=== PATIENT | female | born 1955 | race Caucasian/White ===

== ENCOUNTER 2020-03-26 11:48 | Emergency (ER) | payer MEDICARE ==
[~2020-03-26] VITALS: Ht 167.6 cm; Wt 63.5 kg
--- OUTSIDE RECORDS SUMMARY | ~2020-03-26 | XMS | Encounter Summary ---
Demographics + + + | Address | [address] | | | [place] [address] | + + + | Home Phone | | + + + | Preferred Language | Unknown | + + + | Marital Status | | + + + | Hindu Affiliation | 1041 | + + + | Race | or | + + + | Ethnic Group | Not or | + + + Author + + + | Author | [facility] | | | and [place] | + + + | Organization | [facility] | | | and [place] | + + + | Address | Unknown | + + + | Phone | Unavailable | + + + Support + + + + + | Name | Relationship | Address | Phone | + + + + + | Terrance Flores | ECON | [address] | | | | | [place] [address] | | + + + + + Care Team Providers + +------+ + | Care Storm Chaser Name | Role | Phone | + +------+ + | Paco Agarwal PA-C | PCP | | + +------+ + Encounter Details +--------+ + + + + | Date | Type | Department | Care Team | Description | +--------+ + + + + | 04/19/ | Abstract | [facility] | [address] | | | 2012 | | [facility] [address] | MD Rohan [address] | | | | | [place], | [address] [place] | | | | | [place] [address] | [place] [address] | | | | | [phone] | [phone] | | | | | | | | +--------+ + + + + Social History + + + +--------+ + | Tobacco Use | Types | Packs/Day | Years | Date | | | | | Used | | + + + +--------+ + | Former Smoker | Cigarettes | 0.5 | 40 | Quit: 09/22/2011 | + + + +--------+ + + +---+---+---+ | Smokeless Tobacco: | | | | | Never Used | | | | + +---+---+---+ + + +---------+ + | Alcohol Use | Drinks/Week | oz/Week | Comments | + + +---------+ + | No | | | quit 1989 | + + +---------+ + + + + | Sex Assigned at | Date Recorded | | | | + + + | Not on file | | + + + documented as of this encounter Plan of Treatment Not on filedocumented as of this encounter Procedures + +--------+ + + + | Procedure Name | Priori | Date/Time | Associated Diagnosis | Comments | | | ty | | | | + +--------+ + + + | CBC W/AUTO | Routin | 04/18/2013 | | Results for this | | DIFFERENTIAL | e | 3:14 PM | | procedure are in the | | | | PDT | | results section. | + +--------+ + + + | CMPI | Routin | 04/18/2013 | | Results for this | | | e | 3:12 PM | | procedure are in the | | | | PDT | | results section. | + +--------+ + + + | EXTERNAL LAB: CBC | Routin | 04/18/2013 | | Results for this | | | e | | | procedure are in the | | | | | | results section. | + +--------+ + + + | EXTERNAL LAB: AST | Routin | 04/18/2013 | | Results for this | | | e | | | procedure are in the | | | | | | results section. | + +--------+ + + + | EXTERNAL LAB: ALT | Routin | 04/18/2013 | | Results for this | | | e | | | procedure are in the | | | | | | results section. | + +--------+ + + + | EXTERNAL LAB: | Routin | 04/18/2013 | | Results for this | | TRIGLYCERIDES | e | | | procedure are in the | | | | | | results section. | + +--------+ + + + | EXTERNAL LAB: | Routin | 04/18/2013 | | Results for this | | CHOLESTEROL, HDL | e | | | procedure are in the | | | | | | results section. | + +--------+ + + + | EXTERNAL LAB: | Routin | 04/18/2013 | | Results for this | | CHOLESTEROL, TOTAL | e | | | procedure are in the | | | | | | results section. | + +--------+ + + + | EXTERNAL LAB: | Routin | 04/18/2013 | | Results for this | | CHOLESTEROL, LDL | e | | | procedure are in the | | | | | | results section. | + +--------+ + + + | EXTERNAL LAB: EGFR | Routin | 04/18/2013 | | Results for this | | | e | | | procedure are in the | | | | | | results section. | + +--------+ + + + | EXTERNAL LAB: | Routin | 04/18/2013 | | Results for this | | CREATININE | e | | | procedure are in the | | | | | | results section. | + +--------+ + + + | EXTERNAL LAB: | Routin | 04/18/2013 | | Results for this | | HEMOGLOBIN A1C | e | | | procedure are in the | | | | | | results section. | + +--------+ + + + documented in this encounter Results CBC w/ Auto Differential (04/18/2013 3:14 PM PDT) + +-------+ + + + | Component | Value | Ref Range | Performed | Pathologist | | | | | At | Signature | + +-------+ + + + | RBC | 4.74 | 10*6/uL | | | + +-------+ + + + | MCV | 89.0 | 80.0 - 98.0 fL | | | + +-------+ + + + | MCH | 29.8 | 26.0 - 33.0 pg | | | + +-------+ + + + | MCHC | 33.3 | 30.0 - 36.0 % | | | + +-------+ + + + | % Segmented | 45.0 | 40.0 - 80.0 % | | | | | | | | | | Neutrophils | | | | | + +-------+ + + + | % | 42.0 | 15.0 - 45.0 % | | | | Lymphocytes | | | | | + +-------+ + + + | % Monocytes | 8.0 | 0.0 - 12.0 % | | | + +-------+ + + + | % | 4.0 | 0.0 - 7.0 % | | | | Eosinophils | | | | | + +-------+ + + + | % Basophils | 1.0 | 1.0 % | | | + +-------+ + + + + + | Specimen | + + | Blood specimen | | (specimen) | + + CMP/ISTAT (04/18/2013 3:12 PM PDT) + +-------+ + + + | Component | Value | Ref Range | Performed | Pathologist | | | | | At | Signature | + +-------+ + + + | Na | 144 | mmol/L | | | + +-------+ + + + | K | 4.6 | mmol/L | | | + +-------+ + + + | Chloride | 106 | | | | + +-------+ + + + | CO2 | 26 | mmol/L | | | + +-------+ + + + | Anion Gap | 17 | mmol/L | | | + +-------+ + + + | Glucose | 113 | mg/dL | | | + +-------+ + + + | BUN | 24 | mg/dL | | | + +-------+ + + + | Bun/Creatin | 30.0 | | | | | ine | | | | | + +-------+ + + + | Alkaline | 94 | 35 - 115 U/L | | | | Phosphatase | | | | | + +-------+ + + + | Bilirubin | 0.6 | 0.1 - 1.5 mg/dL | | | | Total | | | | | + +-------+ + + + | Total | 7.2 | 6.1 - 8.4 g/dL | | | | Protein | | | | | + +-------+ + + + | Albumin | 4.1 | 3.5 - 5.0 g/dL | | | + +-------+ + + + | Calcium | 9.4 | mg/dL | | | + +-------+ + + + | VLDL | 23 | | | | | Cholesterol | | | | | | Mike | | | | | + +-------+ + + + + + | Specimen | + + | Blood specimen | | (specimen) | + + External Lab: CBC (04/18/2013) + +-------+ + + + | Component | Value | Ref Range | Performed | Pathologist | | | | | At | Signature | + +-------+ + + + | WBC, | 6.6 | 4.5 - 11 | | | | External | | | | | + +-------+ + + + | HGB, | 14.1 | 12.3 - 15.3 | | | | External | | | | | + +-------+ + + + | HCT, | 42 | 42 - 54 | | | | External | | | | | + +-------+ + + + | PLT, | 199 | 140 - 450 | | | | External | | | | | + +-------+ + + + + + | Resulting Agency Comment | + + | [facility] | + + External Lab: STEPHANIE (04/18/2013) + +-------+ + + + | Component | Value | Ref Range | Performed | Pathologist | | | | | At | Signature | + +-------+ + + + | AST, | 23 | 14 - 36 | | | | External | | | | | + +-------+ + + + + + | Specimen | + + | Blood specimen | | (specimen) | + + + + | Resulting Agency Comment | + + | [facility] | + + External Lab: ALT (04/18/2013) + +-------+ + + + | Component | Value | Ref Range | Performed | Pathologist | | | | | At | Signature | + +-------+ + + + | ALT, | 19 | 9 - 52 | | | | External | | | | | + +-------+ + + + + + | Specimen | + + | Blood specimen | | (specimen) | + + + + | Resulting Agency Comment | + + | [facility] | + + External Lab: Triglycerides (04/18/2013) + +-------+ + + + | Component | Value | Ref Range | Performed | Pathologist | | | | | At | Signature | + +-------+ + + + | Triglycerid | 117 | 0 - 150 | | | | es, | | | | | | External | | | | | + +-------+ + + + + + | Specimen | + + | Blood specimen | | (specimen) | + + + + | Resulting Agency Comment | + + | [facility] | + + External Lab: Cholesterol, HDL (04/18/2013) + +-------+ + + + | Component | Value | Ref Range | Performed | Pathologist | | | | | At | Signature | + +-------+ + + + | HDL | 41 | 40 - 60 | | | | Cholesterol | | | | | | , External | | | | | + +-------+ + + + + + | Specimen | + + | Blood specimen | | (specimen) | + + + + | Resulting Agency Comment | + + | [facility] | + + External Lab: Cholesterol, Total (04/18/2013) + +-------+ + + + | Component | Value | Ref Range | Performed | Pathologist | | | | | At | Signature | + +-------+ + + + | Cholesterol | 106 | 0 - 200 | | | | , Total, | | | | | | External | | | | | + +-------+ + + + + + | Specimen | + + | Blood specimen | | (specimen) | + + + + | Resulting Agency Comment | + + | [facility] | + + External Lab: Cholesterol, LDL (04/18/2013) + +-------+ + + + | Component | Value | Ref Range | Performed | Pathologist | | | | | At | Signature | + +-------+ + + + | LDL | 41 | | | | | Cholesterol | | | | | | , Direct, | | | | | | External | | | | | + +-------+ + + + + + | Specimen | + + | Blood specimen | | (specimen) | + + + + | Resulting Agency Comment | + + | [facility] | + + External Lab: eGFR (04/18/2013) + +-------+ + + + | Component | Value | Ref Range | Performed | Pathologist | | | | | At | Signature | + +-------+ + + + | eGFR, | 78 | 60 - 99,999 | | | | External | | | | | + +-------+ + + + | eGFR, | | | | | | | | | | | | Trinidadian, | | | | | | External | | | | | + +-------+ + + + + + | Specimen | + + | Blood specimen | | (specimen) | + + + + | Resulting Agency Comment | + + | [facility] | + + External Lab: Creatinine (04/18/2013) + +-------+ + + + | Component | Value | Ref Range | Performed | Pathologist | | | | | At | Signature | + +-------+ + + + | Creatinine, | 0.8 | 0.7 - 1.2 | | | | External | | | | | + +-------+ + + + + + | Specimen | + + | Blood specimen | | (specimen) | + + + + | Resulting Agency Comment | + + | [facility] | + + External Lab: Hemoglobin A1c (04/18/2013) + +-------+ + + + | Component | Value | Ref Range | Performed | Pathologist | | | | | At | Signature | + +-------+ + + + | Hemoglobin | 5.8 | 3 - 6 | | | | A1c, | | | | | | external | | | | | + +-------+ + + + + + | Specimen | + + | Blood specimen | | (specimen) | + + + + | Resulting Agency Comment | + + | [facility] | + + documented in this encounter Visit Diagnoses Not on filedocumented in this encounter"
--- OUTSIDE RECORDS SUMMARY | ~2020-03-26 | XMS | Encounter Summary ---
Demographics + + + | Address | [address] | | | [place] [address] | + + + | Home Phone | | + + + | Preferred Language | Unknown | + + + | Marital Status | | + + + | Caodaism Affiliation | 1041 | + + + | Race | or | + + + | Ethnic Group | Not or | + + + Author + + + | Author | [facility] | | | and [place] | + + + | Organization | [facility] | | | and [...] | | | | | [place] [address] | | + + + + + Care Team Providers + +------+ + | Care Culinary Internship Name | Role | Phone | + +------+ + | No, Unknownpcp | PCP | | + +------+ + Encounter Details +--------+ + + + + | Date | Type | Department | Care Team | Description | +--------+ + + + + | 05/31/ | Hospital [facility] | [place], | | | 2011 | Encounter | [facility] | MD [address] | | | | | [address]TRA [address] | [address] [place] | | | | | [place] | [address] | | | | | [address] | | | | | | [phone] | | | +--------+ + + + [...] + + documented as of this encounter Medications at Time of Discharge + + + +---------+ + + | Medication | Sig | Dispensed | Refills | Start | End Date | | | | | | Date | | + + + +---------+ + + | ALPRAZolam (XANAX) | Take 0.5 mg by mouth | | 0 | 04/03/20 | | | 0.5 mg tablet | nightly. | | | 12 | | + + + +---------+ + + | lisinopril | Take 20 mg by mouth | | 0 | 04/03/20 | | | (PRINIVIL, ZESTRIL) | 2 times daily. | | | 12 | | | 20 mg tablet | | | | | | + + + +---------+ + + | ALPRAZolam (XANAX) | Take 0.5 mg by mouth | | 0 | 04/03/20 | | | 0.5 mg tablet | nightly as needed. | | | 12 | 2 | + + + +---------+ + + | carvedilol (COREG) | Take 3.125 mg by | | 0 | | | | 3.125 mg tablet | mouth 2 times daily | | | | 3 | | | (with breakfast & | | | | | | | dinner). | | | | | + + + +---------+ + + | doxepin (SINEQUAN) | Take 150 mg by mouth | | 0 | 04/03/20 | | | 150 MG capsule | nightly. | | | 12 | 3 | + + + +---------+ + + | famotidine | Take 20 mg by mouth | | 0 | 04/09/20 | | | (PEPCID) 20 mg | as needed. NO LONGER | | | 12 | 5 | | tablet | TAKING. REMOVED PER | | | | | | | VERBAL ORDER OF | | | | | | | ALEJO. | | | | | + + + +---------+ + + | furosemide (LASIX) | Take 20 mg by mouth | | 0 | 04/05/20 | | | 20 mg tablet | Daily. | | | 12 | 3 | + + + +---------+ + + | metoprolol | take 1/2 tablet by | | 0 | 04/05/20 | | | tartrate (LOPRESSOR) | mouth twice daily | | | 12 | 2 | | 25 mg tablet | | | | | | + + + +---------+ + + | naproxen sodium | One - two tablets by | | 0 | 04/03/20 | | | (ALEVE) 220 MG | mouth daily as | | | 12 | 2 | | tablet | needed | | | | | + + + +---------+ + + | pravastatin | Take 1 tablet by | 30 | 11 | 05/08/20 | | | (PRAVACHOL) 10 mg | mouth Daily. | tablet | | 12 | 2 | | tablet | | | | | | + + + +---------+ + + documented as of this encounter Procedure Notes Gilbert Dinh MD - 05/28/2013 5:45 PM PSTHeart Rate 80 P-R Interval 148 QRSD Interval 106 QT Interval 388 QTC Interval 448 P Fitzhugh 87 QRS Fitzhugh 98 T Wave Fitzhugh -82 EKG Severity - ABNORMAL ECG - SINUS RHYTHM LEFT ATRIAL ABNORMALITY PROBABLE RVH W/ SECONDARY REPOL ABNORMALITY <Signature Filed in OV> 05/31/12 [id number] Gilbert Dinh MD RUSLAN FLORES ADM:05/31/12 [id number] REG CLI ELECTROCARDIOGRAM REPORT [id number] [facility] Gilbert Dinh MD E-Sign: [facility] THIS REPORT IS CONFIDENTIAL AND NOT TO BE RELEASED WITHOUT PROPER AUTHORIZATION.Electronica lly signed by Gilbert Dinh MD at 05/28/2013 5:38 PM PSTdocumented in this encounter Plan of Treatment Not on filedocumented as of this encounter Procedures + +--------+ + + + | Procedure Name | Priori | Date/Time | Associated Diagnosis | Comments | | | ty | | | | + +--------+ + + + | XR CHEST 2 VIEWS | | 05/31/2012 | | Results for this | | | | 3:26 PM | | procedure are in the | | | | PST | | results section. | + +--------+ + + + | ABO RH, CONFIRM | Routin | 05/31/2012 | | Results for this | | | e | 2:50 PM | | procedure are in the | | | | PST | | results section. | + +--------+ + + + | CULTURE IF | Routin | 05/31/2012 | | Results for this | | INDICATED,UA | e | 2:45 PM | | procedure are in the | | | | PST | | results section. | + +--------+ + + + | URINALYSIS WITH | Routin | 05/31/2012 | | Results for this | | MICROSCOPIC | e | 2:45 PM | | procedure are in the | | | | PST | | results section. | + +--------+ + + + | PTT | Routin | 05/31/2012 | | Results for this | | | e | 2:45 PM | | procedure are in the | | | | PST | | results section. | + +--------+ + + + | PROTIME INR | Routin | 05/31/2012 | | Results for this | | | e | 2:45 PM | | procedure are in the | | | | PST | | results section. | + +--------+ + + + | PLATELET FUNCTION | Routin | 05/31/2012 | | Results for this | | ASSAY | e | 2:45 PM | | procedure are in the | | | | PST | | results section. | + +--------+ + + + | CBC NO DIFFERENTIAL | Routin | 05/31/2012 | | Results for this | | | e | 2:45 PM | | procedure are in the | | | | PST | | results section. | + +--------+ + + + | TYPE AND SCREEN | Routin | 05/31/2012 | | Results for this | | | e | 2:45 PM | | procedure are in the | | | | PST | | results section. | + +--------+ + + + | HEMOGLOBIN A1C | Routin | 05/31/2012 | | Results for this | | | e | 2:45 PM | | procedure are in the | | | | PST | | results section. | + +--------+ + + + | HEPATIC FUNCTION | Routin | 05/31/2012 | | Results for this | | PANEL | e | 2:45 PM | | procedure are in the | | | | PST | | results section. | + +--------+ + + + | BASIC METABOLIC | Routin | 05/31/2012 | | Results for this | | PANEL | e | 2:45 PM | | procedure are in the | | | | PST | | results section. | + +--------+ + + + documented in this encounter Results XR Chest 2 VW (05/31/2012 3:26 PM PST) + + | Specimen | + + | | + + + + + | Narrative | Performed At | + + + | Exam Performed Location: [facility] | MISCELANIOUS | | TWO VIEWS CLINICAL INFORMATION: Pre operative chest xray for open | LAB | | heart surgery on June 01, 2012 at [facility]. | | | COMPARISON: None. FINDINGS: Cardiomegaly and borderline | | | pulmonary venous hypertension. No interstitial edema. Small right | | | pleural effusion. Scant right basilar atelectasis, doubt | | | infiltrate. Left lung clear. Hilar and mediastinal silhouettes | | | unremarkable. No significant bony abnormality. IMPRESSION: | | | 1. Cardiomegaly without CHF or volume overload. 2. Small right | | | pleural effusion and right basilar atelectasis, doubt infiltrate. | | | Consider follow-up. S: SQ ([id number]) Signed by: AVILA BARRIENTOS, | | | MD | | + + + + + | Procedure Note | + + | Bayron, Rad Conversion - 05/16/2013 3:53 AM PDT Exam Performed Location: [facility] | | at [facility] TWO VIEWSCLINICAL INFORMATION:Pre operative chest xray for open | | heart surgery on June 01t [facility] | | [place].COMPARISON:None.FINDINGS:Cardiomegaly and borderline pulmonary venous | | hypertension. Nointerstitial edema. Small right pleural effusion. Scant rightbasilar | | atelectasis, doubt infiltrate. Left lung clear. Hilar andmediastinal silhouettes | | unremarkable. No significant bonyabnormality.IMPRESSION:1. Cardiomegaly without CHF or | | volume overload.2. Small right pleural effusion and right basilar atelectasis,doubt | | infiltrate. Consider follow-up.S: SQ ([id number]) Signed by: AVILA BARRIENTOS MD | |None. | | | |FINDINGS: | |Cardiomegaly and borderline pulmonary venous hypertension. No | |interstitial edema. Small right pleural effusion. Scant right | |basilar atelectasis, doubt infiltrate. Left lung clear. Hilar and | |mediastinal silhouettes unremarkable. No significant bony | |abnormality. | | | |IMPRESSION: | | | |1. Cardiomegaly without CHF or volume overload. | |2. Small right pleural effusion and right basilar atelectasis, | |doubt infiltrate. Consider follow-up. | | | | | |S: SQ ([id number]) Signed by: AVILA BARRIENTOS MD | + + + +---------+ + + | Performing | Address | City/State/Zipcode | Phone Number | | Organization | | | | + +---------+ + + | [facility] | | | [phone] | + +---------+ + + | MISC[facility] LAB | | | [phone] | + +---------+ + + ABO Rh, Confirm (05/31/2012 2:50 PM PST) + +-------+ + + + | Component | Value | Ref Range | Performed | Pathologist | | | | | At | Signature | + +-------+ + + + | ABO Rh | Done | | [facility] | [facility] | | | | | | MEDICAL | | | | | | CENTER | | | | | | LABORATORY | | + +-------+ + + + + + | Specimen | + + | | + + + + + + + | Performing | Address | City/State/Zipcode | Phone Number | | Organization | | | | + + + + + | [facility] | [address] | [place] [address] | | | [facility] | | | | | LABORATORY | | | | + + + + + | [facility] | | | | | [facility] | | | | | LABORATORY | | | | + + + + + Urinalysis With Microscopic (05/31/2012 2:45 PM PST) + + + + + + | Component | Value | Ref Range | Performed | Pathologist | | | | | At | Signature | + + + + + + | Color, | Yellow | | [facility] | | | Urine | | | [facility] | | | | | | HEART | | | | | | MEDICAL | | | | | | CENTER | | | | | | LABORATORY | | + + + + + + | Clarity, | Clear | | [facility] | | | Urine | | | [facility] | | | | | | HEART | | | | | | MEDICAL | | | | | | CENTER | | | | | | LABORATORY | | + + + + + + | Glucose, | Negative | Negative mg/dL | [facility] | | | Urine | | | [facility] | | | | | | HEART | | | | | | MEDICAL | | | | | | CENTER | | | | | | LABORATORY | | + + + + + + | Bilirubin, | Negative | Negative | [facility] | | | Urine | | | [facility]CR[facility] | | | | | | HEART | | | | | | MEDICAL | | | | | | CENTER | | | | | | LABORATORY | | + + + + + + | Ketones, | Negative | Negative mg/dL | [facility] | | | Urine | | | [facility] | | | | | | HEART | | | | | | MEDICAL | | | | | | CENTER | | | | | | LABORATORY | | + + + + + + | Specific | 1.010 | 1.001 - 1.030 | [facility] | | | [place] | | | [facility] | | | | | | HEART | | | | | | MEDICAL | | | | | | CENTER | | | | | | LABORATORY | | + + + + + + | pH, Urine | 5.5 | 5.0 - 7.5 | [facility] | | | | | | [facility] | | | | | | HEART | | | | | | MEDICAL | | | | | | CENTER | | | | | | LABORATORY | | + + + + + + | Protein, | Negative | Negative mg/dL | [facility] | | | Urine | | | [facility] | | | | | | HEART | | | | | | MEDICAL | | | | | | CENTER | | | | | | LABORATORY | | + + + + + + | Urobilinoge | <2.0 | <2.0 mg/dL | [facility] | | | n, Urine | | | [facility] | | | | | | HEART | | | | | | MEDICAL | | | | | | CENTER | | | | | | LABORATORY | | + + + + + + | Nitrite, | Negative | Negative | [facility] | | | Urine | | | [facility]CR[facility] | | | | | | HEART | | | | | | MEDICAL | | | | | | CENTER | | | | | | LABORATORY | | + + + + + + | Blood, | Negative | Negative | [facility] | | | Urine | | | [facility]CR[facility] | | | | | | HEART | | | | | | MEDICAL | | | | | | CENTER | | | | | | LABORATORY | | + + + + + + | Leukocyte | Trace (A) | Negative | [facility] | | | Esterase, | | | [facility] | | | Urine | | | HEART | | | | | | MEDICAL | | | | | | CENTER | | | | | | LABORATORY | | + + + + + + | White Blood | 6 (H) | <6 /hpf | [facility] | | | Cells, | | | [facility]CR[facility] | | | Urine | | | HEART | | | | | | MEDICAL | | | | | | CENTER | | | | | | LABORATORY | | + + + + + + | Red Blood | <1 | <6 /hpf | [facility] | | | Cells, | | | [facility] | | | Urine | | | HEART | | | | | | MEDICAL | | | | | | CENTER | | | | | | LABORATORY | | + + + + + + | Bacteria, | None seen | None seen /hpf | [facility] | | | Urine | | | [facility] | | | | | | HEART | | | | | | MEDICAL | | | | | | CENTER | | | | | | LABORATORY | | + + + + + + | Squamous | Not clinically | /lpf | [facility] | | | Epithelial | significant.Comment: | | [facility] | | | Cells, | Healthy individuals show | | HEART | | | Urine | up to FEW squamous | | MEDICAL | | | | epithelial cells in the | | CENTER | | | | urine, depending on | | LABORATORY | | | | collection method. | | | | + + + + + + | Mucus, | Present (A) | None seen /lpf | [facility] | | | Urine | | | [facility]CR[facility] | | | | | | HEART | | | | | | MEDICAL | | | | | | CENTER | | | | | | LABORATORY | | + + + + + + | Hyaline | Few (A) | None seen /lpf | [facility] | | | Casts, | | | [facility]CR[facility] | | | Urine | | | HEART | | | | | | MEDICAL | | | | | | CENTER | | | | | | LABORATORY | | + + + + + + + + | Specimen | + + | | + + + + + + + | Performing | Address | City/State/Zipcode | Phone Number | | Organization | | | | + + + + + | [facility] | [address] [place] | [place] [address] | | | [facility] | | | | | LABORATORY | | | | + + + + + | [facility] | | | | | [facility] | | | | | LABORATORY | | | | + + + + + Cul Pedro CURIEL (05/31/2012 2:45 PM PST) + + + + + + | Component | Value | Ref Range | Performed | Pathologist | | | | | At | Signature | + + + + + + | Culture | Culture Set Up (A) | Culture not | [facility] | | | Indicated | | indicated | [facility] | | | | | | HEART | | | | | | MEDICAL | | | | | | CENTER | | | | | | LABORATORY | | + + + + + + + + | Specimen | + + | | + + + + + + + | Performing | Address | City/State/Zipcode | Phone Number | | Organization | | | | + + + + + | [facility] | [address] | [place] [address] | | | [facility] | | | | | LABORATORY | | | | + + + + + | [facility] | | | | | [facility] | | | | | LABORATORY | | | | + + + + + Type and Screen (05/31/2012 2:45 PM PST) + +-------+ + + + | Component | Value | Ref Range | Performed | Pathologist | | | | | At | Signature | + +-------+ + + + | EXTRA BLOOD | Done | | [facility] | | | BANK TUBE | | | [facility] | | | | | | HEART | | | | | | MEDICAL | | | | | | CENTER | | | | | | LABORATORY | | + +-------+ + + + + + | Specimen | + + | | + + + + + + + | Performing | Address | City/State/Zipcode | Phone Number | | Organization | | | | + + + + + | [facility] | [address] | [place] [address] | | | [facility] | | | | | LABORATORY | | | | + + + + + | [facility] | | | | | [facility] | | | | | LABORATORY | | | | + + + + + PTT (05/31/2012 2:45 PM PST) + + + + + + | Component | Value | Ref Range | Performed | Pathologist | | | | | At | Signature | + + + + + + | aPTT, | 35Comment: Deep venous | 26 - 36 sec | [facility] | | | Patient | thrombosis or pulmonary | | [facility] | | | | embolism therapeutic | | HEART | | | | heparin levels of 0.3 to | | MEDICAL | | | | 0.7 Units/mL anti | | CENTER | | | | FactorXa levels usually | | LABORATORY | | | | correspond to an aPTT of | | | | | | 60 to 85 seconds. | | | | | | Acute cardiac syndrome | | | | | | therapeutic range based | | | | | | on heparin levels of | | | | | | 0.2 to 0.5 usually | | | | | | correspond to an aPTT of | | | | | | 55 to 75 seconds. | | | | + + + + + + | aPTT, Pop | 31 | sec | [facility] | | | Mean | | | [facility] | | | | | | HEART | | | | | | MEDICAL | | | | | | CENTER | | | | | | LABORATORY | | + + + + + + + + | Specimen | + + | | + + + + + + + | Performing | Address | City/State/Zipcode | Phone Number | | Organization | | | | + + + + + | [facility] | [address] | [place] [address] | | | [facility] | | | | | LABORATORY | | | | + + + + + | [facility] | | | | | [facility] | | | | | LABORATORY | | | | + + + + + Protime INR (05/31/2012 2:45 PM PST) + + + + + + | Component | Value | Ref Range | Performed | Pathologist | | | | | At | Signature | + + + + + + | Prothrombin | 16.1 (H) | 10.9 - 14.8 sec | [facility] | | | Time | | | [facility] | | | | | | HEART | | | | | | MEDICAL | | | | | | CENTER | | | | | | LABORATORY | | + + + + + + | INR | 1.3 (H)Comment: Usual | 0.9 - 1.2 | [facility] | | | | oral anticoagulant | | [facility] | | | | range: 2.0 to 3.0 | | HEART | | | | High level oral | | MEDICAL | | | | anticoagulant range: 2.5 | | CENTER | | | | to 3.5 | | LABORATORY | | + + + + + + + + | Specimen | + + | | + + + + + + + | Performing | Address | City/State/Zipcode | Phone Number | | Organization | | | | + + + + + | [facility] | [address] | [place] [address] | | | [facility] | | | | | LABORATORY | | | | + + + + + | [facility] | | | | | [facility] | | | | | LABORATORY | | | | + + + + + Platelet Function Assay (05/31/2012 2:45 PM PST) + + + + + + | Component | Value | Ref Range | Performed | Pathologist | | | | | At | Signature | + + + + + + | Collagen/Ep | 189 | 82 - 205 | [facility] | | | inephrine | | seconds | [facility] | | | Interp | | | HEART | | | | | | MEDICAL | | | | | | CENTER | | | | | | LABORATORY | | + + + + + + | COLLAGEN/AD | 153 (H)Comment: Closure | 58 - 122 | [facility] | | | P | times are within or | seconds | [facility] | | | INTERPRETAT | below the reference | | HEART | | | ION | ranges for collagen Epi, | | MEDICAL | | | | but prolonged for | | CENTER | | | | collagen ADP. | | LABORATORY | | + + + + + + + + | Specimen | + + | | + + + + + + + | Performing | Address | City/State/Zipcode | Phone Number | | Organization | | | | + + + + + | [facility] | [address] | [place] [address] | | | [facility] | | | | | LABORATORY | | | | + + + + + | [facility] | | | | | [facility] | | | | | LABORATORY | | | | + + + + + Hepatic Function Panel (05/31/2012 2:45 PM PST) + +---------+ + + + | Component | Value | Ref Range | Performed | Pathologist | | | | | At | Signature | + +---------+ + + + | Total | 6.8 | 6.1 - 8.4 g/dL | [facility] | | | Protein | | | [facility] | | | | | | HEART | | | | | | MEDICAL | | | | | | CENTER | | | | | | LABORATORY | | + +---------+ + + + | Albumin | 3.8 | 3.5 - 5.0 g/dL | [facility] | | | | | | [facility] | | | | | | HEART | | | | | | MEDICAL | | | | | | CENTER | | | | | | LABORATORY | | + +---------+ + + + | Bilirubin | 1.7 (H) | 0.1 - 1.5 mg/dL | [facility] | | | Total | | | [facility] | | | | | | HEART | | | | | | MEDICAL | | | | | | CENTER | | | | | | LABORATORY | | + +---------+ + + + | Bilirubin | 0.6 (H) | 0.0 - 0.4 mg/dL | [facility] | | | Direct | | | [facility] | | | | | | HEART | | | | | | MEDICAL | | | | | | CENTER | | | | | | LABORATORY | | + +---------+ + + + | Alkaline | 72 | 35 - 115 U/L | [facility] | | | Phosphatase | | | [facility] | | | | | | HEART | | | | | | MEDICAL | | | | | | CENTER | | | | | | LABORATORY | | + +---------+ + + + | AST | 21 | 10 - 45 U/L | [facility] | | | | | | [facility] | | | | | | HEART | | | | | | MEDICAL | | | | | | CENTER | | | | | | LABORATORY | | + +---------+ + + + | ALT | 12 | 10 - 65 U/L | [facility] | | | | | | [facility] | | | | | | HEART | | | | | | MEDICAL | | | | | | CENTER | | | | | | LABORATORY | | + +---------+ + + + + + | Specimen | + + | | + + + + + + + | Performing | Address | City/State/Zipcode | Phone Number | | Organization | | | | + + + + + | [facility] | [address] | [place] [address] | | | [facility] | | | | | LABORATORY | | | | + + + + + | [facility] | | | | | [facility] | | | | | LABORATORY | | | | + + + + + Hemoglobin A1C (05/31/2012 2:45 PM PST) + + + + + + | Component | Value | Ref Range | Performed | Pathologist | | | | | At | Signature | + + + + + + | Hemoglobin | 5.7 (H)Comment: A1c | 4.0 - 5.6 % | [facility] | | | A1c | values of 5.7-6.4% | | [facility] | | | | indicate an increased | | HEART | | | | risk for diabetes | | MEDICAL | | | | mellitus. A1c values | | CENTER | | | | of greater than or equal | | LABORATORY | | | | to 6.5% are diagnostic | | | | | | of diabetes mellitus.The | | | | | | ADA recommends A1c | | | | | | values of less than 7% | | | | | | as the goal for diabetic | | | | | | therapy.The boronate | | | | | | affinity Hb A1c testing | | | | | | method is certified | | | | | | traceable to the | | | | | | Diabetes Control and | | | | | | Complications Trial | | | | | | (DCCT) reference method, | | | | | | and provides accurate | | | | | | analytical results in | | | | | | the presence of nearly | | | | | | all hemoglobin variants. | | | | | | Hb F higher than 15% | | | | | | of total Hb may yield | | | | | | falsely low | | | | | | results.Conditions that | | | | | | shorten red cell | | | | | | survival, such as the | | | | | | presence of unstable | | | | | | hemoglobins (e.g. Hb SS, | | | | | | Hb CC, and Hb SC), or | | | | | | other causes of | | | | | | hemolytic anemia may | | | | | | yield falsely low | | | | | | results. Patients that | | | | | | are post-splenectomy or | | | | | | that have conditions | | | | | | such as polycythemia or | | | | | | iron deficiency anemia | | | | | | may yield falsely high | | | | | | results.NOTE NEW | | | | | | REFERENCE RANGE | | | | + + + + + + | Estimated | 117Comment: The ADA | <154 mg/dL | [facility] | | | Average | recommends an Estimated | | [facility] | | | Glucose | Average Glucose (eAG) | | HEART | | | | result of LT 154 mg/dL | | MEDICAL | | | | to be the goal of | | CENTER | | | | diabetic therapy. | | LABORATORY | | | | Estimated Average | | | | | | Glucose is calculated | | | | | | from the Hgb A1c by use | | | | | | of the ADA recommended | | | | | | formula. | | | | + + + + + + + + | Specimen | + + | | + + + + + + + | Performing | Address | City/State/Zipcode | Phone Number | | Organization | | | | + + + + + | [facility] | [address] | [place] [address] | | | [facility] | | | | | LABORATORY | | | | + + + + + | [facility] | | | | | [facility] | | | | | LABORATORY | | | | + + + + + Basic Metabolic Panel (05/31/2012 2:45 PM PST) + + + + + + | Component | Value | Ref Range | Performed | Pathologist | | | | | At | Signature | + + + + + + | Na | 142 | 135 - 145 | [facility] | | | | | mmol/L | [facility] | | | | | | HEART | | | | | | MEDICAL | | | | | | CENTER | | | | | | LABORATORY | | + + + + + + | K | 3.6 | 3.5 - 5.0 | [facility] | | | | | mmol/L | [facility] | | | | | | HEART | | | | | | MEDICAL | | | | | | CENTER | | | | | | LABORATORY | | + + + + + + | Cl | 106 | 99 - 109 mmol/L | [facility] | | | | | | [facility] | | | | | | HEART | | | | | | MEDICAL | | | | | | CENTER | | | | | | LABORATORY | | + + + + + + | CO2 | 31 | 21 - 28 mmol/L | [facility] | | | | | | [facility] | | | | | | HEART | | | | | | MEDICAL | | | | | | CENTER | | | | | | LABORATORY | | + + + + + + | Glucose | 84Comment: Dominican | 65 - 99 mg/dL | [facility] | | | | Diabetes Association | | [facility] | | | | diagnostic categories | | HEART | | | | for non adults: | | MEDICAL | | | | Impaired fasting | | CENTER | | | | glucose 100 to 125 | | LABORATORY | | | | mg/dL. A fasting | | | | | | glucose result of 126 | | | | | | mg/dL or greater | | | | | | indicates diabetes if | | | | | | the abnormality is | | | | | | confirmed on a | | | | | | subsequent day. A | | | | | | random glucose result of | | | | | | greater than 200 mg/dL | | | | | | indicates diabetes if | | | | | | the abnormality is | | | | | | confirmed on a | | | | | | subsequent day. | | | | + + + + + + | BUN | 21 | 8 - 25 mg/dL | [facility] | | | | | | [facility] | | | | | | [facility] | | | | | | MEDICAL | | | | | | CENTER | | | | | | LABORATORY | | + + + + + + | Creatinine | 0.88Comment: IDMS | 0.50 - 1.00 | [facility] | | | | traceable creatinine | mg/dL | [facility] | | | | | | [facility] | | | | | | MEDICAL | | | | | | CENTER | | | | | | LABORATORY | | + + + + + + | Calcium | 9.1 | 8.5 - 10.2 | [facility] | | | | | mg/dL | [facility] | | | | | | [facility] | | | | | | MEDICAL | | | | | | CENTER | | | | | | LABORATORY | | + + + + + + | Anion Gap | 5 | 5 - 16 mmol/L | [facility] | | | | | | [facility] | | | | | | [facility] | | | | | | MEDICAL | | | | | | CENTER | | | | | | LABORATORY | | + + + + + + | Estimated | >60Comment: GFR <60: | >60 | [facility] | | | GFR | Chronic kidney disease, | ml/min/1.73m2 | [facility] | | | | if found over a 3 month | | HEART | | | | period.GFR <15: Kidney | | MEDICAL | | | | failure.For | | CENTER | | | | Americans, multiply the | | LABORATORY | | | | calculated GFR by 1.210 | | | | + + + + + + + + | Specimen | + + | | + + + + + + + | Performing | Address | City/State/Zipcode | Phone Number | | Organization | | | | + + + + + | [facility] | [address] | [place] [address] | | | [facility] | | | | | LABORATORY | | | | + + + + + | [facility] | | | | | [facility] | | | | | LABORATORY | | | | + + + + + CBC no Differential (05/31/2012 2:45 PM PST) + + + + + + | Component | Value | Ref Range | Performed | Pathologist | | | | | At | Signature | + + + + + + | White Blood | 6.5 | 3.8 - 11.0 K/uL | [facility] | | | Cells | | | [facility] | | | | | | [facility] | | | | | | [facility] | | | | | | [facility]ENTER | | | | | | LABORATORY | | + + + + + + | Red Blood | 5.60 (H) | 3.70 - 5.10 | [facility] | | | Cells | | M/uL | [facility] | | | | | | [facility] | | | | | | MED[facility] | | | | | | CENTER | | | | | | LABORATORY | | + + + + + + | Hemoglobin | 14.1 | 11.3 - 15.5 | [facility] | | | | | g/dL | [facility] | | | | | | [facility] | | | | | | [facility] | | | | | | CENTER | | | | | | LABORATORY | | + + + + + + | Hematocrit | 44.5 | 34.0 - 46.0 % | [facility] | | | | | | [facility] | | | | | [facility] | | | | | | [facility] | | | | | | CENTER | | | | | | LABORATORY | | + + + + + + | MCV | 79.6 (L) | 80.0 - 100.0 fL | [facility] | | | | | | [facility] | | | | | [facility] | | | | | | [facility] | | | | | | CENTER | | | | | | LABORATORY | | + + + + + + | MCH | 25.2 (L) | 27.0 - 34.0 pg | [facility] | | | | | | [facility] | | | | | [facility] | | | | | | [facility] | | | | | | CENTER | | | | | | LABORATORY | | + + + + + + | MCHC | 31.7 (L) | 32.0 - 35.5 | [facility] | | | | | g/dL | [facility] | | | | | | [facility] | | | | | | [facility] | | | | | | CENTER | | | | | | LABORATORY | | + + + + + + | RDW-CV | 24.9 (H) | 11.0 - 15.5 % | [facility] | | | | | | [facility] | | | | | [facility] | | | | | | [facility] | | | | | | CENTER | | | | | | LABORATORY | | + + + + + + | Platelet | 128 (L) | 150 - 400 K/uL | [facility] | | | Count | | | [facility] | | | | | | [facility] | | | | | | MEDICAL | | | | | | CENTER | | | | | | LABORATORY | | + + + + + + + + | Specimen | + + | | + + + + + + + | Performing | Address | City/State/Zipcode | Phone Number | | Organization | | | | + + + + + | [facility] | [address] | [place] [address] | | | [facility] | | | | | LABORATORY | | | | + + + + + | [facility] | | | | | [facility] | | | | | LABORATORY | | | | + + + + + documented in this encounter Visit Diagnoses Not on filedocumented in this encounter"
--- OUTSIDE RECORDS SUMMARY | ~2020-03-26 | XMS | Encounter Summary ---
Demographics + + + | Address | [address] | | | [place] [address] | + + + | Home Phone | | + + + | Preferred Language | Unknown | + + + | Marital Status | | + + + | Buddhism Affiliation | 1041 | + + + | Race | or | + + + | Ethnic Group | Not or | + + + Author + + + | Author | [facility] | | | and [place] | + + + | Organization | [facility] | | | and [...] | | | | | [place] [address] | | + + + + + Care Team Providers + +------+ + | Care Greens Laborer Name | Role | Phone | + +------+ + | No, Unknownpcp | PCP | | + +------+ + Encounter Details +--------+ + + + + | Date | Type | Department | Care Team | Description | +--------+ + + + + | 05/09/ | Orders Only | [facility] [place] | Sahara Malcolm, | | | 2011 | | CARDIOLOGY [address] | RN | | | | | [place], | | | | | | [place] [address] | | | | | | [phone] | | | +--------+ + + + [...] Not on filedocumented as of this encounter Visit Diagnoses Not on filedocumented in this encounter"
--- OUTSIDE RECORDS SUMMARY | ~2020-03-26 | XMS | Encounter Summary ---
Demographics + + + | Address | [address] | | | [place] [address] | + + + | Home Phone | | + + + | Preferred Language | Unknown | + + + | Marital Status | | + + + | Gnosticism Affiliation | 1041 | + + + | Race | or | + + + | Ethnic Group | Not or | + + + Author + + + | Author | [facility] | | | and [place] | + + + | Organization | [facility] | | | [...] | | | | | [place] [address] | | + + + + + Care Team Providers + +------+ + | Care Forest Management Teacher Name | Role | Phone | + +------+ + | Paco Agarwal PA-C | PCP | | + +------+ + Reason for Referral Diagnostic/Screening (Routine) +--------+--------+ + + + + | Status | Reason | Specialty | Diagnoses / | Referred By | Referred To | | | | | Procedures | Contact | Contact | +--------+--------+ + + + + | Closed | | Radiology | Diagnoses | Max[place], | [facility] | | | | | Status post | Lane | [address] | | | | | mitral | MD Rohan | [place], | | | | | valve repair | [address] | [place] | | | | | Coronary | St [place] | [address] | | | | | artery | [place], [place] | Phone: | | | | | disease | [address] | [phone] | | | | | involving | Phone: | Fax: | | | | | [place] | [phone] | [phone] | | | | | coronary | Fax: | | | | | | artery | [phone] | | | | | | without | | | | | | | angina | | | | | | | pectoris | | | | | | | Procedures | | | | | | | ECHO | | | | | | | Complete [place] | | | | | | | ECHO HEART | | | | | | | XTHORACIC,CO | | | | | | | MPLETE W | | | | | | | DOPPLER [place] | | | | | | | ECHO HEART | | | | | | | XTHORACIC,CO | | | | | | | MPLETE, W/O | | | | | | | DOPPLER | | | +--------+--------+ + + + + Reason for Visit + + + | Reason | Comments | + + + | Coronary Artery | One year follow up | | Disease | | + + + | Hypertension | | + + + Encounter Details +--------+---------+ + + + | Date | Type | Department | Care Team | Description | +--------+---------+ + + + | 01/27/ | Office | [facility] | Lane Moyer | Coronary artery | | 2015 | Visit | CARDIOLOGY [address] | MD Rohan [address] | disease involving | | | | [address] [place], | [address] [place] | [place] coronary | | | | [place] [address] | [place] [address] | artery without | | | | [phone] | [phone] | angina pectoris | | | | | | (Primary Dx); | | | | | | Shortness of breath; | | | | | | Status post mitral | | | | | | valve repair; | | | | | | Tobacco use disorder | +--------+---------+ + + + Social History + + + +--------+------+ | Tobacco Use | Types | Packs/Day | Years | Date | | | | | Used | | + + + +--------+------+ | Current Every Day | Cigarettes | 0.5 | 42 | | | Smoker | | | | | + + + +--------+------+ + +---+---+---+ | Smokeless Tobacco: | | [...] + + documented as of this encounter Last Filed Vital Signs + + + + + | Vital Sign | Reading | Time Taken | Comments | + + + + + | Blood Pressure | 144/82 | 01/27/2015 1:25 PM | [place] | | | | PDT | | + + + + + | Pulse | 78 | 01/27/2015 1:25 PM | regular | | | | PDT | | + + + + + | Temperature | - | - | | + + + + + | Respiratory Rate | 14 | 01/27/2015 1:25 PM | | | | | PDT | | + + + + + | Oxygen Saturation | - | - | | + + + + + | Inhaled Oxygen | - | - | | | Concentration | | | | + + + + + | Weight | 62.6 kg (138 lb) | 01/27/2015 1:25 PM | | | | | PDT | | + + + + + | Height | 170.2 cm (5' 7") | 01/27/2015 1:25 PM | | | | | PDT | | + + + + + | Body Mass Index | 21.61 | 01/27/2015 1:25 PM | | | | | PDT | | + + + + + documented in this encounter Progress Notes Lane Moyer MD - 01/27/2015 1:27 PM PDTFormatting of this note might be differe nt from the original. Subjective: Patient ID: Ivanna Flores is a 59 y.o. female. Hypertension Associated symptoms include shortness of breath. Patient is a 59-year-old female with history of severe mitral regurgitation and underlying CAD, followed by CABG X4 with ALMENDAREZ to diagonal, SVG sequentially to OM1 and OM 2, and SVG to PDA, as well as mitral valve posterior leaflet reconstruction and ring repair, with endosco pic vein harvest, here for followup visit. Unfortunately the patient continues to smoke, still at one pack per day or more, primarily due to persistent anxiety. She describes ongoing psychosocial stressors including recent im prisonment of her son. She has had good healing of her sternotomy wound and has had no cons titutional symptoms. She feels that her exertional capacity is improved. Preoperatively, left heart catheterization and coronary angiography had revealed underlying multivessel CAD and confirmed severe MR. She had had dyspnea on exertion and lower extremit y edema preoperatively both of which have completely resolved. In fact she states that she h as lost approximately 20 pounds since the surgery. She has had good healing of her sternotom y wound has had no constitutional symptoms. She denies any bowel problems or changes in her bowel habits, and indeed she has been experiencing increased appetite. Past Medical History Diagnosis Date Hypertension 04/03/2012 MITRAL REGURGITATION, SEVERE 04/03/2012 TRICUSPID REGURGITATION, MILD 04/03/2012 DYSPNEA 04/03/2012 Renal failure, acute (HCC) 04/03/2012 Anxiety 04/03/2012 Depression 04/03/2012 Depression 04/03/2012 Panic attack 04/03/2012 Tobacco abuse 04/03/2012 Murmur 04/03/2012 Arthritis, rheumatoid (HCC) 04/03/2012 Reactive airway disease 04/03/2012 DIABETES MELLITUS, BORDERLINE 04/03/2012 Hx of cervical cancer 08/2013 Patient Active Problem List Diagnosis Date Noted POA Murmur 04/03/2012 Unknown Priority: High Atrial flutter 12/26/2013 Unknown CAD (coronary artery disease) 05/07/2012 Unknown DYSPNEA 04/03/2012 Unknown HYPERTENSION 04/03/2012 Unknown RENAL FAILURE, ACUTE 04/03/2012 Unknown ANXIETY 04/03/2012 Unknown DEPRESSION 04/03/2012 Unknown PANIC ATTACK 04/03/2012 Unknown TOBACCO ABUSE 04/03/2012 Unknown ARTHRITIS, RHEUMATOID 04/03/2012 Unknown REACTIVE AIRWAY DISEASE 04/03/2012 Unknown DIABETES MELLITUS, BORDERLINE 04/03/2012 Unknown MITRAL REGURGITATION, SEVERE 04/03/2012 Unknown TRICUSPID REGURGITATION, MILD 04/03/2012 Unknown Past Surgical History Procedure Laterality Date Tonsillectomy Tubal ligation Cholecystectomy 2011 Cervix biopsy 09/06 Cervix removal 09/06 Patient has had a normal pap since Family History Problem Relation Age of Onset Cervical cancer Maternal Grandmother 46 Stroke Mother 63 History Social History Marital Status: Spouse Name: Terrance Number of Children: 3 Years of Education: N/A 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 amLODIPine (NORVASC) 5 mg tablet Take 2.5 mg by mouth 2 times daily. aspirin 81 MG tablet Take 81 mg by mouth Daily. doxepin (SINEQUAN) 50 mg capsule Take 50 mg by mouth 3 times daily. furosemide (LASIX) 20 mg tablet Take 1 tablet by mouth Daily. 30 tablet 6 lisinopril (PRINIVIL, ZESTRIL) 20 mg tablet Take 20 mg by mouth 2 times daily. potassium chloride SA (K-DUR,KLOR-CON) 10 MEQ tablet Take 10 mEq by mouth Daily. SENNOSIDES-DOCUSATE SODIUM PO Take 100 mg by mouth Daily. simvastatin (ZOCOR) 20 mg tablet Take 1 tablet by mouth nightly. 30 tablet 6 No current facility-administered medications on file prior to visit. Allergies Allergen Reactions Iodinated Diagnostic Agents Convulsions Iodine Rash Penicillins Hives Review of Systems Respiratory: Positive for shortness of breath. Cardiovascular: Positive for leg swelling. All other systems reviewed and are negative. BP 144/82 mmHg | Pulse 78 | Resp 14 | Ht 1.702 m (5' 7") | Wt 62.596 kg (138 lb) | BMI 21.6 1 kg/m2 Objective: Physical Exam Constitutional: She is oriented to person, place, and time. She appears well-developed and well-nourished. HENT: Head: Normocephalic and atraumatic. Eyes: Pupils are equal, round, and reactive to light. Neck: Neck supple. No JVD present. No thyromegaly present. Cardiovascular: Normal rate, regular rhythm, S1 normal, S2 normal, intact distal pulses and normal pulses. PMI is not displaced. Exam reveals no S3, no S4 and no friction rub. Murmur heard. Systolic murmur is present with a grade of 4/6 Holosystolic murmur is present. 1-2+ bilateral lower extremity edema noted. Pulmonary/Chest: Effort normal and breath sounds normal. No accessory muscle usage. No resp iratory distress. She exhibits no tenderness. Abdominal: Soft. Normal appearance and bowel sounds are normal. She exhibits no distension and no abdominal bruit. There is no hepatosplenomegaly. There is no tenderness. Musculoskeletal: Normal range of motion. Lymphadenopathy: She has no cervical adenopathy. Neurological: She is alert and oriented to person, place, and time. Skin: Skin is warm and dry. No rash noted. Moderate sized ecchymotic area noted over the anterior right upper thigh without any fluctu ance or warmth. No audible bruits or abnormal pulsations. Psychiatric: She has a normal mood and affect. Her behavior is normal. Vitals reviewed. The EKG today shows normal sinus rhythm, poor RWP, lateral T wave abn. I personally reviewed and interpreted the Echo images of 04/05/2012. Nl LVEF, severe MR, s mall pericardial effusion. Left heart catheterization and coronary angiography reviewed by me May 01, 2012 notable for diffusely diseased RCA with left to right collateral flow, and flow limiting lesions in first diagonal, and proximal LCx. LVEF 55-60% with basal inferior akinesis and 3+ MR. Echocardiogram performed in [facility] notable for moderate septal hypert rophy, inferior thinning and akinesis, LVEF 55-60%, moderate LAE,, trace to mild MR. Echocardiogram December 2013 interpreted and reviewed by me shows normal LV size and systolic f unction with asymmetric septal hypertrophy, LV EF 56%, mild MR, borderline MS, no other sign ificant valvular disease. Echocardiogram January 2015 interpreted and reviewed by me LVEF 59%, asymmetric septal hypertr ophy, mitral valve status post repair with borderline to mild stenosis and borderline to mil d insufficiency, normal pulmonary pressures. Assessment: #1 - mitral regurgitation - Patient's has no evidence of significant residual regurgitation on exam or echo, and clinically feels significantly improved with resolution of exertional dyspnea and generalized edema. She will benefit from annual echocardiograms. We will also r echeck BNP prior to next follow-up visit in the year. #2 - CAD - patient is status post complete surgical revascularization, and his having good healing postoperatively. She is on a thorough medical regimen. The focus remained on continu ed medical therapy and risk factor reduction. She would benefit from recheck of her fasting lipid profile with her PCP. #3 - Tobacco cessation. This was discussed at length (> 5 minutes) with the patient - she are both smoking - he a few cigarettes daily, and she states that she continues to s moke a pack a day due to ongoing symptoms of anxiety. She will likely need adjunctive pharma cotherapy closer to the time of her quitting. I have urged her to set a date and begin a tap er regimen. #4 - Hypertension - patient's blood pressures have been running mildly high - we will incre ase her carvedilol to 6.25 mg twice a day. Plan: #1 - increased carvedilol. Otherwise continue current medical regimen. #2 - echocardiogram and check BNP in one year. #3 - tobacco cessation once again reinforced. #4 - follow up visit in 6-12 months documented in t his encounter Plan of Treatment + +------+--------+ + + | Name | Type | Priori | Associated Diagnoses | Order Schedule | | | | ty | | | + +------+--------+ + + | ECG 12 lead | ECG | Routin | Coronary Artery | Ordered: 01/27/2015 | | | | e | Disease Involving | | | | | | [place]ski Coronary | | | | | | Artery Without | | | | | | Angina Pectoris | | + +------+--------+ + + documented as of this encounter Results B Type Natriuretic Peptide (12/28/2015 9:17 AM PDT) + +-------+ + + + | Component | Value | Ref Range | Performed | Pathologist | | | | | At | Signature | + +-------+ + + + | BNP | 70 | <100 pg/mL | [facility] | | | | | | [facility] | | | | | | MEDICAL | | | | | | CENTER - | | | | | | LABORATORY | | + +-------+ + + + + + | Specimen | + + | Blood | + + + + + + + | Performing | Address | City/State/Zipcode | Phone Number | | Organization | | | | + + + + + | [facility] | [address] | [place] | [phone] | | [facility] | | [address] | | | - LABORATORY | | | | + + + + + ECHO Complete (12/28/2015 8:52 AM PDT) + + | Specimen | + + | | + + + + + | Narrative | Performed At | + + + | [facility] ECHOCARDIOGRAM REPORT | [place] | | STUDY DATE: 12/28/2015 PATIENT NAME: Ivanna Flores [employer] [facility] [employer] [facility] | | : 1955 PCP: Paco Agarwal PA-C [facility] | | [place] CLINICAL HISTORY/DIAGNOSIS: Mitral valve repair. | - IMAGING | | A transthoracic echocardiogram with M-mode, pulsed-wave and | | | color Doppler was performed with standard views obtained. The | | | technical quality of this examination is adequate. The heart | | | rhythm during the echo is not clearly seen. The M-mode, | | | two-dimensional, color flow and spectral Doppler data were reviewed | | | and support the following interpretation: Interpretation: Left | | | Atrium: Mild to moderately enlarged. Left ventricle: The left | | | ventricle is of normal end-diastolic and end-systolic dimensions | | | with asymmetric septal hypertrophy and normal regional wall motion. | | | Overall systolic function is preserved. The estimated ejection | | | fraction is 64%. Grade 1 left ventricular diastolic dysfunction. | | | Aortic root: Aortic root is normal. Right Atrium: Mild to moderately | | | enlarged. Right ventricle: Right ventricular size is normal with | | | normal wall thickness and normal right ventricular systolic | | | function. Pericardium: No effusion Pulmonary artery: Grossly normal | | | Aortic valve: Aortic valve is trileaflet and opens normally. | | | Mitral valve: There is echodense with reduced posterior leaflet | | | mobility, overall consistent with status post ring repair. There | | | is trace insufficiency noted without significant stenosis. Pulmonic | | | valve: Grossly normal Tricuspid valve: Tricuspid valve is normal. | | | Vena cava: The inferior vena cava is normal. There is greater | | | than 50% inspiratory collapse of the IVC. IMPRESSIONS: 1. | | | Normal LV size and systolic function with LVEF 64%. 2. Mitral | | | status post ring repair without significant stenosis or | | | insufficiency. 3. Biatrial enlargement. 4. Compared to patient's | | | prior study, no significant changes are noted. | | | Measurements: Height: 5'5" Weight: 140 Aortic root: 30 | | | mm Aortic cusp sep: 20 mm LA: 40 mm IVS-diastole: 18 | | | mm IVS-systole: 20 mm LVPW diastole: 6 mm LVPW systole: | | | 7 mm LVIDD: 54 mm LVIDS: 42 mm Fractional shortenin.5 | | | % PFV aortic valve: m/s MPG mitral valve: 2.7 mmHg PFV TR | | | jet: m/s RA/RV PPG: mmHg LA volume: 54 mL LA | | | index: 32 mL/m2 Mitral Inflow DT: 313 ms IVRT: 124 ms | | | Valsalva: reversal PWDTI S wave: 6 cm/s PWDTI e' wave: 5 | | | cm/s PWDTI a' wave: 5 cm/s E/A Ratio: 1.0 E/e' Ratio: | | | 26.6 Signed by: Belem Moyer MD PhD FACC | | | 12/28/2015 8:48 Director Of Field Sales: Moo [place], RDCS, RDMS, RVT | | + + + + + + + + | Performing | Address | City/State/Zipcode | Phone Number | | Organization | | | | + + + + + | [facility] | [address] | [place] | [phone] | | [facility] | | [address] | | | - IMAGING | | | | + + + + + documented in this encounter Visit Diagnoses + + | Diagnosis | + + | Coronary artery disease involving chenega coronary artery without angina pectoris - | | Primary | + + | Shortness of breath | + + | Status post mitral valve repair Other postprocedural status | + + | Tobacco use disorder | + + documented in this encounter
--- OUTSIDE RECORDS SUMMARY | ~2020-03-26 | XMS | Encounter Summary ---
Demographics + + + | Address | [address] | | | [place] [address] | + + + | Home Phone | | + + + | Preferred Language | Unknown | + + + | Marital Status | | + + + | Roman Catholic Affiliation | 1041 | + + + | Race | or | + + + | Ethnic Group | Not or | + + + Author + + + | Author | [facility] | | | and [place] | + + + | Organization | [facility] | | [...] | | | | | [place] [address] | | + + + + + Care Team Providers + +------+ + | Care Remote Sensing Specialist Name | Role | Phone | + +------+ + | Preston Garcia | PCP | | + +------+ + Encounter Details +--------+ + + + + | Date | Type | Department | Care Team | Description | +--------+ + + + + | 01/05/ | Abstract | [facility] | [place], | | | 2015 | | [facility] | Technologist | | | | | [address] | | | | | | [place] | | | | | | [address] | | | | | | [phone] | | | +--------+ + + + [...] | + +--------+ + + + | LVEF VALUE | Routin | 12/28/2015 | | Results for this | | | e | | | procedure are in the | | | | | | results section. | + +--------+ + + + documented in this encounter Results LVEF VALUE (12/28/2015) + +-------+ + + + | Component | Value | Ref Range | Performed | Pathologist | | | | | At | Signature | + +-------+ + + + | LVEF-TTE | 64 | | | | | TRANSTHORAC | | | | | | IC ECHO | | | | | + +-------+ + + + documented in this encounter Visit Diagnoses Not on filedocumented in this encounter"
--- OUTSIDE RECORDS SUMMARY | ~2020-03-26 | XMS | Encounter Summary ---
Demographics + + + | Address | [address] | | | [place] [address] | + + + | Home Phone | | + + + | Preferred Language | Unknown | + + + | Marital Status | | + + + | Cheondoism Affiliation | 1041 | + + + | Race | or | + + + | Ethnic Group | Not or | + + + Author + + + | Author | [facility] | | | and [place] | + + + | Organization | [facility] | | | and [...] | | | | | [place] [address] | | + + + + + Care Team Providers + +------+ + | Care Plastics Production Machine Operator Name | Role | Phone | + +------+ + | Ligia Patton PA-C | PCP | | + +------+ + Encounter Details +--------+ + + + + | Date | Type | Department | Care Team | Description | +--------+ + + + + | 09/21/ | Orders Only | [facility] [place] | [address] Moyer | MITRAL | | 2018 | | CARDIOLOGY [address] | MD Rohan [address] | REGURGITATION, | | | | [address] [place], | [address] [place] | SEVERE (Primary Dx) | | | | [place] [address] | [place] [address] | | | | | [phone] | [phone] | | | | | | | [...] filedocumented as of this encounter Visit Diagnoses + + | Diagnosis | + + | MITRAL REGURGITATION, SEVERE - Primary Mitral valve insufficiency and aortic valve | | insufficiency | + + documented in this encounter"
--- OUTSIDE RECORDS SUMMARY | ~2020-03-26 | XMS | Encounter Summary ---
Demographics + + + | Address | [address] | | | [place] [address] | + + + | Home Phone | | + + + | Preferred Language | Unknown | + + + | Marital Status | | + + + | Gnosticism Affiliation | 1041 | + + + | Race | or | + + + | Ethnic Group | Not or | + + + Author + + + | Author | [facility] | | | and [place] | + + + | Organization | [facility] | | | and [...] | | | | | [place] [address] | | + + + + + Care Team Providers + +------+ + | Care Shell Machine Operator Name | Role | Phone | + +------+ + | No, Unknownpcp | PCP | | + +------+ + Encounter Details +--------+ + + + + | Date | Type | Department | Care Team | Description | +--------+ + + + + | 05/07/ | Abstract | [facility] [place] | Lane Moyer | CAD (coronary artery | | 2011 | | CARDIOLOGY [address] | MD Rohan [address] | disease) | | | | [place], | [address] [place] | | | | | [place] [address] | [place] [address] | | | | | [phone] | [phone] | | | | | | | [...] + | Diagnosis | + + | CAD (coronary artery disease) Coronary atherosclerosis of unspecified type of vessel, | | emmonak or graft | + + documented in this encounter"
--- OUTSIDE RECORDS SUMMARY | ~2020-03-26 | XMS | Encounter Summary ---
Demographics + + + | Address | [address] | | | [place] [address] | + + + | Home Phone | | + + + | Preferred Language | Unknown | + + + | Marital Status | | + + + | Hinduism Affiliation | 1041 | + + + | Race | or | + + + | Ethnic Group | Not or | + + + Author + + + | Author | [facility] | | | and [place] | + + + | Organization | [facility] | | | [...] | | | | | [place] [address] | | + + + + + Care Team Providers + +------+ + | Care Flux Plant Operator Name | Role | Phone | + +------+ + | Paco Agarwal PA-C | PCP | | + +------+ + Encounter Details +--------+ + + + + | Date | Type | Department | Care Team | Description | +--------+ + + + + | 07/05/ | Abstract | [facility] | [address] | | | 2012 | | [address] [address] | MD Rohan [address] | | | | | [place], | [address] [place] | | | | | [place] [address] | [place] [address] | | | | | [phone] | [phone] | | | | | | | [...] | + +--------+ + + + | T4, FREE | Routin | 07/05/2013 | | Results for this | | | e | 3:59 PM | | procedure are in the | | | | PST | | results section. | + +--------+ + + + | CBC NO DIFFERENTIAL | Routin | 07/04/2013 | | Results for this | | | e | 2:15 PM | | procedure are in the | | | | PST | | results section. | + +--------+ + + + | EXTERNAL LAB: CBC | Routin | 06/28/2013 | | Results for this | | | e | 12:59 PM | | procedure are in the | | | | PST | | results section. | + +--------+ + + + | EXTERNAL LAB: AST | Routin | 06/28/2013 | | Results for this | | | e | 12:59 PM | | procedure are in the | | | | PST | | results section. | + +--------+ + + + | EXTERNAL LAB: ALT | Routin | 06/28/2013 | | Results for this | | | e | 12:59 PM | | procedure are in the | | | | PST | | results section. | + +--------+ + + + | EXTERNAL LAB: | Routin | 06/28/2013 | | Results for this | | CHOLESTEROL, NON HDL | e | 12:59 PM | | procedure are in the | | LP | | PST | | results section. | + +--------+ + + + | EXTERNAL LAB: | Routin | 06/28/2013 | | Results for this | | TRIGLYCERIDES | e | 12:59 PM | | procedure are in the | | | | PST | | results section. | + +--------+ + + + | EXTERNAL LAB: | Routin | 06/28/2013 | | Results for this | | CHOLESTEROL, HDL | e | 12:59 PM | | procedure are in the | | | | PST | | results section. | + +--------+ + + + | EXTERNAL LAB: | Routin | 06/28/2013 | | Results for this | | CHOLESTEROL, TOTAL | e | 12:59 PM | | procedure are in the | | | | PST | | results section. | + +--------+ + + + | EXTERNAL LAB: | Routin | 06/28/2013 | | Results for this | | CHOLESTEROL, LDL | e | 12:59 PM | | procedure are in the | | DIRECT | | PST | | results section. | + +--------+ + + + | EXTERNAL LAB: EGFR | Routin | 06/28/2013 | | Results for this | | | e | 12:59 PM | | procedure are in the | | | | PST | | results section. | + +--------+ + + + | EXTERNAL LAB: | Routin | 06/28/2013 | | Results for this | | CREATININE | e | 12:59 PM | | procedure are in the | | | | PST | | results section. | + +--------+ + + + | EXTERNAL LAB: | Routin | 06/28/2013 | | Results for this | | HEMOGLOBIN A1C | e | 12:59 PM | | procedure are in the | | | | PST | | results section. | + +--------+ + + + | COMPREHENSIVE | Routin | 06/28/2013 | | Results for this | | METABOLIC PANEL | e | 9:22 AM | | procedure are in the | | | | PST | | results section. | + +--------+ + + + documented in this encounter Results T4, Free (07/05/2013 3:59 PM PST) + + + + + + | Component | Value | Ref Range | Performed | Pathologist | | | | | At | Signature | + + + + + + | Free T4 | Comment: This lab | ng/dL | [facility] | | | | ordered in error | | [facility] | | | | | | [facility] | | | | | | [facility] - | | | | | | LABORATORY | | + + + + + + + + | Specimen | + + | Blood specimen | | (specimen) | + + + + + + + | Performing | Address | City/State/Zipcode | Phone Number | | Organization | | | | + + + + + | [facility] | [address] | [place] | | | [facility] | | [id number] | | | - LABORATORY | | | | + + + + + CBC no Differential (07/04/2013 2:15 PM PST) + +-------+ + + + | Component | Value | Ref Range | Performed | Pathologist | | | | | At | Signature | + +-------+ + + + | RBC | 4.83 | 10*6/uL | [facility] | | | | | | [facility] | | | | | | [facility] | | | | | | [facility] - | | | | | | LABORATORY | | + +-------+ + + + | MCV | 88.2 | fL | [facility] | | | | | [facility] | | | | | | [facility] | | | | | | [facility] - | | | | | | LABORATORY | | + +-------+ + + + | MCH | 29.6 | pg | [facility] | | | | | | [facility] | | | | | | [facility] | | | | | | CENTER - | | | | | | LABORATORY | | + +-------+ + + + | MCHC | 33.6 | % | [facility] | | | | | [facility] | | | | | | [facility] | | | | | | C[facility] - | | | | | | LABORATORY | | + +-------+ + + + | RDW-CV | 13.1 | % | [facility] | | | | | [facility] | | | | | | [facility] | | | | | | CENTER - | | | | | | LABORATORY | | + +-------+ + + + + + | Specimen | + + | Blood specimen | | (specimen) | + + + + + + + | Performing | Address | City/State/Zipcode | Phone Number | | Organization | | | | + + + + + | [facility] | [address] | [place] | | | [facility] | | [id number], [facility] | | | - LABORATORY | | | | + + + + + External Lab: CBC (06/28/2013 12:59 PM PST) + +-------+ + + + | Component | Value | Ref Range | Performed | Pathologist | | | | | At | Signature | + +-------+ + + + | WBC, | 7.1 | 4 - 11 | EXTERNAL | | | External | | | LAB | | + +-------+ + + + | HGB, | 14.3 | 12 - 16 | EXTERNAL | | | External | | | LAB | | + +-------+ + + + | HCT, | 42.6 | 35.45 | EXTERNAL | | | External | | | LAB | | + +-------+ + + + | PLT, | 197 | 140 - 440 | EXTERNAL | | | External | | | LAB | | + +-------+ + + + + + | Resulting Agency Comment | + + | [facility] | + + + +---------+ + + | Performing | Address | City/State/Zipcode | Phone Number | | Organization | | | | + +---------+ + + | EXTERNAL LAB | | | | + +---------+ + + External Lab: AST (06/28/2013 12:59 PM PST) + +-------+ + + + | Component | Value | Ref Range | Performed | Pathologist | | | | | At | Signature | + +-------+ + + + | AST, | 14 | 0 - 40 | EXTERNAL | | | External | | | LAB | | + +-------+ + + + + + | Specimen | + + | Blood specimen | | (specimen) | + + + + | Resulting Agency Comment | + + | [facility] | + + + +---------+ + + | Performing | Address | City/State/Zipcode | Phone Number | | Organization | | | | + +---------+ + + | EXTERNAL LAB | | | | + +---------+ + + External Lab: ALT (06/28/2013 12:59 PM PST) + +-------+ + + + | Component | Value | Ref Range | Performed | Pathologist | | | | | At | Signature | + +-------+ + + + | ALT, | 12 | 0 - 46 | EXTERNAL | | | External | | | LAB | | + +-------+ + + + + + | Specimen | + + | Blood specimen | | (specimen) | + + + + | Resulting Agency Comment | + + | [facility] | + + + +---------+ + + | Performing | Address | City/State/Zipcode | Phone Number | | Organization | | | | + +---------+ + + | EXTERNAL LAB | | | | + +---------+ + + External Lab: Cholesterol, Non HDL LP (06/28/2013 12:59 PM PST) + +-------+ + + + | Component | Value | Ref Range | Performed | Pathologist | | | | | At | Signature | + +-------+ + + + | Cholesterol | 60 | 130 | EXTERNAL | | | , Total, | | | LAB | | | Non HDL-C | | | | | | (LDL+VLDL), | | | | | | External | | | | | + +-------+ + + + + + | Specimen | + + | Blood specimen | | (specimen) | + + + + | Resulting Agency Comment | + + | [facility] | + + + +---------+ + + | Performing | Address | City/State/Zipcode | Phone Number | | Organization | | | | + +---------+ + + | EXTERNAL LAB | | | | + +---------+ + + External Lab: Triglycerides (06/28/2013 12:59 PM PST) + +-------+ + + + | Component | Value | Ref Range | Performed | Pathologist | | | | | At | Signature | + +-------+ + + + | Triglycerid | 85 | 30 - 150 | EXTERNAL | | | es, | | | LAB | | | External | | | | | + +-------+ + + + + + | Specimen | + + | Blood specimen | | (specimen) | + + + + | Resulting Agency Comment | + + | [facility] | + + + +---------+ + + | Performing | Address | City/State/Zipcode | Phone Number | | Organization | | | | + +---------+ + + | EXTERNAL LAB | | | | + +---------+ + + External Lab: Cholesterol, HDL (06/28/2013 12:59 PM PST) + + + + + + | Component | Value | Ref Range | Performed | Pathologist | | | | | At | Signature | + + + + + + | HDL | 36.6 (A) | 40 | EXTERNAL | | | Cholesterol | | | LAB | | | , External | | | | | + + + + + + + + | Specimen | + + | Blood specimen | | (specimen) | + + + + | Resulting Agency Comment | + + | [facility] | + + + +---------+ + + | Performing | Address | City/State/Zipcode | Phone Number | | Organization | | | | + +---------+ + + | EXTERNAL LAB | | | | + +---------+ + + External Lab: Cholesterol, Total (06/28/2013 12:59 PM PST) + +-------+ + + + | Component | Value | Ref Range | Performed | Pathologist | | | | | At | Signature | + +-------+ + + + | Cholesterol | 96 | 200 | EXTERNAL | | | , Total, | | | LAB | | | External | | | | | + +-------+ + + + + + | Specimen | + + | Blood specimen | | (specimen) | + + + + | Resulting Agency Comment | + + | [facility] | + + + +---------+ + + | Performing | Address | City/State/Zipcode | Phone Number | | Organization | | | | + +---------+ + + | EXTERNAL LAB | | | | + +---------+ + + External Lab: Cholesterol, LDL Direct (06/28/2013 12:59 PM PST) + +-------+ + + + | Component | Value | Ref Range | Performed | Pathologist | | | | | At | Signature | + +-------+ + + + | LDL | 43 | 100 | EXTERNAL | | | Cholesterol | | | LAB | | | , Direct, | | | | | | External | | | | | + +-------+ + + + + + | Specimen | + + | Blood specimen | | (specimen) | + + + + | Resulting Agency Comment | + + | [facility] | + + + +---------+ + + | Performing | Address | City/State/Zipcode | Phone Number | | Organization | | | | + +---------+ + + | EXTERNAL LAB | | | | + +---------+ + + External Lab: eGFR (06/28/2013 12:59 PM PST) + +-------+ + + + | Component | Value | Ref Range | Performed | Pathologist | | | | | At | Signature | + +-------+ + + + | eGFR, | >60 | 60 - 99,999 | EXTERNAL | | | External | | | LAB | | + +-------+ + + + | eGFR, | | | EXTERNAL | | | | | | LAB | | | [place], | | | | | | External | | | | | + +-------+ + + + + + | Specimen | + + | Blood specimen | | (specimen) | + + + + | Resulting Agency Comment | + + | [facility] | + + + +---------+ + + | Performing | Address | City/State/Zipcode | Phone Number | | Organization | | | | + +---------+ + + | EXTERNAL LAB | | | | + +---------+ + + External Lab: Creatinine (06/28/2013 12:59 PM PST) + +-------+ + + + | Component | Value | Ref Range | Performed | Pathologist | | | | | At | Signature | + +-------+ + + + | Creatinine, | 0.85 | 0.5 - 1.5 | EXTERNAL | | | External | | | LAB | | + +-------+ + + + + + | Specimen | + + | Blood specimen | | (specimen) | + + + + | Resulting Agency Comment | + + | [facility] | + + + +---------+ + + | Performing | Address | City/State/Zipcode | Phone Number | | Organization | | | | + +---------+ + + | EXTERNAL LAB | | | | + +---------+ + + External Lab: Hemoglobin A1c (06/28/2013 12:59 PM PST) + +-------+ + + + | Component | Value | Ref Range | Performed | Pathologist | | | | | At | Signature | + +-------+ + + + | Hemoglobin | 6.0 | 5.7 - 6.4 | EXTERNAL | | | A1c, | | | LAB | | | external | | | | | + +-------+ + + + + + | Specimen | + + | Blood specimen | | (specimen) | + + + + | Resulting Agency Comment | + + | [facility] | + + + +---------+ + + | Performing | Address | City/State/Zipcode | Phone Number | | Organization | | | | + +---------+ + + | EXTERNAL LAB | | | | + +---------+ + + Comprehensive Metabolic Panel (06/28/2013 9:22 AM PST) + +---------+ + + + | Component | Value | Ref Range | Performed | Pathologist | | | | | At | Signature | + +---------+ + + + | Na | 141 | mmol/L | [facility] | | | | | | [facility] | | | | | | [facility] | | | | | | C[facility] - | | | | | | LABORATORY | | + +---------+ + + + | K | 5.2 (A) | 3.6 - 5.1 | [facility] | | | | | mmol/L | [facility] | | | | | | [facility] | | | | | | CENTER - | | | | | | LABORATORY | | + +---------+ + + + | Glucose | 111 (A) | 70 - 100 mg/dL | [facility] | | | | | | [facility] | | | | | | [facility] | | | | | | CENTER - | | | | | | LABORATORY | | + +---------+ + + + | BUN | 23 | mg/dL | [facility] | | | | | | [facility] | | | | | | [facility]ICAL | | | | | | CENTER - | | | | | | LABORATORY | | + +---------+ + + + | Albumin | 4.3 | 3.5 - 5.0 g/dL | [facility] | | | | | [facility] | | | | | | [facility] | | | | | | [facility] - | | | | | | LABORATORY | | + +---------+ + + + + + | Specimen | + + | Blood specimen | | (specimen) | + + + + + + + | Performing | Address | City/State/Zipcode | Phone Number | | Organization | | | | + + + + + | [facility] | [address] | [place] | | | [facility] | | [id number] | | | - LABORATORY | | | | + + + + + documented in this encounter Visit Diagnoses Not on filedocumented in this encounter"
--- OUTSIDE RECORDS SUMMARY | ~2020-03-26 | XMS | Encounter Summary ---
Demographics + + + | Address | [address] | | | [place] [address] | + + + | Home Phone | | + + + | Preferred Language | Unknown | + + + | Marital Status | | + + + | Church Affiliation | 1041 | + + + | Race | or | + + + | Ethnic Group | Not or | + + + Author + + + | Author | [facility] | | | and [place] | + + + | Organization | [facility] | | | and [place] | + + + | Address | Unknown | + + + | Phone | Unavailable | + + + Support + + + + + | Name | Relationship | Address | Phone | + + + + + | Terrance Flores | ECON | [address] | | | | | [place] [address] | | + + + + + Care Team Providers + +------+ + | Care Pumpman Name | Role | Phone | + [...] [facility] | | | | | Mitral | Lane | [address] | | | | | valve | MD Rohna | [place], | | | | | insufficienc | [address] | [place] | | | | | y and aortic | St [place] | [address] | | | | | valve | [place], [place] | Phone: | | | | | insufficienc | [address] | [phone] | | | | | y Mild | Phone: | Fax: | | | | | tricuspid | [phone] | [phone] | | | | | regurgitatio | Fax: | | | | | | n Murmur | [phone] | | | | | | Procedures | | | | | | | ECHO | | | | | | | Complete [place] | | | | | | | ECHO HEART | | | | | | | XTHORACIC,CO | | | | | | | MPLETE W | | | | | | | DOPPLER [place] | | | | | | | ECHO HEART | | | | | | | XTHORACIC,CO | | | | | | | MPLETE, W/O | | | | | | | DOPPLER | | | +--------+--------+ + + + + Reason for Visit + +--------+ + | Reason | Onset | Comments | | | Date | | + +--------+ + | Appointment | 10/17/ | | | | 2018 | | + +--------+ + Encounter Details +--------+ + + + + | Date | Type | Department | Care Team | Description | +--------+ + + + + | 10/17/ | Telephone | [facility] | [address] | Appointment | | 2018 | | [facility] [address] | MD Rohan [address] | | | | | [address] [place], | [address] [place] | | | | | [place] [address] | [place] [address] | | | | | [phone] | [phone] | | | | | | | [...] + + documented as of this encounter Miscellaneous Notes Telephone Encounter - Doreen Perez - 10/18/2018 2:26 PM PDTPatient has been scheduled.Vickie ctronically signed by Doreen Perez at 10/18/2018 2:27 PM PDTTelephone Encounter - Erika Butt RN - 10/17/2018 3:57 PM PDTOrders placed. elephone Encounter - Doreen Perez - 10/17/2018 3:44 PM PDTPatient needs to come in for a yearly follow up with Dr Dhillon with an echo prior. Can you please enter another echo order, the one in the system will [facility]. Thank you d ocumented in this encounter Plan of Treatment Not on filedocumented as of this encounter Results ECHO Complete (02/25/2019 11:31 AM PDT) + +--------+ + + + | Component | Value | Ref Range | Performed | Pathologist | | | | | At | Signature | + +--------+ + + + | Patient | 141 | | [facility] | | | Weight | | | | | | (lbs) | | | | | + +--------+ + + + | Patient | 5'5" | | [facility] | | | Height | | | | | + +--------+ + + + | LVIDd | 4.65 | cm | [facility] | | + +--------+ + + + | FS | 18 | % | [facility] | | + +--------+ + + + | LA volume | 73.2 | mL | [facility] | | + +--------+ + + + | Ascending | 2.75 | cm | [facility] | | | aorta | | | | | + +--------+ + + + | Aortic arch | 2.58 | cm | [facility] | | + +--------+ + + + | AV mean | 3.17 | mmHg | [facility] | | | gradient | | | | | + +--------+ + + + | MV mean | 3.53 | mmHg | [facility] | | | gradient | | | | | + +--------+ + + + | MV Area by | 2.19 | cm2 | [facility] | | | P 1/2 | | | | | | method | | | | | + +--------+ + + + | IVRT | 141.87 | msec | [facility] | | + +--------+ + + + | LVOT peak | 83.59 | cm/s | [facility] | | | gerson | | | | | + +--------+ + + + | LVOT peak | 19.09 | cm | [facility] | | | VTI | | | | | + +--------+ + + + | AV peak gerson | 119.3 | cm/s | [facility] | | + +--------+ + + + | AV VTI | 27.55 | cm | [facility] | | + +--------+ + + + | AV peak | 5.69 | mmHg | [facility] | | | gradient | | | | | + +--------+ + + + | MV peak | 9.04 | mmHg | [facility] | | | gradient | | | | | + +--------+ + + + | MV Pressure | 100.43 | msec | [facility] | | | 1/2 time | | | | | + +--------+ + + + | LA Volume | 43 | mL/m2 | [facility] | | | Index | | | | | + +--------+ + + + | AV LVOT | 2.79 | mmHg | [facility] | | | Peak | | | | | | Gradient | | | | | + +--------+ + + + | AV LVOT | 1.35 | mmHg | [facility] | | | Mean | | | | | | Gradient | | | | | + +--------+ + + + | LV | 7.14 | cm | [facility] | | | Diastolic | | | | | | Length 4C | | | | | + +--------+ + + + | LV | 56 | % | [facility] | | | Moody's | | | | | | Biplane EF | | | | | + +--------+ + + + | LV ED | 73.2 | ml | [facility] | | | Volume | | | | | | (Moody's) | | | | | + +--------+ + + + | LV ED | 43 | ml/m2 | [facility] | | | Volume | | | | | | Index | | | | | + +--------+ + + + | LV ES | 35.63 | ml | [facility] | | | Volume | | | | | + +--------+ + + + | LVOT Mean | 53.04 | cm/s | [facility] | | | Velocity | | | | | + +--------+ + + + | MV E' | 3 | cm/s | [facility] | | | Septal | | | | | | Velocity | | | | | + +--------+ + + + | MV | 340.65 | cm/s2 | [facility] | | | Deceleratio | | | | | | n [place] | | | | | + +--------+ + + + | MV | 346.3 | msec | [facility] | | | Deceleratio | | | | | | n Time | | | | | + +--------+ + + + | MV E/A | 0.83 | | [facility] | | | Ratio | | | | | + +--------+ + + + | MV Mean | 86.54 | cm/s | [facility] | | | Velocity | | | | | + +--------+ + + + | MV Peak | 141.95 | cm/s | [facility] | | | A-Wave | | | | | + +--------+ + + + | MV Peak | 117.97 | cm/s | [facility] | | | E-Wave | | | | | + +--------+ + + + | AV Mean | 85.62 | cm/s | [facility] | | | Velocity | | | | | + +--------+ + + + | LA/Aorta | 1.53 | | [facility] | | | Ratio | | | | | + +--------+ + + + | LA Area | 20.02 | cm2 | [facility] | | + +--------+ + + + | MV E/E | 39.32 | | [facility] | | | SEPTAL | | | | | + +--------+ + + + | LA Major | 0.2755 | cm | [facility] | | + +--------+ + + + | LV ES | 21 | ml/m2 | [facility] | | | Volume | | | | | | Index | | | | | + +--------+ + + + | Aortic Root | 3.16 | cm | [facility] | | | Diameter | | | | | + +--------+ + + + | IVS | 1.62 | cm | [facility] | | | Diastolic | | | | | | Thickness | | | | | | MM | | | | | + +--------+ + + + | LVPW | 0.86 | cm | [facility] | | | Diastolic | | | | | | Thickness | | | | | | MM | | | | | + +--------+ + + + | IVS | 1.88 | cm | [facility] | | | Systolic | | | | | | Thickness | | | | | | MM | | | | | + +--------+ + + + | LV Systolic | 3.79 | cm | [facility] | | | Diameter | | | | | | MM | | | | | + +--------+ + + + | LVPW | 1.04 | cm | [facility] | | | Systolic | | | | | | Thickness | | | | | | MM | | | | | + +--------+ + + + | AV Cusp | 2.21 | cm | [facility] | | | Seperation | | | | | | MM | | | | | + +--------+ + + + | LA Systolic | 4.85 | cm | [facility] | | | Diameter | | | | | | MM | | | | | + +--------+ + + + | TAPSE | 1.3 | cm | [facility] | | + +--------+ + + + | LVEF-TTE | 56 | | [facility] | | | TRANSTHORAC | | | | | | IC ECHO | | | | | + +--------+ + + + + + | Specimen | + + | | + + + + --+ | Narrative | Performed At | + + --+ | Transthoracic | [facility] | | Echocardiography Report (TTE) Demographics Patient Name VARUN | | | IVANNA Room Number CARLITO Patient | | | Number [id number] Date of Study 02/25/2019 | | | Visit Number [id number] | | | Referring Physician ROHAN DHLILON MD Number Date of | | | 1955 [employer] Battery As[employer]er MARIS COX | | | Age 63 year(s) Interpreting | | | ROHAN DHILLON MD | | | Recreational Aide Gender Female Nurse | | | Stress | | | Jailer Procedure Type of Study TTE procedure: ECHO Complete. | | | Procedure dateDate: 02/25/2019Start: 10:50 AM Technical Quality: | | | Adequate visualizationStudy Location: Echo Lab Patient Status: | | | RoutineHeight: 65 inchesWeight: 141 poundsBSA: 1.71 m^2BMI: 23.46 | | | kg/m^2Rhythm: Normal Sinus RhythmHR: 62 bpm ConclusionsSummaryLeft | | | ventricle is normal in size and function. There is mild concentric | | | LVH.Ejection fraction is estimated at 55-60%.There is grade 1 LV | | | diastolic dysfunction.Mitral valve demonstrates annular prominence | | | consistent with ring repair.There is mild insufficiency without | | | significant stenosis.Left atrium is mildly enlarged.No significant | | | changes compared with patient's prior study of 2017. | | | Signature | | | | | | PM | | | -------- FindingsMitral ValveMitral valve demonstrates annular | | | prominence consistent with ring repair.There is mild insufficiency | | | without significant stenosis.Aortic ValveAortic valve is trileaflet | | | with good systolic excursion.Tricuspid ValveStructurally normal | | | tricuspid valve with trace insufficiency.Pulmonic ValveStructurally | | | normal pulmonic valve with mild regurgitation.Left AtriumLeft atrium | | | is mildly enlarged.Left VentricleLeft ventricle is normal in size and | | | function. There is mild concentric LVH.Ejection fraction is estimated | | | at 55-60%.There is grade 1 LV diastolic dysfunction.Right AtriumNormal | | | right atrial size.Right VentricleNormal right ventricular size.Right | | | ventricle global systolic function is normal.TAPSE = 1.3 | | | cm.Pericardial EffusionNo evidence of any pericardial effusion.Pleural | | | EffusionNo evident pleural effusion identified.MiscellaneousAortic | | | root dimension within normal limits.The IVC appears normal size.IVC | | | respiratory change in dimension > 50%. Valves Mitral Valve Peak | | | E-Wave: 117.97 cm/s Peak A-Wave: 141.95 cm/s Tissue Doppler Septal | | | e' Velocity: 3.00 cm/s Septal E/e' Ratio: Aortic Valve Peak | | | Velocity: 119.3 cm/s Mean Gradient: 3.17 mmHg Peak | | | Gradient: 5.69 mmHg LVOT Peak Velocity: 83.59 cm/s Structures Left | | | Atrium LA A/P Dimension: 4.85 cm LA Area: | | | 20.02 cm^2 LA/Aorta:1.53 LA | | | Volume: 73.2 ml LA Vol/BSA Index: 43 mL/m^2 LA Major:0.2755 Left | | | Ventricle Diastolic Dimension: 4.65 cm Systolic | | | Dimension: 3.79 cm Septum Diastolic: 1.62 cm PW Diastolic: 0.86 cm EF | | | Ryhazcird38% EF Calculated: 56% Right Ventrical TAPSE: 1.3 cm | | | Miscellaneous Aorta Aortic Root: 3.16 cm Ascending Aorta: 2.75 cm | | | | | | | | |Findings | | |Mitral Valve | | |Mitral valve demonstrates annular prominence consistent with ring repair. | | |There is mild insufficiency without significant stenosis. | | |Aortic Valve | | |Aortic valve is trileaflet with good systolic excursion. | | |Tricuspid Valve | | |Structurally normal tricuspid valve with trace insufficiency. | | |Pulmonic Valve | | |Structurally normal pulmonic valve with mild regurgitation. | | |Left Atrium | | |Left atrium is mildly enlarged. | | |Left Ventricle | | |Left ventricle is normal in size and function. There is mild concentric LVH. | | |Ejection fraction is estimated at 55-60%. | | |There is grade 1 LV diastolic dysfunction. | | |Right Atrium | | |Normal right atrial size. | | |Right Ventricle | | |Normal right ventricular size. | | |Right ventricle global systolic function is normal. | | |TAPSE = 1.3 cm. | | |Pericardial Effusion | | |No evidence of any pericardial effusion. | | |Pleural Effusion | | |No evident pleural effusion identified. | | |Miscellaneous | | |Aortic root dimension within normal limits. | | |The IVC appears normal size. | | |IVC respiratory change in dimension > 50%. | | | | | |Valves | | | | | | Mitral Valve | | | | | | Peak E-Wave: 117.97 cm/s | | | Peak A-Wave: 141.95 cm/s | | | | | | Tissue Doppler | | | | | | Septal e' Velocity: 3.00 cm/s | | | Septal E/e' Ratio: | | | | | | Aortic Valve | | | | | | Peak Velocity: 119.3 cm/s Mean Gradient: 3.17 mmHg | | | Peak Gradient: 5.69 mmHg | | | | | | LVOT | | | | | | Peak Velocity: 83.59 cm/s | | | | | |Structures | | | | | | Left Atrium | | | | | | LA A/P Dimension: 4.85 cm LA Area: 20.02 cm^2 | | | LA/Aorta:1.53 LA Volume: 73.2 ml | | | LA Vol/BSA Index: 43 mL/m^2 | | | LA Major:0.2755 | | | | | | Left Ventricle | | | | | | Diastolic Dimension: 4.65 cm Systolic Dimension: 3.79 cm | | | Septum Diastolic: 1.62 cm | | | PW Diastolic: 0.86 cm | | | EF Lolvzbxnk52% | | | EF Calculated: 56% | | | | | | Right Ventrical | | | | | | TAPSE: 1.3 cm | | | | | | Miscellaneous | | | | | | Aorta | | | | | | Aortic Root: 3.16 cm | | | Ascending Aorta: 2.75 cm | | | | | + + --+ + + | Procedure Note | + + | Bayron, Rad Results In - 02/26/2019 12:49 PM PDT Transthoracic Echocardiography Report | | (TTE) Demographics Patient Name VARUN GILBERT Room Number CARLITO | | Patient Number [id number] Date of Study 02/25/2019 Visit Number | | [id number] Referring Physician ROHAN DHILLON MD | | Number Date of 1955 Pl[employer] Battery As[employer]er MARIS COX Age | | 63 year(s) Interpreting ROHAN DHILLON MD | | Recreational Aide Gender Female Nurse | | Stress TechnicianProcedureType of Study TTE procedure: ECHO | | Complete.Procedure dateDate: 02/25/2019Start: 10:50 AMTechnical Quality: Adequate | | visualizationStudy Location: Echo LabPatient Status: RoutineHeight: 65 inchesWeight: 141 | | poundsBSA: 1.71 m^2BMI: 23.46 kg/m^2Rhythm: Normal Sinus RhythmHR: 62 | | bpmConclusionsSummaryLeft ventricle is normal in size and function. There is mild | | concentric LVH.Ejection fraction is estimated at 55-60%.There is grade 1 LV diastolic | | dysfunction.Mitral valve demonstrates annular prominence consistent with ring | | repair.There is mild insufficiency without significant stenosis.Left atrium is mildly | | enlarged.No significant changes compared with patient's prior study of | | 2017.Signature | | -- | | 12:49 | | PM FindingsMi | | tral ValveMitral valve demonstrates annular prominence consistent with ring repair.There | | is mild insufficiency without significant stenosis.Aortic ValveAortic valve is | | trileaflet with good systolic excursion.Tricuspid ValveStructurally normal tricuspid | | valve with trace insufficiency.Pulmonic ValveStructurally normal pulmonic valve with | | mild regurgitation.Left AtriumLeft atrium is mildly enlarged.Left VentricleLeft | | ventricle is normal in size and function. There is mild concentric LVH.Ejection fraction | | is estimated at 55-60%.There is grade 1 LV diastolic dysfunction.Right AtriumNormal | | right atrial size.Right VentricleNormal right ventricular size.Right ventricle global | | systolic function is normal.TAPSE = 1.3 cm.Pericardial EffusionNo evidence of any | | pericardial effusion.Pleural EffusionNo evident pleural effusion | | identified.MiscellaneousAortic root dimension within normal limits.The IVC appears | | normal size.IVC respiratory change in dimension > 50%.Valves Mitral Valve Peak E-Wave: | | 117.97 cm/s Peak A-Wave: 141.95 cm/s Tissue Doppler Septal e' Velocity: 3.00 cm/s Septal | | E/e' Ratio: Aortic Valve Peak Velocity: 119.3 cm/s Mean Gradient: 3.17 mmHg | | Peak Gradient: 5.69 mmHg LVOT Peak Velocity: 83.59 cm/sStructures Left Atrium LA A/P | | Dimension: 4.85 cm LA Area: 20.02 cm^2 LA/Aorta:1.53 | | LA Volume: 73.2 ml LA Vol/BSA Index: 43 mL/m^2 LA Major:0.2755 Left Ventricle | | Diastolic Dimension: 4.65 cm Systolic Dimension: 3.79 cm Septum Diastolic: 1.62 | | cm PW Diastolic: 0.86 cm EF Zlytlszif40% EF Calculated: 56% Right Ventrical TAPSE: 1.3 | | cm Miscellaneous Aorta Aortic Root: 3.16 cm Ascending Aorta: 2.75 cm | |Left ventricle is normal in size and function. There is mild concentric LVH. | |Ejection fraction is estimated at 55-60%. | |There is grade 1 LV diastolic dysfunction. | |Mitral valve demonstrates annular prominence consistent with ring repair. | |There is mild insufficiency without significant stenosis. | |Left atrium is mildly enlarged. | |No significant changes compared with patient's prior study of 2018. | | | |Signature | | | | Electronically signed by ROHAN DHILLON MD(Interpreting physician) on | | 02/26/2019 12:49 PM | | | | | |Findings | |Mitral Valve | |Mitral valve demonstrates annular prominence consistent with ring repair. | |There is mild insufficiency without significant stenosis. | |Aortic Valve | |Aortic valve is trileaflet with good systolic excursion. | |Tricuspid Valve | |Structurally normal tricuspid valve with trace insufficiency. | |Pulmonic Valve | |Structurally normal pulmonic valve with mild regurgitation. | |Left Atrium | |Left atrium is mildly enlarged. | |Left Ventricle | |Left ventricle is normal in size and function. There is mild concentric LVH. | |Ejection fraction is estimated at 55-60%. | |There is grade 1 LV diastolic dysfunction. | |Right Atrium | |Normal right atrial size. | |Right Ventricle | |Normal right ventricular size. | |Right ventricle global systolic function is normal. | |TAPSE = 1.3 cm. | |Pericardial Effusion | |No evidence of any pericardial effusion. | |Pleural Effusion | |No evident pleural effusion identified. | |Miscellaneous | |Aortic root dimension within normal limits. | |The IVC appears normal size. | |IVC respiratory change in dimension > 50%. | | | |Valves | | | | Mitral Valve | | | | Peak E-Wave: 117.97 cm/s | | Peak A-Wave: 141.95 cm/s | | | | Tissue Doppler | | | | Septal e' Velocity: 3.00 cm/s | | Septal E/e' Ratio: | | | | Aortic Valve | | | | Peak Velocity: 119.3 cm/s Mean Gradient: 3.17 mmHg | | Peak Gradient: 5.69 mmHg | | | | LVOT | | | | Peak Velocity: 83.59 cm/s | | | |Structures | | | | Left Atrium | | | | LA A/P Dimension: 4.85 cm LA Area: 20.02 cm^2 | | LA/Aorta:1.53 LA Volume: 73.2 ml | | LA Vol/BSA Index: 43 mL/m^2 | | LA Major:0.2755 | | | | Left Ventricle | | | | Diastolic Dimension: 4.65 cm Systolic Dimension: 3.79 cm | | Septum Diastolic: 1.62 cm | | PW Diastolic: 0.86 cm | | EF Ymwjmxims40% | | EF Calculated: 56% | | | | Right Ventrical | | | | TAPSE: 1.3 cm | | | | Miscellaneous | | | | Aorta | | | | Aortic Root: 3.16 cm | | Ascending Aorta: 2.75 cm | + + + +---------+ + + | Performing | Address | City/State/Zipcode | Phone Number | | Organization | | | | + +---------+ + + | [facility] | | | | + +---------+ + + documented in this encounter Visit Diagnoses + + | Diagnosis | + + | MITRAL REGURGITATION, SEVERE - Primary Mitral valve insufficiency and aortic valve | | insufficiency | + + | TRICUSPID REGURGITATION, MILD Diseases of tricuspid valve | + + | Murmur Undiagnosed cardiac murmurs | + + documented in this encounter
--- OUTSIDE RECORDS SUMMARY | ~2020-03-26 | XMS | Encounter Summary ---
Demographics + + + | Address | [address] | | | [place] [address] | + + + | Home Phone | | + + + | Preferred Language | Unknown | + + + | Marital Status | | + + + | Synagogue Affiliation | 1041 | + + + | Race | or | + + + | Ethnic Group | Not or | + + + Author + + + | Author | [facility] | | | and [place] | + + + | Organization | [facility] | | | [...] | | | | | [place] [address] | | + + + + + Care Team Providers + +------+ + | Care Zig Zag Stitcher Name | Role | Phone | + [...] Status post | Lane | [address] | | | | | mitral | MD Rohan | [place], | | | | | valve repair | [address] | [place] | | | | | Coronary | St [place] | [address] | | | | | artery | [place], [place] | Phone: | | | | | disease | [address] | [phone] | | | | | involving | Phone: | Fax: | | | | | [place] | [phone] | [phone] | | | | | coronary | Fax: | | | | | | artery | [phone] | | | | | | without | | | | | | | angina | | | | | | | pectoris | | | | | | | Procedures | | | | | | | ECHO | | | | | | | Complete [place] | | | | | | | ECHO HEART | | | | | | | XTHORACIC,CO | | | | | | | MPLETE W | | | | | | | DOPPLER MT | | | | | | | ECHO HEART | | | | | | | XTHORACIC,CO | | | | | | | MPLETE, W/O | | | | | | | DOPPLER | | | +--------+--------+ + + + + Reason for Visit Auth/Cert +--------+--------+ + + + + | Status | Reason | Specialty | Diagnoses / | Referred By | Referred To | | | | | Procedures | Contact | Contact | +--------+--------+ + + + + | | | | | | | +--------+--------+ + + + + Encounter Details +--------+ + + + + | Date | Type | Department | Care Team | Description | +--------+ + + + + | 12/27/ | [facility] | [facility] | Lane [address] | Status post mitral | | 2015 | Encounter | [facility] ECHO [address] | MD Rohan [address] | valve repair; | | | | [address] [place] | [address] [place] | Coronary artery | | | | [place] [address] | [place] [address] | disease involving | | | | [phone] | [phone] | [place] coronary | | | | | | artery without | | | | | [place], | angina pectoris | | | | | Technologist | | +--------+ + + + + [...] + + + +---------+ + + | amLODIPine | Take 2.5 mg by mouth | | 0 | | | | (NORVASC) 5 mg | 2 times daily. | | | | | | tablet | | | | | | + + + +---------+ + + | aspirin 81 MG | Take 81 mg by mouth | | 0 | | | | tablet | Daily. | | | | | + + + +---------+ + + | carvedilol (COREG) | Take 3.125 mg by | | 0 | | | | 3.125 mg tablet | mouth 2 times daily | | | | | | | (with breakfast & | | | | | | | dinner). | | | | | + + + +---------+ + + | docusate sodium | Take 100 mg by mouth | | 0 | | | | (COLACE) 100 mg | Daily. | | | | | | capsule | | | | | | + + + +---------+ + + | doxepin (SINEQUAN) | Take 150 mg by mouth | | 0 | | | | 50 mg capsule | nightly. | | | | | + + + +---------+ + + | furosemide (LASIX) | Take 1 tablet by | 30 | 6 | 08/27/19 | | | 20 mg tablet | mouth Daily. | tablet | | 13 | | + + + +---------+ + + | lisinopril | Take 20 mg by mouth | | 0 | 04/03/20 | | | (PRINIVIL, ZESTRIL) | 2 times daily. | | | 12 | | | 20 mg tablet | | | | | | + + + +---------+ + + | potassium chloride | Take 10 mEq by mouth | | 0 | | | | SA POLINA FIELD) | Daily. | | | | | | 10 MEQ tablet | | | | | | + + + +---------+ + + | simvastatin | Take 1 tablet by | 30 | 6 | 08/27/19 | | | (ZOCOR) 20 mg tablet | mouth nightly. | tablet | | 13 | | + + + +---------+ + + | Cholecalciferol | Take 2,000 Units by | | 0 | | | | (VITAMIN D-3) 2000 | mouth Daily. | | | | 8 | | units CAPS | | | | | | + + + +---------+ + + documented as of this encounter Plan of Treatment Not on filedocumented as of this encounter Procedures + +--------+ + + + | Procedure Name | Priori | Date/Time | Associated Diagnosis | Comments | | | ty | | | | + +--------+ + + + | ECHO COMPLETE | Routin | 12/28/2015 | Status post mitral | Results for this | | | e | 8:52 AM | valve repair | procedure are in the | | | | PDT | Coronary artery | results section. | | | | | disease involving | | | | | | [place] coronary | | | | | | artery without | | | | | | angina pectoris | | + +--------+ + + + documented in this encounter Results ECHO Complete (12/28/2015 8:52 AM PDT) + + | Specimen | + + | | + + + + + | Narrative | Performed At | + + + | [facility] ECHOCARD[facility]GRAM REPORT | [place] | | STUDY DATE: 12/28/2015 PATIENT NAME: Ivanna Flores [facility] | | : 1955 PCP: Paco Agarwal PA-C [facility] | | [employer] [facility] CLINICAL HISTORY/DIAGNOSIS: Mitral valve repair. | - [...] PhD FACC | | | 12/28/2015 8:48 Vat Operator: Moo [place], RDCS, RDMS, RVT | | + + + + + + + + | Performing | Address | City/State/Zipcode | Phone Number | | Organization | | | | + + + + + | [facility] [facility] | [address] | [place] | [phone] | | [facility] | | [address] | | | - IMAGING | | | | + + + + + documented in this encounter Visit Diagnoses + + | Diagnosis | + + | Status post mitral valve repair Other postprocedural status | + + | Coronary artery disease involving [place] coronary artery without angina pectoris | + + documented in this encounter
--- OUTSIDE RECORDS SUMMARY | ~2020-03-26 | XMS | Encounter Summary ---
Demographics + + + | Address | [address] | | | [place] [address] | + + + | Home Phone | | + + + | Preferred Language | Unknown | + + + | Marital Status | | + + + | Pentecostalism Affiliation | 1041 | + + + | Race | or | + + + | Ethnic Group | Not or | + + + Author + + + | Author | [facility] | | | and [place] | + + + | Organization | [facility] | | [...] | | | | | [place] [address] | | + + + + + Care Team Providers + +------+ + | Care Fusion Juncture Grinder Name | Role | Phone | + [...] | Mitral | Lane | [address] | | | | | valve | MD Rohan | [place], | | | | | insufficienc | [address] | [place] | | | | | y and aortic | [place] | [address] | | | | | valve | [place], [place] | Phone: | | | | | insufficienc | [address] | [phone] | | | | | y Other | Phone: | Fax: | | | | | postprocedur | [phone] | [phone] | | | | | al | Fax: | | | | | | status(V45.8 | [phone] | | | | | | 9) | | | | | | | Procedures | | | | | | | ECHO | | | | | | | Complete ID | | | | | | | ECHO HEART | | | | | | | XTHORACIC,CO | | | | | | | MPLETE W | | | | | | | DOPPLER ID | | | | | | | ECHO HEART | | | | | | | XTHORACIC,CO | | | | | | | MPLETE, W/O | | | | | | | DOPPLER | | | +--------+--------+ + + + + Reason for Visit Diagnostic/Screening (Routine) +--------+--------+ + + + + | Status | Reason | Specialty | Diagnoses / | Referred By | Referred To | | | | | Procedures | Contact | Contact | +--------+--------+ + + + + | Closed | | Radiology | Diagnoses | Maxood, | [facility] | | | | | Mitral | Lane | [address] | | | | | valve | MD Rohan | [place], | | | | | insufficienc | [address] | [place] | | | | | y and aortic | [place] | [address] | | | | | valve | [place], [place] | Phone: | | | | | insufficienc | [address] | [phone] | | | | | y Other | Phone: | Fax: | | | | | postprocedur | [phone] | [phone] | | | | | al | Fax: | | | | | | status(V45.8 | [phone] | | | | | | 9) | | | | | | | Procedures | | | | | | | ECHO | | | | | | | Complete ID | | | | | | | ECHO HEART | | | | | | | XTHORACIC,CO | | | | | | | MPLETE W | | | | | | | DOPPLER ID | | | | | | | [...] | +--------+ + + + + | 01/27/ | Hospital | [facility] | Lane Moyer | Status post mitral | | 2014 | Encounter | [facility] ECHO [address] | MD Rohan [address] | valve repair | | | | [address] [place] | [address] [place] | | | | | [place] [address] | [place] [address] | | | | | [phone] | [phone] | | | | | | | | | | | | Moo Oneill, | | | | | | Technologist | [...] | 0 | | | | SA (POLINA PANDA) | Daily. 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 | | | | 6 | | SODIUM PO | | | | | | + [...] + | ECHO COMPLETE | Routin | 01/27/2015 | Status post mitral | Results for this | | | e | 11:31 AM | valve repair | procedure are in the | | | | PDT | | results section. | + +--------+ + + + | LVEF VALUE | Routin | 01/27/2015 | | Results for this | | | e | | | procedure are in the | | | | | | results section. | + +--------+ + + + documented in this encounter Results ECHO Complete (01/27/2015 11:31 AM PDT) + + | Specimen | + + | | + + + + + | Narrative | Performed At | + + + | [facility] ECHOCARDIOGRAM REPORT | [place] | | STUDY DATE: 01/27/2015 PATIENT NAME: Ivanna Flores [facility] | | : 1955 PCP: Paco Agarwal PA-C | [facility] | | CLINICAL HISTORY/DIAGNOSIS: S/p MVR A transthoracic | - IMAGING | | echocardiogram with M-mode, pulsed-wave and color Doppler was | | | performed with standard views obtained. The technical quality of | | | this examination is adequate. The heart rhythm during the echo is | | | atrial fibrillation. The M-mode, two-dimensional, color flow and | | | spectral Doppler data were reviewed and support the following | | | interpretation: Interpretation: Left Atrium: severely enlarged. | | | Left ventricle: Normal size with asymmetric septal hypertrophy, normal | | | regional wall motion and preserved systolic function overall. The | | | estimated ejection fraction is 59%. Aortic root: Aortic root is | | | normal. Right Atrium: Severely enlarged. Right ventricle: Right | | | ventricular size is normal with normal wall thickness and normal | | | right ventricular systolic function. Pericardium: Pericardium is | | | normal. Pulmonary artery: Pulmonary artery is normal. Aortic | | | valve: mildly sclerotic without significant stenosis or | | | insufficiency. Mitral valve: Thickened with annular prominence and | | | reduced mobility of the posterior leaflet, consistent with status | | | post ring repair. There is borderline to mild functional stenosis | | | and borderline to mild regurgitation. Pulmonic valve: Pulmonic | | | valve is normal. Tricuspid valve: Normal with trace insufficiency and | | | peak velocity consistent with normal RVSP. Vena cava: The | | | inferior vena cava is normal. There is greater than 50% | | | inspiratory collapse of the IVC. IMPRESSIONS: 1. 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 2. Biatrial | | | enlargement. 3. 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 4. Normal pulmonary pressures. | | | 5. Baseline atrial fibrillation with controlled ventricular rate. | | | 6. No significant changes compared to patient's prior study of 2 | | | years ago. Measurements: Height: 5'7'' Weight: 137lbs | | | Aortic root: 26 mm Aortic cusp sep: 24 mm LA: 40 mm | | | IVS-diastole: 17 mm IVS-systole: 18 mm LVPW diastole: 8 mm | | | LVPW systole: 12 mm LV diameter-diastole: 47 mm LV | | | diameter-systole: 36 mm Fractional shortenin % PFV aortic | | | valve: m/s MPG mitral valve: mmHg PFV TR jet: 1.83 m/s | | | RA/RV PP mmHg LA volume: 47 mL LA index: 58 mL/m2 Mitral | | | Inflow DT: ms IVRT: ms Valsalva: PWDTI S wave: cm/s | | | PWDTI E wave: cm/s PWDTI A wave: cm/s E/A Ratio: E/E | | | Ratio: Signed by: Belem Moyer MD PhD FACC | | | 01/27/2015 11:31 Vp Construction: Tona Jacobsen RDCS, | | | [place], [place] | | + + + + + + + + | Performing | Address | City/State/Zipcode | Phone Number | | Organization | | | | + + + + + | [facility] | [address] | [place], [place] | [phone] | | [facility] | | [address] | | | - IMAGING | | | | + + + + + LVEF VALUE (01/27/2015) + +-------+ + + + | Component | Value | Ref Range | Performed | Pathologist | | | | | At | Signature | + +-------+ + + + | LVEF-TTE | 59 | | | | | TRANSTHORAC | | | | | | IC ECHO | | | | | + +-------+ + + + documented in this encounter Visit Diagnoses + + | Diagnosis | + + | Status post mitral valve repair Other postprocedural status | + + documented in this encounter"
--- OUTSIDE RECORDS SUMMARY | ~2020-03-26 | XMS | Encounter Summary ---
Demographics + + + | Address | [address] | | | [place] [address] | + + + | Home Phone | | + + + | Preferred Language | Unknown | + + + | Marital Status | | + + + | Hindu Affiliation | 1041 | + + + | Race | or | + + + | Ethnic Group | Not or | + + + Author + + + | Author | [facility] | | | and [place] | + + + | Organization | [facility] | | | [...] | | | | | [place] [address] | | + + + + + Care Team Providers + +------+ + | Care Archaeologist Name | Role | Phone | + [...] | Mitral | Lane | [address] | | | | | valve | MD Rohan | [place], | | | | | insufficienc | [address] | [place] | | | | | y and aortic | [place] | [address] | | | | | valve | [place] | Phone: | | | | | insufficienc | [address] | [phone] | | | | | y Mild | Phone: | Fax: | | | | | tricuspid | [phone] | [phone] | | | | | regurgitatio | Fax: | | | | | | n Murmur | [phone] | | | | | | Procedures | | | | | | | ECHO | | | | | | | Complete SD | | | | | | | ECHO HEART | | | | | | | XTHORACIC,CO | | | | | | | MPLETE W | | | | | | | DOPPLER SD | | | | | | | [...] | Mitral | Lane | [address] | | | | | valve | MD Rohan | [place], | | | | | insufficienc | [address] | [place] | | | | | y and aortic | [place] | [address] | | | | | valve | [place] | Phone: | | | | | insufficienc | [address] | [phone] | | | | | y Mild | Phone: | Fax: | | | | | tricuspid | [phone] | [phone] | | | | | regurgitatio | Fax: | | | | | | n Murmur | [phone] | | | | | | Procedures | | | | | | | ECHO | | | | | | | Complete SD | | | | | | | ECHO HEART | | | | | | | XTHORACIC,CO | | | | | | | MPLETE W | | | | | | | DOPPLER SD | | | | | | | [...] | +--------+ + + + + | 02/25/ | Hospital | [facility] | [address] | MITRAL | | 2019 | Encounter | MED CTR ECHO [address] | MD Rohan [address] | REGURGITATION, | | | | [address] [place] | [address] [place] | SEVERE; TRICUSPID | | | | [place] [address] | [place] [address] | REGURGITATION, MILD; | | | | [phone] | [phone] | Murmur; Mitral | | | | | | valve insufficiency | | | | | | and aortic valve | | | | | | insufficiency; Mild | | | | | | tricuspid | | | | | | regurgitation | +--------+ + + + + Social [...] | 0 | | | | SA (K-DUR,THOMASOR-CON) | Daily. | | | | | [...] + | ECHO COMPLETE | Routin | 02/25/2019 | Mitral valve | Results for this | | | e | 11:31 AM | insufficiency and | procedure are in the | | | | PDT | aortic valve | results section. | | | | | insufficiency Mild | | | | | | tricuspid | | | | | | regurgitation | | | | | | Murmur | | + +--------+ + + + documented in this encounter Results ECHO Complete (02/25/2019 11:31 [...] | | | | | | n [place] | | | | | + +--------+ [...] Number CARLITO Patient | | | Number [id number] Date of Study 02/25/2019 | | | Visit Number [id number] | | | Referring Physician ROHAN DHILLON MD Number Date of | | | 1955 Patient Resource Coordinator MARIS COX | | | Age 63 year(s) Interpreting | | | ROHAN DHILLON MD | | | Senior C Web Developer Gender Female Nurse | | | Stress | | | Form Maker Plaster Procedure Type of Study TTE procedure: ECHO [...] Diastolic: 0.86 cm EF | | | Zumszkhif69% EF Calculated: 56% Right Ventrical TAPSE: 1.3 [...] Diastolic: 0.86 cm | | | EF Ycdzzuobb11% | | | EF Calculated: 56% | [...] Report | | (TTE) Demographics [facility] Room Number CARLITO | | Patient Number [id number] Date of Study 02/25/2019 Visit Number | | [id number] Referring Physician ROHAN DHILLON MD | | Number Date of 1955 Patient Resource Coordinator MARIS COX Age | | 63 year(s) Interpreting ROHAN DHILLON MD | | Senior C Web Developer Gender Female Nurse | | Stress TechnicianProcedureType [...] with patient's prior study of | | 2018.Signature | | -- | | 12:49 | [...] | cm PW Diastolic: 0.86 cm EF Oxkgjuefd38% EF Calculated: 56% Right Ventrical TAPSE: 1.3 [...] prior study of 2017. | | | |Signature | | | [...] PW Diastolic: 0.86 cm | | EF Vasbimkzx69% | | EF Calculated: 56% | | [...] | + + | MITRAL REGURGITATION, SEVERE Mitral valve insufficiency and aortic valve | | insufficiency | + + | TRICUSPID REGURGITATION, MILD Diseases of tricuspid valve | + + | Murmur Undiagnosed cardiac murmurs | + + documented in this encounter
--- OUTSIDE RECORDS SUMMARY | ~2020-03-26 | XMS | Encounter Summary ---
Demographics + + + | Address | [address] | | | [place] [address] | + + + | Home Phone | | + + + | Preferred Language | Unknown | + + + | Marital Status | | + + + | Shinto Affiliation | 1041 | + + + | Race | or | + + + | Ethnic Group | Not or | + + + Author + + + | Author | [facility] | | | and [place] | + + + | Organization | [facility] | | | and [place] | + + + | Address | Unknown | + + + | Phone | Unavailable | + + + Support + + + + + | Name | Relationship | Address | Phone | + + + + + | Terrance Flores | ECON | [address] | | | | | [place] [address] | | + + + + + Care Team Providers + +------+ + | Care Account Executive Healthcare Name | Role | Phone | + +------+ + | No, Unknownpcp | PCP | | + +------+ + Reason for Visit + +--------+ + | Reason | Onset | Comments | | | Date | | + +--------+ + | Medication Refill | 05/08/ | | | | 2011 | | + +--------+ + Encounter Details +--------+--------+ + + + | Date | Type | Department | Care Team | Description | +--------+--------+ + + + | 05/08/ | Refill | [facility] | [address] | Medication Refill | | 2011 | | [facility] [address] | MD Rohan [address] | | | | | [place], | [address] [place] | | | | | [place] [address] | [facility] [address] | | | | | [phone] | [phone] | | | | | | | | +--------+--------+ + + + Social History + + [...]
--- OUTSIDE RECORDS SUMMARY | ~2020-03-26 | XMS | Encounter Summary ---
Demographics + + + | Address | [address] | | | [place] [address] | + + + | Home Phone | | + + + | Preferred Language | Unknown | + + + | Marital Status | | + + + | Congregational Affiliation | 1041 | + + + | Race | or | + + + | Ethnic Group | Not or | + + + Author + + + | Author | [facility] | | | and [place] | + + + | Organization | [facility] | | | and [...] | | | | | [place] [address] | | + + + + + Care Team Providers + +------+ + | Care Principal Librarian Name | Role | Phone | + +------+ + | Preston Garcia | PCP | | + +------+ + Encounter Details +--------+ + + + + | Date | Type | Department | Care Team | Description | +--------+ + + + + | 02/20/ | Abstract | [facility] [place] | [address] | | | 2018 | | [facility] [address] | MD Rohan [address] | | | | | [place], | [address] [place] | | | | | [place] [address] | [place] [address] | | | | | [phone] | [phone] | | | | | | | [...] + | EXTERNAL LAB: | Routin | 02/13/2019 | | Results for this | | GLUCOSE | e | | | procedure are in the | | | | | | results section. | + +--------+ + + + | EXTERNAL LAB: ALT | Routin | 02/13/2019 | | Results for this | | | e | | | procedure are in the | | | | | | results section. | + +--------+ + + + | EXTERNAL LAB: AST | Routin | 02/13/2019 | | Results for this | | | e | | | procedure are in the | | | | | | results section. | + +--------+ + + + | EXTERNAL LAB: | Routin | 02/13/2019 | | Results for this | | ALKALINE PHOSPHATASE | e | | | procedure are in the | | | | | | results section. | + +--------+ + + + | EXTERNAL LAB: | Routin | 02/13/2019 | | Results for this | | BILIRUBIN, TOTAL | e | | | procedure are in the | | | | | | results section. | + +--------+ + + + | EXTERNAL LAB: | Routin | 02/13/2019 | | Results for this | | ALBUMIN | e | | | procedure are in the | | | | | | results section. | + +--------+ + + + | EXTERNAL LAB: | Routin | 02/13/2019 | | Results for this | | PROTEIN, TOTAL | e | | | procedure are in the | | | | | | results section. | + +--------+ + + + | EXTERNAL LAB: | Routin | 02/13/2019 | | Results for this | | CALCIUM | e | | | procedure are in the | | | | | | results section. | + +--------+ + + + | EXTERNAL LAB: CARBON | Routin | 02/13/2019 | | Results for this | | DIOXIDE | e | | | procedure are in the | | | | | | results section. | + +--------+ + + + | EXTERNAL LAB: | Routin | 02/13/2019 | | Results for this | | CHLORIDE | e | | | procedure are in the | | | | | | results section. | + +--------+ + + + | EXTERNAL LAB: | Routin | 02/13/2019 | | Results for this | | POTASSIUM | e | | | procedure are in the | | | | | | results section. | + +--------+ + + + | EXTERNAL LAB: SODIUM | Routin | 02/13/2019 | | Results for this | | | e | | | procedure are in the | | | | | | results section. | + +--------+ + + + | EXTERNAL LAB: CBC | Routin | 02/13/2019 | | Results for this | | | e | | | procedure are in the | | | | | | results section. | + +--------+ + + + | EXTERNAL LAB: | Routin | 02/13/2019 | | Results for this | | TRIGLYCERIDES | e | | | procedure are in the | | | | | | results section. | + +--------+ + + + | EXTERNAL LAB: | Routin | 02/13/2019 | | Results for this | | CHOLESTEROL, HDL | e | | | procedure are in the | | | | | | results section. | + +--------+ + + + | EXTERNAL LAB: | Routin | 02/13/2019 | | Results for this | | CHOLESTEROL, TOTAL | e | | | procedure are in the | | | | | | results section. | + +--------+ + + + | EXTERNAL LAB: | Routin | 02/13/2019 | | Results for this | | CHOLESTEROL, LDL | e | | | procedure are in the | | DIRECT | | | | results section. | + +--------+ + + + | EXTERNAL LAB: EGFR | Routin | 02/13/2019 | | Results for this | | | e | | | procedure are in the | | | | | | results section. | + +--------+ + + + | EXTERNAL LAB: | Routin | 02/13/2019 | | Results for this | | CREATININE | e | | | procedure are in the | | | | | | results section. | + +--------+ + + + | CBC WITH | Routin | 02/13/2019 | | Results for this | | DIFFERENTIAL | e | | | procedure are in the | | | | | | results section. | + +--------+ + + + | COMPREHENSIVE | Routin | 02/13/2019 | | Results for this | | METABOLIC PANEL | e | | | procedure are in the | | | | | | results section. | + +--------+ + + + documented in this encounter Results External Lab: CBC (02/13/2019) + + + + + + | Component | Value | Ref Range | Performed | Pathologist | | | | | At | Signature | + + + + + + | WBC, | 8.54 | 4 - 11 | | | | External | | | | | + + + + + + | HGB, | 15.26 | 12 - 16 | | | | External | | | | | + + + + + + | HCT, | 45.32 (A) | 35 - 45 | | | | External | | | | | + + + + + + | PLT, | 197 | 140 - 440 | | | | External | | | | | + + + + + + | Neutrophils | 52 | 37 - 67 | | | | %, | | | | | | External | | | | | + + + + + + | Lymphocytes | 37.60 | 24 - 44 | | | | %, | | | | | | External | | | | | + + + + + + | Monocytes | 7.20 | | | | | %, External | | | | | + + + + + + | Eosinophils | 2.50 | 0 - 5 | | | | %, | | | | | | External | | | | | + + + + + + | Neutrophils | 4.44 | 1.3 - 7 | | | | , Absolute, | | | | | | External | | | | | + + + + + + | Lymphocytes | 3.21 (A) | 0.8 - 3.1 | | | | , Absolute, | | | | | | External | | | | | + + + + + + | Monocytes, | 0.61 | 0.2 - 1 | | | | Absolute, | | | | | | External | | | | | + + + + + + | Eosinophils | 0.21 | 0 - 0.8 | | | | , Absolute | | | | | + + + + + + | Basophils, | 0.06 | 0 - 0.6 | | | | Absolute | | | | | + + + + + + | RBC, | 5.05 | 3.8 - 5.2 | | | | External | | | | | + + + + + + | MCV, | 90 | 81 - 99 | | | | External | | | | | + + + + + + | RDW, | 13.19 | 10.5 - 16 | | | | External | | | | | + + + + + + External Lab: Glucose (02/13/2019) + +---------+ + + + | Component | Value | Ref Range | Performed | Pathologist | | | | | At | Signature | + +---------+ + + + | Glucose, | 113 (A) | 65 - 99 | | | | External | | | | | + +---------+ + + + External Lab: ALT (02/13/2019) + +-------+ + + + | Component | Value | Ref Range | Performed | Pathologist | | | | | At | Signature | + +-------+ + + + | ALT, | 19 | 0 - 41 | | | | External | | | | | + +-------+ + + + External Lab: AST (02/13/2019) + +-------+ + + + | Component | Value | Ref Range | Performed | Pathologist | | | | | At | Signature | + +-------+ + + + | AST, | 16.0 | 0 - 40 | | | | External | | | | | + +-------+ + + + External Lab: Alkaline Phosphatase (02/13/2019) + +-------+ + + + | Component | Value | Ref Range | Performed | Pathologist | | | | | At | Signature | + +-------+ + + + | ALP, | 75 | 40 - 129 | | | | External | | | | | + +-------+ + + + External Lab: Bilirubin, Total (02/13/2019) + +-------+ + + + | Component | Value | Ref Range | Performed | Pathologist | | | | | At | Signature | + +-------+ + + + | Bilirubin, | 0.5 | 0.1 - 1.5 | | | | Total, | | | | | | External | | | | | + +-------+ + + + External Lab: Albumin (02/13/2019) + +-------+ + + + | Component | Value | Ref Range | Performed | Pathologist | | | | | At | Signature | + +-------+ + + + | Albumin, | 4.4 | 3.5 - 5.2 | | | | External | | | | | + +-------+ + + + External Lab: Protein, Total (02/13/2019) + +-------+ + + + | Component | Value | Ref Range | Performed | Pathologist | | | | | At | Signature | + +-------+ + + + | Protein, | 7.5 | 6.2 - 8.2 | | | | Total, | | | | | | External | | | | | + +-------+ + + + External Lab: Calcium (02/13/2019) + +-------+ + + + | Component | Value | Ref Range | Performed | Pathologist | | | | | At | Signature | + +-------+ + + + | Calcium, | 9.3 | 8.5 - 10.2 | | | | External | | | | | + +-------+ + + + External Lab: Carbon Dioxide (02/13/2019) + +--------+ + + + | Component | Value | Ref Range | Performed | Pathologist | | | | | At | Signature | + +--------+ + + + | Carbon | 31 (A) | 22 - 29 | | | | Dioxide, | | | | | | External | | | | | + +--------+ + + + External Lab: Chloride (02/13/2019) + +---------+ + + + | Component | Value | Ref Range | Performed | Pathologist | | | | | At | Signature | + +---------+ + + + | Chloride, | 108 (A) | 97 - 107 | | | | External | | | | | + +---------+ + + + External Lab: Potassium (02/13/2019) + +-------+ + + + | Component | Value | Ref Range | Performed | Pathologist | | | | | At | Signature | + +-------+ + + + | Potassium, | 4.3 | | | | | External | | | | | + +-------+ + + + External Lab: Sodium (02/13/2019) + +-------+ + + + | Component | Value | Ref Range | Performed | Pathologist | | | | | At | Signature | + +-------+ + + + | Sodium, | 145 | | | | | External | | | | | + +-------+ + + + External Lab: Triglycerides (02/13/2019) + +-------+ + + + | Component | Value | Ref Range | Performed | Pathologist | | | | | At | Signature | + +-------+ + + + | Triglycerid | 142 | | | | | es, | | | | | | External | | | | | + +-------+ + + + + + | Specimen | + + | Blood | + + External Lab: Cholesterol, HDL (02/13/2019) + +-------+ + + + | Component | Value | Ref Range | Performed | Pathologist | | | | | At | Signature | + +-------+ + + + | HDL | 41 | mg/dl | | | | Cholesterol | | | | | | , External | | | | | + +-------+ + + + + + | Specimen | + + | Blood | + + External Lab: Cholesterol, Total (02/13/2019) + +-------+ + + + | Component | Value | Ref Range | Performed | Pathologist | | | | | At | Signature | + +-------+ + + + | Cholesterol | 129 | mg/dl | | | | , Total, | | | | | | External | | | | | + +-------+ + + + + + | Specimen | + + | Blood | + + External Lab: Cholesterol, LDL Direct (02/13/2019) + +-------+ + + + | Component | Value | Ref Range | Performed | Pathologist | | | | | At | Signature | + +-------+ + + + | LDL | 60.1 | | | | | Cholesterol | | | | | | , Direct, | | | | | | External | | | | | + +-------+ + + + + + | Specimen | + + | Blood | + + External Lab: eGFR (02/13/2019) + +-------+ + + + | Component | Value | Ref Range | Performed | Pathologist | | | | | At | Signature | + +-------+ + + + | eGFR, | 19.5 | | | | | External | | | | | + +-------+ + + + + + | Specimen | + + | Blood | + + External Lab: Creatinine (02/13/2019) + +-------+ + + + | Component | Value | Ref Range | Performed | Pathologist | | | | | At | Signature | + +-------+ + + + | Creatinine, | 0.90 | | | | | External | | | | | + +-------+ + + + + + | Specimen | + + | Blood | + + Comprehensive Metabolic Panel (02/13/2019) + +-------+ + + + | Component | Value | Ref Range | Performed | Pathologist | | | | | At | Signature | + +-------+ + + + | Anion Gap | 10 | mmol/L | | | + +-------+ + + + | Bun/Creatin | 19.5 | | | | | ine | | | | | + +-------+ + + + + + | Specimen | + + | Blood | + + CBC with Differential (02/13/2019) + +-------+ + + + | Component | Value | Ref Range | Performed | Pathologist | | | | | At | Signature | + +-------+ + + + | MCH | 30.2 | 26.0 - 33.0 pg | | | + +-------+ + + + | MCHC | 33.7 | 30.0 - 36.0 | | | | | | g/dL | | | + +-------+ + + + | % Basophils | 0.7 | 1.0 % | | | + +-------+ + + + + + | Specimen | + + | Blood | + + documented in this encounter Visit Diagnoses Not on filedocumented in this encounter"
--- OUTSIDE RECORDS SUMMARY | ~2020-03-26 | XMS | Encounter Summary ---
Demographics + + + | Address | [address] | | | [place] [address] | + + + | Home Phone | | + + + | Preferred Language | Unknown | + + + | Marital Status | | + + + | Scientology Affiliation | 1041 | + + + | Race | or | + + + | Ethnic Group | Not or | + + + Author + + + | Author | [facility] | | | and [place] | + + + | Organization | [facility] | | | and [place] | + + + | Address | Unknown | + + + | Phone | Unavailable | + + + Support + + + + + | Name | Relationship | Address | Phone | + + + + + | Terrance Flores | ECON | [address] | | | | | [place] [address] | | + + + + + Care Team Providers + +------+ + | Care Hosiery Operator Name | Role | Phone | + +------+ + | No, Unknownpcp | PCP | | + +------+ + Reason for Visit + + + | Reason | Comments | + + + | Coronary Artery | Two month follow up, CABG 06/01/12 | | Disease | | + + + Encounter Details +--------+---------+ + + + | Date | Type | Department | Care Team | Description | +--------+---------+ + + + | 06/28/ | Office | [facility] | Lane Moyer | Mitral valve | | 2011 | Visit | CARDIOLOGY [address] | MD Rohan [address] | replaced (Primary | | | | [place], | [address] [place] | Dx); Coronary | | | | [place] [address] | [place] [address] | atherosclerosis due | | | | [phone] | [phone] | to lipid rich plaque | | | | | | | +--------+---------+ + + + Social History [...] + + + | Blood Pressure | 110/70 | 06/28/2012 12:44 PM | | | | | PST | | + + + + + | Pulse | 84 | 06/28/2012 12:44 PM | regular | | | | PST | | + + + + + | Temperature | - | - | | + + + + + | Respiratory Rate | 14 | 06/28/2012 12:44 PM | | | | | PST | | + + + + + | Oxygen Saturation | - | - | | + + + + + | Inhaled Oxygen | - | - | | | Concentration | | | | + + + + + | Weight | 47.6 kg (105 lb) | 06/28/2012 12:44 PM | | | | | PST | | + + + + + | Height | - | - | | + + + + + | Body Mass Index | 16.45 | 05/07/2012 3:24 PM | | | | | PDT | | + + + + + documented in this encounter Patient Instructions Patient Instructions Sahara Malcolm RN - 06/28/2012 1:28 PM PST1. Echo soon, patient to check schedule at home and call to arrange 2. Follow up in [address] MoyerElectronically signed by Sahara Malcolm RN at 12/2011 1:29 PM PST documented in this encounter Progress Notes Lane Moyer MD - 06/28/2012 1:38 PM PSTFormatting of this note might be differe nt from the original. Subjective: Patient ID: Ivanna Flores is a 57 y.o. female. HPI Patient is a 57-year-old female with recent invasive workup for severe mitral regurgitation and underlying CAD, followed by CABG X4 with ALMENDAREZ to diagonal, SVG sequentially to OM1 and OM 2, and SVG to PDA, as well as mitral valve posterior leaflet reconstruction and reamed re pair, with endoscopic vein harvest, here for followup visit here for routine followup visit. Recent left heart catheterization and coronary angiography had revealed underlying multives desmond CAD and confirmed severe MR. She had had dyspnea on exertion and lower extremity edema p reoperatively both of which have completely resolved. In fact she states that she has lost a pproximately 20 pounds since the surgery. She has had good healing of her sternotomy wound h as had no constitutional symptoms. She denies any bowel problems or changes in her bowel hab its, and indeed she has been experiencing increased appetite. Past Medical History Diagnosis Date Hypertension 04/03/2012 MITRAL REGURGITATION, SEVERE 04/03/2012 TRICUSPID REGURGITATION, MILD 04/03/2012 DYSPNEA 04/03/2012 Renal failure, acute 04/03/2012 Anxiety 04/03/2012 Depression 04/03/2012 Depression 04/03/2012 Panic attack 04/03/2012 Tobacco abuse 04/03/2012 Murmur 04/03/2012 Arthritis, rheumatoid 04/03/2012 Reactive airway disease 04/03/2012 DIABETES MELLITUS, BORDERLINE 04/03/2012 Patient Active Problem List Diagnoses Date Noted POA CAD (coronary artery disease) 05/07/2012 DYSPNEA 04/03/2012 HYPERTENSION 04/03/2012 RENAL FAILURE, ACUTE 04/03/2012 ANXIETY 04/03/2012 DEPRESSION 04/03/2012 PANIC ATTACK 04/03/2012 TOBACCO ABUSE 04/03/2012 MURMUR 04/03/2012 ARTHRITIS, RHEUMATOID 04/03/2012 REACTIVE AIRWAY DISEASE 04/03/2012 DIABETES MELLITUS, BORDERLINE 04/03/2012 MITRAL REGURGITATION, SEVERE 04/03/2012 TRICUSPID REGURGITATION, MILD 04/03/2012 Past Surgical History Procedure Date Tonsillectomy Tubal ligation Cholecystectomy 2011 No family history on file. 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 carvedilol (COREG) 3.125 mg tablet Take 3.125 mg by mouth 2 times daily (with breakfast & dinner). furosemide (LASIX) 20 mg tablet Take 20 mg by mouth Daily. doxepin (SINEQUAN) 150 MG capsule Take 150 mg by mouth nightly. lisinopril (PRINIVIL, ZESTRIL) 20 mg tablet Take 20 mg by mouth 2 times daily. Allergies Allergen Reactions Iodine Penicillins Review of Systems Respiratory: Positive for shortness of breath. Cardiovascular: Positive for leg swelling. All other systems reviewed and are negative. BP 110/70 | Pulse 84 | Resp 14 | Wt 47.628 kg (105 lb) Objective: Physical Exam Vitals reviewed. Constitutional: She is oriented to person, place, [...] the anterior right upper thigh without any f luctuance or warmth. No audible bruits or abnormal pulsations. Psychiatric: She has a normal mood and affect. Her behavior is normal. The EKG done on 04/05/2012 shows normal sinus rhythm, poor RWP, lateral [...] with basal inferior akinesis and 3+ MR. Assessment: #1 - mitral regurgitation - Patient's has no evidence of residual regurgitation on exam, an d clinically feels significantly improved with resolution of exertional dyspnea and generali zed edema. Will obtain a baseline transthoracic echocardiogram with annual studies neftali bundy #2 - CAD - patient is status post complete surgical revascularization, and his having good healing postoperatively. She is on a thorough medical regimen. The focus remained on continu ed medical therapy and risk factor reduction. #3 - Tobacco cessation. This was discussed at length with the patient and her . They are both smoking a few cigarettes daily, and she states that she continu es to do so due to ongoing symptoms of anxiety. They both hope to quit as of the new year. Plan: #1 - continue current medical regimen. #2 - echocardiogram prior to next visit. #4 - tobacco cessation once again reinforced. #5 - follow up visit in 3-4 months. documented in t his encounter Plan of Treatment + + +--------+ + + | Name | Type | Priori | Associated Diagnoses | Order Schedule | | | | ty | | | + + +--------+ + + | ECHO Complete | Echocardiog | Routin | Mitral valve | Expected: | | | lorelei | e | replaced | 06/28/2012, Expires: | | | | | | 06/28/2013 | + + +--------+ + + documented as of this encounter Visit Diagnoses + + | Diagnosis | + + | Mitral valve replaced - Primary Heart valve replaced by other means | + + | Coronary atherosclerosis due to lipid rich plaque | + + documented in this encounter"
--- OUTSIDE RECORDS SUMMARY | ~2020-03-26 | XMS | Encounter Summary ---
Demographics + + + | Address | [address] | | | [place] [address] | + + + | Home Phone | | + + + | Preferred Language | Unknown | + + + | Marital Status | | + + + | [employer] Affiliation | 1041 | + + + [...] | | | | | [place] [address] | | + + + + + Care Team Providers + +------+ + | Care Body Fitter Name | Role | Phone | + [...] | Radiology | Diagnoses | [place], | [facility] | | | | | Mitral | Lane | Imaging [address] | | | | | regurgitatio | MD Rohan | [address] | | | | | n | [address] | [address] [place] | | | | | Procedures | St [place] | [place] | | | | | ECHO | [place] | [address] | | | | | Complete | [id number] | Phone: | | | | | | Phone: | [phone] | | | | | | [phone] | Fax: | | | | | | Fax: | [phone] | | | | | | [phone] | | +--------+--------+ + + + + Encounter Details +--------+ + + + + | Date | Type | Department | Care Team | Description | +--------+ + + + + | 09/10/ | Orders Only | [facility] [place] | Lane Moyer | Mitral regurgitation | | 2012 | | CARDIOLOGY [address] | MD Rohan [address] | (Primary Dx) | | | | [place], | [address] [place] | | | | | [place] [address] | [place] [address] | | | | | [phone] | [phone] | | | | | | | [...] as of this encounter Results ECHO Complete (02/12/2013 4:25 PM PDT) + + | Specimen | + + | | + + + + + | Narrative | Performed At | + + + | [facility] | [facility] | | Department [address] [facility] [place] | [facility] | | [ rep [address]] [ rep [facility] | | st zip] Signed | - IMAGING | | | | | Patient Name: IVANNA FLORES Physician: | | | SYED.[birth year] : 1955 Age: 57 Sex: F Unit #: [id number] | | | Exam Date: 02/12/13 Location: [facility] | | | Report #: [id number] Page: | | | %(RAD)RES..mtdd.print.filter("pg") of %(RAD) | | | RES..mtdd.print.filter("tpg") | | | | | | Accession Number: [id number] | | | E C H O C A R D I O G R A P H Y R E P O R T | | | HEIGHT: 67" WEIGHT: 128# | | | SYSTEMS INTEGRATOR: JUANPABLO REFERRING DR: COMFORT BURDICK DR: | | | COMFORT DIAGNOSIS: MR, MV REPAIR 06-01-12 AND CABG X 4 | | | | | | M E A S U R E M E N T S | | | Aortic Root: 32 mm LV | | | Diameter-diastole: 50 mm Aortic Cusp Sep: 21 mm | | | LV Diameter--systole: 40 mm LA: | | | 43 mm Fractional Shortenin % | | | IVS--diastole: 14 mm PFV Aortic Valve: | | | IVS--systole: 17 mm MPG Mitral | | | Valve: 3.5 mmHg LVPW--diastole: 7 mm | | | PFV TR Jet: m/s LVPW--systole: | | | 8 mm RA/RV PPG: mmHg | | | | | | | | | ECHOCARDIOGRAM, 02/12/2013 REFERRING: Belem HAGEN | | | MD COMFORT CLINICAL HISTORY: MITRAL REGURGITATION, STATUS | | | POST MV REPAIR. TECHNICAL: The quality of the study is good. | | | This is a complete transthoracic echocardiogram including 2-D, | | | m-mode, Doppler and color-flow Doppler analysis. | | | HEMODYNAMICS: The patient is in underlying atrial fibrillation | | | throughout the procedure with a ventricular rate in the 70's. | | | RESULTS CHAMBERS: The left ventricle is of normal | | | end-diastolic and end-systolic dimensions with asymmetric septal | | | hypertrophy and otherwise normal regional wall motion with an LVEF | | | calculated at 56%. Bilateral atria are severely enlarged. Right | | | ventricle is of normal size and systolic function with normal wall | | | thickness. VALVES: The aortic valve is a sclerotic | | | trileaflet valve with adequate opening. There is no significant | | | stenosis with trace insufficiency noted. Mitral valve is thickened | | | with annular prominence and reduced mobility of the posterior | | | leaflet, consistent with patient's status post repair. There is mild | | | regurgitation seen. There is a mean pressure gradient of 3.5 mmHg | | | across the valve. Tricuspid valve is normal without any | | | insufficiency. Pulmonic valve is normal. MISCELLANEOUS: | | | Pericardium is normal without any pericardial effusion noted. Aortic | | | root measures 32 mm. IVC is normal. IMPRESSION: 1. | | | ASYMMETRIC SEPTAL HYPERTROPHY AND LVEF OF 56%. 2. BIATRIAL | | | ENLARGEMENT. 3. MITRAL VALVE, STATUS POST REPAIR WITH MILD | | | REGURGITATION AND BORDERLINE FUNCTIONAL STENOSIS. 4. AORTIC | | | VALVULAR SCLEROSIS AND TRACE INSUFFICIENCY. 5. COMPARED WITH | | | PATIENT'S PREOPERATIVE STUDY OF 2011, MITRAL VALVE IS NOW | | | STATUS POST REPAIR WITH SUBSTANTIAL REDUCTION IN REGURGITATION. NO | | | TRICUSPID INSUFFICIENCY IS NOTED ON THIS STUDY COMPARED WITH | | | PATIENT'S PRIOR STUDY. PERICARDIAL EFFUSION APPEARS TO HAVE RESOLVED. | | | Dictated Date/Time: 02/12/2013 16:25 Transcribed | | | Date/Time: 02/12/2013 17:50 Rehabilitation Program Coordinator: | | | <<Signature on File>> | | | S | | | Rohan Moyer MD02/13/13 [id number] <Electronically signed by S S. | | | Comfort SANCHEZ> S Rohan Moyer MD 02/12/13 1625 | | | Rehabilitation Program Coordinator: Deyanira Iopccstwbrffh96/23/13 [address] | | | Rohan Moyer MD | | + + + + + + + + | Performing | Address | City/State/Zipcode | Phone Number | | Organization | | | | + + + + + | [facility] | [address] | [place] | [phone] | | [facility] | | [address] | | | - IMAGING | | | | + + + + + documented in this encounter Visit Diagnoses + + | Diagnosis | + + | Mitral regurgitation - Primary Mitral valve disorders | + + documented in this encounter
--- OUTSIDE RECORDS SUMMARY | ~2020-03-26 | XMS | Encounter Summary ---
Demographics + + + | Address | [address] | | | [place] [address] | + + + | Home Phone | | + + + | Preferred Language | Unknown | + + + | Marital Status | | + + + | Jain Affiliation | 1041 | + + + | Race | or | + + + | Ethnic Group | Not or | + + + Author + + + | Author | [facility] | | | and [place] | + + + | Organization | [facility] | | | [...] | | | | | [place] [address] | | + + + + + Care Team Providers + +------+ + | Care Rubber Heel And Sole Press Tender Name | Role | Phone | + +------+ + | Paco Agarwal PA-C | PCP | | + +------+ + Encounter Details +--------+ + + + + | Date | Type | Department | Care Team | Description | +--------+ + + + + | 04/18/ | Abstract | [facility] | [address] Moyer | | | 2012 | | [facility] [address] | MD Rohan [address] | | | | | [place], | [address] [place] | | | | | [place] [address] | [place] [address] | | | | | [phone] | | | | | | | [...] | + +--------+ + + + | CREATININE, URINE | Routin | 04/18/2013 | | Results for this | | | e | 8:35 AM | | procedure are in the | | | | PDT | | results section. | + +--------+ + + + | EXTERNAL LAB: | Routin | 04/18/2013 | | Results for this | | MICROALBUMIN, URINE | e | | | procedure are in the | | | | | | results section. | + +--------+ + + + documented in this encounter Results Creatinine, Urine (04/18/2013 8:35 AM PDT) + +-------+ + + + | Component | Value | Ref Range | Performed | Pathologist | | | | | At | Signature | + +-------+ + + + | Creatinine, | 41 | mg/dL | | | | Urine | | | | | + +-------+ + + + + + | Specimen | + + | Urine specimen | | (specimen) | + + External Lab: Microalbumin, Urine (04/18/2013) + +-------+ + + + | Component | Value | Ref Range | Performed | Pathologist | | | | | At | Signature | + +-------+ + + + | Microalbumi | <0.5 | 0 - 2 | | | | n, Urine, | | | | | | External | | | | | + +-------+ + + + + + | Specimen | + + | Blood specimen | | (specimen) | + + + + | Resulting Agency Comment | + + | [facility] | + + documented in this encounter Visit Diagnoses Not on filedocumented in this encounter"
--- OUTSIDE RECORDS SUMMARY | ~2020-03-26 | XMS | Encounter Summary ---
Demographics + + + | Address | [address] | | | [place] [address] | + + + | Home Phone | | + + + | Preferred Language | Unknown | + + + | Marital Status | | + + + | Christian Affiliation | 1041 | + + + | Race | or | + + + | Ethnic Group | Not or | + + + Author + + + | Author | [facility] | | | and [place] | + + + | Organization | [facility] | | | [...] | | | | | [place] [address] | | + + + + + Care Team Providers + +------+ + | Care Paper Carrier Name | Role | Phone | + +------+ + | Preston Garcia | PCP | | + +------+ + Reason for Visit + + + | Reason | Comments | + + + | Annual Visit | | + + + | Coronary Artery | | | Disease | | + + + | Hypertension | | + + + Encounter Details +--------+---------+ + + + | Date | Type | Department | Care Team | Description | +--------+---------+ + + + | 02/25/ | Office | [facility] | [address] Dhillon | Coronary artery | | 2019 | Visit | CARDIOLOGY [address] | MD Rohan [address] | disease, angina | | | | [address], | [address] [place] | presence | | | | [place] [address] | [place] [address] | unspecified, | | | | [phone] | [phone] | unspecified vessel | | | | | | or lesion type, | | | | | | unspecified whether | | | | | | [place] or | | | | | | transplanted heart | | | | | | (Primary Dx); MITRAL | | | | | | REGURGITATION, | | | | | | SEVERE; | | | | | | Hypertension, | | | | | | unspecified type; | | | | | | Tobacco [...] + + + | Blood Pressure | 130/70 | 02/25/2019 1:46 PM | | | | | PDT | | + + + + + | Pulse | 80 | 02/25/2019 1:46 PM | | | | | PDT | | + + + + + | Temperature | - | - | | + + + + + | Respiratory Rate | 16 | 02/25/2019 1:46 PM | | | | | PDT | | + + + + + | Oxygen Saturation | - | - | | + + + + + | Inhaled Oxygen | - | - | | | Concentration | | | | + + + + + | Weight | 64.8 kg (142 lb 13.7 | 02/25/2019 1:46 PM | | | | oz) | PDT | | + + + + + | Height | 167.6 cm (5' 6") | 02/25/2019 1:46 PM | | | | | PDT | | + + + + + | Body Mass Index | 23.06 | 02/25/2019 1:46 PM | | | | | PDT | | + + + + + documented in this encounter Progress Notes Lane Dhillon MD - 02/25/2019 2:00 PM PDTFormatting of this note might be differe nt from the original. Subjective: CARDIOLOGY OFFICE VISIT Patient ID: Ivanna Flores is a 63 y.o. female. HPI Patient is a 63-year-old female with history of severe mitral regurgitation and underlying CAD, followed by CABG X4 with ALMENDAREZ to diagonal, SVG sequentially to OM1 and OM 2, and SVG to PDA, as well as mitral valve posterior leaflet reconstruction and ring repair, with endosco pic vein harvest in 2011, here for followup visit. She has been experiencing ongoing psycho social stressors at home related to severe illness of her younger sister, who is also a smok er. She herself denies any chest pain or shortness of breath. Unfortunately the patient continues to smoke, still at one pack per day or more, primarily due to persistent anxiety. Her also smokes. Pertinent historical clinical information: Preoperatively, left heart catheterization and coronary angiography had revealed underlying multivessel CAD and confirmed severe MR. She had had dyspnea on exertion and lower extremit y edema preoperatively both of which have completely resolved. MEDICAL, SURGICAL AND PERSONAL HISTORY Past Medical History: Diagnosis Date Anxiety 04/03/2012 Arthritis, rheumatoid (HCC) 04/03/2012 Depression 04/03/2012 Depression 04/03/2012 DIABETES MELLITUS, BORDERLINE 04/03/2012 DYSPNEA 04/03/2012 Hx of cervical cancer 08/2013 Hypertension 04/03/2012 MITRAL REGURGITATION, SEVERE 04/03/2012 Murmur 04/03/2012 Panic attack 04/03/2012 Reactive airway disease 04/03/2012 Renal failure, acute (HCC) 04/03/2012 Tobacco abuse 04/03/2012 TRICUSPID REGURGITATION, MILD 04/03/2012 Past Surgical History: Procedure Laterality Date CERVIX BIOPSY 09/06 CERVIX REMOVAL 09/06 Patient has had a normal pap since CHOLECYSTECTOMY 2012 TONSILLECTOMY TUBAL LIGATION Family History Problem Relation Age of Onset Stroke Mother 63 Cervical cancer Maternal Grandmother 46 Diabetes Sister Heart failure Sister Breast cancer Sister Social History Socioeconomic History Marital status: Spouse name: Terrance Number of children: 3 Years of education: Not on file Highest education level: Not on file Occupational History Occupation: [employer] Employer: [employer] 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 amLODIPine (NORVASC) 5 mg tablet Take 2.5 mg by mouth 2 times daily. aspirin 81 MG tablet Take 81 mg by mouth Daily. carvedilol (COREG) 3.125 mg tablet Take 3.125 mg by mouth 2 times daily (with breakfast & dinner). docusate sodium (COLACE) 100 mg capsule Take 100 mg by mouth Daily. doxepin (SINEQUAN) 50 mg capsule Take 150 mg by mouth nightly. furosemide (LASIX) 20 mg tablet Take 1 tablet by mouth Daily. 30 tablet 6 lisinopril (PRINIVIL, ZESTRIL) 20 mg tablet Take 20 mg by mouth 2 times daily. potassium chloride SA (K-DUR,KLOR-CON) 10 MEQ tablet Take 10 mEq by mouth Daily. simvastatin (ZOCOR) 20 mg tablet Take 1 tablet by mouth nightly. 30 tablet 6 No current facility-administered medications on file prior to visit. Allergies Allergen Reactions Iodinated Diagnostic Agents Convulsions Amoxicillin Hives Rash and itching all over body Iodine Rash Penicillins Hives Review of Systems I have reviewed the Review of Systems form dated today and scanned into the media tab. Objective: Physical Exam Constitutional: She is oriented to person, place, and time. She appears well-developed and well-nourished. HENT: Head: Normocephalic and atraumatic. Eyes: Pupils are equal, round, and reactive to light. Neck: Neck supple. No JVD present. No thyromegaly present. Cardiovascular: Normal rate, regular rhythm, S1 normal, S2 normal, normal heart sounds, int act distal pulses and normal pulses. PMI is not displaced. Exam reveals no S3, no S4 and no friction rub. No murmur heard. Pulses: Carotid pulses are 2+ on the right side, and 2+ on the left side. Radial pulses are 2+ on the right side, and 2+ on the left side. Pulmonary/Chest: Effort normal and breath sounds normal. No accessory muscle usage. No resp iratory distress. She has no wheezes. Well-healed sternotomy scar noted. Abdominal: Soft. Normal appearance and bowel sounds are normal. She exhibits no distension and no abdominal bruit. There is no hepatosplenomegaly. There is no tenderness. Musculoskeletal: Normal range of motion. Neurological: She is alert and oriented to person, place, and time. Skin: Skin is warm and dry. No rash noted. Psychiatric: She has a normal mood and affect. Her behavior is normal. Vitals reviewed. BP 130/70 | Pulse 80 | Resp 16 | Ht 1.676 m (5' 6") | Wt 64.8 kg (142 lb 13.7 oz) | BM I 23.06 kg/m LAB RESULTS: LIPID Lab Results Component Value Date LDLEX 43 06/28/2013 HDLEX 41 02/13/2019 TRIGEX 142 02/13/2019 CHOLEX 129 02/13/2019 CHEMISTRY Lab Results Component Value Date GLU 96 07/29/2013 NA 139 07/29/2013 K 4.4 07/29/2013 CL 106 04/18/2013 CO2 26 04/18/2013 CALCIUM 9.4 04/18/2013 ALKPHOS 94 04/18/2013 AST 21 05/31/2012 ALT 12 05/31/2012 BILITOT 0.6 04/18/2013 CREA 0.50 06/04/2012 BUN 25 (A) 07/10/2013 EGFR >60 06/04/2012 EGFREX 19.5 02/13/2019 CREEX 0.90 02/13/2019 HEMATOLOGY Lab Results Component Value Date WBC 8.0 06/05/2012 HGB 11.4 06/05/2012 HCT 36.7 06/05/2012 PLT 111 (L) 06/05/2012 HGBEX 15.26 02/13/2019 ECG shows normal sinus rhythm, heart rate 83, possible inferior AL. Unchanged from prior t racing. I personally reviewed and interpreted the Echo images of 04/05/2012. Nl LVEF, severe MR, s mall pericardial effusion. Left heart catheterization and coronary angiography reviewed by me May 01, 2012 notable for diffusely diseased RCA with left to right collateral flow, and flow limiting lesions in first diagonal, and proximal LCx. LVEF 55-60% with basal inferior akinesis and 3+ MR. Echocardiogram performed in [facility] notable for moderate septal hypert rophy, [...] to mil d insufficiency, normal pulmonary pressures. Echocardiogram December 2015 interpreted and reviewed by me with the patient today notable for LVEF 64%, mitral valve status post repair without significant stenosis and with trace insuff iciency. Echocardiogram August 2017 interpreted and reviewed by me notable for normal LV size and systolic function, LVEF 59%, normally functioning mitral valve replacement with mild MR. Echocardiogram February 2019 results interpreted and reviewed by me with the patient today no table for normal LV size and systolic function, LVEF 55-60%, grade 1 LV diastolic dysfunctio n. mild MR, mild left atrial enlargement. Assessment: #1 - Mitral regurgitation - patient demonstrates evidence of normally functioning mitral va lve repair 2011, and she clinically feels significantly improved with resolution of exertion al dyspnea and generalized edema. She will benefit from annual echocardiograms. Her BNP is within normal limits. #2 - CAD - patient is status post complete surgical revascularization, with CABG 4 in 2. She is on a thorough medical regimen. The focus remained on continued medical therapy an d risk factor reduction. She would benefit from recheck of her fasting lipid profile matthew naik with her PCP. #3 - Tobacco cessation. This was once again discussed at length (> 5 minutes) with the carlos quinones - she and her are both smoking - he a few cigarettes daily, and she states that she continues to smoke a pack a day due to ongoing symptoms of anxiety, even though she rec ently experienced a severe bout of respiratory illness, and her sister who herself has been suffering greatly from this.. She will likely need adjunctive pharmacotherapy closer to the time of her quitting. I have urged her to set a date and begin a taper regimen. #4 - Hypertension - this demonstrates adequate control. Plan: #1 - continue current medical regimen. #2 - echocardiogram in one year. #3 - tobacco cessation once again reinforced. #4 - follow up visit in 6-12 months documented in t his encounter Plan of Treatment Not on filedocumented as of this encounter Procedures + +--------+ + + + | Procedure Name | Priori | Date/Time | Associated Diagnosis | Comments | | | ty | | | | + +--------+ + + + | ECG 12 LEAD | Routin | 02/25/2019 | Coronary artery | Results for this | | | e | 1:51 PM | disease, angina | procedure are in the | | | | PDT | presence | results section. | | | | | unspecified, | | | | | | unspecified vessel | | | | | | or lesion type, | | | | | | unspecified whether | | | | | | [place] or | | | | | | transplanted heart | | | | | | MITRAL | | | | | | REGURGITATION, | | | | | | SEVERE | | | | | | Hypertension, | | | | | | unspecified type | | + +--------+ + + + documented in this encounter Results ECG 12 lead (02/25/2019 1:51 PM PDT) + + + + + + | Component | Value | Ref Range | Performed | Pathologist | | | | | At | Signature | + + + + + + | VENTRICULAR | 83 | BPM | [facility] | | | RATE EKG | | | | | + + + + + + | ATRIAL RATE | 83 | BPM | [facility] | | + + + + + + | P-R | 188 | ms | [facility] | | | INTERVAL | | | | | + + + + + + | QRS | 96 | ms | [facility] | | | DURATION | | | | | + + + + + + | Q-T | 386 | ms | [facility] | | | INTERVAL | | | | | + + + + + + | Q-T | 453 | ms | [facility] | | | INTERVAL | | | | | | (CORRECTED) | | | | | + + + + + + | P WAVE AXIS | 67 | degrees | [facility] | | + + + + + + | QRS AXIS | -18 | degrees | [facility] | | + + + + + + | T AXIS | 93 | degrees | [facility] | | + + + + + + | INTERPRETAT | Normal sinus | | [facility] | | | ION TEXT | rhythmPossible Left | | | | | | atrial | | | | | | enlargementInferior-post | | | | | | erior infarct (cited on | | | | | | or before | | | | | | 28-DEC-2015)Abnormal | | | | | | ECGWhen compared with | | | | | | ECG of 25-FEB-2019 | | | | | | 13:51, (Unconfirmed)QT | | | | | | has shortenedConfirmed | | | | | | by ROHAN DHILLON MD | | | | | | ([id number]) on 02/26/2019 | | | | | | 7:41:41 PM | | | | + + + + + + + + | Specimen | + + | | + + + + + | Narrative | Performed At | + + + | | | + + + + +---------+ + + | Performing | Address | City/State/Zipcode | Phone Number | | Organization | | | | + +---------+ + + | [facility] | | | | + +---------+ + + documented in this encounter Visit Diagnoses + + | Diagnosis | + + | Coronary artery disease, angina presence unspecified, unspecified vessel or lesion | | type, unspecified whether [place] or transplanted heart - Primary | + + | MITRAL REGURGITATION, SEVERE Mitral valve insufficiency and aortic valve | | insufficiency | + + | Hypertension, unspecified type | + + | Tobacco use disorder | + + documented in this encounter
--- OUTSIDE RECORDS SUMMARY | ~2020-03-26 | XMS | Encounter Summary ---
Demographics + + + | Address | [address] | | | [place] [address] | + + + | Home Phone | | + + + | Preferred Language | Unknown | + + + | Marital Status | | + + + | Yarsani Affiliation | 1041 | + + + | Race | or | + + + | Ethnic Group | Not or | + + + Author + + + | Author | [facility] | | | and [place] | + + + | Organization | [facility] | | | [...] | | | | | [place] [address] | | + + + + + Care Team Providers + +------+ + | Care Manager Pmo Name | Role | Phone | + +------+ + | Paco Agarwal PA-C | PCP | | + +------+ + Reason for Visit +--------+--------+ + | Reason | Onset | Comments | | | Date | | +--------+--------+ + | Other | 02/10/ | very dizzy, wonders if medication change could have | | | 2014 | caused this | +--------+--------+ + Encounter Details +--------+ + + + + | Date | Type | Department | Care Team | Description | +--------+ + + + + | 02/10/ | Telephone | [facility] [place] | [address] | Other (very dizzy, | | 2014 | | CARDIOLOGY [address] | MD Rohan [address] | wonders if | | | | [address], | [address] [place] | medication change | | | | [place] [address] | [place] [address] | could have caused | | | | [phone] | [phone] | this) | | | | | | | [...] this encounter Miscellaneous Notes Telephone Encounter - Sahara Malcolm RN - 02/10/2015 [facility] very [facility]. [facility] and they advised her to take a xanax just incase it was a panic attack. She states that this has not helped so she jay d us. While on the phone with me she states that she just fell to the floor, she denies any injury but opted to stay on the floor. She was asked to check her blood pressure while on the phone. She states that she previously had a bladder infection and took 3 days of antibi otics. She also states that her blood sugar was out of range today too. Her vitals are: 14 4/80, 81 and 135/77, p79. She is advised to either call 911 or have someone take her to eit her Urgent Care or ER to be checked out because she is not able to stay standing up, she is assured that most likely it is not the carvedilol, but it could be something to do with her blood sugars or her recent bladder infection. ...........................................Masha Malcolm RN on 02/10/15 at 11:51 documented in this encounter Plan of Treatment Not on filedocumented as of this encounter Visit Diagnoses Not on filedocumented in this encounter"
--- OUTSIDE RECORDS SUMMARY | ~2020-03-26 | XMS | Encounter Summary ---
Demographics + + + | Address | [address] | | | [place] [address] | + + + | Home Phone | | + + + | Preferred Language | Unknown | + + + | Marital Status | | + + + | Voodoo Affiliation | 1041 | + + + | Race | or | + + + | Ethnic Group | Not or | + + + Author + + + | Author | [facility] | | | and [place] | + + + | Organization | [facility] | | | [...] | | | | | [place] [address] | | + + + + + Care Team Providers + +------+ + | Care Aquatic Facility Manager Name | Role | Phone | + [...] | Mitral | Lane | [address] | | | | | valve | MD Rohan | [place], | | | | | insufficienc | [address] | [place] | | | | | y and aortic | St [place] | [address] | | | | | valve | [place], [place] | Phone: | | | | | insufficienc | [address] | [phone] | | | | | y S/P MVR | Phone: | Fax: | | | | | (mitral | [phone] | [phone] | | | | | valve | Fax: | | | | | | repair) | [phone] | | | | | | Procedures | | | | | | | ECHO | | | | | | | Complete NC | | | | | | | ECHO HEART | | | | | | | XTHORACIC,CO | | | | | | | MPLETE W | | | | | | | DOPPLER NC | | | | | | | [...] | Mitral | Lane | [address] | | | | | valve | MD Rohan | [place], | | | | | insufficienc | [address] | [place] | | | | | y and aortic | [place] | [address] | | | | | valve | [place], [place] | Phone: | | | | | insufficienc | [address] | [phone] | | | | | y S/P MVR | Phone: | Fax: | | | | | (mitral | [phone] | [phone] | | | | | valve | Fax: | | | | | | repair) | [phone] | | | | | | Procedures | | | | | | | ECHO | | | | | | | Complete NC | | | | | | | ECHO HEART | | | | | | | XTHORACIC,CO | | | | | | | MPLETE W | | | | | | | DOPPLER NC | | | | | | | [...] | +--------+ + + + + | 09/19/ | [facility] | [facility] | [address] | MITRAL | | 2018 | Encounter | MED CTR ECHO [address] | MD Rohan [address] | REGURGITATION, | | | | [address] [place] | [address] [place] | SEVERE; S/P MVR | | | | [place] [address] | [place] [address] | (mitral valve | | | | [phone] | [phone] | repair) | | | | | | | | | | | Kar White, | | | | | | Technologist [...] | 0 | | | | SA (K-DENISE ZAZUETA-CON) | Daily. | | | | | [...] + | ECHO COMPLETE | Routin | 09/19/2017 | MITRAL | Results for this | | | e | 11:47 AM | REGURGITATION, | procedure are in the | | | | PST | SEVERE S/P MVR | results section. | | | | | (mitral valve | | | | | | repair) | | + +--------+ + + + documented in this encounter Results ECHO Complete (09/19/2017 11:47 AM PST) + +-------+ + + + | Component | Value | Ref Range | Performed | Pathologist | | | | | At | Signature | + +-------+ + + + | LVEF-TTE | 59 | | [facility] | | | TRANSTHORAC | | | | | | IC ECHO | | | | | + +-------+ + + + + + | Specimen | + + | | + + + +------- --------+ | Narrative | Perfor med At | + +------- --------+ | Transthoracic | [facility] | | Echocardiography Report (TTE) Demographics Patient Name VARUN | | | IVANNA Room Number CARLITO Patient | | | [id number] Date of Study 09/19/2017 Number | | | Visit Number [id number] | | | Referring Physician ALEJO HAGEN Number Date of | | | 1955 Rn Med Surg NATALIA MACIEL, | | | | | | [facility] Age 62 year(s) Interpreting | | | ROHAN DHILLON MD | | | Bilingual Teacher Assistant Gender Female | | | Nurse Stress | | | Metal 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 | | | Procedure dateDate: 09/19/2017Start: 11:03 AM Technical Quality: | | | Adequate visualizationStudy Location: Echo LabIndications: Mitral | | | Insufficiency 424.0/I34.0 and aortic Jlzfumrbpljrh683.1/I35.1.Patient | | | Status: RoutineHeight: 65 inchesWeight: 138 poundsBSA: 1.69 m^2BMI: | | | 22.96 kg/m^2Rhythm: Atrial fibrillationHR: 66 bpm | | | ConclusionsSummaryLeft ventricle is normal in size and function. | | | Ejection fraction isestimated at 59%.Mitral valve demonstrates annular | | | prominence consistent with ring repair.There is mild insufficiency | | | without significant stenosis.Left atrium is mildly enlarged.No | | | significant changes compared with patient's prior echocardiogram. | | | Signature | | | | | | PM | | | -------- FindingsMitral ValveMitral valve demonstrates annular | | | prominence consistent with ring repair.There is mild insufficiency | | | without significant stenosis.Aortic ValveAortic valve is trileaflet | | | with good systolic excursion.Tricuspid ValveStructurally normal | | | tricuspid valve with mild regurgitation.Pulmonic ValveStructurally | | | normal pulmonic valve with mild regurgitation.Left AtriumLeft atrium | | | is mildly enlarged.Left VentricleLeft ventricle is normal in size and | | | function. Ejection fraction isestimated at 59%.Right AtriumNormal | | | right atrial size.Right VentricleNormal right ventricular size.Right | | | ventricle global systolic function is normal.TAPSE = 1.3 | | | cm.Pericardial EffusionNo evidence of any pericardial effusion.Pleural | | | EffusionNo evident pleural effusion identified.MiscellaneousAortic | | | root dimension within normal limits.The IVC appears normal size.IVC | | | respiratory change in dimension > 50%. Structures Left Atrium LA A/P | | | Dimension: 3.7 cm EF | | | Vjohptknc15% Left Ventricle Diastolic Dimension: 4.5 cm Septum | | | Diastolic: 2.2 cm PW Diastolic: 1 cm | | |estimated at 59%. | | |Mitral valve demonstrates annular prominence consistent with ring repair. | | |There is mild insufficiency without significant stenosis. | | |Left atrium is mildly enlarged. | | |No significant changes compared with patient's prior echocardiogram. | | | | | |Signature | | | | | | Electronically signed by ROHAN DHILLON MD(Interpreting physician) on | | | 09/19/2017 05:07 PM | | | | | | | | |Findings | | |Mitral Valve | | |Mitral valve demonstrates annular prominence consistent with ring repair. | | |There is mild insufficiency without significant stenosis. | | |Aortic Valve | | |Aortic valve is trileaflet with good systolic excursion. | | |Tricuspid Valve | | |Structurally normal tricuspid valve with mild regurgitation. | | |Pulmonic Valve | | |Structurally normal pulmonic valve with mild regurgitation. | | |Left Atrium | | |Left atrium is mildly enlarged. | | |Left Ventricle | | |Left ventricle is normal in size and function. Ejection fraction is | | |estimated at 59%. | | |Right Atrium | | |Normal [...] > 50%. | | | | | |Structures | | | | | | Left Atrium | | | | | | LA A/P Dimension: 3.7 cm EF Vacvbnhil39% | | | | | | Left Ventricle | | | | | | Diastolic Dimension: 4.5 cm | | | Septum Diastolic: 2.2 cm | | | PW Diastolic: 1 cm | | | | | + +------- --------+ + + | Procedure Note | + + | Bayron, Rad Results In - 09/19/2017 5:[address] [facility] Transthoracic Echocardiography Report | | (TTE) Demographics Patient Name VARUN GILBERT Room Number CARLITO | | Patient [id number] Date of Study 09/19/2017 Number Visit Number | | [id number] Referring Physician ALEJO HAGEN | | Number Date of 1955 Rn Med Surg NATALIA MACIEL, | | [facility] Age 62 year(s) | | Interpreting ROHAN DHILLON MD Bilingual Teacher Assistant | | Gender Female Nurse Stress | | TechnicianProcedureType of Study TTE procedure: ECHO Complete.Procedure dateDate: | | 09/19/2017Start: 11:03 AMTechnical Quality: Adequate visualizationStudy Location: Echo | | LabIndications: Mitral Insufficiency 424.0/I34.0 and aortic | | Hlyxypltsblwz681.1/I35.1.Patient Status: RoutineHeight: 65 inchesWeight: 138 poundsBSA: | | 1.69 m^2BMI: 22.96 kg/m^2Rhythm: Atrial fibrillationHR: 66 bpmConclusionsSummaryLeft | | ventricle is normal in size and function. Ejection fraction isestimated at 59%.Mitral | | valve demonstrates annular prominence consistent with ring repair.There is mild | | insufficiency without significant stenosis.Left atrium is mildly enlarged.No significant | | changes compared with patient's prior | | echocardiogram.Signature | | Electronically signed by ROHAN DHILLON MD(Interpreting physician) on | | 09/19/2017 05:07 | | PM FindingsMi | | tral ValveMitral valve demonstrates annular prominence consistent with ring repair.There | | is mild insufficiency without significant stenosis.Aortic ValveAortic valve is | | trileaflet with good systolic excursion.Tricuspid ValveStructurally normal tricuspid | | valve with mild regurgitation.Pulmonic ValveStructurally normal pulmonic valve with mild | | regurgitation.Left AtriumLeft atrium is mildly enlarged.Left VentricleLeft ventricle is | | normal in size and function. Ejection fraction isestimated at 59%.Right AtriumNormal | | right atrial size.Right VentricleNormal right ventricular size.Right ventricle global | | systolic function is normal.TAPSE = 1.3 cm.Pericardial EffusionNo evidence of any | | pericardial effusion.Pleural EffusionNo evident pleural effusion | | identified.MiscellaneousAortic root dimension within normal limits.The IVC appears | | normal size.IVC respiratory change in dimension > 50%.Structures Left Atrium LA A/P | | Dimension: 3.7 cm EF Cbjokiixs51% Left Ventricle Diastolic | | Dimension: 4.5 cm Septum Diastolic: 2.2 cm PW Diastolic: 1 cm | |Technical Quality: Adequate visualizationStudy Location: Echo Lab | |Indications: Mitral Insufficiency 424.0/I34.0 and aortic Insufficiency | |424.1/I35.1. | |Patient Status: Routine | |Height: 65 inchesWeight: 138 poundsBSA: 1.69 m^2BMI: 22.96 kg/m^2 | |Rhythm: Atrial fibrillationHR: 66 bpm | | | |Conclusions | |Summary | |Left ventricle is normal in size and function. Ejection fraction is | |estimated at 59%. | |Mitral valve demonstrates annular prominence consistent with ring repair. | |There is mild insufficiency without significant stenosis. | |Left atrium is mildly enlarged. | |No significant changes compared with patient's prior echocardiogram. | | | |Signature | | | | Electronically signed by ROHAN DHILLON MD(Interpreting physician) on | | 09/19/2017 05:07 PM | | | | | |Findings | |Mitral Valve | |Mitral valve demonstrates annular prominence consistent with ring repair. | |There is mild insufficiency without significant stenosis. | |Aortic Valve | |Aortic valve is trileaflet with good systolic excursion. | |Tricuspid Valve | |Structurally normal tricuspid valve with mild regurgitation. | |Pulmonic Valve | |Structurally normal pulmonic valve with mild regurgitation. | |Left Atrium | |Left atrium is mildly enlarged. | |Left Ventricle | |Left ventricle is normal in size and function. Ejection fraction is | |estimated at 59%. | |Right Atrium | |Normal right atrial [...] in dimension > 50%. | | | |Structures | | | | Left Atrium | | | | LA A/P Dimension: 3.7 cm EF Kkcmngmtw84% | | | | Left Ventricle | | | | Diastolic Dimension: 4.5 cm | | Septum Diastolic: 2.2 cm | | PW Diastolic: 1 cm | + + + +---------+ + [...] | | insufficiency | + + | S/P MVR (mitral valve repair) Other postprocedural status | + + documented in this encounter"
--- OUTSIDE RECORDS SUMMARY | ~2020-03-26 | XMS | Clinical Summary ---
Demographics + + + | Address | [address] | | | [place] [address] | + + + | Home Phone | | + + + | Preferred Language | Unknown | + + + | Marital Status | | + + + | Jehovah'S Witness Affiliation | 1041 | + + + | Race | or | + + + | Ethnic Group | Not or | + + + Author + + + | Author | [facility] | | | and [place] | + + + | Organization | [facility] | | [...] | | | | | [place] [address] | | + + + + + Care Team Providers + +------+ + | Care Warp Tier Name | Role | Phone | + +------+ + | Preston Garcia | PCP | | + +------+ + Allergies + + + + + + | Active Allergy | Reactions | Severity | Noted | Comments | | | | | Date | | + + + + + + | Amoxicillin | Hives | | 09/19/19 | Rash and itching | | | | | 18 | all over body | + + + + + + | Iodinated Diagnostic | | High | | Convulsions | | Agents | | | | | + + + + + + | Iodine | Rash | Low | 04/03/20 | | | | | | 12 | | + + + + + + | Penicillins | Hives | Low | 04/03/20 | | | | | | 12 | | + + + + + + Medications + + + +---------+------+------+-------+ | Medication | Sig | Dispensed | Refills | Star | End | Statu | | | | | | t | Date | s | | | | | | Date | | | + + + +---------+------+------+-------+ | lisinopril | Take 20 mg by mouth | | 0 | 09/1 | | Activ | | (PRINIVIL, ZESTRIL) | 2 times daily. | | | 1/20 | | e | | 20 mg tablet | | | | 12 | | | + + + +---------+------+------+-------+ | ALPRAZolam (XANAX) | Take 0.5 mg by mouth | | 0 | 09/1 | | Activ | | 0.5 mg tablet | nightly. | | | 1/20 | | e | | | | | | 12 | | | + + + +---------+------+------+-------+ | furosemide (LASIX) | Take 1 tablet by | 30 | 6 | 02/0 | | Activ | | 20 mg tablet | mouth Daily. | tablet | | 4/20 | | e | | | | | | 13 | | | + + + +---------+------+------+-------+ | simvastatin | Take 1 tablet by | 30 | 6 | 02/0 | | Activ | | (ZOCOR) 20 mg tablet | mouth nightly. | tablet | | 4/20 | | e | | | | | | 13 | | | + + + +---------+------+------+-------+ | doxepin (SINEQUAN) | Take 150 mg by mouth | | 0 | | | Activ | | 50 mg capsule | nightly. | | | | | e | + + + +---------+------+------+-------+ | potassium chloride | Take 10 mEq by mouth | | 0 | | | Activ | | SA (K-POLINA ZAZUETA) | Daily. | | | | | e | | 10 MEQ tablet | | | | | | | + + + +---------+------+------+-------+ | amLODIPine | Take 2.5 mg by mouth | | 0 | | | Activ | | (NORVASC) 5 mg | 2 times daily. | | | | | e | | tablet | | | | | | | + + + +---------+------+------+-------+ | aspirin 81 MG | Take 81 mg by mouth | | 0 | | | Activ | | tablet | Daily. | | | | | e | + + + +---------+------+------+-------+ | carvedilol (COREG) | Take 3.125 mg by | | 0 | | | Activ | | 3.125 mg tablet | mouth 2 times daily | | | | | e | | | (with breakfast & | | | | | | | | dinner). | | | | | | + + + +---------+------+------+-------+ | docusate sodium | Take 100 mg by mouth | | 0 | | | Activ | | (COLACE) 100 mg | Daily. | | | | | e | | capsule | | | | | | | + + + +---------+------+------+-------+ Active Problems + + + | Problem | Noted Date | + + + | Atrial flutter | 12/26/2013 | + + + | CAD (coronary artery disease) | 05/07/2012 | + + + + + | Overview: Cardiac Cath 05/01/12, LVEF 55-60% | + + + + + | DYSPNEA | 04/03/2012 | + + + | HYPERTENSION | 04/03/2012 | + + + | RENAL FAILURE, ACUTE | 04/03/2012 | + + + | ANXIETY | 04/03/2012 | + + + | DEPRESSION | 04/03/2012 | + + + | PANIC ATTACK | 04/03/2012 | + + + | TOBACCO ABUSE | 04/03/2012 | + + + | Murmur | 04/03/2012 | + + + + + | Overview: Echo 07/23/12, LVEF 55-60% | + + + + + | ARTHRITIS, RHEUMATOID | 04/03/2012 | + + + | REACTIVE AIRWAY DISEASE | 04/03/2012 | + + + | DIABETES MELLITUS, BORDERLINE | 04/03/2012 | + + + | MITRAL REGURGITATION, SEVERE | 04/03/2012 | + + + | TRICUSPID REGURGITATION, MILD | 04/03/2012 | + + + Immunizations + + + + | Name | Administration Dates | Next Due | + + + + | TDAP, (ADOL/ADULT) | 03/06/2012 | | + + + + Family History + + +------+ + | Medical History | Relation | Name | Comments | + + +------+ + | Cervical cancer | Maternal | | | | | Grandmoth | | | | | er | | | + + +------+ + | Stroke | Mother | | | + + +------+ + | Breast cancer | Sister | | | + + +------+ + | Diabetes | Sister | | | + + +------+ + | Heart failure | Sister | | | + + +------+ + + +------+ + + | Relation | Name | Status | Comments | + +------+ + + | Father | | | | | | | (Age | | | | | 83) | | + +------+ + + | Maternal Grandmother | | | | + +------+ + + | Mother | | | | | | | (Age | | | | | 63) | | + +------+ + + | Sister | | | | + +------+ + + Social History + + + [...] on file | | + + + Last Filed Vital Signs + + + [...] | | + + + + + Plan of Treatment + + + + + | Health Maintenance | Due Date | Last | Comments | | | | Done | | + + + + + | Hepatitis C | | | | | Screening | 3 | | | + + + + + | Medication | | | | | Management | 3 | | | + + + + + | Colorectal Cancer | | | | | Screening | 3 | | | | (Colonoscopy) | | | | + + + + + | Vaccine: Zoster (1 | | | | | of 2) | 3 | | | + + + + + | Breast Cancer | | | | | Screening | 8 | | | + + + + + | Hemoglobin A1c | | 06/28/20 | | | Screening | 4 | 13, | | | | | 04/18/20 | | | | | 13, | | | | | 05/31/20 | | | | | 12 | | + + + + + | Adult Annual | | | | | Wellness Visit | 5 | | | + + + + + | Statin Therapy | | | | | (optimal intensity) | 5 | | | + + + + + | Vaccine: | | | | | Pneumococcal 65+ (1 | 8 | | | | of 1 - PPSV23) | | | | + + + + + | Med Mgmt: Cr | | 02/14/20 | | | | 0 | 19, | | | | | 02/14/20 | | | | | 19, | | | | | 07/29/19 | | | | | 14, | | | | | Addition | | | | | al | | | | | history | | | | | exists | | + + + + + | Med Mgmt: K | | 02/14/20 | | | | 0 | 19, | | | | | 02/14/20 | | | | | 19, | | | | | 07/29/19 | | | | | 14, | | | | | Addition | | | | | al | | | | | history | | | | | exists | | + + + + + | Med Mgmt: Na | | 02/14/20 | | | | 0 | 19, | | | | | 02/14/20 | | | | | 19, | | | | | 07/29/19 | | | | | 14, | | | | | Addition | | | | | al | | | | | history | | | | | exists | | + + + + + | Vaccine: Influenza | | | | | (#1) | 0 | | | + + + + + | Vaccine: | | 03/06/20 | | | Dtap/Tdap/Td (2 - | 2 | 12 | | | Td) | | | | + + + + + Results Not on filefrom Last 3 Months Insurance + +--------+ +--------+ +---------+--------+ | Payer | Benefi | Subscriber | Effect | Phone | Address | Type | | | t Plan | ID | [place] | | | | | | / | | Dates | | | | | | Group | | | | | | + +--------+ +--------+ +---------+--------+ | MEDICARE | MEDICA | [id number] | | [phone] | | Medica | | | RE | | 018-Pr | 5 | | re | | | PART A | | esent | | | | | | AND B | | | | | | + +--------+ +--------+ +---------+--------+ + +--------+ +--------+ + + | Guarantor Name | Accoun | Relation to | Date | Phone | Billing Address | | | t Type | Patient | of | | | | | | | | | | + +--------+ +--------+ + + | Ivanna Flores | Person | Self | [birth year] | [address] | | [place] | al/Fam | | 1955 | [phone] | [place] [address] | | | michelle | | | 1 (Home) | | + +--------+ +--------+ + + | Ivanna Flores | Person | Self | [birth year] | | [address] | | [place] | al/Fam | | 1955 | [phone] | [place] [address] | | | michelle | | | 1 (Home) | | + +--------+ +--------+ + + Advance Directives + + + + + | Type | Date Recorded | 

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
--- OUTSIDE RECORDS SUMMARY | ~2020-03-26 | XMS | Encounter Summary ---
Demographics + + + | Address | [address] | | | [place] [address] | + + + | Home Phone | | + + + | Preferred Language | Unknown | + + + | Marital Status | | + + + | Spiritism Affiliation | 1041 | + + + [...] | | | | | [place] [address] | | + + + + + Care Team Providers + +------+ + | Care Tax Clerk Name | Role | Phone | + +------+ + | Paco Agarwal PA-C | PCP | | + +------+ + Encounter Details +--------+ + + + + | Date | Type | Department | Care Team | Description | +--------+ + + + + | 07/16/ | Abstract | [facility] | [address] | | | 2012 | | [address] | MD Rohan [address] | | | | | [place], | [address] [place] | | | | | [place] [address] | [place] [address] | | | | | [phone] | [phone] | | | | | | | [...] | EXTERNAL LAB: AST | Routin | 07/10/2013 | | Results for this | | | e | 9:15 AM | | procedure are in the | | | | PST | | results section. | + +--------+ + + + | EXTERNAL LAB: ALT | Routin | 07/10/2013 | | Results for this | | | e | 9:15 AM | | procedure are in the | | | | PST | | results section. | + +--------+ + + + | EXTERNAL LAB: | Routin | 07/10/2013 | | Results for this | | CREATININE | e | 9:15 AM | | procedure are in the | | | | PST | | results section. | + +--------+ + + + | COMPREHENSIVE | Routin | 07/10/2013 | | Results for this | | METABOLIC PANEL | e | 9:15 AM | | procedure are in the | | | | PST | | results section. | + +--------+ + + + documented in this encounter Results Comprehensive Metabolic Panel (07/10/2013 9:15 AM PST) + +---------+ + + + | Component | Value | Ref Range | Performed | Pathologist | | | | | At | Signature | + +---------+ + + + | Na | 141 | mmol/L | [facility] | [facility] | | | | | | [facility] - | | | | | | LABORATORY | | + +---------+ + + + | K | 4.8 (A) | 3.4 - 4.5 | [facility] | | | | | mmol/L | [facility] | | | | | | [facility] | | | | | | [facility] - | | | | | | LABORATORY | | + +---------+ + + + | Glucose | 116 (A) | 70 - 100 mg/dL | [facility] | | | [facility] | | | | | | [facility] | | | | | | [facility] - | | | | | | LABORATORY | | + +---------+ + + + | BUN | 25 (A) | 6 - 20 mg/dL | [facility] | | | [facility] | | | | | | [facility] | | | | | | [facility] - | | | | | | LABORATORY | | + +---------+ + + + | Albumin | 4.0 | 4.0 - 5.0 g/dL | [facility] | | | | | | [facility] | | | | | | [...] | + + + + + | [facility] | [address] | [place], [place] | | | [facility] | | [address] | | | - LABORATORY | | | | + + + + + External Lab: STEPHANIE (07/10/2013 9:15 AM PST) + +-------+ + + + | Component | Value | Ref Range | Performed | Pathologist | | | | | At | Signature | + +-------+ + + + | AST, | 14 | 0 - 32 | EXTERNAL | | | External | | | LAB | | + +-------+ + + + + + | Specimen | + + | Blood specimen | | (specimen) | + + + + | Resulting Agency Comment | + + | [facility] | + + + +---------+ + + | Performing | Address | City/State/Zipcode | Phone Number | | Organization | | | | + +---------+ + + | EXTERNAL LAB | | | | + +---------+ + + External Lab: ALT (07/10/2013 9:15 AM PST) + +-------+ + + + | Component | Value | Ref Range | Performed | Pathologist | | | | | At | Signature | + +-------+ + + + | ALT, | 12 | 0 - 33 | EXTERNAL | | | External | | | LAB | | + +-------+ + + + + + | Specimen | + + | Blood specimen | | (specimen) | + + + + | Resulting Agency Comment | + + | [facility] | + + + +---------+ + + | Performing | Address | City/State/Zipcode | Phone Number | | Organization | | | | + +---------+ + + | EXTERNAL LAB | | | | + +---------+ + + External Lab: Creatinine (07/10/2013 9:15 AM PST) + +-------+ + + + | Component | Value | Ref Range | Performed | Pathologist | | | | | At | Signature | + +-------+ + + + | Creatinine, | 0.8 | | EXTERNAL | | | External | | | LAB | | + +-------+ + + + + + | Specimen | + + | Blood specimen | | (specimen) | + + + + | Resulting Agency Comment | + + | [facility] | + + + +---------+ + + | Performing | Address | City/State/Zipcode | Phone Number | | Organization | | | | + +---------+ + + | EXTERNAL LAB | | | | + +---------+ + + documented in this encounter Visit Diagnoses Not on filedocumented in this encounter"
--- OUTSIDE RECORDS SUMMARY | ~2020-03-26 | XMS | Encounter Summary ---
Demographics + + + | Address | [address] | | | [place] [address] | + + + | Home Phone | | + + + | Preferred Language | Unknown | + + + | Marital Status | | + + + | Mosque Affiliation | 1041 | + + + [...] | | | | | [place] [address] | | + + + + + Care Team Providers + +------+ + | Care Pharmacy Salesperson Name | Role | Phone | + +------+ + | Paco Agarwal PA-C | PCP | | + +------+ + Reason for Visit + +--------+ + | Reason | Onset | Comments | | | Date | | + +--------+ + | Appointment | 10/28/ | | | | 2014 | | + +--------+ + Encounter Details +--------+ + + + + | Date | Type | Department | Care Team | Description | +--------+ + + + + | 10/28/ | Telephone | [facility] | [address] | Appointment | | 2014 | | [facility] [address] | MD Rohan [address] | | | | | [place], | [address] [place] | | | | | [place] [address] | [place] [address] | | | | | [phone] | [phone] | | | | | | | [...] this encounter Miscellaneous Notes Telephone Encounter - Gricelda Pavon - 10/28/2014 3:57 PM PDTCalled and left VM message for patient to call back to be scheduled for a 1-year follow-up appointment with Dr. Moyer and an echo. Patient was last seen on 12-26-13.Electronically signed by Gricelda Pavon at 3:58 PM PDTdocumented in this encounter Plan of Treatment Not on filedocumented as of this encounter Visit Diagnoses Not on filedocumented in this encounter"
--- OUTSIDE RECORDS SUMMARY | ~2020-03-26 | XMS | Encounter Summary ---
Demographics + + + | Address | [address] | | | [place] [address] | + + + | Home Phone | | + + + | Preferred Language | Unknown | + + + | Marital Status | | + + + | Jain Affiliation | 1041 | + + + | Race | or | + + + | Ethnic Group | Not or | + + + Author + + + | Author | [facility] | | | and [place] | + + + | Organization | [facility] | | | [...] | | | | | [place] [address] | | + + + + + Care Team Providers + +------+ + | Care Market Research Coordinator Name | Role | Phone | + +------+ + | Paco Agarwal PA-C | PCP | | + +------+ + Encounter Details +--------+ + + + + | Date | Type | Department | Care Team | Description | +--------+ + + + + | 09/12/ | Hospital | [facility] | Conversion | Pain | | 2014 | Encounter | CONVERSION [address] | Transaction, | | | | | [address] | Provider Unknown | | | | | [facility] [place] | [phone] | | | | | [address] | | | | | | [phone] | | | +--------+ + + + [...] 3.125 mg by | | 0 | 02/13/20 | | | 6.25 mg tablet | mouth 2 times daily | | | 13 | 5 | | | (with breakfast & | | | | | | | dinner). | | | | | + + + +---------+ + + | carvedilol (COREG) | Take 1 tablet by | 60 | 6 | 02/13/20 | | | 6.25 mg tablet | mouth 2 times daily | tablet | | 13 | 4 | | | (with breakfast & | [...] +--------+ + + + | XR CHEST 1 VIEW | Routin | 11/26/2011 | | Results for this | | | e | 5:11 AM | | procedure are in the | | | | PDT | | results section. | + +--------+ + + + documented in this encounter Results XR Chest 1 Vw (11/26/2011 5:11 AM PDT) + + | Specimen | + + | | + + + + + | Narrative | Performed At | + + + | This is a non-reportable procedure without a radiologist report and | | | is used for image storage only | | + + + + + | Procedure Note | + + | Saul Verma Ben - 03/08/2019 10:14 AM PDT This is a non-reportable procedure | | without a radiologist report and isused for image storage only | + + documented in this encounter Visit Diagnoses + + | Diagnosis | + + | Pain Generalized pain | + + documented in this encounter"
--- OUTSIDE RECORDS SUMMARY | ~2020-03-26 | XMS | Encounter Summary ---
Demographics + + + | Address | [address] | | | [place] [address] | + + + | Home Phone | | + + + | Preferred Language | Unknown | + + + | Marital Status | | + + + | Anabaptism Affiliation | 1041 | + + + | Race | or | + + + | Ethnic Group | Not or | + + + Author + + + | Author | [facility] | | | and [place] | + + + | Organization | [facility] | | | [...] | | | | | [place] [address] | | + + + + + Care Team Providers + +------+ + | Care Institutional Research Coordinator Name | Role | Phone [...] | Mitral | Lane | [address] | | | | | valve | MD Rohan | [place], | | | | | insufficienc | [address] | [place] | | | | | y and aortic | St [place] | [address] | | | | | valve | [place] | Phone: | | | | | insufficienc | [address] | [phone] | | | | | y S/P MVR | Phone: | Fax: | | | | | (mitral | [phone] | [phone] | | | | | valve | Fax: | | | | | | repair) | [phone] | | | | | | Procedures | | | | | | | ECHO | | | | | | | Complete CT | | | | | | | ECHO HEART | | | | | | | XTHORACIC,CO | | | | | | | MPLETE W | | | | | | | DOPPLER CT | | | | | | | [...] | +--------+ + + + + | 10/19/ | Orders Only | [facility] | [address] | MITRAL | | 2017 | | CARDIOLOGY [address] | MD Rohan [address] | [place]GITATION, | | | | [address] [place], | [address] [place] | [place] (Primary Dx); | | | | [place] [address] | [place] [address] | S/P MVR (mitral | | | | [phone] | [phone] | valve repair) | | | | | | [...] as of this encounter Results ECHO Complete (09/19/2017 11:47 [...] Room Number CARLITO Patient | | | [id number] Date of Study 09/19/2017 Number | | | Visit Number [id number] | | | Referring Physician ALEJO HAGEN Number Date of | | | 1955 [employer] NATALIA MACIEL, | | | | | | [facility] Age 62 year(s) Interpreting | | | ROHAN DHILLON MD | | | Equity Structurer Gender Female | | | Nurse Stress | | | Optometry Doctor Procedure Type of Study TTE procedure: ECHO Complete. | | | Procedure dateDate: 09/19/2017Start: 11:03 AM Technical Quality: | | | Adequate visualizationStudy Location: Echo LabIndications: Mitral | | | Insufficiency 424.0/I34.0 and aortic Bqbcnsnteusee306.1/I35.1.Patient | | | Status: RoutineHeight: 65 inchesWeight: [...] Dimension: 3.7 cm EF | | | Zxpbfrgvd54% Left Ventricle Diastolic Dimension: 4.5 cm Septum [...] | LA A/P Dimension: 3.7 cm EF Efevnjzlh82% | | | | | | Left Ventricle | | | | | | Diastolic Dimension: 4.5 cm | | | Septum Diastolic: 2.2 cm | | | PW Diastolic: 1 cm | | | | | + +------- --------+ + + | Procedure Note | + + | Bayron, Rad Results In - 09/19/2017 5:07 PM [facility] Transthoracic Echocardiography Report | | (TTE) Demographics Patient Name VARUN GILBERT Room Number CARLITO | | Patient [id number] Date of Study 09/19/2017 Number Visit Number | | [id number] Referring Physician ALEJO HAGEN | | Number Date of 1955 [employer] NATALIA MACIEL, | | [facility] Age 62 year(s) | | Interpreting ROHAN DHILLON MD Equity Structurer | | Gender Female Nurse Stress | | TechnicianProcedureType of Study TTE procedure: ECHO Complete.Procedure dateDate: | | 09/19/2017Start: 11:03 AMTechnical Quality: Adequate visualizationStudy Location: Echo | | LabIndications: Mitral Insufficiency 424.0/I34.0 and aortic | | Bsraixmemicld924.1/I35.1.Patient Status: RoutineHeight: 65 inchesWeight: 138 poundsBSA: | [...] A/P | | Dimension: 3.7 cm EF Zuufabumk52% Left Ventricle Diastolic | | Dimension: 4.5 [...] | LA A/P Dimension: 3.7 cm EF Iryurqihv84% | | | | Left Ventricle | [...]
--- OUTSIDE RECORDS SUMMARY | ~2020-03-26 | XMS | Encounter Summary ---
Demographics + + + | Address | [address] | | | [place] [address] | + + + | Home Phone | | + + + | Preferred Language | Unknown | + + + | Marital Status | | + + + | Islam Affiliation | 1041 | + + + [...] | | | | | [place] [address] | | + + + + + Care Team Providers + +------+ + | Care Interventional Nurse Name | Role | Phone | + +------+ + | Paco Agarawl PA-C | PCP | | + +------+ + Encounter Details +--------+ + + + + | Date | Type | Department | Care Team | Description | +--------+ + + + + | 08/26/ | Abstract | [facility] [place] | [address] | | | 2013 | | [address] [address] | MD Rohan [address] | | | | | [place], | [address] [place] | | | | | [place] [address] | [place] [address] | | | | | [phone] | [phone] | | | | | | | [...] | EXTERNAL LAB: CBC | Routin | 07/29/2013 | | Results for this | | | e | 4:08 PM | | procedure are in the | | | | PST | | results section. | + +--------+ + + + | EXTERNAL LAB: AST | Routin | 07/29/2013 | | Results for this | | | e | 4:08 PM | | procedure are in the | | | | PST | | results section. | + +--------+ + + + | EXTERNAL LAB: ALT | Routin | 07/29/2013 | | Results for this | | | e | 4:08 PM | | procedure are in the | | | | PST | | results section. | + +--------+ + + + | EXTERNAL LAB: | Routin | 07/29/2013 | | Results for this | | CREATININE | e | 4:08 PM | | procedure are in the | | | | PST | | results section. | + +--------+ + + + | COMPREHENSIVE | Routin | 07/29/2013 | | Results for this | | METABOLIC PANEL | e | | | procedure are in the | | | | | | results section. | + +--------+ + + + | EXTERNAL LAB: | Routin | 06/28/2013 | | Results for this | | CHOLESTEROL, LDL | e | 9:22 AM | | procedure are in the | | | | PST | | results section. | + +--------+ + + + documented in this encounter Results External Lab: CBC (07/29/2013 4:08 PM PST) + +-------+ + + + | Component | Value | Ref Range | Performed | Pathologist | | | | | At | Signature | + +-------+ + + + | WBC, | 9.0 | 4.5 - 11 | EXTERNAL | | | External | | | LAB | | + +-------+ + + + | HGB, | 14.1 | 12 - 16 | EXTERNAL | | | External | | | LAB | | + +-------+ + + + | HCT, | 43.1 | 35 - 45 | EXTERNAL | | | External | | | LAB | | + +-------+ + + + | PLT, | 192 | 140 - 440 | EXTERNAL | | | External | | | LAB | | + +-------+ + + + + + | Resulting Agency Comment | + + | [facility] | + + + +---------+ + + | Performing | Address | City/State/Zipcode | Phone Number | | Organization | | | | + +---------+ + + | EXTERNAL LAB | | | | + +---------+ + + External Lab: AST (07/29/2013 4:08 PM PST) + +-------+ + + + [...] Agency Comment | + + | [facility] | + + + +---------+ + + | Performing | Address | City/State/Zipcode | Phone Number | | Organization | | | | + +---------+ + + | EXTERNAL LAB | | | | + +---------+ + + External Lab: ALT (07/29/2013 4:08 PM PST) + +-------+ + + + [...] Agency Comment | + + | [facility] | + + + +---------+ + + | Performing | Address | City/State/Zipcode | Phone Number | | Organization | | | | + +---------+ + + | EXTERNAL LAB | | | | + +---------+ + + External Lab: Creatinine (07/29/2013 4:08 PM PST) + +-------+ + + + | Component | Value | Ref Range | Performed | Pathologist | | | | | At | Signature | + +-------+ + + + | Creatinine, | 0.82 | 0.5 - 1.5 | EXTERNAL | | | External | | | LAB | | + +-------+ + + + + + | Specimen | + + | Blood specimen | | (specimen) | + + + + | Resulting Agency Comment | + + | [facility] | + + + +---------+ + + | Performing | Address | City/State/Zipcode | Phone Number | | Organization | | | | + +---------+ + + | EXTERNAL LAB | | | | + +---------+ + + Comprehensive Metabolic Panel (07/29/2013) + +-------+ + + + | Component | Value | Ref Range | Performed | Pathologist | | | | | At | Signature | + +-------+ + + + | Na | 139 | mmol/L | [facility] | | | | [facility] | | | | | [facility] | | | | | [facility] - | | | | | | LABORATORY | | + +-------+ + + + | K | 4.4 | mmol/L | [facility] | | | | | | [facility] | | | | | | [facility] - | | | | | | LABORATORY | | + +-------+ + + + | Glucose | 96 | mg/dL | [facility] | | | | | | [facility] [address] | [place] | | | [facility] | | [address], [facility] | | | - LABORATORY | | | | + + + + + External Lab: Cholesterol, LDL (06/28/2013 9:22 AM PST) + +-------+ + + + [...] Agency Comment | + + | [facility] | + + + +---------+ + + | Performing | Address | City/State/Zipcode | Phone Number | | Organization | | | | + +---------+ + + | EXTERNAL LAB | | | | + +---------+ + + documented in this encounter Visit Diagnoses Not on filedocumented in this encounter"
--- OUTSIDE RECORDS SUMMARY | ~2020-03-26 | XMS | Encounter Summary ---
Demographics + + + | Address | [address] | | | [place] [address] | + + + | Home Phone [...] + + | Author | [facility] | | | and [place] | + + + | Organization | [facility] | | | and [...] | | | | | [place] [address] | | + + + + + Care Team Providers + +------+ + | Care Student Success Counselor Name | Role | Phone | + +------+ + | Paco Agarwal PA-C | PCP | | + +------+ + Reason for Visit + + + | Reason | Comments | + + + | Heart Murmur | One month folow up, Echo 07/23/12 | + + + Encounter Details +--------+---------+ + + + | Date | Type | Department | Care Team | Description | +--------+---------+ + + + | 08/09/ | Office | [facility] | [address] Moyer | Tobacco use disorder | | 2012 | Visit | CARDIOLOGY [address] | MD Rohan [address] | (Primary Dx); | | | | [address] [place], | [address] [place] | Coronary | | | | [place] [address] | [place] [address] | atherosclerosis due | | | | [phone] | [phone] | to lipid rich | | | | | | plaque; MR (mitral | | | | | | regurgitation) | +--------+---------+ + + + Social History [...] + + + | Blood Pressure | 142/70 | 08/09/2012 2:18 PM | | | | | PST | | + + + + + | Pulse | 84 | 08/09/2012 2:18 PM | regular | | | | PST | | + + + + + | Temperature | - | - | | + + + + + | Respiratory Rate | 14 | 08/09/2012 2:18 PM | | | | | PST | | + + + + + | Oxygen Saturation | - | - | | + + + + + | Inhaled Oxygen | - | - | | | Concentration | | | | + + + + + | Weight | 51.3 kg (113 lb) | 08/09/2012 2:18 PM | | | | | PST | | + + + + + | Height | - | - | | + + + + + | Body Mass Index | 17.7 | 05/07/2012 3:24 PM | | | | | PDT | | + + + + + documented in this encounter Progress Notes Lane Moyer MD - 08/09/2012 4:01 PM PSTFormatting of this note might be [...] mitral valve posterior leaflet reconstruction and ring repa ir, with endoscopic vein harvest, here for followup visit here for routine followup visit. Unfortunately the patient continues to smoke, but states that she continues to taper off an d hopes to quit in the near future. She complains of recent onset of hair loss in addition t o periodic both the swallowing solid food, intermittently resulting in transient tracheal as piration. She states that she has not discussed these issues with her primary providers. Gadiel edwards she has had good healing of her sternotomy wound and has had no constitutional sympto ms. She feels that her exertional capacity is improved. Recent left heart catheterization and coronary angiography [...] Active Problem List Diagnoses Date Noted POA Murmur 04/03/2012 Priority: High CAD (coronary artery disease) 05/07/2012 DYSPNEA 04/03/2012 HYPERTENSION 04/03/2012 RENAL FAILURE, ACUTE 04/03/2012 ANXIETY 04/03/2012 DEPRESSION 04/03/2012 PANIC ATTACK 04/03/2012 TOBACCO ABUSE 04/03/2012 ARTHRITIS, RHEUMATOID 04/03/2012 REACTIVE AIRWAY DISEASE 04/03/2012 DIABETES MELLITUS, BORDERLINE 04/03/2012 MITRAL REGURGITATION, SEVERE 04/03/2012 TRICUSPID REGURGITATION, MILD 04/03/2012 Past Surgical History Procedure Date Tonsillectomy Tubal ligation Cholecystectomy 2011 No family history on file. 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 30 tablet 6 furosemide (LASIX) 20 mg tablet Take 1 tablet by mouth Daily. 30 tablet 6 amLODIPine (NORVASC) 2.5 mg tablet Take 1 tablet by mouth 2 times daily. 60 tablet 6 ALPRAZolam (XANAX) 0.5 mg tablet Take 0.5 mg by mouth nightly as needed. One-half table t at night and PRN daytime use HYDROcodone-acetaminophen (NORCO) 7.5-325 mg per tablet Take 1 tablet by mouth every 6 hours as needed. potassium chloride (KLOR-CON M20) 20 mEq tablet Take 20 mEq by mouth Daily. SENNOSIDES-DOCUSATE SODIUM PO Take by mouth Daily. famotidine (PEPCID) 20 mg tablet Take 20 mg by mouth as needed. carvedilol (COREG) 3.125 mg tablet Take 3.125 mg by mouth 2 times daily (with breakfast & dinner). doxepin (SINEQUAN) 150 MG capsule Take 150 mg by mouth nightly. lisinopril (PRINIVIL, ZESTRIL) 20 mg tablet Take 20 mg by mouth 2 times daily. Allergies Allergen Reactions Iodine Penicillins Review of Systems Respiratory: Positive for shortness of breath. Cardiovascular: Positive for leg swelling. All other systems reviewed and are negative. BP 142/70 | Pulse 84 | Resp 14 | Wt 51.256 kg (113 lb) Objective: Physical Exam Vitals reviewed. Constitutional: [...] akinesis and 3+ MR. Echocardiogram performed in [facility] notable for moderate septal hypert rophy, inferior thinning and akinesis, LVEF 55-60%, moderate LAE,, trace to mild MR. Assessment: #1 - mitral regurgitation - Patient's has no evidence of residual regurgitation on exam or echo, and clinically feels significantly improved with resolution of exertional dyspnea and generalized edema. #2 - CAD - patient is status [...] so due to ongoing symptoms of anxiety. Plan: #1 - continue current medical regimen. #2 - echocardiogram prior to next visit. #3 - tobacco cessation once again reinforced. #4 - follow up visit in 6 months. #5-patient urged to discuss recent complaints of hair loss and difficulty swallowing with [facility] primary providers. documented in t his encounter Plan of Treatment Not on filedocumented as of this encounter Visit Diagnoses + + | Diagnosis | + + | Tobacco use disorder - Primary | + + | Coronary atherosclerosis due to lipid rich plaque | + + | MR (mitral regurgitation) Mitral valve disorders | + + documented in this encounter"
--- OUTSIDE RECORDS SUMMARY | ~2020-03-26 | XMS | Encounter Summary ---
Demographics + + + | Address | [address] | | | [place] [address] | + + + | Home Phone | | + + + | Preferred Language | Unknown | + + + | Marital Status | | + + + | Christianity Affiliation | [id number] | + + + [...] | | | | | [place] [address] | | + + + + + Care Team Providers + +------+ + | Care Firefighting Equipment Specialist Name | Role | Phone | + +------+ + | Paco Agarwal PA-C | PCP | | + +------+ + Reason for Visit +--------+--------+ + | Reason | Onset | Comments | | | Date | | +--------+--------+ + | Other | 07/04/ | Patient possibly has cervical cancer. | | | 2012 | | +--------+--------+ + Encounter Details +--------+ + + + + | Date | Type | Department | Care Team | Description | +--------+ + + + + | 07/04/ | Telephone | [facility] | [address] Moyer | Other (Patient | | 2012 | | CARDIOLOGY [address] | MD [address] | possibly has | | | | [place], | [address] [place] | cervical cancer.) | | | | [place] [address] | [place] [address] | | | | | [phone] | [phone] | | | | | | | [...] Telephone Encounter - Sahara Malcolm RN - 07/04/2013 11:25 AM Amyndkamla called to report that she is having testing done but it looks like she does have cervical cancer. She will finish up her tests and see Dr Saima Ramirez OPTICAL SYSTEM[employer] ENGINEER in [place]. She also states that she was taken off the potassium due to some of her labs, she will have lab work forwarded to us in the future. ...........................................Sahara Malcolm RN on 07/04/2013 at 11:27 documented in this encounter Plan of Treatment Not on filedocumented as of this encounter Visit Diagnoses Not on filedocumented in this encounter"
--- OUTSIDE RECORDS SUMMARY | ~2020-03-26 | XMS | Encounter Summary ---
Demographics + + + | Address | [address] | | | [place] [address] | + + + | Home Phone | | + + + | Preferred Language | Unknown | + + + | Marital Status | | + + + | Anglican Affiliation | 1041 | + + + | Race | or | + + + | Ethnic Group | Not or | + + + Author + + + | Author | [facility] | | | and [place] | + + + | Organization | [facility] [...] | | | | | [place] [address] | | + + + + + Care Team Providers + +------+ + | Care Lure Maker Name | Role | Phone | + +------+ + | No, Unknownpcp | PCP | | + +------+ + Reason for Visit + + + | Reason | Comments | + + + | Coronary Artery | [facility] month follow up, [facility] 05[facility]12 | | Disease | | + + + Encounter Details +--------+---------+ + + + | Date | Type | Department | Care Team | Description | +--------+---------+ + + + | 05/07/ | Office | [facility] | [address] Moyer | MR (mitral | | 2011 | Visit | CARDIOLOGY [address] | MD [address] | regurgitation); | | | | [place], | [address] [place] | Shortness of breath; | | | | [place] [address] | [place] [address] | Leg edema; CAD | | | | [phone] | [phone] | (coronary artery | | | | | | disease) | +--------+---------+ + + + Social History [...] + + + | Blood Pressure | 132/100 | 05/07/2012 3:24 PM | | | | | PDT | | + + + + + | Pulse | 90 | 05/07/2012 3:24 PM | regular | | | | PDT | | + + + + + | Temperature | - | - | | + + + + + | Respiratory Rate | 12 | 05/07/2012 3:24 PM | | | | | PDT | | + + + + + | Oxygen Saturation | - | - | | + + + + + | Inhaled Oxygen | - | - | | | Concentration | | | | + + + + + | Weight | 54.9 kg (121 lb) | 05/07/2012 3:24 PM | | | | | PDT | | + + + + + | Height | 170.2 cm (5' 7") | 05/07/2012 3:24 PM | | | | | PDT | | + + + + + | Body Mass Index | 18.95 | 05/07/2012 3:24 PM | | | | | PDT | | + + + + + documented in this encounter Progress Notes Lane Moyer MD - 05/08/2012 5:35 PM PDTFormatting of this note might be differe nt from the original. Subjective: Patient ID: Ivanna Flores is a 57 y.o. female. HPI Patient is a 57-year-old female with recent invasive workup for severe mitral regurgitation and underlying CAD here for routine followup visit. Recent left heart catheterization and c oronary angiography revealed underlying multivessel CAD and confirmed severe MR. She continu es to have dyspnea on exertion and lower extremity edema. She denies any forest chest pain pe r se, and has been compliant with her medications. She had recently presented to her local hospital in [place] in November 2011 with shortness of breath and was transferred to [facility] shortly thereafter with continuing troponin values. The patient underwent further workup including transthoracic echocardiography which revealed severe mitral regurgitation. Nevertheless, the patient's presentation was attributed to COPD exacerbation. Discussion was held regarding stress perfusion study that was never carried out. The patient was discharged and now presents with worsening shortness of breath and lower extremity edema as well as abdominal fullness especially severe for the past 2 to 3 weeks. Of note, the patient had an episode of syncope earlier this year which was attributed to a vasovagal episode and likely this was associated with therapy with doxepin. At that time she had also been on diuretic therapy which was discontinued (Lasix). More recently, the patient underwent laparoscopic cholecystectomy and subsequent to that surgery the patient experienced worsening shortness of breath. She denies any acute illness subsequent to surgery including no fevers or chills. She has had depressed appetite since then and has experienced significant amount of weight loss but otherwise had good healing of her abdominal wounds. She believes that her gallbladder was described as having been very thickened and possibly necrotic/infected but denies having had problems with systemic bacteremia or sepsis or any prolonged antibiotic therapy. She has had no recent dental work. 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 ALPRAZolam (XANAX) 0.5 mg tablet Take 0.5 mg by mouth nightly as needed. doxepin (SINEQUAN) 150 MG capsule Take 150 mg by mouth nightly. lisinopril (PRINIVIL, ZESTRIL) 20 mg tablet Take 20 mg by mouth 2 times daily. naproxen sodium (ALEVE) 220 MG tablet One - two tablets by mouth daily as needed carvedilol (COREG) 3.125 mg tablet Take 3.125 mg by mouth 2 times daily (with breakfast & dinner). metoprolol tartrate (LOPRESSOR) 25 mg tablet take 1/2 tablet by mouth twice daily Allergies Allergen Reactions Iodine Penicillins Review of Systems Respiratory: Positive for shortness of breath. Cardiovascular: Positive for leg swelling. All other systems reviewed and are negative. BP 132/100 | Pulse 90 | Resp 12 | Ht 1.702 m (5' 7") | Wt 54.885 kg (121 lb) | BMI 18.95 kg /m2 Objective: Physical Exam Vitals reviewed. Constitutional: She [...] MR. Assessment: #1 - mitral regurgitation - patient has evidence of severe MR by both transthoracic echocar diography as well as left ventriculography. Especially in light of her symptoms as well as u nderlying multivessel CAD, she will be referred for surgical evaluation and likely valve rep air versus replacement. For now will continue her current medical regimen. #2 - CAD - patient has evidence of multivessel CAD, though no significant flow-limiting les ions were noted in the LAD. Whether her RCA can be revascularized surgically will likely be determined Intra-Op. We will add aspirin therapy to her medications and she will need indefi nite therapy with beta blockers and statins. #3 - Tobacco cessation. This was discussed at length with the patient and her . e also smokes about 1 pack per day and also has his own history of coronary artery disease. Tobacco cessation is imperative prior to referral for open heart surgery. The patient understands the importance of this and will begin a taper regimen and hopefully by definitive quit dates. In the near future she may need adjunctive anxiolytic therapy and/or nicotine replacement. Plan: #1 - additional therapy with aspirin. #2 - continue current medications otherwise. #3 - referral for surgical mitral valve repair versus replacement. #4 - tobacco cessation once again reinforced. #5 - follow visit in one to 2 months. documented in t his encounter Plan of Treatment Not on filedocumented as of this encounter Visit Diagnoses + + | Diagnosis | + + | MR (mitral regurgitation) Mitral valve disorders | + + | Shortness of breath | + + | Leg edema Edema | + + | CAD (coronary artery disease) Coronary atherosclerosis of unspecified type of vessel, | | [place] or graft | + + documented in this encounter
--- OUTSIDE RECORDS SUMMARY | ~2020-03-26 | XMS | Encounter Summary ---
Demographics + + + | Address | [address] | | | [place] [address] | + + + | Home Phone | | + + + | Preferred Language | Unknown | + + + | Marital Status | | + + + | Rastafarian Affiliation | 1041 | + + + | Race | or | + + + | Ethnic Group | Not or | + + + Author + + + | Author | [facility] | | | and [place] | + + + | Organization | [facility] | | | [...] | | | | | [place] [address] | | + + + + + Care Team Providers + +------+ + | Care User Interface Developer Name | Role | Phone | + +------+ + | Ligia Patton PA-C | PCP | | + +------+ + Reason for Visit + + + | Reason | Comments | + + + | Follow-up | | + + + Encounter Details +--------+---------+ + + + | Date | Type | Department | Care Team | Description | +--------+---------+ + + + | 09/19/ | Office | [facility] | Lane Moyer | Murmur (Primary Dx); | | 2017 | Visit | CARDIOLOGY [address] | MD Rohan [address] | Hypertension, | | | | [address], | [address] [place] | unspecified type; | | | | [place] [address] | [place] [address] | MITRAL | | | | [phone] | [phone] | REGURGITATION, | | | | | | SEVERE; TRICUSPID | | | | | | REGURGITATION, MILD; | | | | | | Coronary artery | | | | | | disease, angina | | | | | | presence | | | | | | unspecified, | | | | | | unspecified vessel | | | | | | or lesion type, | | | | | | unspecified whether | | | | | | wiyot or | | | | | | transplanted heart; | | | | | | Atrial flutter, | | | | | | unspecified type | | | | | | ([facility]); DYSPNEA; | | | | | | Tobacco [...] + + + | Blood Pressure | 122/66 | 09/19/2017 2:05 PM | | | | | PST | | + + + + + | Pulse | 78 | 09/19/2017 2:05 PM | | | | | PST | | + + + + + | Temperature | - | - | | + + + + + | Respiratory Rate | 16 | 09/19/2017 2:05 PM | | | | | PST | | + + + + + | Oxygen Saturation | - | - | | + + + + + | Inhaled Oxygen | - | - | | | Concentration | | | | + + + + + | Weight | 64 kg (141 lb 1.5 | 09/19/2017 2:05 PM | | | | oz) | PST | | + + + + + | Height | 166.4 cm (5' 5.5") | 09/19/2017 2:05 PM | | | | | PST | | + + + + + | Body Mass Index | 23.12 | 09/19/2017 2:05 PM | | | | | PST | | + + + + + documented in this encounter Progress Notes Lane Moyer MD - 09/19/2017 2:30 PM PSTFormatting of this note might be differe nt from the original. Subjective: CARDIOLOGY OFFICE VISIT Patient ID: Ivanna Flores is a 62 y.o. female. HPI Patient is a 62-year-old female with history of severe mitral regurgitation and underlying CAD, followed by CABG X4 with ALMENDAREZ to diagonal, SVG sequentially to OM1 and OM 2, and SVG to PDA, as well as mitral valve posterior leaflet reconstruction and ring repair, with endosco pic vein harvest in 2011, here for followup visit. She has been experiencing ongoing psycho social stressors at home related to her grandson. She denies any chest pain or shortness of breath. Unfortunately the patient continues to smoke, still at one pack per day or more, primarily due to persistent anxiety. 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 Murmur heard. Decrescendo systolic murmur is present with a grade of 1/6 Pulses: Carotid pulses are 2+ on the right side, and 2+ on the left side. Radial pulses are 2+ on the right side, and 2+ on the left side. Pulmonary/Chest: Effort normal and breath sounds normal. No accessory muscle usage. No resp iratory distress. She exhibits no tenderness. Well-healed sternotomy scar noted. Abdominal: Soft. Normal [...] Her behavior is normal. Vitals reviewed. BP 122/66 | Pulse 78 | Resp 16 | Ht 1.664 m (5' 5.5") | Wt 64 kg (141 lb 1.5 oz) | BMI 23.12 kg/m LAB RESULTS: LIPID Lab Results Component Value Date LDLEX 43 06/28/2013 HDLEX 36.6 (A) 06/28/2013 TRIGEX 85 06/28/2013 CHOLEX 96 06/28/2013 CHEMISTRY Lab Results Component Value Date GLU 96 07/29/2013 NA 139 07/29/2013 K 4.4 07/29/2013 CL 106 04/18/2013 CO2 26 04/18/2013 CALCIUM 9.4 04/18/2013 ALKPHOS 94 04/18/2013 AST 21 05/31/2012 ALT 12 05/31/2012 BILITOT 0.6 04/18/2013 CREA 0.50 06/04/2012 BUN 25 (A) 07/10/2013 EGFR >60 06/04/2012 EGFREX >60 06/28/2013 CREEX 0.82 07/29/2013 HEMATOLOGY Lab Results Component Value Date WBC 8.0 06/05/2012 HGB 11.4 06/05/2012 HCT 36.7 06/05/2012 PLT 111 (L) 06/05/2012 HGBEX 14.1 07/29/2013 The EKG today shows normal sinus rhythm, heart rate 79, possible inferior VT. Unchanged fr om prior tracing. I personally reviewed and interpreted the Echo images of 04/05/2012. Nl LVEF, severe MR, s mall pericardial effusion. Left heart catheterization and coronary angiography reviewed by me May 01, 2012 notable for diffusely diseased RCA with left to right collateral flow, and flow limiting lesions in first diagonal, and proximal LCx. LVEF 55-60% with basal inferior akinesis and 3+ MR. Echocardiogram performed in [facility] notable for moderate septal hypert rophy, [...] functioning mitral valve replacement with mild MR. Assessment: #1 - Mitral regurgitation - patient demonstrates evidence of normally functioning mitral va lve replacement and she clinically feels significantly improved with resolution of exertiona l dyspnea and generalized edema. She will benefit from annual echocardiograms. Her BNP is w ithin normal limits. #2 - CAD - patient is status post complete surgical revascularization, and his having good healing postoperatively. She is on a thorough medical regimen. The focus remained on continu ed medical therapy and risk factor reduction. She would benefit from recheck of her fasting lipid profile periodically with her PCP. #3 - Tobacco cessation. This was once again discussed at length (> 5 minutes) with the pat ient - she and her are both smoking - he a few cigarettes daily, and she states that she continues to smoke a pack a day due to ongoing symptoms of anxiety, even though she rec ently experienced a severe bout of respiratory illness. She will likely need adjunctive phar macotherapy closer to the time of her quitting. I have urged her to set a date and begin a t aper regimen. #4 - Hypertension - this demonstrates [...] | ECG 12 LEAD | Routin | 09/19/2017 | Murmur | Results for this | | | e | 5:15 PM | Hypertension, | procedure are in the | | | | PST | unspecified type | results section. | | | | | MITRAL | | | | | | REGURGITATION, | | | | | | SEVERE TRICUSPID | | | | | | REGURGITATION, MILD | | | | | | Coronary artery | | | | | | disease, angina | | | | | | presence | | | | | | unspecified, | | | | | | unspecified vessel | | | | | | or lesion type, | | | | | | unspecified whether | | | | | | wiyot or | | | | | | transplanted heart | | | | | | Atrial flutter, | | | | | | unspecified type | | | | | | (HCC) DYSPNEA | | | | | | Tobacco abuse | | + +--------+ + + + documented in this encounter Results ECG 12 lead (09/19/2017 5:15 PM PST) + + + + + + | Component | Value | Ref Range | Performed | Pathologist | | | | | At | Signature | + + + + + + | VENTRICULAR | 79 | BPM | [facility] | | | RATE EKG | | | | | + + + + + + | ATRIAL RATE | 79 | BPM | [facility] | | + + + + + + | P-R | 186 | ms | [facility] | | | INTERVAL | | | | | + + + + + + | QRS | 100 | ms | [facility] | | | DURATION | | | | | + + + + + + | Q-T | 384 | ms | [facility] | | | INTERVAL | | | | | + + + + + + | Q-T | 440 | ms | [facility] | | | INTERVAL | | | | | | (CORRECTED) | | | | | + + + + + + | P WAVE AXIS | 78 | degrees | [facility] | | + + + + + + | QRS AXIS | 26 | degrees | [facility] | | + + + + + + | T AXIS | 89 | degrees | [facility] | | + + + + + + | INTERPRETAT | Normal sinus | | [facility] | | | ION TEXT | rhythmPossible Left | | | | | | atrial | | | | | | enlargementInferior | | | | | | infarct (cited on or | | | | | | before | | | | | | 28-DEC-2015)Abnormal | | | | | | ECGWhen compared with | | | | | | ECG of 28-DEC-2015 | | | | | | 09:00,Nonspecific T wave | | | | | | abnormality has | | | | | | replaced inverted T | | | | | | waves in Anterior | | | | | | leadsConfirmed by ALEJO | | | | | | ROHAN SANCHEZ ([id number]) on | | | | | | 09/19/2017 5:15:11 PM | | | | + + [...] + | Diagnosis | + + | Murmur - Primary Undiagnosed cardiac murmurs | + + | Hypertension, unspecified type | + + | MITRAL REGURGITATION, SEVERE Mitral valve insufficiency and aortic valve | | insufficiency | + + | TRICUSPID REGURGITATION, MILD Diseases of tricuspid valve | + + | Coronary artery disease, angina presence unspecified, unspecified vessel or lesion | | type, unspecified whether wiyot or transplanted heart | + + | Atrial flutter, unspecified type (HCC) | + + | DYSPNEA Shortness of breath | + + | Tobacco abuse Tobacco use disorder | + + documented in this encounter
--- OUTSIDE RECORDS SUMMARY | ~2020-03-26 | XMS | Encounter Summary ---
Demographics + + + | Address | [address] | | | [place] [address] | + + + | Home Phone | | + + + | Preferred Language | Unknown | + + + | Marital Status | | + + + | Oriental Orthodox Affiliation | 1041 | + + + | Race | or | + + + | Ethnic Group | Not or | + + + Author + + + | Author | [facility] | | | and [place] | + + + | Organization | [facility] | | [...] | | | | | [place] [address] | | + + + + + Care Team Providers + +------+ + | Care Calibration Checker Name | Role | Phone | + +------+ + | Preston Garcia | PCP | | + +------+ + Encounter Details +--------+ + + + + | Date | Type | Department | Care Team | Description | +--------+ + + + + | 05/08/ | Telephone | [facility] | [place], | | | 2011 | | CARDIOLOGY [address] | [address] | | | | | [address] [place], | [address] [place], | | | | | [place] [address] | [place] [address] | | | | | [phone] | [phone] | | | | | | | [...] this encounter Miscellaneous Notes Telephone Encounter - Whitney Null - 05/08/2012 10:24 AM PDTRecords request/sent to Dr.Vi juarez/[employer] , fax # [phone]. Records sent: Office Visit 2, Cath Report 10/9/12, Echo 04/05/12, Echo Images documented in this encounter Plan of Treatment Not on filedocumented as of this encounter Visit Diagnoses Not on filedocumented in this encounter"
--- OUTSIDE RECORDS SUMMARY | ~2020-03-26 | XMS | Encounter Summary ---
Demographics + + + | Address | [address] | | | [place] [address] | + + + | Home Phone | | + + + | Preferred Language | Unknown | + + + | Marital Status | | + + + | Jewish Affiliation | 1041 | + + + | Race | or | + + + | Ethnic Group | Not or | + + + Author + + + | Author | [facility] | | | and [place] | + + + | Organization | [facility] | | [...] | | | | | [place] [address] | | + + + + + Care Team Providers + +------+ + | Care Business Development Coordinator Name | Role | Phone | + +------+ + | No, Unknownpcp | PCP | | + +------+ + Reason for Visit + +--------+ + | Reason | Onset | Comments | | | Date | | + +--------+ + | Medication Problem | 05/04/ | clarify carvedilol | | | 2011 | | + +--------+ + Encounter Details +--------+ + + + + | Date | Type | Department | Care Team | Description | +--------+ + + + + | 05/04/ | Telephone | [facility] | Sahara Malcolm, | Medication Problem | | 2011 | | CARDIOLOGY [address] | RN | (clarify carvedilol) | | | | [place], | | | | | | [place] [address] | | | | | | [phone] | | | +--------+ + + + + Social History + +-------+ +--------+------+ | Tobacco Use | Types | Packs/Day | Years | Date | | | | | Used | | + +-------+ +--------+------+ | Never Assessed | | | | | + +-------+ +--------+------+ + + + | Sex Assigned at | Date Recorded | | | | + + + | Not on file | | + + + documented as of this encounter Miscellaneous Notes Telephone Encounter - Sahara Malcolm RN - 05/04/2012 11:19 AM PDTDana called to find out if Ivanna should be on Carvedilol. She states that she had her on it previously but noted that we did not show her on it at our last visit on 04/05/12. Ivanna has recently had a hea rt cath and it does look abnormal, so it is recommended that patient continue the carvedilol at this time. Ivanna is on the schedule to discuss her test results with Dr Moyer on [place] ay 05/07/12, will leave her in that appointment so she can go over medications and details o f a referal to an interventionalist at that time. Her insurance dictates that she only go s pecific places. Daniel ented in this encounter Plan of Treatment Not on filedocumented as of this encounter Visit Diagnoses Not on filedocumented in this encounter"
--- OUTSIDE RECORDS SUMMARY | ~2020-03-26 | XMS | Encounter Summary ---
Demographics + + + | Address | [address] | | | [place] [address] | + + + | Home Phone | | + + + | Preferred Language | Unknown | + + + | Marital Status | | + + + | Pentecostal Affiliation | 1041 | + + + | Race | or | + + + | Ethnic Group | Not or | + + + Author + + + | Author | [facility] | | | and [place] | + + + | Organization | [facility] | | | [...] | | | | | [place] [address] | | + + + + + Care Team Providers + +------+ + | Care Mail Deliverer Name | Role | Phone | + +------+ + PCP | Unavailable | + +------+ + Encounter Details +--------+ + + + + | Date | Type | Department | Care Team | Description | +--------+ + + + + | 04/05/ | Hospital | [facility] | | | | 2011 | Encounter | MED CTR XRAY [address] | | | | | | [place] | | | | | | [place] [address] | | | | | | [phone] | | | +--------+ + + + [...] mEq by mouth | | 0 | 04/05/20 | | | (KLOR-CON 10) 10 | Daily. | | | 12 | 2 | | MEQ CR tablet | | | | | | + + + +---------+ + + documented as of this encounter Plan of Treatment Not on filedocumented as of this encounter Procedures + +--------+ + + + | Procedure Name | Priori | Date/Time | Associated Diagnosis | Comments | | | ty | | | | + +--------+ + + + | ECHO COMPLETE | | 04/05/2012 | | Results for this | | | | 10:34 AM | | procedure are in the | | | | PDT | | results section. | + +--------+ + + + documented in this encounter Results ECHO Complete (04/05/2012 10:34 AM PDT) + + | Specimen | + + | | + + + + + | Narrative | Performed At | + + + | [facility] | [place] | | [address] [facility] | [facility] | | E C H O C A R D | DIAG IMG | | I O G R A P H Y R E P O R T HEIGHT: 5'7" | | | WEIGHT: 136# TRADE ANALYST: [facility] REFERRING DR: | | | HÉCTOR BURDICK DR: ALEJO DIAGNOSIS: SOB, SWAN | | | ORTHOPENIA | | | | | | M E A S U R E M E N T S | | | Aortic Root: 31 mm LV Diameter-diastole: | | | 65 mm Aortic Cusp Sep: 17 mm LV | | | Diameter--systole: mm LA: 56 | | | mm Fractional Shortenin % IVS--diastole: | | | 16 mm PFV Aortic Valve: IVS--systole: | | | 20 mm MPG Mitral Valve: 3.7 mmHg | | | LVPW--diastole: 12 mm PFV TR Jet: | | | 3.78 m/s LVPW--systole: 15 mm RA/RV PPG: | | | 57.1 mmHg | | | | | | ECHOCARDIOGRAM REPORT, 04/05/2012 REFERRING PHYSICIAN: Naheed | | | LEXIS Chaves CLINICAL HISTORY: SHORTNESS OF BREATH. | | | TECHNICAL DATA: The quality of the studies are good. This is a | | | complete transthoracic echocardiogram with 2-D M-mode Doppler and | | | color flow Doppler analysis. HEMODYNAMICS: Patient is in | | | underlying sinus rhythm throughout the procedure with ventricular | | | rate in the 70s. Blood pressure is 140/96 at the time of the study. | | | FINDINGS: CHAMBERS: The left ventricle is enlarged with | | | end-diastolic dimension of 65 mm. There is mild concentrate | | | hypertrophy with additional component of asymmetric septal | | | hypertrophy as well. There is normal regional wall motion with LVEF | | | calculated at 57%. Bilateral atria are severely enlarged. Right | | | ventricle is of normal size and systolic function with normal wall | | | thickness. VALVES: Aortic valve is a normal trileaflet valve with | | | good opening. There is no stenosis or insufficiency noted. There is | | | suggestion of early aortic valve closure on M/Mode analysis. Mitral | | | valve is thickened. There is no forest prolapse noted. There is a | | | small mobile echodensity noted within the atrial surface of | | | posterior mitral valve leaflets. There is an eccentric jet of severe | | | mitral regurgitation which is posteriorly directed with evidence of | | | flow reversal in the pulmonary veins. Tricuspid valve is normal with | | | mild to moderate regurgitation with a peak velocity of 3.8 m/s | | | consistent with RV systolic pressure of 67-72 mmHg. Pulmonic valve | | | is normal. MISCELLANEOUS: Pericardium is normal. There is a small | | | to moderate amount of pericardial effusion noted which is | | | predominantly localized adjacent to the right ventricle and right | | | atrium. There is no echocardiographic evidence of hemodynamic | | | significance. There is no evidence of chamber collapse and no | | | significant respiratory variation in mitral inflow noted. IVC is | | | dilated with reduced respiratory collapse consistent with elevated | | | right atrium pressures. There is evidence of ascites present. | | | DIASTOLOGY: Mitral inflow diastolic parameters are not accurately | | | measured. IMPRESSION: 1. LEFT VENTRICULAR HYPERTROPHY WITH | | | NORMAL SYSTOLIC FUNCTION LVEF OF 57%. 2. SEVERE BI-ATRIAL | | | ENLARGEMENT. 3. MITRAL VALVULAR THICKENING AND AN ECCENTRIC | | | SEVERE REGURGITATION DETAILED ABOVE. ECHODENSITY NOTED ON THE | | | POSTERIOR MITRAL VALVE LEAFLETS MAY BE CONSISTENT WITH CHORDAL | | | REMNANT, CALCIFICATION, OR VEGETATION. CLINICAL CORRELATION IS | | | RECOMMENDED. 4. MILD TO MODERATE TRICUSPID REGURGITATION AND | | | SEVERE PULMONARY HYPERTENSION. 5. SMALL, FOCAL PERICARDIAL | | | EFFUSION WITHOUT EVIDENCE OF HEMODYNAMIC SIGNIFICANCE. Dictated | | | Date/Time: 04/05/2012 17:35 Transcribed Date/Time: 04/05/2012 | | | 18:34 Band Manager: <Electronically Signed by Ellen Madrigal | | | MD [place]> 04/06/12 1330 | | + + + + + | Procedure Note | + + | Saul Verma - 08/30/2013 6:00 PM [facility] | | Diagnostic Imaging Department | | [address] | | | | | | | | E C H O C A R D I O G R A P H Y R E P O R T | | | | | | HEIGHT: 5'7" WEIGHT: 136# TRADE ANALYST: [facility] | | REFERRING DR: HÉCTOR BURDICK DR: ALEJO | | | | DIAGNOSIS: SOB, SWAN ORTHOPENIA | | | | | | M E A S U R E M E N T S | | | | Aortic Root: 31 mm LV Diameter-diastole: 65 mm | | Aortic Cusp Sep: 17 mm LV Diameter--systole: mm | | LA: 56 mm Fractional Shortenin % | | IVS--diastole: 16 mm PFV Aortic Valve: | | IVS--systole: 20 mm MPG Mitral Valve: 3.7 mmHg | | LVPW--diastole: 12 mm PFV TR Jet: 3.78 m/s | | LVPW--systole: 15 mm RA/RV PP.1 mmHg | | | | | | | | ECHOCARDIOGRAM REPORT, 04/05/2012 | | | | REFERRING PHYSICIAN: LEXIS Zabala | | | | CLINICAL HISTORY: SHORTNESS OF BREATH. | | | | TECHNICAL DATA: The quality of the studies are good. This is a complete | | transthoracic echocardiogram with 2-D M-mode Doppler and color flow Doppler | | analysis. | | | | HEMODYNAMICS: Patient is in underlying sinus rhythm throughout the procedure | | with ventricular rate in the 70s. Blood pressure is 140/96 at the time of the | | study. | | | | FINDINGS: | | | | CHAMBERS: The left ventricle is enlarged with end-diastolic dimension of 65 mm. | | There is mild concentrate hypertrophy with additional component of asymmetric | | septal hypertrophy as well. There is normal regional wall motion with LVEF | | calculated at 57%. Bilateral atria are severely enlarged. Right ventricle is of | | normal size and systolic function with normal wall thickness. | | | | VALVES: Aortic valve is a normal trileaflet valve with good opening. There is | | no stenosis or insufficiency noted. There is suggestion of early aortic valve | | closure on M/Mode analysis. Mitral valve is thickened. There is no forest | | prolapse noted. There is a small mobile echodensity noted within the atrial | | surface of posterior mitral valve leaflets. There is an eccentric jet of severe | | mitral regurgitation which is posteriorly directed with evidence of flow | | reversal in the pulmonary veins. Tricuspid valve is normal with mild to | | moderate regurgitation with a peak velocity of 3.8 m/s consistent with RV | | systolic pressure of 67-72 mmHg. Pulmonic valve is normal. | | | | MISCELLANEOUS: Pericardium is normal. There is a small to moderate amount of | | pericardial effusion noted which is predominantly localized adjacent to the | | right ventricle and right atrium. There is no echocardiographic evidence of | | hemodynamic significance. There is no evidence of chamber collapse and no | | significant respiratory variation in mitral inflow noted. IVC is dilated with | | reduced respiratory collapse consistent with elevated right atrium pressures. | | There is evidence of ascites present. | | | | DIASTOLOGY: Mitral inflow diastolic parameters are not accurately measured. | | | | IMPRESSION: | | 1. LEFT VENTRICULAR HYPERTROPHY WITH NORMAL SYSTOLIC FUNCTION LVEF OF 57%. | | | | 2. SEVERE BI-ATRIAL ENLARGEMENT. | | | | 3. MITRAL VALVULAR THICKENING AND AN ECCENTRIC SEVERE REGURGITATION DETAILED | | ABOVE. ECHODENSITY NOTED ON THE POSTERIOR MITRAL VALVE LEAFLETS MAY BE | | CONSISTENT WITH CHORDAL REMNANT, CALCIFICATION, OR VEGETATION. CLINICAL | | CORRELATION IS RECOMMENDED. | | | | 4. MILD TO MODERATE TRICUSPID REGURGITATION AND SEVERE PULMONARY HYPERTENSION. | | | | 5. SMALL, FOCAL PERICARDIAL EFFUSION WITHOUT EVIDENCE OF HEMODYNAMIC | | SIGNIFICANCE. | | | | Dictated Date/Time: 04/05/2012 17:35 | | Transcribed Date/Time: 04/05/2012 18:34 | | Band Manager: EVAN | | <Electronically Signed by Ellen Moyer MD> 04/06/12 1330 | + + + +---------+ + + | Performing | Address | City/State/Zipcode | Phone Number | | Organization | | | | + +---------+ + + | [place] | | | | | [facility] | | | | + +---------+ + + documented in this encounter Visit Diagnoses Not on filedocumented in this encounter
--- OUTSIDE RECORDS SUMMARY | ~2020-03-26 | XMS | Encounter Summary ---
Demographics + + + | Address | [address] | | | [place] [address] | + + + | Home Phone | | + + + | Preferred Language | Unknown | + + + | Marital Status | | + + + | Restoration Affiliation | 1041 | + + + | Race | or | + + + | Ethnic Group | Not or | + + + Author + + + | Author | [facility] | | | and [place] | + + + | Organization | [facility] | | | [...] | | | | | [place] [address] | | + + + + + Care Team Providers + +------+ + | Care Financial Assistant Name | Role | Phone | + +------+ + | Paco Agarwal PA-C | PCP | | + +------+ + Reason for Visit +--------+--------+ + | Reason | Onset | Comments | | | Date | | +--------+--------+ + | Other | 03/02/ | patient needs to have teeth extracted | | | 2014 | | +--------+--------+ + Encounter Details +--------+ + + + + | Date | Type | Department | Care Team | Description | +--------+ + + + + | 03/02/ | Telephone | [facility] | [address] | Other (patient needs | | 2014 | | CARDIOLOGY [address] | MD Rohan [address] | to have teeth | | | | [place], | [address] [place] | extracted) | | | | [place] [address] | [place] [address] | | | | | [phone] | [phone] | | | | | | | [...] Telephone Encounter - Sahara Malcolm RN - 03/02/2015 3:06 PM PDTPer conversation with Deysi Uribe, patient should be ok to proceed with tooth extractions. Ivanna notified ........... ................................Sahara Malcolm RN on 03/02/15 at 15:06 elephone Encounter - Sahara Malcolm RN - 03/02/2015 9:06 AM PDTHannahndkamla called, she had a tooth ache and has been put on clindamycin. She will be scheduled soon to have all 7 teeth that are left on t he top extracted. She is wondering if there is anything she needs to do as far as her medic ations are concerned and if she will be ok to proceed. She is advised that Dr Moyer is out of the office this week, she would like to get this done this week so I will consult Dr Geoffrey miller in Dr Moyer's absence. ...........................................Sahara Malcolm RN on 03/02/15 at 9:08 documented in this encounter Plan of Treatment Not on filedocumented as of this encounter Visit Diagnoses Not on filedocumented in this encounter"
--- OUTSIDE RECORDS SUMMARY | ~2020-03-26 | XMS | Encounter Summary ---
Demographics + + + | Address | [address] | | | [place] [address] | + + + | Home Phone | | + + + | Preferred Language | Unknown | + + + | Marital Status | | + + + | Latter Day Affiliation | 1041 | + + + | Race | or | + + + | Ethnic Group | Not or | + + + Author + + + | Author | [facility] | | | and [place] | + + + | Organization | [facility] | | | [...] | | | | | [place] [address] | | + + + + + Care Team Providers + +------+ + | Care Design Maintenance Engineer Name | Role | Phone | + +------+ + | Paco Agarwal PA-C | PCP | | + +------+ + Reason for Visit +--------+--------+ + | Reason | Onset | Comments | | | Date | | +--------+--------+ + | Other | 07/20/ | Question about medications and hair loss | | | 2011 | | +--------+--------+ + Encounter Details +--------+ + + + + | Date | Type | Department | Care Team | Description | +--------+ + + + + | 07/20/ | Telephone | [facility] [place] | Sahara Malcolm, | Other (Question | | 2011 | | CARDIOLOGY [address] | RN | about medications | | | | [place], | | and hair loss) | | | | [place] [address] | | | | | | [phone] | | | +--------+ + + + [...] Telephone Encounter - Sahara Malcolm RN - 07/20/2012 3:43 PM PSTIvanna called wanting t o know if she was on any medications that might make her hair fall out. She states that she spoke with the pharmacy and they told her that her chances of it being medication was <1%. She was advised that there are several reasons for hair loss other than medications and hannah t she should follow up with her PCP for this. She was agreeable. .......................... .................Sahara Malcolm RN on 07/20/2012 at 15:45 documented in this encounter Plan of Treatment Not on filedocumented as of this encounter Visit Diagnoses Not on filedocumented in this encounter"
--- OUTSIDE RECORDS SUMMARY | ~2020-03-26 | XMS | Encounter Summary ---
Demographics + + + | Address | [address] | | | [place] [address] | + + + | Home Phone | | + + + | Preferred Language | Unknown | + + + | Marital Status | | + + + | Lutheran Affiliation | 1041 | + + + [...] | | | | | [place] [address] | | + + + + + Care Team Providers + +------+ + | Care Director Of Institutional Sales Name | Role | Phone | + +------+ + | Paco Agarwal PA-C | PCP | | + +------+ + Encounter Details +--------+ + + + + | Date | Type | Department | Care Team | Description | +--------+ + + + + | 09/05/ | Abstract | [facility] [place] | [address] Moyer | | | 2017 | | [address] [address] | MD Rohan [address] | | | | | [place], | [address] [place] | | | | | [place] [address] | [place] [address] | | | | | [phone] | [phone] | | | | | | | [...] +--------+ + + + | EXTERNAL LAB: [facility] | Routin | 09/05/2017 | | Results for this | | NATURETIC PEPTIDE | e | | | procedure are in the | | | | | | results section. | + +--------+ + + + documented in this encounter Results External Lab: [facility] Naturetic Peptide (09/05/2017) + +-------+ + + + | Component | Value | Ref Range | Performed | Pathologist | | | | | At | Signature | + +-------+ + + + | B-Type | 32 | | | | | Naturetic | | | | | | Peptide, | | | | | | External | | | | | + +-------+ + + + + + | Specimen | + + | Blood | + + documented in this encounter Visit Diagnoses Not on filedocumented in this encounter"
--- OUTSIDE RECORDS SUMMARY | ~2020-03-26 | XMS | Encounter Summary ---
Demographics + + + | Address | [address] | | | [place] [address] | + + + | Home Phone | | + + + | Preferred Language | Unknown | + + + | Marital Status | | + + + | Taoism Affiliation | 1041 | + + + | Race | or | + + + | Ethnic Group | Not or | + + + Author + + + | Author | [facility] | | | and [place] | + + + | Organization | [facility] | | | [...] | | | | | [place] [address] | | + + + + + Care Team Providers + +------+ + | Care Heat Treating Operator Name | Role | Phone | + +------+ + PCP | Unavailable | + +------+ + Encounter Details +--------+ + + + + | Date | Type | Department | Care Team | Description | +--------+ + + + + | 05/01/ | Hospital | [facility] | [address] | | | 2011 - | Encounter | MED CTR XRAY [address] | MD Rohan [address] | | | | | [place] | [address] [place] | | | 05/02/ | | [place] [address] | [place] [address] | | | 2011 | | [phone] | [phone] | | | | | | | [...] + + + +---------+ + + | diphenhydrAMINE | 50 mg by mouth night | | 0 | 04/09/20 | | | (BENADRYL ALLERGY) | before exam, repeat | | | 12 | 2 | | 25 mg tablet | 40 minutes prior to | | | | | | | exam next day. | | | | | + + [...] | | | | VERBAL ORDER OF DR | | | | | | | MAXOOD. | | | | | + + + +---------+ + + | famotidine | 20 mg by mouth night | | 0 | 04/09/20 | | | (PEPCID) 20 mg | before exam, repeat | | | 12 | 2 | | tablet | 40 minutes prior | | | | | | | to exam next day | | | | | + + [...] + + + +---------+ + + | predniSONE | 60 mg by mouth night | | 0 | 04/09/20 | | | (DELTASONE) 20 mg | before exam, repeat | | | 12 | 2 | | tablet | 40 minutes prior to | | | | | | | exam next day | | | | | + + + +---------+ + + documented as of this encounter Plan of Treatment Not on filedocumented as of this encounter Procedures + +--------+ + + + | Procedure Name | Priori | Date/Time | Associated Diagnosis | Comments | | | ty | | | | + +--------+ + + + | CV DIAGNOSTIC | Routin | 05/01/2012 | | Results for this | | CARDIAC CATH | e | 12:29 PM | | procedure are in the | | | | PDT | | results section. | + +--------+ + + + documented in this encounter Results CV Diagnostic Cardiac Cath (05/01/2012 12:29 PM PDT) + + | Specimen | + + | | + + + + + | Narrative | Performed At | + + + | [facility] | [place] | | Department [address] [place] [address] | [place] | | [ rep [address]] [ rep [facility] | | st rust] Signed | - IMAGING | | | | | Patient Name: IVANNA FLORES Physician: | | | SYED. : 1955 Age: 57 Sex: F Unit #: [id number] | | | Exam Date: 05/01/12 Location: [facility] | | | Report #: [id number] Page: | | | %(RAD)RES..mtdd.print.filter("pg") of %(RAD) | | | RES..mtdd.print.filter("tpg") | | | | | | Accession Number: [id number] | | | CARDIAC CATHETERIZATION LABORATORY REPORT, 05/01/2012 | | | REFERRAL SOURCE: [facility]. INDICATION: CHEST | | | PAIN, CORONARY ARTERY DISEASE. PROCEDURE: After | | | informed consent was obtained, the patient was sent to the Cardiac | | | Catheterization Laboratory where she was prepped and draped in the | | | usual fashion. Under sterile technique and local anesthesia, | | | percutaneous access was obtained using a 6-Eritrean sheath in the right | | | frontal artery. Left heart catheterization and left | | | ventriculography were performed on this patient. Selective coronary | | | angiography was performed in several sagittal and oblique projections | | | using a 6-Eritrean JL4 and 6-Eritrean JR4 diagnostic catheters. The | | | patient received a total of 130 mL of Isovue-370 contrast. She | | | also received a total of 1 mg of Versed and 50 mcg of Fentanyl | | | intravenously for conscious sedation. She also received | | | preprocedural oral prednisone/Benadryl for history of contrast | | | allergy. The procedure was not complicated, and at the conclusion | | | of the procedure, the catheter and sheath were removed. Arterial | | | stasis was obtained using Angio-Seal deployment through the puncture | | | site of the right femoral artery. Distal pulses were present and | | | unchanged. HEMODYNAMICS: Aortic pressure was measured | | | at 160/100 at the beginning of the procedure and decreased to 138/90 | | | following sedation. Left ventricular pressure was measured at | | | 138/8. There was no gradient on catheter pull back from the left | | | ventricle to the aorta. CORONARY ANGIOGRAPHY: LEFT | | | MAIN CORONARY ARTERY: The left main coronary artery is quite short | | | and arises in the usual fashion from the left coronary cusp | | | immediately bifurcating into the LAD and left circumflex coronary | | | arteries. No significant lesions are noted. LEFT | | | ANTERIOR DESCENDING CORONARY ARTERY: The left anterior descending | | | coronary artery is a medium- caliber vessel with some mild diffuse | | | plaquing but no significant flow-limiting lesions throughout. It | | | courses in the usual fashion anteriorly and terminates at the left | | | ventricular apex. It gives rise to 3 large diagonal branches and | | | numerous septal manager operations and procurement branches. The first, rather high diagonal | | | branch has an area of flow-limiting stenosis in its proximal portion, | | | approximately 80%, long and eccentric. Otherwise, no other | | | significant lesions are seen. LEFT CIRCUMFLEX CORONARY | | | ARTERY: The left circumflex coronary artery has a proximal ectatic | | | area followed by borderline significant stenosis involving the | | | takeoff of the first obtuse marginal branch, approximately 70-80% in | | | severity. The distal portions of the OM and the remainder of the | | | LCX are without any focal lesions. RIGHT CORONARY | | | ARTERY: The right coronary artery arises in the usual fashion | | | laterally from the right coronary cusp. It displays diffuse | | | disease throughout its course without any overt focal lesions. The | | | distal portions of the vessel appear to be subtotally occluded, and | | | there is significant zelq-od-kysqj collateral flow observed | | | supplying the posterior descending coronary artery. LEFT | | | VENTRICULOGRAM: The left ventriculogram shows normal left | | | ventricular end-diastolic and end- systolic dimensions. Overall | | | systolic function appears to be preserved with LVEF in the range of | | | 55-60% . A focal akinetic area involves the basal inferior | | | myocardium. Otherwise, there is normal regional wall motion noted. | | | There is evidence of 3+ mitral regurgitation as well. | | | IMPRESSION: 1. RIGHT DOMINANT CORONARY CIRCULATION. | | | 2. DIFFUSELY DISEASED RCA ALONG WITH FLOW-LIMITING STENOSIS OF | | | A FIRST HIGH DIAGONAL BRANCH OF THE LAD WELL BORDERLINE | | | STENOSIS OF THE PROXIMAL LCX SYSTEM. 3. PRESERVED LV | | | SYSTOLIC FUNCTION WITH LVEF IN THE RANGE OF 55-60%, BASAL INFERIOR | | | AKINESIS AND 3+ MITRAL REGURGITATION. 4. CONTINUED | | | MEDICAL THERAPY AND AGGRESSIVE RISK FACTOR REDUCTION. 5. | | | PATIENT'S CASE WILL BE DISCUSSED WITH INTERVENTIONAL CARDIOLOGY FOR | | | CONSIDERATION OF REVASCULARIZATION, IF INDICATED. | | | Dictated Date/Time: 05/01/2012 12:29 Transcribed Date/Time: | | | 05/01/2012 12:57 Museum Tour Guide: | | | <<Signature on File>> | | | S | | | Rohan Moyer MD05/03/12 1337 <Electronically signed by Ellen Patricia | | | Comfort SANCHEZ> S Rohan Moyer MD 05/01/12 1229 | | | Museum Tour Guide: [employer] Rssyhbvrvwqdh84/09/12 1257 | | | | | + + + + + + + + | Performing | Address | City/State/Zipcode | Phone Number | | Organization | | | | + + + + + | [facility] | [address] | [place] | [phone] | | [facility] | | [address] | | | - IMAGING | | | | + + + + + documented in this encounter Visit Diagnoses Not on filedocumented in this encounter
--- OUTSIDE RECORDS SUMMARY | ~2020-03-26 | XMS | Encounter Summary ---
Demographics + + + | Address | [address] | | | [place] [address] | + + + | Home Phone | | + + + | Preferred Language | Unknown | + + + | Marital Status | | + + + | Restorationism Affiliation | 1041 | + + + | Race | or | + + + | Ethnic Group | Not or | + + + Author + + + | Author | [facility] | | | and [place] | + + + | Organization | [facility] | | | and [...] | | | | | [place] [address] | | + + + + + Care Team Providers + +------+ + | Care Bottom Turning Lathe Turner Name | Role | Phone | + +------+ + | Paco Agarwal PA-C | PCP | | + +------+ + Reason for Visit + +--------+ + | Reason | Onset | Comments | | | Date | | + +--------+ + | Appointment | 10/31/ | | | | 2013 | | + +--------+ + Encounter Details +--------+ + + + + | Date | Type | Department | Care Team | Description | +--------+ + + + + | 10/31/ | Telephone | [facility] | Lane [address] | Appointment | | 2013 | | [facility] [address] | MD Roh[address] | | | | | [place], | [address] [place] | | | | | [place] [address] | [place] [address] | | | | | [phone] | | | | | | | [...] Notes Telephone Encounter - Gricelda Pavon - 10/31/2013 8:22 AM DESIREEIvanna called and left an o dyan-night voicemail message, states she is cancelling her 10-31-[address] Keyla sarmiento. She is having to leave town on a family emergency. documented in this encounter Plan of Treatment Not on filedocumented as of this encounter Visit Diagnoses Not on filedocumented in this encounter"
--- OUTSIDE RECORDS SUMMARY | ~2020-03-26 | XMS | Encounter Summary ---
Demographics + + + | Address | [address] | | | [place] [address] | + + + | Home Phone | | + + + | Preferred Language | Unknown | + + + | Marital Status | | + + + | Rastafari Affiliation | 1041 | + + + | Race | or | + + + | Ethnic Group | Not or | + + + Author + + + | Author | [facility] | | | and [place] | + + + | Organization | [facility] | | | and [...] | | | | | [place] [address] | | + + + + + Care Team Providers + +------+ + | Care Ux Architect Name | Role | Phone | + +------+ + | No, Unknownpcp | PCP | | + +------+ + Reason for Visit +--------+--------+ + | Reason | Onset | Comments | | | Date | | +--------+--------+ + | Other | 05/25/ | anxiety or heart issues. | | | 2011 | | +--------+--------+ + Encounter Details +--------+ + + + + | Date | Type | Department | Care Team | Description | +--------+ + + + + | 05/25/ | Telephone | [facility] | Sahara Malcolm, | Other (anxiety or | | 2011 | | CARDIOLOGY [address] | RN | heart issues.) | | | | [place], | | | | | | [place] [address] | | | | | | [phone] | | | +--------+ + + + [...] Telephone Encounter - Sahara Malcolm RN - 05/25/2012 2:48 PM PDTBreshawnee called to find o ut what to do, she was having what she thought was a panic attack and she took a xanax for t hat. Since the xanax has not helped she started to get scared and called in. She is advise d to go to ER for evaluation. She is agreeable to the plan. ............................... ............Sahara Malcolm RN on 05/25/2012 at 14:50 documented in this encounter Plan of Treatment Not on filedocumented as of this encounter Visit Diagnoses Not on filedocumented in this encounter"
--- OUTSIDE RECORDS SUMMARY | ~2020-03-26 | XMS | Encounter Summary ---
Demographics + + + | Address | [address] | | | [place] [address] | + + + | Home Phone | | + + + | Preferred Language | Unknown | + + + | Marital Status | | + + + | Orthodoxy Affiliation | 1041 | + + + [...] | | | | | [place] [address] | | + + + + + Care Team Providers + +------+ + | Care Station Inspector Name | Role | Phone | + +------+ + | Paco Agarwal PA-C | PCP | | + +------+ + Reason for Visit + +--------+ + | Reason | Onset | Comments | | | Date | | + +--------+ + | Alopecia | 08/03/ | Patient thinks her hair loss may be med related. | | | 2012 | | + +--------+ + Encounter Details +--------+ + + + + | Date | Type | Department | Care Team | Description | +--------+ + + + + | 08/03/ | Telephone | [facility] | [address] | Alopecia (Patient | | 2012 | | CARDIOLOGY [address] | MD Rohan [address] | thinks her hair loss | | | | [place], | [address] [place] | may be med related. | | | | [place] [address] | [place] [address] | ) | | | | [phone] | [phone] | | | | | | | [...] this encounter Miscellaneous Notes Telephone Encounter - Kathryn Daniel RN - 08/03/2012 2:05 PM PSTPatient called to zaid rt a concern over her continued hair loss she has talked to her PCP Dr. Agarwal and he advised that it was caused by lack of protein. Patient spoke with her pharmacist, pharmacist stated that it could be caused by a combinati on of her medications. Called the pharmacist at [facility] in [place], pharmacist reports that it is very rare (les s than %1) but Simvastatin and amlodipine can cause alopecia/ hair loss. Patient would like to know if there is anything she can do to slow down or reverse the hair loss, or if her medications can be changed? Patient can be reached on her home phone [phone]. .................................... .......Kathryn Daniel RN on 08/03/2012 at 14:28 documented in this encounter Plan of Treatment Not on filedocumented as of this encounter Visit Diagnoses Not on filedocumented in this encounter"
--- OUTSIDE RECORDS SUMMARY | ~2020-03-26 | XMS | Encounter Summary ---
Demographics + + + | Address | [address] | | | [place] [address] | + + + | Home Phone [...] | | | | | [place] [address] | | + + + + + Care Team Providers + +------+ + | Care Slice Plug Cutter Operator Name | Role | Phone | + +------+ + | Paco Agarwal PA-C | PCP | | + +------+ + Reason for Visit +--------+--------+ + | Reason | Onset | Comments | | | Date | | +--------+--------+ + | Other | 07/11/ | Patient wanted Dr Moyer to know about plan | | | 2012 | | +--------+--------+ + Encounter Details +--------+ + + + + | Date | Type | Department | Care Team | Description | +--------+ + + + + | 07/11/ | Telephone | [facility] [place] | [address] | Other (Patient | | 2012 | | CARDIOLOGY [address] | MD Rohan [address] | wanted Dr Moyer to | | | | [place], | [address] [place] | know about plan) | | | | [place] [address] | [place] [address] | | | | | [phone] | [phone] | | | | | | | [...] Telephone Encounter - Sahara Malcolm RN - 07/11/2013 10:25 AM [place] called to report that she got confirmation that she does have stage 3 cervical cancer. She will see Dr Ramirez tomorrow. She will make sure reports get sent to Dr Moyer. ............................... ............Sahara Malcolm RN on 07/11/2013 at 10:26 documented in this encounter Plan of Treatment Not on filedocumented as of this encounter Visit Diagnoses Not on filedocumented in this encounter"
--- OUTSIDE RECORDS SUMMARY | ~2020-03-26 | XMS | Encounter Summary ---
Demographics + + + | Address | [address] | | | [place] [address] | + + + | Home Phone | | + + + | Preferred Language | Unknown | + + + | Marital Status | | + + + | Muslim Affiliation | 1041 | + + + [...] | | | | | [place] [address] | | + + + + + Care Team Providers + +------+ + | Care Card Table Attendant Name | Role | Phone | + +------+ + | Paco Agarwal PA-C | PCP | | + +------+ + Reason for Visit +--------+--------+ + | Reason | Onset | Comments | | | Date | | +--------+--------+ + | Other | 05/05/ | Inquiry about potassium and Lasix prescriptions | | | 2014 | | +--------+--------+ + Encounter Details +--------+ + + + + | Date | Type | Department | Care Team | Description | +--------+ + + + + | 05/05/ | Telephone | [facility] | [address] | Other (Inquiry about | | 2014 | | CARDIOLOGY [address] | MD Roh[address] | potassium and Lasix | | | | [place], | [address] [place] | prescriptions) | | | | [place] [address] | [place] [address] | | | | | [phone] | [phone] | | | | | | | [...] this encounter Miscellaneous Notes Telephone Encounter - Marlene Alvarado RN - 05/06/2015 10:49 AM PDTSpoke with Ivanna. Julito fuchs stated her PCP at [facility] is going to determine if they are going to take her o ff her potassium and furosemide after her next blood test. Told Ivanna per conversation wit h Dr. Moyer that if her PCP decides to take her off potassium and/or furosemide after her b lood test, it would be ok at this time. Marlene Goyal 05/06/2015 10:51 elephone Encounter - Marlene Alvarado RN - 05/05/2015 4:09 PM PDTIvanna called and stated that she lost her insurance, so she is going back to the [facility]. In her appointment last week, t flakita Riggins wanted to take her off potassium and furosemide. She wants to clarify if she needs t o stay on these two meds per request of Dr. Moyer, and if so, how she can continue taking t hese meds even with the provider change. Marlene Goyal 05/05/2015 16:14 documented in this encounter Plan of Treatment Not on filedocumented as of this encounter Visit Diagnoses Not on filedocumented in this encounter"
--- OUTSIDE RECORDS SUMMARY | ~2020-03-26 | XMS | Encounter Summary ---
Demographics + + + | Address | [address] | | | [place] [address] | + + + | Home Phone | | + + + | Preferred Language | Unknown | + + + | Marital Status | | + + + | Confucianist Affiliation | 1041 | + + + | Race | or | + + + | Ethnic Group | Not or | + + + Author + + + | Author | [facility] | | | and [place] | + + + | Organization | [facility] | | [...] | | | | | [place] [address] | | + + + + + Care Team Providers + +------+ + | Care Inside Sales Administrator Name | Role | Phone | + +------+ + | Paco Agarwal PA-C | PCP | | + +------+ + Reason for Visit + + + | Reason | Comments | + + + | Coronary Artery | Six month follow up, Echo 02/12/13 | | Disease | | + + + Encounter Details +--------+---------+ + + + | Date | Type | Department | Care Team | Description | +--------+---------+ + + + | 02/12/ | Office | [facility] | Lane Moyer | Tobacco use disorder | | 2012 | Visit | CARDIOLOGY [address] | MD Rohan [address] | (Primary Dx); | | | | [place], | [address] [place] | Mitral | | | | [place] [address] | [place] [address] | regurgitation; | | | | [phone] | [phone] | Coronary | | | | | | atherosclerosis due | | | | | | to lipid rich plaque | +--------+---------+ + + + Social History [...] + + + | Blood Pressure | 142/90 | 02/12/2013 3:11 PM | left arm | | | | PDT | | + + + + + | Pulse | 96 | 02/12/2013 3:11 PM | regular | | | | PDT | | + + + + + | Temperature | - | - | | + + + + + | Respiratory Rate | 14 | 02/12/2013 3:11 PM | | | | | PDT | | + + + + + | Oxygen Saturation | - | - | | + + + + + | Inhaled Oxygen | - | - | | | Concentration | | | | + + + + + | Weight | 57.2 kg (126 lb) | 02/12/2013 3:11 PM | | | | | PDT | | + + + + + | Height | 170.2 cm (5' 7") | 02/12/2013 3:11 PM | | | | | PDT | | + + + + + | Body Mass Index | 19.73 | 02/12/2013 3:11 PM | | | | | PDT | | + + + + + documented in this encounter Progress Notes Lane Moyer MD - 02/12/2013 3:29 PM PDTFormatting of this note might be differe nt from the original. Subjective: Patient ID: Ivanna Flores is a 57 y.o. female. HPI Patient is a 57-year-old female with history of severe mitral regurgitation [...] more, primarily due to persistent anxiety. She has had good healing of her sternotomy wound and has had no c onstitutional symptoms. She feels that her exertional capacity [...] MELLITUS, BORDERLINE 04/03/2012 Patient Active Problem List Diagnosis Date Noted POA Murmur 04/03/2012 Unknown Priority: High CAD (coronary artery disease) 05/07/2012 Unknown DYSPNEA 04/03/2012 Unknown HYPERTENSION 04/03/2012 Unknown RENAL FAILURE, ACUTE 04/03/2012 Unknown ANXIETY 04/03/2012 Unknown DEPRESSION 04/03/2012 Unknown PANIC ATTACK 04/03/2012 Unknown TOBACCO ABUSE 04/03/2012 Unknown ARTHRITIS, RHEUMATOID 04/03/2012 Unknown REACTIVE AIRWAY DISEASE 04/03/2012 Unknown DIABETES MELLITUS, BORDERLINE 04/03/2012 Unknown MITRAL REGURGITATION, SEVERE 04/03/2012 Unknown TRICUSPID REGURGITATION, MILD 04/03/2012 Unknown Past Surgical History Procedure Date Tonsillectomy Tubal ligation Cholecystectomy 2011 No family history on file. 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 carvedilol (COREG) 3.125 mg tablet Take 3.125 mg by mouth 2 times daily (with breakfast & dinner). famotidine (PEPCID) 20 mg tablet Take 20 mg by mouth as needed. furosemide (LASIX) 20 mg tablet Take 1 tablet by mouth Daily. 30 tablet 6 lisinopril (PRINIVIL, ZESTRIL) 20 mg tablet Take 20 mg by mouth 2 times daily. SENNOSIDES-DOCUSATE SODIUM PO Take by mouth Daily. simvastatin (ZOCOR) 20 mg tablet Take 1 tablet by mouth nightly. 30 tablet 6 Allergies Allergen Reactions Iodine Penicillins Review of Systems Respiratory: Positive for shortness of breath. Cardiovascular: Positive for leg swelling. All other systems reviewed and are negative. BP 142/90 | Pulse 96 | Resp 14 | Ht 1.702 m (5' 7") | Wt 57.153 kg (126 lb) | BMI 19.73 kg/ m2 Objective: Physical Exam Vitals reviewed. Constitutional: She [...] akinesis and 3+ MR. Echocardiogram performed in [facility] notable for moderate septal hypert rophy, inferior thinning and akinesis, LVEF 55-60%, moderate LAE,, trace to mild MR. Echocardiogram today interpreted and reviewed by me shows normal LV size and systolic funct ion with asymmetric septal hypertrophy, LV EF 56%, mild MR, borderline MS, no other signific ant valvular disease. Assessment: #1 - mitral regurgitation - Patient's has no evidence of residual regurgitation on exam or echo, and clinically feels significantly improved with resolution of exertional dyspnea and generalized edema. She will benefit from annual echocardiograms. #2 - CAD - patient is status post complete surgical revascularization, and his having good healing postoperatively. She is on a thorough medical regimen. The focus remained on continu ed medical therapy and risk factor reduction. #3 - Tobacco cessation. This was discussed at length (>10 minutes) with the patient and her . They are both smoking - he a few cigarettes daily, and she states that she co ntinues to smoke a pack a day due to ongoing symptoms of anxiety. She will likely need adjun ctive pharmacotherapy closer to the time of her quitting. I have urged her to set a date and begin a taper regimen. Plan: #1 - Increase carvedilol to 6.25 b.i.d.. Otherwise, continue current medical regimen. #2 - echocardiogram in one year. #3 - tobacco cessation once again reinforced. #4 - follow up visit in 6 months. documented in t his encounter Plan of Treatment Not on filedocumented as of this encounter Visit Diagnoses + + | Diagnosis | + + | Tobacco use disorder - Primary | + + | Mitral regurgitation Mitral valve disorders | + + | Coronary atherosclerosis due to lipid rich plaque | + + documented in this encounter
--- OUTSIDE RECORDS SUMMARY | ~2020-03-26 | XMS | Encounter Summary ---
Demographics + + + | Address | [address] | | | [place] [address] | + + + | Home Phone [...] | | | | | [place] [address] | | + + + + + Care Team Providers + +------+ + | Care Petroleum Refinery Laborer Name | Role | Phone | + +------+ + | Paco Agarwal PA-C | PCP | | + +------+ + Reason for Visit + +--------+ + | Reason | Onset | Comments | | | Date | | + +--------+ + | Appointment | 08/26/ | | | | 2013 | | + +--------+ + Encounter Details +--------+ + + + + | Date | Type | Department | Care Team | Description | +--------+ + + + + | 08/26/ | Telephone | [facility] | [address] Moyer | Appointment | | 2013 | | [facility] [address] | MD Rohan [address] | | | | | [place], | [address] [place] | | | | | [place] [address] | [place] [address] | | | | | [phone] | [phone] | | | | | | | [...] Notes Telephone Encounter - Gricelda Pavon - 08/26/2013 8:16 AM [place] left a message on [employer] e answering machine, has the flu and is cancelling her 08/26/[address] Moyer. States that she will call back to reschedule.Electronically signed by Gricelda Pavon at 09/2013 8:17 AM PSTdocumented in this encounter Plan of Treatment Not on filedocumented as of this encounter Visit Diagnoses Not on filedocumented in this encounter"
--- OUTSIDE RECORDS SUMMARY | ~2020-03-26 | XMS | Encounter Summary ---
Demographics + + + | Address | [address] | | | [place] [address] | + + + | Home Phone [...] + + + | Author | [facility] | | | and [place] | + + + | Organization | [facility] | | | [...] | | | | | [place] [address] | | + + + + + Care Team Providers + +------+ + | Care Termite Control Technician Name | Role | Phone | + +------+ + PCP | Unavailable | + +------+ + Encounter Details +--------+ + + + + | Date | Type | Department | Care Team | Description | +--------+ + + + + | 04/17/ | Abstract | [facility] | DATA MIGRATION JESSICA | | | 2011 | | Conversion Location | SR | | | | | [address] | | | | | | [place], [place] | | | | | | [address] | | | | | | [phone] | | | +--------+ + + + [...] + + + | Blood Pressure | 138/88 | 04/05/2012 12:00 AM | | | | | PDT | | + + + + + | Pulse | - | - | | + + + + + | Temperature | - | - | | + + + + + | Respiratory Rate | - | - | | + + + + + | Oxygen Saturation | - | - | | + + + + + | Inhaled Oxygen | - | - | | | Concentration | | | | + + + + + | Weight | 59.4 kg (131 lb) | 04/05/2012 12:00 AM | | | | | PDT | | + + + + + | Height | 170.2 cm (5' 7") | 04/05/2012 12:00 AM | | | | | PDT | | + + + + + | Body Mass Index | 20.52 | 04/05/2012 12:00 AM | | | | | PDT | | + + + + + documented in this encounter Plan of Treatment Not on filedocumented as of this encounter Visit Diagnoses Not on filedocumented in this encounter
--- OUTSIDE RECORDS SUMMARY | ~2020-03-26 | XMS | Encounter Summary ---
Demographics + + + | Address | [address] | | | [place] [address] | + + + | Home Phone | | + + + | Preferred Language | Unknown | + + + | Marital Status | | + + + | Anglican Affiliation | 1041 | + + + | Race | or | + + + | Ethnic Group | Not or | + + + Author + + + | Author | [facility] | | | and [place] | + + + | Organization | [facility] | | [...] | | | | | [place] [address] | | + + + + + Care Team Providers + +------+ + | Care Furniture Upholsterer Name | Role | Phone | + +------+ + | Paco Agarwal PA-C | PCP | | + +------+ + Reason for Visit + +--------+ + | Reason | Onset | Comments | | | Date | | + +--------+ + | Medication Refill | 08/27/ | | | | 2012 | | + +--------+ + Encounter Details +--------+--------+ + + + | Date | Type | Department | Care Team | Description | +--------+--------+ + + + | 08/27/ | Refill | [facility] | [address] Moyer | Medication Refill | | 2012 | | [facility] [address] | MD Roh[address] | | | | | [place], | [address] [place] | | | | | [place] [address] | [place] [address] | | | | | [phone] | [phone] | | | | | | | [...]
--- OUTSIDE RECORDS SUMMARY | ~2020-03-26 | XMS | Encounter Summary ---
Demographics + + + | Address | [address] | | | [place] [address] | + + + | Home Phone | | + + + | Preferred Language | Unknown | + + + | Marital Status | | + + + | Taoist Affiliation | 1041 | + + + | Race | or | + + + | Ethnic Group | Not or | + + + Author + + + | Author | [facility] | | | and [place] | + + + | Organization | [facility] | | | [...] | | | | | [place] [address] | | + + + + + Care Team Providers + +------+ + | Care Body And Frame Technician Name | Role | Phone | + +------+ + | Preston Garcia | PCP | | + +------+ + Reason for Visit Diagnostic/Screening (Routine) +--------+--------+ [...] Status post | Lane | [address] | | | | | mitral | MD Rohan | [place], | | | | | valve repair | [address] | [place] | | | | | Coronary | St [place] | [address] | | | | | artery | [place] | Phone: | | | | | disease | [address] | [phone] | | | | | involving | Phone: | Fax: | | | | | [place] | [phone] | [phone] | | | | | coronary | Fax: | | | | | | artery | [phone] | | | | | | without | | | | | | | angina | | | | | | | pectoris | | | | | | | Procedures | | | | | | | ECHO | | | | | | | Complete SC | | | | | | | ECHO HEART | | | | | | | XTHORACIC,CO | | | | | | | MPLETE W | | | | | | | DOPPLER SC | | | | | | | [...] | +--------+ + + + + | 01/26/ | Hospital | [facility] | Lane Moyer | Canceled (OTHER) | | 2016 | Encounter | [facility] ECHO [address] | MD Rohan [address] | | | | | [place] | [address] [place] | | | | | [place] [address] | [place] [address] | | | | | [phone] | [phone] | | | | | | | [...] involving | | | | | | [place] coronary | | | | | | artery without | | | | | | angina pectoris | | + +--------+ + + + documented in this encounter Results ECHO Complete (12/28/2015 8:52 AM PDT) + + | Specimen | + + | | + + + + + | Narrative | Performed At | + + + | [facility] ECHOCARDIOGRAM REPORT | [place] | | STUDY DATE: 12/28/2015 PATIENT NAME: Ivanna Flores [facility] | | : 1955 PCP: Paco Agarwal PA-C [facility] | | [facility] CLINICAL HISTORY/DIAGNOSIS: Mitral valve repair. | - [...] PhD FACC | | | 12/28/2015 8:48 Osteopathy Doctor: Moo Oneill, RDCS, RDMS, RVT | | + + + + + + + + | Performing | Address | City/State/Zipcode | Phone Number | | Organization | | | | + + + + + | [facility] | [address] | [place] | [phone] | | [facility] | | [address] | | | - IMAGING | | | | + + + + + documented in this encounter Visit Diagnoses Not on filedocumented in this encounter
--- OUTSIDE RECORDS SUMMARY | ~2020-03-26 | XMS | Encounter Summary ---
Demographics + + + | Address | [address] | | | [place] [address] | + + + | Home Phone | | + + + | Preferred Language | Unknown | + + + | Marital Status | | + + + | Hoahaoism Affiliation | 1041 | + + + [...] | | | | | [place] [address] | | + + + + + Care Team Providers + +------+ + | Care Metal Expediter Name | Role | Phone | + +------+ + | Ligia Patton PA-C | PCP | | + +------+ + Reason for Visit +--------+--------+ + | Reason | Onset | Comments | | | Date | | +--------+--------+ + | LABS | 02/12/ | | | | 2018 | | +--------+--------+ + Encounter Details +--------+ + + + + | Date | Type | Department | Care Team | Description | +--------+ + + + + | 02/12/ | Telephone | [facility] | [address] Moyer | LABS | | 2019 | | [address] | MD Rohan [address] | | | | | [place], | [address] [place] | | | | | [place] [address] | [place] [address] | | | | | [phone] | [phone] | | | | | | | [...] this encounter Miscellaneous Notes Telephone Encounter - Radha Meehan RN - 02/12/2019 2:53 PM PDTLabs ordered. ....... ....................................Radha eMehan RN on 02/12/19 at 14:56 elephone Iva Millan, Bakery Machine Mechanic - 02/12/2019 2:31 PM PDTPatient scheduled for an appo intment on 02/25/19 and is needing a fasting Lipid panel, CBC and CMP. Please order, thank you . I will call patient with lab order information. Electronically signed by [facility] Orthodontic Technician at 02/12/2019 2:32 PM PDTdocumented in this encounter Plan of Treatment + +------+--------+ + + | Name | Type | Priori | Associated Diagnoses | Order Schedule | | | | ty | | | + +------+--------+ + + | Lipid Panel | Lab | Routin | Hypertension, | Expected: | | | | e | Unspecified Type | 02/12/2019, Expires: | | | | | MITRAL | 02/12/2020 | | | | | REGURGITATION, | | | | | | SEVERE Coronary | | | | | | artery disease, | | | | | | angina presence | | | | | | unspecified, | | | | | | unspecified vessel | | | | | | or lesion type, | | | | | | unspecified whether | | | | | | [place] or | | | | | | transplanted heart | | | | | | Atrial flutter, | | | | | | unspecified type | | | | | | (HCC) | | + +------+--------+ + + | Comprehensive | Lab | Routin | Hypertension, | Expected: | | Metabolic Panel | | e | Unspecified Type | 02/12/2019, Expires: | | | | | MITRAL | 02/12/2020 | | | | | REGURGITATION, | | | | | | SEVERE Coronary | | | | | | artery disease, | | | | | | angina presence | | | | | | unspecified, | | | | | | unspecified vessel | | | | | | or lesion type, | | | | | | unspecified whether | | | | | | [place] or | | | | | | transplanted heart | | | | | | Atrial flutter, | | | | | | unspecified type | | | | | | (HCC) | | + +------+--------+ + + | CBC with | Lab | Routin | Hypertension, | Expected: | | Differential | | e | Unspecified Type | 02/12/2019, Expires: | | | | | MITRAL | 02/12/2020 | | | | | REGURGITATION, | | | | | | SEVERE Coronary | | | | | | artery disease, | | | | | | angina presence | | | | | | unspecified, | | | | | | unspecified vessel | | | | | | or lesion type, | | | | | | unspecified whether | | | | | | [place] or | | | | | | transplanted heart | | | | | | Atrial flutter, | | | | | | unspecified type | | | | | | (HCC) | | + +------+--------+ + + documented as of this encounter Visit Diagnoses + + | Diagnosis | + + | Hypertension, unspecified type - Primary | + + | MITRAL REGURGITATION, SEVERE Mitral valve insufficiency and aortic valve | | insufficiency | + + | Coronary artery disease, angina presence unspecified, unspecified vessel or lesion | | type, unspecified whether [place] or transplanted heart | + + | Atrial flutter, unspecified type (HCC) | + + documented in this encounter"
--- OUTSIDE RECORDS SUMMARY | ~2020-03-26 | XMS | Encounter Summary ---
Demographics + + + | Address | [address] | | | [place] [address] | + + + | Home Phone | | + + + | Preferred Language | Unknown | + + + | Marital Status | | + + + | Restoration Affiliation | 1041 | + + + | Race | or | + + + | Ethnic Group | Not or | + + + Author + + + | Author | [facility] | | | and [place] | + + + | Organization | [facility] | | | [...] | | | | | [place] [address] | | + + + + + Care Team Providers + +------+ + | Care Director Of Food And Nutrition Services Name | Role | Phone | + +------+ + | Paco Agarwal PA-C | PCP | | + +------+ + Reason for Visit + + + | Reason | Comments | + + + | Follow-up | | + + + | Atrial Flutter | | + + + Encounter Details +--------+---------+ + + + | Date | Type | Department | Care Team | Description | +--------+---------+ + + + | 12/26/ | Office | [facility] | [address] Moyer | CAD (coronary artery | | 2013 | Visit | CARDIOLOGY [address] | MD Rohan [address] | disease) (Primary | | | | [place], | [address] [place] | Dx); Atrial flutter | | | | [place] [address] | [place] [address] | ([facility]); Mitral | | | | [phone] | [phone] | regurgitation; | | | | | | Tobacco [...] + + + | Blood Pressure | - | - | | + [...] + + + + | Weight | 62.2 kg (137 lb 3.2 | 12/26/2013 10:24 AM | | | | oz) | PDT | | + + + + + | Height | 170.2 cm (5' 7") | 12/26/2013 10:24 AM | | | | | PDT | | + + + + + | Body Mass Index | 21.49 | 12/26/2013 10:24 AM | | | | | PDT | | + + + + + documented in this encounter Progress Notes Lane Moyer MD - 12/26/2013 10:40 AM PDTFormatting of this note might be differe nt from the original. Subjective: Patient ID: Ivanna Flores is a 58 y.o. female. 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 famotidine (PEPCID) 20 mg tablet Take 20 mg by mouth as needed. furosemide (LASIX) 20 mg tablet Take 1 tablet by mouth Daily. 30 tablet 6 lisinopril (PRINIVIL, ZESTRIL) 20 mg tablet Take 20 mg by mouth 2 times daily. potassium chloride SA (K-DUR,KLOR-CON) 10 MEQ tablet Take 10 mEq by mouth 2 times daily . SENNOSIDES-DOCUSATE SODIUM PO Take 100 mg by mouth Daily. simvastatin (ZOCOR) 20 mg tablet Take 1 tablet by mouth nightly. 30 tablet 6 Allergies Allergen Reactions Iodinated Diagnostic Agents Convulsions Iodine Rash Penicillins Hives Review of Systems Respiratory: Positive for shortness of breath. Cardiovascular: Positive for leg swelling. All other systems reviewed and are negative. Ht 1.702 m (5' 7") | Wt 62.234 kg (137 lb 3.2 oz) | BMI 21.48 kg/m2 Objective: Physical Exam Vitals reviewed. Constitutional: She [...] affect. Her behavior is normal. The EKG today shows normal sinus rhythm, [...] akinesis and 3+ MR. Echocardiogram performed in [facility] notable for moderate septal hypert rophy, [...] begin a taper regimen. Plan: #1 - continue current medical regimen. #2 - echocardiogram in one year. #3 - tobacco cessation once again reinforced. #4 - follow up visit in 6-12 months documented in t his encounter Procedure Notes GLORIA JOHNSTON - 12/26/2013 12:00 AM PDTAssociated Order(s): ECG - EXTERNAL SCANEldai gumaro signed by Tolu Palacios at 01/01/2014 11:14 AM PDTdocumented in this encounter Plan of Treatment + +------+--------+ + + | Name | Type | Priori | Associated Diagnoses | Order Schedule | | | | ty | | | + +------+--------+ + + | ECG 12 lead | ECG | Routin | Atrial flutter | Ordered: 12/26/2013 | | | | e | (HCC) CAD (coronary | | | | | | artery disease) | | + +------+--------+ + + documented as of this encounter Procedures + +--------+ + + + | Procedure Name | Priori | Date/Time | Associated Diagnosis | Comments | | | ty | | | | + +--------+ + + + | ECG - EXTERNAL SCAN | | 12/26/2013 | | | | | | 12:00 AM | | | | | | PDT | | | + +--------+ + + + documented in this encounter Visit Diagnoses + + | Diagnosis | + + | CAD (coronary artery disease) - Primary Coronary atherosclerosis of unspecified type | | of vessel, campo or graft | + + | Atrial flutter (HCC) Atrial flutter | + + | Mitral regurgitation Mitral valve disorders | + + | Tobacco use disorder | + + documented in this encounter
--- OUTSIDE RECORDS SUMMARY | ~2020-03-26 | XMS | Encounter Summary ---
Demographics + + + | Address | [address] | | | [place] [address] | + + + | Home Phone | | + + + | Preferred Language | Unknown | + + + | Marital Status | | + + + | Hoahaoism Affiliation | 1041 | + + + | Race | or | + + + | Ethnic Group | Not or | + + + Author + + + | Author | [facility] | | | and [place] | + + + | Organization | [facility] | | | [...] | | | | | [place] [address] | | + + + + + Care Team Providers + +------+ + | Care Repairer Pump Name | Role | Phone | + +------+ + | Paco Agarwal PA-C | PCP | | + +------+ + Reason for Visit +--------+--------+ + | Reason | Onset | Comments | | | Date | | +--------+--------+ + | Other | 08/23/ | | | | 2013 | | +--------+--------+ + Encounter Details +--------+ + + + + | Date | Type | Department | Care Team | Description | +--------+ + + + + | 08/23/ | Telephone | [facility] | [address] Moyer | Other | | 2013 | | [address] | MD Rohan [address] | | | | | [place], | [address] [place] | | | | | [place] [address] | [place] [address] | | | | | [phone] | [phone] | | | | | | | [...] this encounter Miscellaneous Notes Telephone Encounter - Cathi Ponce RN - 08/23/2013 11:10 AM PSTPatient inquired whether maribel fuchs had received an EKG from her procedure at [facility] on the [address] Saima Montejo . Advised I would check with Maria E so it is available for her appointment. Maria E notified. Electronically signed by: Cathi Ponce RN 08/23/2013 11:32 documented in this enco unter Plan of Treatment Not on filedocumented as of this encounter Visit Diagnoses Not on filedocumented in this encounter"
--- OUTSIDE RECORDS SUMMARY | ~2020-03-26 | XMS | Encounter Summary ---
Demographics + + + | Address | [address] | | | [place] [address] | + + + | Home Phone [...] + | Author | [facility] | | | and [place] | + + + | Organization | [facility] | | | and [place] | + + + | Address | Unknown | + + + | Phone | Unavailable | + + + Support + + + + + | Name | Relationship | Address | Phone | + + + + + | Navi Bond | ECON | [address] | | | | | [place] [address] | | + + + + + Care Team Providers + +------+ + | Care Manufacturing Support Engineer Name | Role | Phone | + +------+ + PCP | Unavailable | + +------+ + Encounter Details +--------+ + + + + | Date | Type | Department | Care Team | Description | +--------+ + + + + | 11/26/ | Hospital | [facility] | Adeline Sauer, | Shortness of breath; | | 2012 - | Encounter | [facility] | MD [address] | Hypoxemia; Panic | | | | CARE [address]LO[phone] | [place] [address] | attack; Reactive | | 11/28/ | | [address] | [phone] | airway disease with | | 2011 | | [place], [place] | | wheezing; Tobacco | | | | [address] | | use disorder; | | | | [phone] | | Bronchitis, acute; | | | | | | ARF (acute renal | | | | | | failure) ([facility]); | | | | | | Troponin level | | | | | | elevated; Positive | | | | | | D-dimer; Elevated | | | | | | troponin; Bacterial | | | | | | pneumonia, | | | | | | unspecified; | | | | | | Constipation, | | | | | | chronic; Depression; | | | | | | Diabetes mellitus | | | | | | ([facility]); Dyspnea; | | | | | | Essential | | | | | | hypertension, benign | +--------+ + + + + Social [...] + + documented as of this encounter Discharge Summaries Darryl Syed DO - 11/29/2011 11:40 AM PDT Discharge Summaries by Darryl Syed DO at 11/29/11 1140 Author: Darryl Syed DO Service: (none) Author Type: Physician Filed: 11/29/11 1617 Date of Service: 11/29/11 1140 Status: Signed Milk Truck Driver: Darryl Syed DO (Physician) [facility] Service: Hospitalist Discharge Summary Date of Admission: 11/27/2011 Date of Discharge: 11/29/2011 Discharge Physician: Darryl Syed DO Treatment Team: Admitting Provider: Darryl Syed DO Discharge Diagnoses: Principal Problem: *Dyspnea Active Problems: Hypoxemia Bacterial pneumonia, unspecified Reactive airway disease with wheezing Tobacco use disorder Essential hypertension, benign Diabetes mellitus ARF (acute renal failure) Constipation, chronic Panic attack Depression Troponin level elevated Resolved Problems: * No resolved hospital problems. * BRIEF HISTORY OF PRESENTATION: Ivanna Bond is a 56 y.o. female who presented in [facility] with shortness of breath . She was found to have an elevated d-dimer and troponin and was transferred to [facility]. HOSPITAL COURSE: Admitted to acute care floor. Telemetry showed no significant abnormalities during her stay. She was treated for COPD exacerbation with BD's, steroid burst/taper, and abx. Her br eathing improved. V/Q scan showed low probability of PE. Full-dose lovenox bid was continued because patient had indeterminate troponins. This was discussed with both Dr Velasquez and Dr Cast. They both recommended the patient follow up as an outpatient, stress outpatient. Kaycee quinones's oxygen needs did not fully resolve; she required 1 L supplemental with activity on day of discharge. Past Medical History Diagnosis Date Hypertension Anxiety Depression Diabetes mellitus boderline Panic attack Tobacco use disorder Diabetes mellitus type II Chronic kidney disease Past Surgical History Procedure Date Tubal ligation Tonsillectomy Allergies Allergen Reactions Iodine Solution (Povidone Iodine) Hallucinations Penicillins Rash Prescriptions prior to admission Medication Sig Dispense Refill alprazolam (XANAX) 0.5 MG tablet Take 0.5 mg by mouth nightly as needed. doxepin (SINEQUAN) 150 MG capsule Take 150 mg by mouth nightly. lisinopril (PRINIVIL,ZESTRIL) 20 MG tablet Take 20 mg by mouth 2 (two) times daily. DISCONTD: lisinopril (PRINIVIL,ZESTRIL) 20 MG tablet Take 20 mg by mouth daily. DISCHARGE EXAM Vital Signs: BP 112/68 | Pulse 78 | Temp(Src) 98 F (36.7 C) (Oral) | Resp 18 | Ht 1.737 m (5' 8.4") | Wt 64 kg (141 lb 1.5 oz) | BMI 21.20 kg/m2 | SpO2 98% | ? No Patient Vitals for the past 24 hrs: BP Temp Temp src Pulse Resp SpO2 Weight 11/29/11 0715 - - - - - 97 % - 11/29/11 0700 112/68 mmHg - - 78 - 98 % - 11/29/11 0407 115/68 mmHg - - - - - - 11/29/11 0355 107/67 mmHg 98 F (36.7 C) Oral 77 18 96 % 64 kg (141 lb 1.5 oz) 11/29/11 0248 111/69 mmHg - - - - - - 11/29/11 0127 117/69 mmHg - - - - - - 11/29/11 0102 107/56 mmHg - - - - - - 11/29/11 0026 - - - - - 91 % - 11/29/11 0007 109/58 mmHg - - - - 88 % - 11/28/11 2240 108/63 mmHg - - - - - - 11/28/11 2229 120/71 mmHg 97.5 F (36.4 C) Oral 95 18 93 % - 11/28/11 2207 120/73 mmHg - - - - - - 11/28/11 2145 - - - - - 94 % - 11/28/11 2139 162/93 mmHg - - - - - - 11/28/11 2050 177/99 mmHg - - - - - - 11/28/11 1941 166/83 mmHg 98 F (36.7 C) Oral 97 20 96 % - Physical Exam Vitals reviewed. Constitutional: She is oriented to person, place, and time. She appears well-developed and well-nourished. No distress. HENT: Head: Normocephalic and atraumatic. Nose: Nose normal. Eyes: Conjunctivae are normal. No scleral icterus. Neck: Normal range of motion. Neck supple. No JVD present. Cardiovascular: Normal rate, regular rhythm, normal heart sounds and intact distal pulses. No murmur heard. Pulmonary/Chest: Effort normal and breath sounds normal. No respiratory distress. She has n o wheezes. She has no rales. She exhibits no tenderness. Abdominal: Soft. Bowel sounds are normal. She exhibits no distension. There is no tendernes s. Musculoskeletal: Normal range of motion. She exhibits no edema and no tenderness. Neurological: She is alert and oriented to person, place, and time. Skin: Skin is warm and dry. No rash noted. She is not diaphoretic. No erythema. No pallor. Psychiatric: She has a normal mood and affect. Her behavior is normal. Judgment and thought content normal. DATA CBC: Lab Results Component Value Date WBC 11.9* 11/28/2011 RBC 3.68* 11/28/2011 HGB 10.4* 11/28/2011 HCT 32.4* 11/28/2011 MCV 88.0 11/28/2011 MCH 28.2 11/28/2011 MCHC 32.1 11/28/2011 RDW 43.3 11/28/2011 PLT 176 11/28/2011 MPV 9.5 11/28/2011 DIFFTYPE AUTOMATED 11/28/2011 CMP: Lab Results Component Value Date NA 145* 11/29/2011 K 4.4 11/29/2011 CL 115* 11/29/2011 CO2 22* 11/29/2011 ANIONGAP 12 11/29/2011 GLUF 101* 11/29/2011 BUN 26* 11/29/2011 CREATININE 1.0 11/29/2011 BCR 26 11/29/2011 CA 8.2* 11/29/2011 PROT 6.3 11/28/2011 ALB 3.2* 11/28/2011 GLOB 3.1 11/28/2011 BILITOT 0.4 11/28/2011 ALP 52 11/28/2011 AST 20 11/28/2011 ALT 48 11/28/2011 EGFR >60 11/29/2011 PT/INR: No results found for this basename: PROTIME, INR PTT: No results found for this basename: APTT [APTT Last 3 Troponin: Lab Results Component Value Date TROPONINI 0.62* 11/28/2011 TROPONINI 0.67* 11/27/2011 CPK: Lab Results Component Value Date CKTOTAL 54 11/27/2011 CKMB: Lab Results Component Value Date CKMB 1.7 11/28/2011 LUNG VQ SCAN 11/27/2011 HISTORY: Shortness of breath. TECHNIQUE: Wash-in, equilibrium, and wash-out images of the chest were obtained after inha lation of 28.4 mCi of Xenon-133. Eight standard images of the chest are also obtained after injection of 6.3 mCi of technetium-99m MAA. FINDINGS: There is matched heterogeneity. No segmental or major subsegmental perfusion mism atches. Mild scattered xenon retention noted. IMPRESSION: Low probability of pulmonary embolus. Electronically signed by Wellington Jauregui MD on Nov 27 2011 11:28PM === === XR CHEST 2 VIEW FRONTAL AND LATERAL 11/29/2011 7:24 AM INDICATION: Cough, fever COMPARISON: 11/26/2011 TECHNIQUE: Two view chest, PA and lateral views FINDINGS: Mild cardiomegaly is present. There is no mediastinal widening or shift. Bilate ral small effusions are demonstrated which are a new finding. Reticular markings are demons trated throughout the lungs bilaterally which are increased in number from previous study. Some peribronchial cuffing is noted. Patchy parenchymal opacities are noted in the lower josé manuel ng bilaterally. No pneumothorax is noted. No acute rib fractures are noted. IMPRESSION: 1. Increasing reticular markings throughout the lungs with bilateral pleural effusions and mild cardiomegaly suggest pulmonary edema, slightly progressed from previous study. Patient Active Hospital Problem List: COPD exacerbation - improving Continue nebs, prednisone taper, abx as per below. Quit smoking, patient was counseled and is motivated to do so. Outpatient PFT's, this was discussed with patient. Indeterminate troponins Follow up with PCP outpatient, stress test as outpatient, patient understands Disposition: Home Condition: Stable Code Status: Full Code No discharge procedures on file. Follow up: Follow with PCP, need outpatient PFT's and stress test once COPD flare-up is resolved Current Discharge Medication List START taking these medications Details albuterol, VENT, (PROVENTIL HFA;VENTOLIN HFA) 108 (90 BASE) MCG/ACT inhaler Inhale 2 puffs into the lungs every 4 (four) hours as needed for Wheezing. Qty: 1 Inhaler, Refills: 0 azithromycin (ZITHROMAX Z-ARMANI) 250 MG tablet Take 1 tablet by mouth daily. TAKE TWO TABLETS BY MOUTH NOW then ONE TABLET DAILY DAY 2-5 Qty: 6 tablet, Refills: 0 predniSONE (DELTASONE) 10 MG tablet Take 3 pills once per day for 2 days, then take 2 pills once per day for 3 days, then take 1 pill per day for 4 days, then stop. Qty: 16 tablet, Refills: 0 CONTINUE these medications which have NOT CHANGED Details alprazolam (XANAX) 0.5 MG tablet Take 0.5 mg by mouth nightly as needed. doxepin (SINEQUAN) 150 MG capsule Take 150 mg by mouth nightly. lisinopril (PRINIVIL,ZESTRIL) 20 MG tablet Take 20 mg by mouth 2 (two) times daily. Also supplemental O2 1L with activity Discharge took 31+ minutes, to include final examination, discussion of admission, and prep aration of prescriptions, instructions for on-going care, follow-up and documentation of dis charge summary. Darryl Syed DO 11/29/2011 4:16 PM documented in this enc ounter Progress Notes Conversion Transaction, Provider Unknown - 11/29/2011 10:33 AM PDTFormatting of this note m ight be different from the original. Progress Notes by Nury Rosario CRT at 11/29/11 1033 Author: Nury Rosario CRT Service: (none) Author Type: Certified Respiratory Therapist Filed: 11/29/11 1037 Date of Service: 11/29/11 1033 Status: Signed Milk Truck Driver: Nury Rosario CRT (Certified Respiratory Therapist) [facility] Department of Respiratory Group Home Oxygen Evaluation (Evaluation is valid for 48 hours once completed) Date: 11/29/2011 RT: NURY ROSARIO Time: 10:34 AM Phone: [phone] Physician ordering evaluation: Dr. Syed Part One Part Two At rest and breathing room air is the patient s SpO2 88% or lower? With exercise and b reathing room air is the patient s SpO2 88% or lower? NO IF NO Y ES IF NO The patient does not qual [place] for home oxygen under Medicare/ Medicaid guidelines. Lowest observed SpO2: 91% Lowest observed SpO2: 88% IF YES IF YES Amount of Oxygen needed to keep SpO2 88% or higher at rest: Amount of Oxygen needed to keep SpO2 88% or higher with exercise: > SpO2: LPM: If >5LPM, SpO2 on 4LPM: SpO2: 91% LPM: 1 If >5LPM, SpO2 on 4LPM: Notes: HOME OXYGEN PROVIDER PREFERENCE PHONE FAX *NOTE* Provider must include liter flow, route of oxygen administration, frequency of use w ith duration of need in months on the prescription AND document patient s diagnosis. OXYGEN PRN IS NOT A VALID ORDER Physician Signature: Date: 11/29/2011 Time: 10:34 AM onver jose rafael Transaction, Provider Unknown - 11/29/2011 6:12 AM PDT Progress Notes by Carmela Zavala RN at 11/29/11 0612 Author: Carmela Zaavla RN Service: (none) Author Type: Registered Nurse Filed: 11/29/11616 Date of Service: 11/29/11611 Status: Signed Milk Truck Driver: Carmela Zavala RN (Registered Nurse) Pt slept sitting up in the bed leaning over the beside table with pillows because she says it helps her breathing. States no SOB or pain, just increased need to breath. SBP has remain ed above 105 which was one of the pt's main concerns last night before she took Metoprolol. The RN and the pt are wondering if a smaller dose of Metoprolol more frequently could be arr anged so the pt's blood pressure doesn't do such dramatic drops like it did last night. The pt understands why Lisinopril is not getting used. She continues to have the anxiety about meds (to the point, she reported needing to go to the [place] [facility] daily to take her pill s because she was so worried and wanted to take them in front of a medical staff). HR has re turned to NSR from the ST it was at the beginning of the shift. No other acute changes since previous assessment. Will continue to monitor. Carmela Zavala RN 6:16 AM 11/29/2011 onver jose rafael Muller, Provider Unknown - 11/28/2011 9:30 PM PDT Progress Notes by Carmela Zavala RN at 11/28/112129 Author: Carmela Zavala RN Service: (none) Author Type: Registered Nurse Filed: 11/29/11 0047 Date of Service: 11/28/112129 Status: Signed Milk Truck Driver: Carmela Zavala RN (Registered Nurse) Pt is expressing fear of because of her breathing difficulties. She got up to the use the bathroom and had some SOB on exertion. Once she sat back down and was using her oxygen, she stated that she felt anxious about her breathing difficulties. When asked about her fea r in this area, she said a close friend a year ago from COPD so the thought of h aving trouble breathing and using medications for it really scares her. A PRN breathing jakc tment was given, q30 mins BP's to monitor her pressures (which was also a source of anxiety since they were elevated) and PRN PO Xanax were given and helped ease the anxiety. When re-a ssessed, the pt states the interventions helped. Will continue to monitor and pass along to oncoming RN in the morning Carmela Zavala RN 12:47 AM 11/29/2011 Darryl Shafer DO - 11/28/2011 4:09 PM PDTFormatting of this note might be different from the jacqueline ginal. Progress Notes by Darryl Syed DO at 11/28/11 1609 Author: Darryl Syed DO Service: (none) Author Type: Physician Filed: 11/28/11 1616 Date of Service: 11/28/11 1609 Status: Signed Milk Truck Driver: Darryl Syed DO (Physician) [facility] Service: Hospitalist Progress Note Hospital Day: LOS: 1 day Post-Op Day: * No surgery found * SUBJECTIVE Patient seen/examined. Patient's breathing is improved. No CP. Coughing, no sputum. No feve rs. Scheduled Medications aspirin 325 mg Oral Daily with breakfast docusate sodium 100 mg Oral Daily doxepin 150 mg Oral Nightly enoxaparin 1 mg/kg Subcutaneous Once enoxaparin 1 mg/kg Subcutaneous Q12H insulin aspart 0-3 Units Subcutaneous Nightly insulin aspart 0-6 Units Subcutaneous TID AC lisinopril 10 mg Oral Daily metoprolol 25 mg Oral BID moxifloxacin 400 mg Intravenous Q24H omeprazole 20 mg Oral QAM AC Or pantoprazole 40 mg Intravenous QAM AC predniSONE 40 mg Oral Daily with breakfast DISCONTD: atorvastatin 20 mg Oral Nightly DISCONTD: enoxaparin 40 mg Subcutaneous Q24H DISCONTD: enoxaparin 1 mg/kg Subcutaneous Once DISCONTD: lisinopril 20 mg Oral Daily Continuous Infusions sodium chloride 75 mL/hr at 11/28/11 0915 PRN Medications acetaminophen, acetaminophen, alprazolam, levalbuterol, nitroGLYCERIN, ondansetron, ondanse jarrell, polyethylene glycol, DISCONTD: dextrose, DISCONTD: dextrose, DISCONTD: dextrose, DISCO NTD: dextrose, DISCONTD: glucagon, DISCONTD: glucose, DISCONTD: glucose, DISCONTD: insulin a spart OBJECTIVE Vital Signs: BP 137/79 | Pulse 92 | Temp(Src) 98.3 F (36.8 C) (Oral) | Resp 16 | Ht 1.737 m (5' 8.4" ) | Wt 60.5 kg (133 lb 6.1 oz) | BMI 20.04 kg/m2 | SpO2 98% | ? No Patient Vitals for the past 24 hrs: BP Temp Temp src Pulse Resp SpO2 Height Weight 11/28/11 1542 137/79 mmHg 98.3 F (36.8 C) Oral 92 16 98 % - - 11/28/11 1141 125/82 mmHg 98.2 F (36.8 C) Oral 84 16 98 % - - 11/28/11 0734 107/57 mmHg 98.1 F (36.7 C) Oral 76 16 95 % - - 11/28/11 0500 - - - - - 98 % - - 11/28/11 0418 86/52 mmHg 98 F (36.7 C) Oral 69 16 97 % - - 11/27/11 2322 98/51 mmHg 97.8 F (36.6 C) Oral 72 18 94 % - - 11/27/11 1916 135/82 mmHg 98.7 F (37.1 C) Oral 98 22 97 % 1.737 m (5' 8.4") 60.5 kg ( 133 lb 6.1 oz) 11/27/11 1818 138/76 mmHg - - 89 16 98 % - - 11/27/11 1712 147/83 mmHg - - 95 19 96 % - - 11/27/11 1617 139/74 mmHg - - 88 22 98 % - - Physical Exam Vitals reviewed. Constitutional: She is oriented to person, place, and time. She appears well-developed and well-nourished. No distress. HENT: Head: Normocephalic and atraumatic. Mouth/Throat: Oropharynx is clear and moist. Eyes: Conjunctivae are normal. No scleral icterus. Neck: Normal range of motion. Neck supple. No JVD present. Cardiovascular: Normal rate, regular rhythm, normal heart sounds and intact distal pulses. No murmur heard. Pulmonary/Chest: No respiratory distress. She has no wheezes. She has no rales. She exhibit s no tenderness. Abdominal: Soft. Bowel sounds are normal. She exhibits no distension. There is no tendernes s. Musculoskeletal: Normal range of motion. She exhibits no edema and no tenderness. Neurological: She is alert and oriented to person, place, and time. Skin: Skin is warm and dry. No rash noted. She is not diaphoretic. No erythema. No pallor. Psychiatric: She has a normal mood and affect. Her behavior is normal. Judgment and thought content normal. DATA CBC: Lab Results Component Value Date WBC 11.9* 11/28/2011 RBC 3.68* 11/28/2011 HGB 10.4* 11/28/2011 HCT 32.4* 11/28/2011 MCV 88.0 11/28/2011 MCH 28.2 11/28/2011 MCHC 32.1 11/28/2011 RDW 43.3 11/28/2011 PLT 176 11/28/2011 MPV 9.5 11/28/2011 DIFFTYPE AUTOMATED 11/28/2011 CMP: Lab Results Component Value Date NA 144* 11/28/2011 K 4.6 11/28/2011 CL 115* 11/28/2011 CO2 23 11/28/2011 ANIONGAP 12 11/28/2011 GLUF 106* 11/28/2011 BUN 25 11/28/2011 CREATININE 0.9 11/28/2011 BCR 27 11/28/2011 CA 8.6 11/28/2011 PROT 6.3 11/28/2011 ALB 3.2* 11/28/2011 GLOB 3.1 11/28/2011 BILITOT 0.4 11/28/2011 ALP 52 11/28/2011 AST 20 11/28/2011 ALT 48 11/28/2011 EGFR >60 11/28/2011 Last 3 Troponin: Lab Results Component Value Date TROPONINI 0.67* 11/27/2011 CPK: Lab Results Component Value Date CKTOTAL 54 11/27/2011 CKMB: Lab Results Component Value Date CKMB 2.3 11/27/2011 HgBA1c: No results found for this basename: HGBA1C, LABGLYC LUNG VQ SCAN 11/27/2011 HISTORY: Shortness of breath. TECHNIQUE: Wash-in, equilibrium, and wash-out images of the chest were obtained after inha lation of 28.4 mCi of Xenon-133. Eight standard images of the chest are also obtained after injection of 6.3 mCi of technetium-99m MAA. FINDINGS: There is matched heterogeneity. No segmental or major subsegmental perfusion mism atches. Mild scattered xenon retention noted. IMPRESSION: Low probability of pulmonary embolus. Electronically signed by Wellington Jauregui MD on Nov 27 2011 11:28PM PROBLEM LIST Principal Problem: *Dyspnea Active Problems: Hypoxemia Bacterial pneumonia, unspecified Reactive airway disease with wheezing Tobacco use disorder Essential hypertension, benign Diabetes mellitus ARF (acute renal failure) Constipation, chronic Panic attack Depression Troponin level elevated ASSESSMENT & PLAN Patient Active Hospital Problem List: Dyspnea (11/27/2011) Assessment: COPD exacerbation, improving Plan: Keep overnight with breathing tx's, steroids, check oxygenation in am. COPD would b e a new diagnosis so I've counseled the patient to follow up with PCP about it and get pulmo nary function testing done. Hypoxemia (11/27/2011) Assessment: COPD exacerbation Plan: as above Bacterial pneumonia, unspecified (11/27/2011) Plan: will check CXR in am and also have started Avelox PO Tobacco use disorder (11/27/2011) Assessment: discussed quitting again, patient is determined to quit Troponin level elevated (11/27/2011) Assessment: probably due to hypoxia Plan: rechecking troponin now. A POC troponin yesterday was 0.08, after a serum troponin was 0.67 . Case has been discussed with Dr Velasquez who doubts ACS but recommends stress. Cecille ent cannot really be stressed at the present time because of reactive airway disease and hyp oxia. I've discussed with patient, she should follow up with her PCP and do stress as outpat ient in 2-3 weeks. Disposition: Possible DC home tomorrow Code Status: Full Code Darryl Syed DO 11/28/2011 4:16 PM Gilbert José MD - 01/2012 7:00 AM PDT Partial Note by Gilbert Negro MD at 11/28/11 0700 Author: Gilbert Negro MD Service: Hospitalist Author Type: Physician Filed: 11/28/11701 Date of Service: 11/28/11699 Status: Signed Milk Truck Driver: Gilbert Negro MD (Physician) Patient had elevated troponin of 0.67. Patient had received a dose of lovenox, therapeutic dose. Will continue with full dose cardiac dose lovenox, and monitor cardiac enzymes. onversio n Transaction, Provider Unknown - 11/27/2011 7:15 PM PDTFormatting of this note might be di fferent from the original. Progress Notes by Tito Vigil RPH at 11/27/111914 Author: Tito Vigil RPH Service: (none) Author Type: Pharmacist Filed: 11/27/111914 Date of Service: 11/27/111914 Status: Signed Milk Truck Driver: Tito Vigil RPH (Pharmacist) Renal Dosing Monitoring: Ivanna Bond 56 y.o. female Pharmacy dosing for renal function per Dr. Sauer Medication(s): Plan per protocol: Medication / Dose: no renal dose adjustments needed at this time. Pharmacy will continue monitoring patient for appropriate dosing per renal function. 11/27/2011 7:15 PM Pharmacist: TITO VIGIL docume nted in this encounter H&P Notes Adeline Sauer MD - 11/27/2011 6:20 PM PDTFormatting of this note might be different fro m the original. H&P by Adeline Sauer MD at 11/27/111819 Author: Adeline Sauer MD Service: (none) Author Type: Physician Filed: 11/28/11 0656 Date of Service: 11/27/111819 Status: Signed Milk Truck Driver: Adeline Sauer MD (Physician) [facility] Service: Hospitalist Admission History & Physical Date of Admission: 11/27/2011 Requesting Physician: Dr. NORIEGA , Emergency Department Reason for Admission: DYSPNEA, ABNORMAL D DIMER ,R/O PE, abnormal troponin History Obtained From: patient, spouse, chart review, Quality of history: good CHIEF COMPLAINT: Chief Complaint Chief Complaint Patient presents with Shortness of Breath 16:22. Pt presents to the ED with shortness of breath that started 3 weeks ago and worsened last night. Pt went to [facility] last night and was admitted. Pt is transferred due to rising tr oponin. Onset of symptoms was abrupt, with a waxing and waning course since that time. Sever ity is described as moderate. The patient reports nothing worsens symptoms, and nothing reli eves symptoms. Pt denies nausea or chest pain. She has had a cough but it is not productive. Pt denies history of COPD, asthma, or emphysema but she does smoke. HISTORY OF PRESENT ILLNESS The patient is a 56 y.o. female with significant past medical history of [id number] of tobacco use, hypertension, on lisinopril, and borderline diabetes. The patient had presented to [facility] yesterday with progressive worsening of shortness of breath, wheezing, occasional dry cough, without fever or chills. The patient was in her usual state of health until 3 weeks prior to admission. She reported experiencing intermittent shortness of breath, which would relieve partly with Xanax, therefore she initially attributed this to anxiety. Three weeks ago, she also had fever that had resolved. She has had on and off cough for the past 3 weeks, mostly dry. 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 Yesterday, they were burning wood at the park. While she was mowing the lawn she was exposed to a lot of smoke. Subsequently, she developed acute worsening of shortness of breath around 7:30 p.m., tried Xanax without relief. She was taken to [facility]. She was hypoxemic at 85% on room air, tachycardiac at 105, hypertensive at 147/88, afebrile. She was started on BiPAP. Her troponin was 0.08. BNP was mildly elevated at 210 and white count was elevated at 12,000 with normal hemoglobin, hematocrit and platelets. Chest x-ray that was performed in the ED per report, mentioned mild opacification in the right middle and lower lobe, possibly consistent with pneumonia. EKG showed normal sinus rhythm with voltage criteria for LVH. She was admitted there with the diagnosis of possible COPD exacerbation due to mild right lower lobe pneumonia in conjunction with smoke exposure. She was started on Rocephin, Zithromax, and DuoNebs q.4h. Subsequently, she had improvement in her respiratory status. She was also noted to have acute renal failure with a creatinine of 1.09, apparently 20% jump in her creatinine compared to her previous values, therefore lisinopril was held. She was hydrated and today the lab work showed normal renal function. This morning, troponin was elevated minimally to 0.164 and D-dimer was 2700, BNP 210. Due to abnormal D-dimer and abnormal troponin, she was transferred to [facility] for further workup after discussion with Dr. Velasquez. At the time of my evaluation, the patient reported significant improvement in her shortness of breath. On 2 L, she was saturating 96%. She has mild pleuritic chest pain with coughing, 4 out of 10, and no hemoptysis, improved wheezing, occasional dry cough, no fever, no chills. Denies any left precordial chest pain, jaw pain, arm pain, intrascapular pain, or neck pain. REVIEW OF SYSTEMS Review of Systems GENERAL: No recent change in weight or appetite. No night sweats. HEENT: No headache, neck pain, neck stiffness. LUNGS: Tobacco use disorder for more than 42 years, however, denies any evaluation for COPD. has not been on bronchodilators prior to yesterday. Denies history of obstructive sleep apnea. HEART: No prior history of coronary artery disease, myocardial infarction, coronary intervention. No history of CHF, syncope, arrhythmias. No edema in the lower extremities, PND, orthopnea. ABDOMEN: Chronic constipation. Last bowel movement was 2 days ago, attributes to doxepin. Denies any abdominal distension, pain, nausea, vomiting, diarrhea, GERD, or GI hemorrhage. : No dysuria, polyuria or hematuria. 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 PSYCHIATRIC: History of panic attacks and depression, controlled on medications. Past Medical History Diagnosis Date Hypertension Anxiety Depression Diabetes mellitus boderline Panic attack Tobacco use disorder Past Surgical History Procedure Date Tubal ligation Tonsillectomy Immunizations: Influenza: rn to assess Pneumoccocal: rn to assess Allergies Allergen Reactions Iodine Solution (Povidone Iodine) Hallucinations Penicillins Rash Prior to Admission medications Medication Sig Start Date End Date Taking? Authorizing Provider alprazolam (XANAX) 0.5 MG tablet Take 0.5 mg by mouth nightly as needed. Yes Historical Provider, doxepin (SINEQUAN) 150 MG capsule Take 150 mg by mouth nightly. Yes Historical Provider , lisinopril (PRINIVIL,ZESTRIL) 20 MG tablet Take 20 mg by mouth daily. Yes Historical Pr MD son (Not in a hospital admission) Family History Problem Relation Age of Onset Stroke Mother Hypertension Father Cancer Sister breast cancer Hypertension Sister Hypertension Brother Cancer Brother colon cancer Hypertension Father History Social History Marital Status: Spouse Name: navi Number of Children: N/A Years of Education: N/A Occupational History Not on file. 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 Patient currently lives with family at home PHYSICAL EXAM Vital Signs: BP 138/76 | Pulse 89 | Temp(Src) 98.2 F (36.8 C) (Oral) | Resp 16 | Ht 1.702 m (5' 7") | Wt 62.143 kg (137 lb) | BMI 21.46 kg/m2 | SpO2 98% | ? No Physical Exam GENERAL: The patient is mildly hypertensive, blood pressure 147/83, alert and oriented x3, sitting up in bed, able to speak in complete sentences, no respiratory distress, no use of accessory muscles of respiration. HEENT: PERRLA. Extraocular muscles intact, anicteric. Moist oral mucosa. NECK: Supple, no JVD, no lymphadenopathy and no thyromegaly. LUNGS: Clear to auscultation bilaterally. No rales, no wheeze, no chest wall tenderness to palpation. HEART: Regular, S1 and S2, prominent systolic murmur present. ABDOMEN: Soft, nontender, not distended. Bowel sounds are heard normally. No hepatosplenomegaly. EXTREMITIES: No calf edema, tenderness to palpation. No ankle edema. DTRs 2+ bilaterally but normal to inspection, no point tenderness to the spine, no CVA tenderness. NEUROLOGIC: Nonfocal. BACK: Normal to inspection, no point tenderness to the spine, and no CVA tenderness. SKIN: Normal warm and dry. No central or peripheral cyanosis. DATA EKG from 16:06 NSR at 89. LAE ,no acute injury or infarction CBC: Lab Results Component Value Date WBC 11.4* 11/27/2011 RBC 4.03 11/27/2011 HGB 11.4 11/27/2011 HCT 34.7 11/27/2011 MCV 86.2 11/27/2011 MCH 28.3 11/27/2011 MCHC 32.9 11/27/2011 RDW 42.4 11/27/2011 PLT 209 11/27/2011 MPV 8.8 11/27/2011 DIFFTYPE AUTOMATED 11/27/2011 CMP: Lab Results Component Value Date NA 143 11/27/2011 K 4.6 11/27/2011 CL 111* 11/27/2011 CO2 23 11/27/2011 ANIONGAP 14 11/27/2011 GLUF 141* 11/27/2011 BUN 19 11/27/2011 CREATININE 1.0 11/27/2011 BCR 20 11/27/2011 CA 8.8 11/27/2011 PROT 7.7 11/27/2011 ALB 3.8 11/27/2011 GLOB 3.9 11/27/2011 BILITOT 0.4 11/27/2011 ALP 65 11/27/2011 AST 45 11/27/2011 ALT 65 11/27/2011 EGFR >60 11/27/2011 Troponin I: 0.08 WBC with Differentials: Lab Results Component Value Date NEUTROABS 9.7* 11/27/2011 LYMPHSABS 1.3 11/27/2011 LYMPHOPCT 11.4* 11/27/2011 MONOPCT 4.0 11/27/2011 EOSABS 0.0 11/27/2011 EOSPCT 0.0 11/27/2011 BASOSABS 0.0 11/27/2011 BASOPCT 0.1 11/27/2011 Pt's d-dimer was markedly elevated. Troponin was also elevated. Pt is allergic to Iodine. pending VQ scan ,received 1 dose of Lovenox in the ED. LABORATORY Laboratory workup at the outside hospital: White count today 11.9, yesterday 12. Hemoglobin and hematocrit 11 and 34, down from 12 and 38 yesterday. Platelet count 200, neutrophils 88%. Sodium 142, potassium 4.9, chloride 110, bicarbonate 19, anion gap 13, glucose 163, BUN 23, creatinine 0.7. This is down from 1.09. GFR is more than 60, calcium 8.7. Lipid panel: Triglycerides 65, total cholesterol 149, VLDL 30, LDL 103, HDL 33. ABGs showed pH of 7.37, pa CO2 of 37, and pO2 140 on BiPAP. O2 saturation 99% , FIO2 40% BiPAP. Troponin 0.08 and then 0.164. Hemoglobin A1c 5.6. D-dimer 2700, BNP 210. Average blood glucose 115. ELECTROCARDIOGRAM EKG at [facility] last night showed normal sinus rhythm at 98, WV interval 136. LAE ,and no acute injury or infarction PROBLEM LIST Principal Problem: *Dyspnea Active Problems: Hypoxemia Bacterial pneumonia, unspecified Reactive airway disease with wheezing Tobacco use disorder Essential hypertension, benign Diabetes mellitus ARF (acute renal failure) Constipation, chronic Panic attack Depression ASSESSMENT & PLAN 1. Eyelo-ix-hibmxgsr dyspnea with wheezing and dry cough for the past 3 weeks. Most likely, acute bronchitis / early community acquired bacterial pneumonia with reactive airway disease due to smoke exposure, possibly the patient has underlying chronic obstructive pulmonary disease, undiagnosed. Hypoxemia is improved. Will admit to inpatient. Ordered prednisone 40 mg p.o. daily and Avelox with nebulizer treatments. Discussed with the patient that post discharge she will need referral from primary care physician to see pulmonary for pulmonary function tests when her acute respiratory condition has improved. 2. Abnormal troponin with normal CPK, CK MB and no active left precordial chest pain. However, the patient has borderline diabetes and presented with worsening shortness of breath, although less likely,cant r/o anginal equivalent. Discussed with Dr. Velasquez likely troponin elevation is from underlying hypoxemia and acute lung process, less likely coronary event. Recommends stress test prior to discharge. If the stress test becomes positive, daytime hospitalist is to call the on-call television receiver analyzer. And for positive troponin, the patient is on beta-emanuel, aspirin, statin, and angiotensin-converting enzyme inhibitor. 3. Abnormal D-dimer, possibly secondary to underlying pneumonia and bronchitis. V/Q scan is pending. The patient received 1 dose of Lovenox. Suspicion for pulmonary embolus is low given she has been mobile and very active. 4. Borderline diabetes with well controlled hemoglobin A1c. Will place the patient on 1800 kilocalorie ADA diet and low dose insulin sliding scale. Hyperglycemia currently due to steroids. 5. Hypertension. Will resume lisinopril 10 mg daily as renal function has improved. Monitor renal function in the a.m. If worsening, consider holding it. Also, added metoprolol 6. Murmur and positive troponin. Ordered 2D echocardiogram for evaluation of wall motion abnormalities and left ventricular ejection Fraction and evaluation of valves. 7. Hypoxemia secondary to acute reactive airway disease and underlying bronchitis/pneumonia. The patient will need home oxygen evaluation prior to discharge. 8. Tobacco use disorder. The patient is now motivated to quit smoking. She does not want nicotine replacement therapy. 9. Chronic constipation. Placed Colace. 10. Panic attacks. Continue Xanax at home doses. 11. Depression. Continue doxepin. Discussed with the patient and her the test results from both [facility], the plan of care, and answered all their questions. Addendum: 7:57 pm Ventilation/Perfusion Scan IMPRESSION: Low probability of pulmonary embolus. Read by Wellington Jauregui MD on Nov 27 2011 7:29PM Would consider HRCT chest without contrast in am if patient is agreeable, will defer to t he AM hospitalist. Disposition: Acute care Code Status: Full Code Primary Care Physician: MIKO ANAYA NP, FOOD ANALYST ADELINE SAUER MD 11/27/2011 documented in this e ncounter ED Notes Arlet Noriega DO - 11/27/2011 4:08 PM PDTFormatting of this note might be different fro m the original. ED Provider Notes by Arlet Noriega DO at 11/27/11 0561 Author: Arlet Noriega DO Service: (none) Author Type: Physician Filed: 11/28/11 0350 Date of Service: 11/27/11 8292 Status: Signed Milk Truck Driver: Arlet Noriega DO (Physician) [facility] Department of Emergency Medicine 11/27/2011 History of Present Illness Patient Identification Ivanna Bond is a 56 y.o. female. Patient information was obtained from patient and spouse/partner. History/Exam limitations: none. Patient presented to the Emergency Department by: Ambulance Chief Complaint Chief Complaint Patient presents with Shortness of Breath 16:22. Pt presents to the ED with shortness of breath that started 3 weeks ago and worsened last night. Pt went to [facility] last night and was admitted. Pt is transferred due to rising tr oponin. Onset of symptoms was abrupt, with a waxing and waning course since that time. Sever ity is described as moderate. The patient reports nothing worsens symptoms, and nothing reli eves symptoms. Pt denies nausea or chest pain. She has had a cough but it is not productive. Pt denies history of COPD, asthma, or emphysema but she does smoke. Past Medical History Diagnosis Date Hypertension Anxiety Depression Diabetes mellitus boderline Panic attack Tobacco use disorder Diabetes mellitus type II Chronic kidney disease Past Surgical History Procedure Date Tubal ligation Tonsillectomy Prior to Admission medications Medication Sig Start Date End Date Taking? Authorizing Provider alprazolam (XANAX) 0.5 MG tablet Take 0.5 mg by mouth nightly as needed. Yes Historical Provider, doxepin (SINEQUAN) 150 MG capsule Take 150 mg by mouth nightly. Yes Historical Provider , lisinopril (PRINIVIL,ZESTRIL) 20 MG tablet Take 20 mg by mouth daily. Yes Historical Pr MD son Allergies Allergen Reactions Iodine Solution (Povidone Iodine) Hallucinations Penicillins Rash History Social History Marital Status: Spouse Name: navi Number of Children: N/A Years of Education: N/A Occupational History Not on file. 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 Family History Problem Relation Age of Onset Stroke Mother Hypertension Father Cancer Sister breast cancer Hypertension Sister Hypertension Brother Cancer Brother colon cancer Hypertension Father Review of Systems Review of Systems Constitutional: Negative for fever and chills. Respiratory: Positive for cough and shortness of breath. Cardiovascular: Negative for chest pain and palpitations. Gastrointestinal: Negative for vomiting and abdominal pain. Skin: Negative for itching and rash. Neurological: Negative for dizziness. All other systems reviewed and are negative. Physical Exam BP 141/73 | Pulse 90 | Temp(Src) 98.2 F (36.8 C) (Oral) | Resp 18 | Ht 1.702 m (5' 7") | Wt 62.143 kg (137 lb) | BMI 21.46 kg/m2 | SpO2 96% | ? No Pulse Oximetry Interpretation: Normal General: Alert, oriented x 3 Eyes: Normal inspection, pupils equal and round, non-icteric ENT: Ears normal Nose normal Pharynx normal Neck: Normal inspection Supple Full ROM Cardiovascular: Normal rate, 3/6 holosystolic murmur best heard over the sternal border Respiratory: No respiratory distress or wheezing Abdomen: Soft, non-tender, non-distended Back: Normal inspection Skin: Color normal Warm and dry Extremities: NICHOLSON Neuro: No gross motor/sensory deficit Medical Decision Making and Emergency Department Course ED Department Course 16:22. Pt presents to the ED with shortness of breath that started 3 weeks ago and worsened last night. Pt went to [facility] last night and was admitted. Pt is transferred due to rising tr oponin. Pt's vital signs are normal and stable except pt is mildly hypertensive. Troponin, E KG, CMP, and CBC have been ordered for the pt. Discussed plan of care and repeat troponins w ith pt. All questions and concerns were addressed. 16:25. Reviewed chart from [facility]. WBC of 11.9, HGB of 11.3, HCT of 34.8, platelet count of 2 00, and segs of 88.9. CMP showed sodium at 142, potassium of 4.9, chloride of 110, carbon di oxide of 19, anion gap of 13.0, glucose of 163, and BUN of 23. FOOD ANALYST of 210 and d-dimer of 2700 . Troponin yesterday at 21:19 was 0.081. Troponin today at 03:10 was 1.64 and at 09:59 was 0 .145. 16:30. Pt's troponin is 0.08. 16:32. Reviewed portable CXR images from [facility]. Borderline cardiomegaly. Mediastinum and gre at vessels normal. Increased vascular markings. No infiltrates. 16:51. Reviewed labs. WBC elevated at 11.4 and segs elevated at 84.5. Glucose of 141. 17:05. Pt's d-dimer was markedly elevated. There is no evidence for pneumonia, pleural effu jose rafael, pneumothorax, or aortic dissection. Troponin was also elevated. Pt is allergic to iodi ne and has renal insufficiency. Will order VQ scan and give dose of Lovenox. DDX still inclu lynette NSTEMI and PE. Pt did receive a dose of ASA prior to arrival. Beta blockers were not use d as the pt is tachycardic. 17:08. Will admit pt at this time and place call to hospitalist. 17:15. Discussed pt's case with Dr. Sauer, hospitalist, who will see and admit the pt. 17:20. Lovenox 60 mg ordered. Records Reviewed Nursing Notes [facility] records Laboratory Evaluation Results Procedure Component Value Ref Range Flag Date/Time Complete Metabolic Panel [[id number]] Abnormal Collection: 11/27/11 160 Order Status: Completed Resulted: 11/27/11 1644 Specimen Type: Blood Specimen Source: Line SODIUM 143 135 - 143 mmol/L POTASSIUM 4.6 3.5 - 4.9 mmol/L CHLORIDE 111 99 - 109 mmol/L H CO2 23 23 - 32 mmol/L ANION GAP AGAP 14 5 - 20 mmol/L GLUCOSE 141 65 - 99 mg/dL H BUN 19 8 - 25 mg/dL CREATININE 1.0 0.50 - 1.00 mg/dL BUN/CREAT 20 CALCIUM 8.8 8.5 - 10.2 mg/dL TOTAL PROTEIN 7.7 6.3 - 8.2 g/dL Albumin 3.8 3.6 - 5.0 g/dL GLOBULIN 3.9 1.3 - 4.9 g/dL A/G 1.0 1.0 - 2.4 TBIL 0.4 0.1 - 1.5 mg/dL ALK PHOS 65 35 - 115 U/L AST 45 10 - 45 U/L ALT 65 10 - 65 U/L EGFR >60 >60 mL/min/1.73m2 CBC w Auto Diff [[id number]] Abnormal Collection: 11/27/11 1608 Order Status: Completed Resulted: 11/27/11 162 Specimen Type: Blood Specimen Source: Line WBC 11.4 3.8 - 11.0 K/uL H RBC 4.03 3.70 - 5.10 M/uL HGB 11.4 11.3 - 15.5 g/dL HCT 34.7 34.0 - 46.0 % MCV 86.2 80.0 - 100.0 fl MCH 28.3 27.0 - 34.0 pg MCHC 32.9 32.0 - 35.5 g/dL RDW SD 42.4 37 - 53 fl PLT 209 150 - 400 K/uL MPV 8.8 fl DIFF TYPE AUTOMATED NEUTROPHILS 84.5 40 - 80 % H LYMPHOCYTES 11.4 15 - 45 % L MONOCYTES 4.0 0 - 12 % EOSINOPHILS 0.0 0 - 7 % BASOPHILS 0.1 0 - 2 % NEUTROPHILS ABS 9.7 2.0 - 7.3 K/uL H LYMPHOCYTES ABS 1.3 1.0 - 3.4 K/uL MONOCYTES ABS 0.5 0 - 0.8 K/uL EOSINOPHILS ABS 0.0 0 - 0.5 K/uL BASOPHILS ABS 0.0 0 - 0.1 K/uL POC cardiac troponin [[id number]] Collection: 11/27/11 1610 Order Status: Completed Resulted: 11/27/11 1626 POC CARDIAC TROPONIN 0.08 0.00 - 0.10 ng/mL Radiology and EKG Evaluation Imaging Results Ventilation/Perfusion Scan (Final result) Result time:11/27/112327 Final result by Rad Results In [facility] (11/27/11 ) Narrative: LUNG VQ SCAN 11/27/2011 HISTORY: Shortness of breath. TECHNIQUE: Wash-in, equilibrium, and wash-out images of the chest were obtained after inha lation of 28.4 mCi of Xenon-133. Eight standard images of the chest are also obtained after injection of 6.3 mCi of technetium-99m MAA. FINDINGS: There is matched heterogeneity. No segmental or major subsegmental perfusion mism atches. Mild scattered xenon retention noted. IMPRESSION: Low probability of pulmonary embolus. Electronically signed by Wellington Jauregui MD on Nov 27 2011 11:28PM Preliminary result by Rad Results In [facility] (11/27/11 ) Narrative: IMPRESSION: Low probability of pulmonary embolus. Read by Wellington Jauregui MD on Nov 27 2011 7:29PM EKG from 16:06 NSR at 89. Left atrial enlargement. Normal WV. QRS and axis normal. LVH. Pr olonged QT. Interpreted by Arlet Noriega DO ED Diagnoses Final diagnoses Shortness of breath Positive D-dimer Increasing troponin Bronchitis, acute Disposition: Admit Additional Documentation Procedures Attending Note: Documentation assistance provided by Sabi Oliva (Scribe). Information recorded by the scribe has been reviewed and validated by me. I ag milind with its contents. DO Arlet Crump DO 11/28/11 0350 onversion Transacti on, Provider Unknown - 11/27/2011 3:56 PM PDTFormatting of this note might be different fro m the original. ED Notes by Keenan Patterson at 11/27/11 1556 Author: Keenan Patterson Service: (none) Author Type: Registered Nurse Filed: 11/27/11 1556 Date of Service: 11/27/11 1556 Status: Signed Milk Truck Driver: Keenan Patterson Bed:12
Expected date:11/27/11
Expected time: 3:52 PM
Means of arrival:[facility]
Comments:
TxDenys, elevated troponin onver jose rafael Transaction, Provider Unknown - 11/27/2011 3:30 PM PDT ED Notes by Uzma Singh RN at 11/27/11 1530 Author: Uzma Singh RN Service: (none) Author Type: Registered Nurse Filed: 11/27/11 1537 Date of Service: 11/27/11 153 Status: Signed Milk Truck Driver: Uzma Singh RN (Registered Nurse) [facility] 66[facility], presented to ER last night with c/o sh ort of breath X 3 weeks. Sats 85% on room air. Put on bipap- 94%. Today, pt has been on n /c satting 97-98%. No shortness of breath today, pt denies pain. D-dimer in er- 2700. Tro ponin 0.081 initially. Repeat troponins=0.164, 0.145. Potassium=4.9. No CT to rule out PE due to pt allergic to contrast dye. HX: Heavy smoker, HTN, DM, COPD. Aspirin 325mg given this AM. Metoprolol 12.5mg PO X 2 doses given today. Last bp 128/70. Tele=NSR. AFEBRILE . Coming via ambulance, [id number] Uzma Singh RN 11/27/11 1537 docume nted in this encounter Plan of Treatment Not on filedocumented as of this encounter Procedures + +--------+ + + + | Procedure Name | Priori | Date/Time | Associated Diagnosis | Comments | | | ty | | | | + +--------+ + + + | XR CHEST 2 VIEWS | Routin | 11/29/2011 | | Results for this | | | e | 7:28 AM | | procedure are in the | | | | PDT | | results section. | + +--------+ + + + | ECHO COMPLETE | Routin | 11/28/2011 | | Results for this | | | e | 8:05 AM | | procedure are in the | | | | PDT | | results section. | + +--------+ + + + | STREPTOCOCCUS | Timed | 11/27/2011 | | Results for this | | PNEUMONIAE AG, URINE | | 9:28 PM | | procedure are in the | | | | PDT | | results section. | + +--------+ + + + | CULTURE, URINE | Routin | 11/27/2011 | | Results for this | | | e | 9:28 PM | | procedure are in the | | | | PDT | | results section. | + +--------+ + + + | NM LUNG PERFUSION | Routin | 11/27/2011 | | Results for this | | VENTILATION | e | 6:53 PM | | procedure are in the | | | | PDT | | results section. | + +--------+ + + + documented in this encounter Results XR Chest 2 Vws (11/29/2011 7:28 AM PDT) + + | Specimen | + + | | + + + + + | Narrative | Performed At | + + + | [facility] 1955 56 years Female XR CHEST 2 VIEW FRONTAL | | | AND LATERAL 11/29/2011 7:24 AM INDICATION: Cough, fever | | | COMPARISON: 11/26/2011 TECHNIQUE: Two view chest, PA and lateral | | | views FINDINGS: Mild cardiomegaly is present. There is no | | | mediastinal widening or shift. Bilateral small effusions are | | | demonstrated which are a new finding. Reticular markings are | | | demonstrated throughout the lungs bilaterally which are increased in | | | number from previous study. Some peribronchial cuffing is noted. | | | Patchy parenchymal opacities are noted in the lower lung | | | bilaterally. No pneumothorax is noted. No acute rib fractures are | | | noted. IMPRESSION: 1. Increasing reticular markings throughout | | | the lungs with bilateral pleural effusions and mild cardiomegaly | | | suggest pulmonary edema, slightly progressed from previous study. | | | | | + + + + + | Procedure Note | + + | [facility], Rad Conversion - 03/16/2019 3:02 AM PDT IVANNA [id number] years | | FemaleXR CHEST 2 VIEW FRONTAL AND LATERAL11/29/2011 7:24 AM INDICATION: Cough, fever | | COMPARISON: 11/26/2011 TECHNIQUE: Two view chest, PA and lateral views FINDINGS: Mild | | cardiomegaly is present. There is no mediastinal widening or shift. Bilateral small | | effusions are demonstrated which are a new finding. Reticular markings are demonstrated | | throughout the lungs bilaterally which are increased in number from previous study. | | Some peribronchial cuffing is noted. Patchy parenchymal opacities are noted in the | | lower lung bilaterally. No pneumothorax is noted. No acute rib fractures are noted. | | IMPRESSION:1. Increasing reticular markings throughout the lungs with bilateral pleural | | effusions and mild cardiomegaly suggest pulmonary edema, slightly progressed from | | previous study. | | | |FINDINGS: Mild cardiomegaly is present. There is no mediastinal widening or shift. Bilate ral small effusions are demonstrated which are a new finding. Reticular markings are demons trated throughout the lungs | |bilaterally which are increased in number | |from previous study. Some peribronchial cuffing is noted. Patchy parenchymal opacities ar e noted in the lower lung bilaterally. No pneumothorax is noted. No acute rib fractures ar e noted. | | | |IMPRESSION: | |1. Increasing reticular markings throughout the lungs with bilateral pleural effusions and mild cardiomegaly suggest pulmonary edema, slightly progressed from previous study. | | | | | + + ECHO Complete (11/28/2011 8:05 AM PDT) + + | Specimen | + + | | + + + + + | Narrative | Performed At | + + + | Patient Name: IVANNA BOND Date of : 1955 | | | Performing Physician: Jimmy Cox MD | | | | | | INDICATIONS DYSPNEA/ABNORMAL TROPONIN HYPOTENSIVE | | | CONCLUSIONS 1. Overall left ventricular systolic | | | function is low-normal with, an EF between 50 - 55 %. 2. There is | | | akinesia inthe inferior/ inferolaterla and lateral wall. 3. The right | | | ventricle is normal in size and function. 4. Severe mitral | | | regurgitation is present. 5. The right ventricular systolic pressure | | | (pulmonary artery systolic pressure), as measured by Doppler, is | | | 48.50mmHg. FINDINGS -------- ECG rhythm: Sinus rhythm. Study: A | | | 2-dimensional transthoracic echocardiogram with m-mode, spectral and | | | color flow Doppler was perfomed. Study: This was a technically | | | adequate study. Left Ventricle: Overall left ventricular systolic | | | function is low-normal with, an EF between 50 - 55 %. Left Ventricle: | | | The left ventricle cavity size is normal. Left Ventricle: There is | | | moderate concentric left ventricular hypertrophy. Left Ventricle: | | | There is akinesia in the inferior/ inferolaterla and lateral wall. | | | Right Ventricle: The right ventricle is normal in size and function. | | | Left Atrium: The left atrium is markedly dilated. Right Atrium: The | | | right atrium is normal in size. Aortic Valve: The aortic valve is | | | trileaflet, and appears anatomically normal. No aortic stenosis or | | | regurgitation. 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 Mitral Valve: Severe mitral regurgitation is | | | present. Mitral Valve: Mild mitral annular calcification present. | | | Tricuspid Valve: The tricuspid valve appears structurally normal. | | | Tricuspid Valve: Mild tricuspid regurgitation present. Tricuspid | | | Valve: The right ventricular systolic pressure (pulmonary artery | | | systolic pressure), as measured by Doppler, is 48.50mmHg. Pulmonic | | | Valve: Pulmonic valve appears structurally normal. Pulmonic Valve: | | | Trace pulmonic regurgitation. Pericardium: There is no pericardial | | | effusion. IVC/Hepatic Veins: The IVC is normal size (1.5-2.5cm) and | | | collapses <50% with sniff, consistent with central venous pressures of | | | 10-15mmHg. Thrombus: No clot visualized MEASUREMENTS | | | Ao Diam: 3.08 cm IVC: 2.44 cm LA Diam: 4.64 | | | cm LA Major: 5.06 cm EDV(Teich): 125.43 ml IVSd: 1.54 cm | | | LVIDd: 5.12 cm LVPWd: 1.22 cm LVOT Diam: 2.01 cm %FS: | | | 27.49 % EF(Teich): 53.09 % ESV(Teich): 58.83 ml IVSs: 1.92 | | | cm LVIDs: 3.71 cm LVPWs: 1.14 cm SV(Teich): 66.59 ml RA | | | Major: 4.74 cm RVIDd: 3.21 cm LVEF MOD A2C: 58.18 % SV MOD | | | A2C: 77.23 ml LVEF MOD A4C: 58.97 % SV MOD A4C: 64.64 ml | | | EF Biplane: 59.83 % LVEDV MOD BP: 125.40 ml LVESV MOD BP: | | | 50.36 ml LVEDV MOD A2C: 132.74 ml LVLd A2C: 7.82 cm LVEDV MOD | | | A4C: 109.62 ml LVLd A4C: 7.99 cm LVESV MOD A2C: 55.51 ml | | | LVLs A2C: 7.65 cm LVESV MOD A4C: 44.97 ml LVLs A4C: 6.27 cm | | | LAESV(A-L): 101.62 ml LAESV Index (A-L): 59.08 ml/m2 LAAs | | | A2C: 26.27 cm2 LAESV A-L A2C: 99.66 ml LALs A2C: 5.87 cm | | | LAAs A4C: 24.33 cm2 LAESV A-L A4C: 94.11 ml LALs A4C: 5.33 | | | cm Ao Diam: 2.97 cm AV Cusp: 1.91 cm LA Diam: 4.36 cm | | | LA/Ao: 1.46 D-E Excursion: 1.48 cm E-F Kimble: 0.06 m/s | | | EPSS: 0.58 cm IVC diameter: 2.49 cm IVC collapse: 1.66 cm | | | IVC % collapse: 30.83 % HR: 80.61 BPM AV maxP.26 mmHg | | | AV meanP.08 mmHg AV Vmax: 1.24 m/s AV Vmean: 0.81 m/s | | | AV VTI: 20.57 cm EMPERATRIZ Vmax: 2.29 cm2 EMPERATRIZ (VTI): 2.18 cm2 | | | LVCI Dopp: 2.06 l/minm2 LVCO Dopp: 3.54 l/min HR: 79.00 BPM | | | LVOT maxP.25 mmHg LVOT meanP.47 mmHg LVSI Dopp: | | | 26.09 ml/m2 LVSV Dopp: 44.87 ml LVOT Vmax: 0.90 m/s LVOT | | | Vmean: 0.55 m/s LVOT VTI: 14.10 cm MCO: 343.80 ms MR | | | maxP.28 mmHg MR meanP.19 mmHg MR Vmax: 4.56 m/s | | | MR Vmean: 3.52 m/s MR VTI: 129.17 cm MR maxP.27 mmHg | | | MR Vmax: 4.36 m/s MV A Darrell: 0.67 m/s MV DecT: 99.49 ms MV | | | E Darrell: 1.60 m/s MV E/A Ratio: 2.35 MV PHT: 57.48 ms MVA By | | | PHT: 3.82 cm2 MV A Dur: 96.11 ms MV maxP.37 mmHg MV | | | meanP.63 mmHg MV Vmax: 1.53 m/s MV Vmean: 0.68 m/s MV | | | VTI: 31.26 cm MVA (VTI): 1.43 cm2 Septal e': 0.05 m/s | | | Septal E/e': 27.66 Lateral e': 0.05 m/s Lateral E/e': 26.95 | | | P Vein A: 0.23 m/s P Vein A Dur: 77.63 ms P Vein D: 0.59 | | | m/s P Vein S/D Ratio: 0.97 P Vein S: 0.57 m/s HR: 80.74 | | | BPM PV maxP.08 mmHg PV meanP.56 mmHg PV Vmax: 0.52 | | | m/s PV Vmean: 0.35 m/s PV VTI: 10.62 cm RAP: 10 mmHg | | | RVSP: 48.50 mmHg TR maxP.50 mmHg TR Vmax: 3.08 m/s TV | | | A Darrell: 0.42 m/s TV Dec Kimble: 3.26 m/s2 TV Dec Time: | | | 173.61 ms TV E Darrell: 0.56 m/s TV E/A Ratio: 1.33 | | | Merchandising Manager: BETH Authenticated by: Jimmy Cox MD Report Date/Time: | | | 12-01-2011 18:33:02 | | + + + + + | Procedure Note | + + | Saul Verma Conversion - 03/16/2019 3:02 AM PDT Patient Name: FRANCE BONDShirin of | | : 1955 Physician: Jimmy Cox | | MD INDICATIONS D | | YSPNEA/ABNORMAL TROPONIN HYPOTENSIVE CONCLUSIONS 1. Overall left ventricular | | systolic function is low-normal with, an EF between 50 - 55 %.2. There is akinesia inthe | | inferior/ inferolaterla and lateral wall.3. The right ventricle is normal in size and | | function.4. Severe mitral regurgitation is present.5. The right ventricular systolic | | pressure (pulmonary artery systolic pressure), as measured by Doppler, is 48.50mmHg. | | FINDINGS--------ECG rhythm: Sinus rhythm.Study: A 2-dimensional transthoracic | | echocardiogram with m-mode, spectral and color flow Doppler was perfomed.Study: This was | | a technically adequate study.Left Ventricle: Overall left ventricular systolic function | | is low-normal with, an EF between 50 - 55 %.Left Ventricle: The left ventricle cavity | | size is normal.Left Ventricle: There is moderate concentric left ventricular | | hypertrophy.Left Ventricle: There is akinesia in the inferior/ inferolaterla and lateral | | wall.Right Ventricle: The right ventricle is normal in size and function.Left Atrium: | | The left atrium is markedly dilated.Right Atrium: The right atrium is normal in | | size.Aortic Valve: The aortic valve is trileaflet, and appears anatomically normal. No | | aortic stenosis or regurgitation.Mitral Valve: Mitral valve is thickened with myxomatous | | degeneration.Mitral Valve: Severe mitral regurgitation is present.Mitral Valve: Mild | | mitral annular calcification present.Tricuspid Valve: The tricuspid valve appears | | structurally normal.Tricuspid Valve: Mild tricuspid regurgitation present.Tricuspid | | Valve: The right ventricular systolic pressure (pulmonary artery systolic pressure), as | | measured by Doppler, is 48.50mmHg.Pulmonic Valve: Pulmonic valve appears structurally | | normal.Pulmonic Valve: Trace pulmonic regurgitation.Pericardium: There is no pericardial | | effusion.IVC/Hepatic Veins: The IVC is normal size (1.5-2.5cm) and collapses <50% with | | sniff, consistent with central venous pressures of 10-15mmHg.Thrombus: No clot | | visualized MEASUREMENTS Ao Diam: 3.08 cmIVC: 2.44 cmLA Diam: 4.64 cmLA | | Major: 5.06 cmEDV(Teich): 125.43 mlIVSd: 1.54 cmLVIDd: 5.12 cmLVPWd: 1.22 | | cmLVOT Diam: 2.01 cm%FS: 27.49 %EF(Teich): 53.09 %ESV(Teich): 58.83 mlIVSs: | | 1.92 cmLVIDs: 3.71 cmLVPWs: 1.14 cmSV(Teich): 66.59 mlRA Major: 4.74 cmRVIDd: | | 3.21 cmLVEF MOD A2C: 58.18 %SV MOD A2C: 77.23 mlLVEF MOD A4C: 58.97 %SV MOD A4C: | | 64.64 mlEF Biplane: 59.83 %LVEDV MOD BP: 125.40 mlLVESV MOD BP: 50.36 mlLVEDV MOD | | A2C: 132.74 mlLVLd A2C: 7.82 cmLVEDV MOD A4C: 109.62 mlLVLd A4C: 7.99 cmLVESV | | MOD A2C: 55.51 mlLVLs A2C: 7.65 cmLVESV MOD A4C: 44.97 mlLVLs A4C: 6.27 | | cmLAESV(A-L): 101.62 mlLAESV Index (A-L): 59.08 ml/m2LAAs A2C: 26.27 [id number] A-L | | A2C: 99.66 mlLALs A2C: 5.87 cmLAAs A4C: 24.33 [id number] A-L A4C: 94.11 mlLALs | | A4C: 5.33 cmAo Diam: 2.97 cmAV Cusp: 1.91 cmLA Diam: 4.36 cmLA/Ao: 1.46D-E | | Excursion: 1.48 cmE-F Kimble: 0.06 m/sEPSS: 0.58 cmIVC diameter: 2.49 cmIVC | | collapse: 1.66 cmIVC % collapse: 30.83 %HR: 80.61 BPMAV maxP.26 mmHgAV | | meanP.08 mmHgAV Vmax: 1.24 m/Umm Vmean: 0.81 m/Umm VTI: 20.57 cmAVA Vmax: | | 2.29 cm2AVA (VTI): 2.18 ba1KLZV Dopp: 2.06 l/csbd0VIEZ Dopp: 3.54 l/minHR: 79.00 | | BPMLVOT maxP.25 mmHgLVOT meanP.47 mmHgLVSI Dopp: 26.09 ml/m2LVSV Dopp: | | 44.87 mlLVOT Vmax: 0.90 m/sLVOT Vmean: 0.55 m/sLVOT VTI: 14.10 cmMCO: 343.80 | | msMR maxP.28 mmHgMR meanP.19 mmHgMR Vmax: 4.56 m/sMR Vmean: 3.52 m/sMR | | VTI: 129.17 cmMR maxP.27 mmHgMR Vmax: 4.36 m/sMV A Darrell: 0.67 m/sMV DecT: | | 99.49 msMV E Darrell: 1.60 m/sMV E/A Ratio: 2.35MV PHT: 57.48 msMVA By PHT: 3.82 | | cm2MV A Dur: 96.11 msMV maxP.37 mmHgMV meanP.63 mmHgMV Vmax: 1.53 m/sMV | | Vmean: 0.68 m/sMV VTI: 31.26 cmMVA (VTI): 1.43 wk4Auunjd e': 0.05 m/sSeptal | | E/e': 27.66Lateral e': 0.05 m/sLateral E/e': 26.95P Vein A: 0.23 m/sP Vein A | | Dur: 77.63 msP Vein D: 0.59 m/sP Vein S/D Ratio: 0.97P Vein S: 0.57 m/sHR: | | 80.74 BPMPV maxP.08 mmHgPV meanP.56 mmHgPV Vmax: 0.52 m/sPV Vmean: 0.35 | | m/sPV VTI: 10.62 cmRAP: 10 mmHgRVSP: 48.50 mmHgTR maxP.50 mmHgTR Vmax: | | 3.08 m/sTV A Darrell: 0.42 m/sTV Dec Kimble: 3.26 m/s2TV Dec Time: 173.61 msTV E Darrell: | | 0.56 m/sTV E/A Ratio: 1.33 Merchandising Manager: MICHAELuthenticated by: Jimmy NAVARROeport | | Date/Time: 12-01-2011 18:33:02 | |%FS: 27.49 % | |EF(Teich): 53.09 % | |ESV(Teich): 58.83 ml | |IVSs: 1.92 cm | |LVIDs: 3.71 cm | |LVPWs: 1.14 cm | |SV(Teich): 66.59 ml | |RA Major: 4.74 cm | |RVIDd: 3.21 cm | |LVEF MOD A2C: 58.18 % | |SV MOD A2C: 77.23 ml | |LVEF MOD A4C: 58.97 % | |SV MOD A4C: 64.64 ml | |EF Biplane: 59.83 % | |LVEDV MOD BP: 125.40 ml | |LVESV MOD BP: 50.36 ml | |LVEDV MOD A2C: 132.74 ml | |LVLd A2C: 7.82 cm | |LVEDV MOD A4C: 109.62 ml | |LVLd A4C: 7.99 cm | |LVESV MOD A2C: 55.51 ml | |LVLs A2C: 7.65 cm | |LVESV MOD A4C: 44.97 ml | |LVLs A4C: 6.27 cm | |LAESV(A-L): 101.62 ml | |LAESV Index (A-L): 59.08 ml/m2 | |LAAs A2C: 26.27 cm2 | |LAESV A-L A2C: 99.66 ml | |LALs A2C: 5.87 cm | |LAAs A4C: 24.33 cm2 | |LAESV A-L A4C: 94.11 ml | |LALs A4C: 5.33 cm | |Ao Diam: 2.97 cm | |AV Cusp: 1.91 cm | |LA Diam: 4.36 cm | |LA/Ao: 1.46 | |D-E Excursion: 1.48 cm | |E-F Kimble: 0.06 m/s | |EPSS: 0.58 cm | |IVC diameter: 2.49 cm | |IVC collapse: 1.66 cm | |IVC % collapse: 30.83 % | |HR: 80.61 BPM | |AV maxP.26 mmHg | |AV meanP.08 mmHg | |AV Vmax: 1.24 m/s | |AV Vmean: 0.81 m/s | |AV VTI: 20.57 cm | |EMPERATRIZ Vmax: 2.29 cm2 | |EMPERATRIZ (VTI): 2.18 cm2 | |LVCI Dopp: 2.06 l/minm2 | |LVCO Dopp: 3.54 l/min | |HR: 79.00 BPM | |LVOT maxP.25 mmHg | |LVOT meanP.47 mmHg | |LVSI Dopp: 26.09 ml/m2 | |LVSV Dopp: 44.87 ml | |LVOT Vmax: 0.90 m/s | |LVOT Vmean: 0.55 m/s | |LVOT VTI: 14.10 cm | |MCO: 343.80 ms | |MR maxP.28 mmHg | |MR meanP.19 mmHg | |MR Vmax: 4.56 m/s | |MR Vmean: 3.52 m/s | |MR VTI: 129.17 cm | |MR maxP.27 mmHg | |MR Vmax: 4.36 m/s | |MV A Darrell: 0.67 m/s | |MV DecT: 99.49 ms | |MV E Darrell: 1.60 m/s | |MV E/A Ratio: 2.35 | |MV PHT: 57.48 ms | |MVA By PHT: 3.82 cm2 | |MV A Dur: 96.11 ms | |MV maxP.37 mmHg | |MV meanP.63 mmHg | |MV Vmax: 1.53 m/s | |MV Vmean: 0.68 m/s | |MV VTI: 31.26 cm | |MVA (VTI): 1.43 cm2 | |Septal e': 0.05 m/s | |Septal E/e': 27.66 | |Lateral e': 0.05 m/s | |Lateral E/e': 26.95 | |P Vein A: 0.23 m/s | |P Vein A Dur: 77.63 ms | |P Vein D: 0.59 m/s | |P Vein S/D Ratio: 0.97 | |P Vein S: 0.57 m/s | |HR: 80.74 BPM | |PV maxP.08 mmHg | |PV meanP.56 mmHg | |PV Vmax: 0.52 m/s | |PV Vmean: 0.35 m/s | |PV VTI: 10.62 cm | |RAP: 10 mmHg | |RVSP: 48.50 mmHg | |TR maxP.50 mmHg | |TR Vmax: 3.08 m/s | |TV A Darrell: 0.42 m/s | |TV Dec Kimble: 3.26 m/s2 | |TV Dec Time: 173.61 ms | |TV E Darrell: 0.56 m/s | |TV E/A Ratio: 1.33 | | | |Merchandising Manager: ANAMARIAW | |Authenticated by: Jimmy Cox MD | |Report Date/Time: 12-01-2011 18:33:02 | + + Streptococcus Pneumoniae Ag, Urine (11/27/2011 9:28 PM PDT) + + | Specimen | + + | | + + + + + | Narrative | Performed At | + + + | S PNEUMONIAE AG, UR NEGATIVE A NEGATIVE | EXTERNAL LAB | | S. PNEUMONIAE URINARY ANTIGEN TEST RESULT DOES NOT EXCLUDE INFECTION | | | WITH S. PNEUMONIAE. CLINICAL CORRELATION IS RECOMMENDED. Testing | | | performed at [place] [address] | | + + + + +---------+ + + | Performing | Address | City/State/Zipcode | Phone Number | | Organization | | | | + +---------+ + + | EXTERNAL LAB | | | | + +---------+ + + Culture, Urine (11/27/2011 9:28 PM PDT) + + | Specimen | + + | | + + + + + | Narrative | Performed At | + + + | Specimen Description URINE, COLLECTION NOT | EXTERNAL LAB | | GIVEN Testing | | | performed at [facility];[address];[place] [address] CULTURE | | | NO GROWTH 2 DAYS | | | Testing performed at [facility], [address] | | | [place] [address] REPORT STATUS | | | 11/29/2011 FINAL | | + + + + +---------+ + + | Performing | Address | City/State/Zipcode | Phone Number | | Organization | | | | + +---------+ + + | EXTERNAL LAB | | | | + +---------+ + + NM Lung Perfusion Ventilation (11/27/2011 6:53 PM PDT) + + | Specimen | + + | | + + + + + | Narrative | Performed At | + + + | LUNG VQ SCAN 11/27/2011 HISTORY: Shortness of breath. | | | TECHNIQUE: Wash-in, equilibrium, and wash-out images of the chest | | | were obtained after inhalation of 28.4 mCi of Xenon-133. Eight | | | standard images of the chest are also obtained after injection of 6.3 | | | mCi of technetium-99m MAA. FINDINGS: There is matched | | | heterogeneity. No segmental or major subsegmental perfusion | | | mismatches. Mild scattered xenon retention noted. IMPRESSION: Low | | | probability of pulmonary embolus. Electronically signed by Wellington Jauregui MD on Nov 27 2011 11:28PM | | + + + + + | Procedure Note | + + | Bayron, Rad Conversion - 03/16/2019 3:02 AM PDT LUNG VQ SCAN 11/27/2011 HISTORY: | | Shortness of breath. TECHNIQUE: Wash-in, equilibrium, and wash-out images of the chest | | were obtained after inhalation of 28.4 mCi of Xenon-133. Eight standard images of the | | chest are also obtained after injection of 6.3 mCi of technetium-99m MAA. FINDINGS: | | There is matched heterogeneity. No segmental or major subsegmental perfusion mismatches. | | Mild scattered xenon retention noted. IMPRESSION: Low probability of pulmonary embolus. | | Electronically signed by Wellington Jauregui MD on Nov 27 2011 11:28PM | | | |IMPRESSION: Low probability of pulmonary embolus. | | | | Electronically signed by Wellington Jauregui MD on Nov 27 2011 11:28PM | + + documented in this encounter Visit Diagnoses + + | Diagnosis | + + | Shortness of breath | + + | Hypoxemia | + + | Panic attack Panic disorder without agoraphobia | + + | Reactive airway disease with wheezing Unspecified asthma | + + | Tobacco use disorder | + + | Bronchitis, acute Acute bronchitis | + + | ARF (acute renal failure) (HCC) Acute kidney failure, unspecified | + + | Troponin level elevated Other abnormal blood chemistry | + + | Positive D-dimer Abnormal coagulation profile | + + | Elevated troponin Other abnormal blood chemistry | + + | Bacterial pneumonia, unspecified | + + | Constipation, chronic Unspecified constipation | + + | Depression Depressive disorder, not elsewhere classified | + + | Diabetes mellitus (HCC) Type II or unspecified type diabetes mellitus without mention | | of complication, not stated as uncontrolled | + + | Dyspnea Other dyspnea and respiratory abnormality | + + | Essential hypertension, benign | + + documented in this encounter
--- OUTSIDE RECORDS SUMMARY | ~2020-03-26 | XMS | Encounter Summary ---
Demographics + + + | Address | [address] | | | [place] [address] | + + + | Home Phone | | + + + | Preferred Language | Unknown | + + + | Marital Status | | + + + | Latter-Day Affiliation | 1041 | + + + | Race | or | + + + | Ethnic Group | Not or | + + + Author + + + | Author | [facility] | | | and [place] | + + + | Organization | [facility] | | | [...] | | | | | [place] [address] | | + + + + + Care Team Providers + +------+ + | Care Stack Supervisor Name | Role | Phone | + +------+ + | Paco Agarwal PA-C | PCP | | + +------+ + Reason for Visit + +--------+ + | Reason | Onset | Comments | | | Date | | + +--------+ + | Medication Refill | 07/26/ | | | | 2012 | | + +--------+ + Encounter Details +--------+--------+ + + + | Date | Type | Department | Care Team | Description | +--------+--------+ + + + | 07/26/ | Refill | [facility] | [address] | Medication Refill | | 2012 | | CARDIOLOGY [address] | MD Rohan [address] | | | | | [place], | [address] [place] | | | | | [place] [address] | [place] [address] | | | | | [phone] | [phone] | | | | | | | [...]
--- OUTSIDE RECORDS SUMMARY | ~2020-03-26 | XMS | Encounter Summary ---
Demographics + + + | Address | [address] | | | [place] [address] | + + + | Home Phone [...] | | | | | [place] [address] | | + + + + + Care Team Providers + +------+ + | Care Endocrinology Teacher Name | Role | Phone | + +------+ + | Paco Agarwal PA-C | PCP | | + +------+ + Reason for Visit +--------+--------+ + | Reason | Onset | Comments | | | Date | | +--------+--------+ + | LABS | 09/01/ | | | | 2018 | | +--------+--------+ + Encounter Details +--------+ + + + + | Date | Type | Department | Care Team | Description | +--------+ + + + + | 09/01/ | Telephone | [facility] | [address] | LABS | | 2018 | | MAXIME [address] | MD Rohan [address] | | | | | [place], | [address] [place] | | | | | [place] [address] | [place] [address] | | | | | [phone] | [phone] | | | | | | | [...] Telephone Encounter - Sahara Malcolm RN - 09/01/2017 10:52 AM PSTOrder done ............ ...............................Sahara Malcolm RN on 09/01/17 at 10:53 elephone Encounter - Iva Vargas Lumber Stacker Operator - 09/01/2017 10:28 AM PSTPatient scheduled for an appoi ntment on 09/19/2017 and is needing a BNP. Please order, thank you. I will fax order to [facility]. . domelissa perez in this encounter Plan of Treatment + +------+--------+ + + | Name | Type | Priori | Associated Diagnoses | Order Schedule | | | | ty | | | + +------+--------+ + + | B Type Natriuretic | Lab | Routin | Dyspnea, | Expected: | | Peptide | | e | unspecified type | 09/01/2017, Expires: | | | | | Generalized edema | 09/01/2018 | + +------+--------+ + + documented as of this encounter Visit Diagnoses + + | Diagnosis | + + | Dyspnea, unspecified type - Primary | + + | Generalized edema Edema | + + documented in this encounter"
--- OUTSIDE RECORDS SUMMARY | ~2020-03-26 | XMS | Encounter Summary ---
Demographics + + + | Address | [address] | | | [place] [address] | + + + | Home Phone | | + + + | Preferred Language | Unknown | + + + | Marital Status | | + + + | Sikh Affiliation | 1041 | + + + | Race | or | + + + | Ethnic Group | Not or | + + + Author + + + | Author | [facility] | | | and [place] | + + + | Organization | [facility] | | [...] | | | | | [place] [address] | | + + + + + Care Team Providers + +------+ + | Care Weigher Bulker Name | Role | Phone | + [...] | [address] | Lane | [address] | | | | | valve | MD Rohan | [place], | | | | | insufficienc | [address] | [place] | | | | | y and aortic | [place] | [address] | | | | | valve | [place], [place] | Phone: | | | | | insufficienc | [address] | [phone] | | | | | y Other | Phone: | Fax: | | | | | postprocedur | [phone] | [phone] | | | | | al | Fax: | | | | | | status(V45.8 | [phone] | | | | | | 9) | | | | | | | Procedures | | | | | | | ECHO | | | | | | | Complete AR | | | | | | | ECHO HEART | | | | | | | XTHORACIC,CO | | | | | | | MPLETE W | | | | | | | DOPPLER AR | | | | | | | [...] | +--------+ + + + + | 11/20/ | Orders Only | [facility] | [address] | Status post mitral | | 2014 | | CARDIOLOGY [address] | MD Rohan [address] | valve repair | | | | [place], | [address] [place] | (Primary Dx) | | | | [place] [address] | [place] [address] | | | | | [phone] | [phone] | | | | | | | [...] as of this encounter Results ECHO Complete (01/27/2015 11:31 AM PDT) + + | Specimen | + + | | + + + + + | Narrative | Performed At | + + + | [facility] ECHOCARDIOGRAM REPORT | FRIENDSHIP | | STUDY DATE: 01/27/2015 PATIENT NAME: Ivanna Flores | [facility] | | : 1955 PCP: Paco Agarwal PA-C | [facility] | | CLINICAL HISTORY/DIAGNOSIS: S/p MVR A [...] PhD FACC | | | 01/27/2015 11:31 Acid Condenser: Tona Jacobsen RDCS, | | | RDMS, RT | | + + + + + + + + | Performing | Address | City/State/Zipcode | Phone Number | | Organization | | | | + + + + + | [facility] | [address] | [place] | [phone] | | [facility] | | [address] | | | - IMAGING | | | | + + + + + documented in this encounter Visit Diagnoses + + | Diagnosis | + + | Status post mitral valve repair - Primary Other postprocedural status | + + documented in this encounter"
--- OUTSIDE RECORDS SUMMARY | ~2020-03-26 | XMS | Encounter Summary ---
Demographics + + + | Address | [address] | | | [place] [address] | + + + | Home Phone | | + + + | Preferred Language | Unknown | + + + | Marital Status | | + + + | Mandaen Affiliation | 1041 | + + + | Race | or | + + + | Ethnic Group | Not or | + + + Author + + + | Author | [facility] | | | and [place] | + + + | Organization | [facility] | | [...] | | | | | [place] [address] | | + + + + + Care Team Providers + +------+ + | Care Muck Hauler Name | Role | Phone | + +------+ + | Paco Agarwal PA-C | PCP | | + +------+ + Reason for Visit + +--------+ + | Reason | Onset | Comments | | | Date | | + +--------+ + | Appointment | 12/15/ | | | | 2016 | | + +--------+ + Encounter Details +--------+ + + + + | Date | Type | Department | Care Team | Description | +--------+ + + + + | 12/15/ | Telephone | [facility] | [address] | Appointment | | 2016 | | [facility] [address] | MD Rohan [address] | | | | | [place], | [address] [place] | | | | | [place] [address] | [place] [address] | | | | | [phone] | [phone] | | | | | | | [...] this encounter Miscellaneous Notes Telephone Encounter - Rachel Cordoba - 08/03/2017 10:38 AM PSTPatient called back stating larry fuchs has [employer] insurance and would like to schedule follow up. She is scheduled to come in for the Echo on 09/19/17 @ 11 and the follow up with Dr. Dhillon on 09/19/17 @ 2:30.Electronic thay signed by Rachel Cordoba at 08/03/2017 10:41 AM PSTTelephone Encounter - Maribell Martin - 03/31/2017 2:06 PM PDTCalled patient to schedule. She stated she will be uninsured until ossibly May. Requested that she call us when she has insurance to schedule. Electronica ambary signed by Maribell Martin at 03/31/2017 2:08 PM PDTTelephone Encounter - Gricelda Pavon - 12/15/2016 3:48 PM PDTLast office visit: 12-28-2015 Provider seen: DR. DHILLON Follow up type due: 1 YR Month due: Outcome of call: SPOKE TO PT Additional testing/labs: ECHO PRIOR, CAN BE ON SAME DA Y THR Needed: NO Called and spoke to patient. Patient declines scheduling any December appointments, states hannah t currently she does not have any insurance coverage but plans on having insurance coverage in and wants to be called to schedule after 03-24-17. documented in this encounter Plan of Treatment Not on filedocumented as of this encounter Visit Diagnoses Not on filedocumented in this encounter"
--- OUTSIDE RECORDS SUMMARY | ~2020-03-26 | XMS | Encounter Summary ---
Demographics + + + | Address | [address] | | | [place] [address] | + + + | Home Phone | | + + + | Preferred Language | Unknown | + + + | Marital Status | | + + + | Restorationist Affiliation | 1041 | + + + [...] | | | | | [place] [address] | | + + + + + Care Team Providers + +------+ + | Care Criminal Lawyer Name | Role | Phone | + +------+ + | Paco Agarwal PA-C | PCP | | + +------+ + Reason for Visit +--------+--------+ + | Reason | Onset | Comments | | | Date | | +--------+--------+ + | Other | 12/27/ | Carvedilol question | | | 2013 | | +--------+--------+ + Encounter Details +--------+ + + + + | Date | Type | Department | Care Team | Description | +--------+ + + + + | 12/27/ | Telephone | [facility] | [address] | Other (Carvedilol | | 2013 | | [place] [address] | MD Rohan [address] | question) | | | | [place], | [address] [place] | | | | | [place] [address] | [place] [address] | | | | | [phone] | [phone] | | | | | | | [...] Telephone Encounter - Cathi Ponce RN - 12/30/2013 9:38 AM Ruth Og, they filled t he script off of a 02/13/13 fax, advised to please deactivate. Called patient to advise. Elec tronically signed by: Cathi Ponce RN 12/30/2013 9:38 elephone Encounter - Cathi Ponce RN - 12/27/2013 2:13 PM P DTPatient called stating Denys Og called stating they have a prescription for Her for carvedilol. She doesn't use them and wasn't informed of any change in dosage at the offi ce visit. Advised I could not find any documentation of a change and to disregard at this ti me, will speak to Sahara Malcolm and get back to her on Monday. Electronically signed by: Celio Ponce RN 12/27/2013 14:15 documented in this encounter Plan of Treatment Not on filedocumented as of this encounter Visit Diagnoses Not on filedocumented in this encounter"
--- OUTSIDE RECORDS SUMMARY | ~2020-03-26 | XMS | Encounter Summary ---
Demographics + + + | Address | [address] | | | [place] [address] | + + + | Home Phone [...] | | | | | [place] [address] | | + + + + + Care Team Providers + +------+ + | Care Director Of Home Health Services Name | Role | Phone | [...] | regurgitatio | MD Rohan | [address] | | | | | n | [address] | [address] [place] | | | | | Procedures | [address] [place] | [place] | | | | | ECHO | [place] | [address] | | | | | Complete | [id number] | Phone: | | | | | | Phone: | [phone] | | | | | | [phone] | Fax: | | | | | | Fax: | [phone] | | | | | | [phone] | | +--------+--------+ + + + + Encounter Details +--------+ + + + + | Date | Type | Department | Care Team | Description | +--------+ + + + + | 02/12/ | Hospital | [facility] | [place] | Mitral regurgitation | | 2013 | Encounter | [facility]RAY [address] | MD Rohan [address] | | | | | [address] [place] | [address] [place] | | | | | [place] [address] | [place] [address] | | | | | [phone] | [phone] | | | | | | | [...] + | ECHO COMPLETE | Routin | 02/12/2013 | Mitral | Results for this | | | e | 4:25 PM | regurgitation | procedure are in the | | | | PDT | | results section. | + +--------+ + + + documented in this encounter Results ECHO Complete (02/12/2013 4:25 PM PDT) + + | Specimen | + + | | + + + + + | Narrative | Performed At | + + + | [facility] | [facility] | | Department [address] [place] [address] | [facility] | | [ rep [address]] [ rep [facility] | | st zip] Signed | - IMAGING | | | | | Patient Name: IVANNA FLORES Physician: | | | SYED. : 1955 Age: 57 Sex: F Unit #: [id number] | | | Exam Date: 02/12/13 Location: [facility] | | | Report #: [id number] Page: | | | %(RAD)RES..mtdd.print.filter("pg") of %(RAD) | | | RES..mtdd.print.filter("tpg") | | | | | | Accession Number: [id number] | | | E C H O C A R D I O G R A P H Y R E P O R T | | | HEIGHT: 67" WEIGHT: 128# | | | LEAF SORTER: JUANPABLO REFERRING DR: ALEJO READING DR: | | | MAXOOD DIAGNOSIS: MR, MV REPAIR 06-01-12 AND CABG [...] REFERRING: Belem HAGEN | | | MD ALEJO CLINICAL HISTORY: MITRAL REGURGITATION, STATUS | | [...] Transcribed | | | Date/Time: 02/12/2013 17:50 Rocket Motor Tester: | | | <<Signature on File>> | | | S | | | Rohan Moyer MD02/13/13 1607 <Electronically signed by S S. | | | Alejo SANCHEZ> S Rohan Moyer MD 02/12/13 2365 | | | Rocket Motor Tester: Flayr Qawslllegvrfh49/23/13 [address] | | | Rohan Moyer MD | | + + + + + + + + | Performing | Address | City/State/Zipcode | Phone Number | | Organization | | | | + + + + + | [facility] | [address] | [place] | [phone] | | [facility] | | [address] | | | - IMAGING | | | | + + + + + documented in this encounter Visit Diagnoses + + | Diagnosis | + + | Mitral regurgitation Mitral valve disorders | + + documented in this encounter
--- OUTSIDE RECORDS SUMMARY | ~2020-03-26 | XMS | Encounter Summary ---
Demographics + + + | Address | [address] | | | [place] [address] | + + + | Home Phone [...] + + + + + | Terrance Bond | ECON | [address] | | | | | [place] [address] | | + + + + + Care Team Providers + +------+ + | Care Car Supervisor Name | Role | Phone | + +------+ + | No, Unknownpcp | PCP | | + +------+ + Encounter Details +--------+ + + + + | Date | Type | Department | Care Team | Description | +--------+ + + + + | 06/01/ | Hospital | [facility] | [place], | | | 2012 - | Encounter | [facility] | MD Pierre [address] [place] [address] | | | | | CARDIAC TELEMETRY | [address] [place] | | | 06/05/ | | [address] | [address] | | | 2011 | | [place], [place] | | | | | | [address] | | | | | | [phone] | | | +--------+ + + + [...] documented as of this encounter Discharge Summaries Dae Vasques PA - 05/28/2013 5:45 PM PST PATIENT NAME: IVANNA BOND Sex/Age: F / 57Y : 1955 ADMISSION DATE: 06/01/2012 DISCHARGE DATE: 06/05/2012 [id number] / [id number] ATTENDING PHYSICIAN: Pierre Cai M.D. LINE PATROLLER: Dr. Moyer(?) ADMISSION DIAGNOSES: 1. Severe mitral regurgitation. 2. Coronary artery disease. 3. History of recent [place]. 4. Congestive heart failure. 5. Pulmonary hypertension. 6. Chronic obstructive pulmonary disease. 7. Tobacco addiction. 8. Peripheral vascular disease. 9. Diabetes. 10. History of depression. 11. Hypertension. 12. History of acute renal failure. DISCHARGE DIAGNOSES: 1. Status post coronary artery bypass grafting x4. 2. Status post complex mitral valve repair. 3. Severe mitral regurgitation. 4. Coronary artery disease. 5. History of recent [place]. 6. Congestive heart failure. 7. Pulmonary hypertension. 8. Chronic obstructive pulmonary disease. 9. Tobacco addiction. 10. Peripheral vascular disease. 11. Diabetes. 12. History of depression. 13. Hypertension. 14. History of acute renal failure. PRIMARY PROCEDURES/OPERATIONS: 06/01/2012, by Dr. Pierre Cai with assistance from MAGALY GiordanoC: Triangular resection of P3 segment of posterior leaflet with reconstruction o f the medial commissure and caudal transfer. Placement of a 26 Physio ring. Coronary artery bypass graft x4 with ALMENDAREZ to the diagonal, reversed saphenous vein graft sequentially to the first and second marginal arteries. Reverse saphenous vein graft to the posterior desce nding. Endoscopic vein harvest. IVANNA BOND ADM:06/01/12 [id number] 06/05/12 DIS IN DISCHARGE SUMMARY [id number] [facility] Dae Vasques [facility] MD Dragan Burnett THIS REPORT IS CONFIDENTIAL AND NOT TO BE RELEASED WITHOUT PROPER AUTHORIZATION. [facility] INDICATIONS FOR SURGERY: The patient is a 57-year-old female referred by Dr. Rohan Moyer (?). She is a very ill lady who looks very sallow ill and cachectic. When presented to the office with Dr. Cai. She has severe mitral regurgitation, severe congestive heart fa ilure with significant orthopnea requiring up to four pillows, edema up to her ankles and bilateral pleural effusions. Chronic obstructive pulmonary disease with an FEV1 of less hannah n 40%, as well as a history of pulmonary artery hypertension. She is thus referred to Dr. Eddie castaneda for surgical evaluation to correct her mitral valve regurgitation and coronary ar sanchez disease. HOSPITAL COURSE AND SUMMARY: The patient was admitted on 06/01/2012, and taken to the oper ating room where she underwent coronary artery bypass graft x4 and complex mitral valve rep air. She had a crossclamp time of 95 minutes, total bypass time of 120 minutes. She tolera ana the procedure reasonably well without intraoperative complications. She was taken in c ritical but stable condition to the cardiac intensive care unit. There she was extubated an d woke up neurologically intact. Postprocedure intraoperative ZULEIKA showed LV function of 50% to 55% and good repair of the m itral valve. Again she was taken to the cardiac intensive care unit in critical but stable condition. There she was extubated and woke up neurologically intact. She was transferred t o the cardiac care floor on postoperative day two. There she remained for the rest of her hospitalization. Her hospital course was complicated with the usual volume overload. This w as treated with diuretics, as well as some thrombocytopenia with platelets reaching a low o f 87 before trending up to 111,000 by discharge. Note, she did have pneumothorax postoperat ively. These continued to resolve through her hospital course, not requiring any further i nterventions other than the routine chest tubes placed intraoperative after her CABG and mi tral valve. The rest of her hospital course was otherwise progressive and otherwise uncompl icated, and she was ready for discharge home on postoperative day four, 06/05/2012, in stab le medical condition in the care of her family. DISCHARGE DISPOSITION: The patient is discharged home in care of family. ACTIVITY: The patient is to increase activity gradually as tolerated. Sternal precautions reviewed and discussed. No lifting, pulling, pushing, or driving for the next 4 to 6 weeks. Social workers were notified. Arrangements for home physical therapy to be arranged. Wound care reviewed and discussed, watching for signs of infection, redness, swelling, pus, and drainage. The patient is to keep the wound clean and dry and wash with soap IVANNA BOND ADM:06/01/12 [id number] 06/05/12 DIS IN DISCHARGE SUMMARY [id number] [facility] Dae Vasques, [facility] MD Dragan Burnett THIS REPORT IS CONFIDENTIAL AND NOT TO BE RELEASED WITHOUT PROPER AUTHORIZATION. [facility] and water daily. The patient is to call if any questions or concerns, signs of infection, temperature greater than 100, sternal popping or clicking. Lifestyle modifications, tobacco cessation, low-fat/low-salt cardiac diet reviewed and discussed. The patient was discharge d home on an aspirin, beta emanuel, EMORY inhibitor and a statin. FOLLOWUP: The patient will follow up with Dr. Carlton on 07/03/2012. The patient is to follow up with Dr. Cai in one month. DISCHARGE MEDICATIONS: 1. Amlodipine 2.5 mg 1 p.o. daily. 2. Aspirin 325, 1 p.o. daily. 3. Coreg 3.125 mg b.i.d. 4. Pepcid 20 mg b.i.d. 5. Lasix 40 mg daily. 6. Potassium chloride 20 mEq 1 p.o. daily. 7. Senna one p.o. b.i.d. p.r.n. constipation, hold for loose stools. 8. Zocor 20 mg p.o. at bedtime. 9. Xanax 0.25 mg as needed. 10. Doxepin 150 mg at bedtime. 11. Lisinopril 20 mg one p.o. b.i.d. 12. Hydrocodone 7.5/325, 1 p.o. q.3 hours p.r.n. pain, #60, with no refills. RYAN Stallings MD P P RAFAEL/jesusita #[id number] cc: RYAN Stallings MD Mandya Vishwanath, MD xc: Rohan Woods/Alejo(?Stanislav Chacon, Rn Document Improvement Specialist IVANNA BOND ADM:06/01/12 [id number] 06/05/12 DIS IN DISCHARGE SUMMARY [id number] [facility] Dae Vasques [facility] MD Dragan Burnett THIS REPORT IS CONFIDENTIAL AND NOT TO BE RELEASED WITHOUT PROPER AUTHORIZATION. [facility] Electronically Signed 06/28/12 1149 Pierre Cai MD IVANNA BOND ADM:06/01/12 [id number] 06/05/12 DIS IN DISCHARGE SUMMARY [id number] [facility] Dae Vasques, [facility] MD Dragan Burnett THIS REPORT IS CONFIDENTIAL AND NOT TO BE RELEASED WITHOUT PROPER AUTHORIZATION.Electronica lly signed by MONSE Rosado at 05/28/2013 5:37 PM PSTdocumented in this enco unter Medications at Time of Discharge + + [...] + + documented as of this encounter Progress Notes Marilin Cuellar ARNP - 05/28/2013 5:44 PM PST Diabetes Progress Note Patient information/HPI: Diabetes Chief Complaint: stress hyperglycemia Consulted by: [place] Context: Initiated: 06/02/12 at 1250 for IVANNA BOND, a 57yo Female admitted on 04/04 for MVR/CABG x4. Modifying factors: postoperative stress, IV dextrose Diabetic medications: No DM Meds HbA1c 5.7% Review of Systems: Constitutional: malaise Nutritional: decreased appetite Respiratory: no symptoms reported Cardiovascular: no symptoms reported Gastrointestinal: no symptoms reported, no nausea, no vomiting Psychologic: good mood, jacqueline ented PMH/FH/Social history: Medical history: diabetes, coronary artery disease (recent [place]), COPD (mod to severe), hype rtension, vascular disease, h/o Acute renal failure, Depression, h/ o panic attacks, Rheuma toid Arthritis, Nicotine Dependence, Severe Mitral Regurgitation, Pulmonary HTN Surgical history: cholecystectomy, T&A, BTL Family/Social history: Smoking status: Current Every Day Smoker Qty: Chew? Qty: Alcohol use? N How often: Illicit drugs? 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) Living status: live with (spouse) Diabetes Service Physical Exam Physical Examination: Current VS, I&O's: Date Temp Pulse Resp B/P Pulse Ox FiO2 06/01-06/02 35.4-37.3 59-80 12-16 114-148/52-64 96-100 .40-50 Date Time Temp Pulse Resp B/P Pulse O2 O2 Flow FiO2 Ox Delivery Rate 06/02 0817 96 2 06/02 0750 2 06/02 0700 Intake Total 3325.00 Output Total 4825.00 Balance -1500.00 Today's Weight:54.20Previous Weight: 57.20 Weight change: -3.00 Height: 5ft 7.00BMI: 18.7 General appearance: thin, no apparent distress, at bedside Cardiovascular: no accu te changes Respiratory: no respiratory distress Abdominal: soft Neurologic: alert, normal mood/affect, oriented Skin: warm/dry Current labs: Insulin gtt at 0.6-0.8 units per hour Date: 06/01 Blood Glucose/Intake and insulin data: Date: 06/02 Time Blood PO/TF Pr/nu Poncho Blood Pr/TF Pr/Nu Poncho Glucose Intake units units Glucose intake units units Noct 97 gtt AM 96 gtt Noon PM HS/MN gtt 06/02 06/01 06/01 06/01 06/01 0321 6 2024 1413 1405 Chemistry Sodium (135 - 145 mmol/L) 148 H Potassium (3.5 - 5.0 mmol/L) 3.9 4.1 3.7 Chloride (99 - 109 mmol/L) 114 H Anion Gap (5 - 16 mmol/L) 3 L BUN (8 - 25 mg/dL) 16 Creatinine (0.50 - 1.00 mg/dL) 0.77 Estimated GFR (>60) >60 Glucose (65 - 99 mg/dL) 77 89 123 H Hematology WBC (3.8 - 11.0 K/uL) 11.7 H 10.8 8.0 Hgb (11.3 - 15.5 g/dL) 11.5 11.7 11.3 Hct (34.0 - 46.0 %) 36.3 36.8 35.7 Plt Count (150 - 400 K/uL) 92 L 87 L 107 L 06/01 1330 Chemistry Sodium (135 - 145 mmol/L) 147 H Potassium (3.5 - 5.0 mmol/L) 3.9 Glucose (65 - 99 mg/dL) 117 H Hematology Hgb (11.3 - 15.5 g/dL) 11.4 Reviewed by me today: diagnostics/studies, medications, labs, allergies, I&O's, nursing no shawna, H&P, vital signs Current medications reviewed? Yes Diabetes Service A/P Assessment/Plan: * DM II - diet controlled - HbA1c 5.7% likely recent sig. weight loss impacting control al so * Stress Hyperglycemia due to surgery - moderate - requiring very little re: insulin gtt * PLAN: DC Insulin gtt Aspart 1:20 gm cho Correction scale 1 ac, hs Will monitor and adjust doses as needed Counseling: Total time of approximately 25 minutes was spent with the patient and/or patient 's family , and/or on the patient's floor/unit, of which more than 50% was spent counseling and/or co ordination the patient's care as outlined above. Topics discussed by Diabetes Service: insulin dose titration, post open heart BG mgmt CC: //[email or web address]// Electronically Signed By: JORY Steel 06/02/12 1259 IVANNA BOND ADM:06/01/12 [id number] ADM IN PROGRESS NOTE [id number] P [facility] JORY Steel E-Sign: [facility] THIS REPORT IS CONFIDENTIAL AND NOT TO BE RELEASED WITHOUT PROPER AUTHORIZATION. Marilin Fleming ARNP - 1 07/28/2012 5:43 PM PST Diabetes Progress Note Patient information/HPI: Diabetes Chief Complaint: diabetes type 2 Consulted by: [place] Context: Initiated: 06/03/12 at 1302 for IVANNA BOND, a 57yo Female admitted on 04/04 for MVR/CABG x4. Modifying factors: postoperative stress, IV dextrose Diabetic medications: No DM Meds HbA1c 5.7% Review of Systems: Constitutional: malaise Nutritional: decreased appetite Respiratory: no symptoms reported Cardiovascular: no symptoms reported Gastrointestinal: no symptoms reported Diabetes Service Physical Exam Physical Examination: Current VS, I&O's: Date Temp Pulse Resp B/P Pulse Ox FiO2 06/02-06/03 97.6-98.8 68-72 15-22 122-158/54-89 93-96 Date Time Temp Pulse Resp B/P Pulse O2 O2 Flow FiO2 Ox Delivery Rate 06/03 1201 98.4 71 16 158/74 93 Nasal 2 Cannula 06/03 0800 97.6 70 21 122/80 06/03 0725 93 2 06/03 0700 Intake Total 1276.00 Output Total 840.00 Balance 436.00 Today's Weight:54.20Previous Weight: 54.20 Weight change: 0 Height: 5ft 7.00BMI: 18.7 General appearance: thin, no apparent distress, Sig. other at bedside Cardiovascular: no a ccute changes Respiratory: no acute changes, no respiratory distress Neurologic: alert, normal mood/affect, oriented Current labs: Aspart 1:20 gm cho, correction scale 1 Date: 06/02 Blood Glucose/Intake and insulin data: Date: 06/03 Time Blood PO/TF Pr/nu Poncho Blood Pr/TF Pr/Nu Poncho Glucose Intake units units Glucose intake units units Noct 131 AM 164 Noon 140 1 PM 223 2 HS/MN 149 06/038 2033 2033 Chemistry Sodium (135 - 145 mmol/L) 142 Potassium (3.5 - 5.0 mmol/L) 3.9 4.0 Chloride (99 - 109 mmol/L) 107 Anion Gap (5 - 16 mmol/L) 2 L BUN (8 - 25 mg/dL) 13 Creatinine (0.50 - 1.00 mg/dL) 0.57 Estimated GFR (>60) >60 Glucose (65 - 99 mg/dL) 131 H 149 H Reviewed by me today: talked with family member, diagnostics/studies, medications, labs, a llergies, I&O's, nursing notes, vital signs Current medications reviewed? Yes Diabetes Service A/P Assessment/Plan: * DM II - diet controlled - HbA1c 5.7% likely recent sig. weight loss impacting control al so * Stress Hyperglycemia due to surgery - decreasing * PLAN: DC Carb based Aspart Correction scale 1 ac, hs Will monitor and adjust doses as needed Counseling: Total time of approximately 25 minutes was spent with the patient and/or patient 's family , and/or on the patient's floor/unit, of which more than 50% was spent counseling and/or co ordination the patient's care as outlined above. Topics discussed by Diabetes Service: blood sugar monitoring, stress hyperglycemia CC: //[email or web address]// Electronically Signed By: JORY Steel 06/03/12 1305 IVANNA BOND ADM:06/01/12 [id number] ADM IN PROGRESS NOTE [id number] P [facility] JORY Steel E-Sign: [facility] [[email or web address]] THIS REPORT IS CONFIDENTIAL AND NOT TO BE RELEASED WITHOUT PROPER AUTHORIZATION. Aiyana Sarkar ARNP - 05/28/2013 5:42 PM [facility] Diabetes Progress Note Patient information/HPI: Diabetes Chief Complaint: diabetes type 2, dysmetabolic syndrome, postop blood glucose mgm t Consulted by: [place] Context: Initiated: 06/04/12 at 1247 for IVANNA BOND, a 57yo Female admitted on 04/04. Modifying factors: postoperative stress Diabetic medications: No DM Meds HbA1c 5.7% Review of Systems: Constitutional: weakness Nutritional: decreased appetite Respiratory: no cough, no wheezing Cardiovascular: no swelling, no chest pain Gastrointestinal: no symptoms reported Diabetes Service Physical Exam Physical Examination: Current VS, I&O's: Date Temp Pulse Resp B/P Pulse Ox FiO2 06/03-06/04 97.9-99.1 61-85 15-20 115-162/55-80 92-97 -- Date Time Temp Pulse Resp B/P Pulse O2 O2 Flow FiO2 Ox Delivery Rate 06/04 1110 97.9 61 16 124/70 92 Room Air RA - 06/04 0900 94 06/04 0800 99.0 66 17 115/63 94 Room Air 06/04 0700 Intake Total 1134.00 Output Total 925.00 Balance 209.00 Today's Weight:57.40Previous Weight: 54.20 Weight change: 3.20 Height: 5ft 7.00BMI: 19.8 General appearance: well developed, well nourished, no apparent distress Cardiovascular: r egular rate/rhythm Respiratory: lungs clear Abdominal: soft, NT, ND, soft, normal bowel sounds Neurologic: alert, normal mood/affect, oriented Skin: warm/dry, normal color Current labs: Date: [06/03] Blood Glucose/Intake and insulin data: Date: [06/04] Time Blood PO/TF Pr/nu Poncho Blood Pr/TF Pr/Nu Poncho Glucose Intake units units Glucose intake units units Noct 133 121 0 AM 237 2 Noon 113 PM 142 HS/MN 184 1 06/04 0319 Chemistry Sodium (135 - 145 mmol/L) 138 Potassium (3.5 - 5.0 mmol/L) 4.0 Chloride (99 - 109 mmol/L) 105 Anion Gap (5 - 16 mmol/L) 5 BUN (8 - 25 mg/dL) 15 Creatinine (0.50 - 1.00 mg/dL) 0.50 Estimated GFR (>60) >60 Glucose (65 - 99 mg/dL) 121 H Hematology WBC (3.8 - 11.0 K/uL) 10.5 Hgb (11.3 - 15.5 g/dL) 12.6 Hct (34.0 - 46.0 %) 40.0 Plt Count (150 - 400 K/uL) 103 L Reviewed by me today: medications, labs, vital signs Current medications reviewed? Yes Diabetes Service A/P Assessment/Plan: * DM II - diet controlled - HbA1c 5.7% likely recent sig. weight loss impacting control * Stress Hyperglycemia due to surgery - decreasing * PLAN: Correction scale 1 ac, hs Will monitor and adjust doses as needed Counseling: Total time of approximately [25] minutes was spent with the patient and/or patient's famil y, and/or on the patient's floor/unit, of which more than 50% was spent counseling and/or c oordination the patient's care as outlined above. CC: //[email or web address]// Electronically Signed By: Aiyana Andrews NP 06/04/12 1253 IVANNA BOND ADM:06/01/12 [id number] ADM IN PROGRESS NOTE [id number] [facility] Aiyana Andrews NP E-Sign: [facility] [[email or web address]] THIS REPORT IS CONFIDENTIAL AND NOT TO BE RELEASED WITHOUT PROPER AUTHORIZATION. documented in this encounter H&P Notes Pierre Cai MD - 05/28/2013 5:45 PM PST PATIENT NAME: IVANNA BOND 57Y / F DATE OF : 1955 ADMISSION DATE: 06/01/2012 [id number] / [id number] CARDIOTHORACIC SURGERY CONSULTATIVE HISTORY AND PHYSICAL REFERRING PHYSICIAN: Ellen Moyer MD PRIMARY CARE PROVIDER: Sandy Cagle PA-C I had the pleasure and privilege of meeting Mrs. Ivanna Bond at my office today (2011) at the invitation of Dr. Moyer. Her accompanied her and was present at the t wilmer of this visit. Dr. Moyer had outlined her clinical and echocardiographic findings to jeanne fuchs over the telephone a couple of weeks ago. Today, I had the opportunity to examine her, r eview the medical records, review the echocardiographic and angiographic study done, and I have had a thoughtful forty-minute discussion with her and her about the rationale for recommending mitral valve repair or replacement along with coronary artery bypass surg carmelo. I outlined to her the risk profile that she presents, including significant chronic ob structive pulmonary disease, peripheral vascular disease, small coronary arteries and femal e gender; and have talked to her about the treatment options available, and the details and risks of surgical mitral and coronary intervention. Ivanna is 56. 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 She had palpitations and went to see a local doctor in her community who told her that she needed to just keep a close eye on this and no inte rvention was necessary at that time. She presented to the hospital in [place], [place] in November of this year with acute shortness of breath and was transferred to [facility] with elevated troponin values. Transthoracic echo performed at that time showed severe m itral regurgitation. Nonetheless, her symptoms, were attributed to exacerbation of her tasha re chronic obstructive pulmonary disease. Reportedly, a stress perfusion study was consider ed but not carried out. She was discharged and subsequently presented to Dr. Moyer with se gloria shortness of breath, four-pillow orthopnea, severe lower extremity edema, as well as very incapacitating effort intolerance to the extent that she can barely walk a few feet. S he had an episode of syncope earlier this year. Interestingly the patient underwent laparos copic cholecystectomy and following that she had increased shortness of breath. She also be came pretty anorectic and, in fact, lost about 25 pounds. Of late, she has regained a few of those pounds. She denies any known rheumatic fever. She complains of occasional palpitat ions and says that she has had "panic attacks" since 1988. Workup by Dr. Moyer included tr ansthoracic echocardiogram performed on 04/05/2012. This showed left ventricular hypertrop hy and normal left ventricular systolic function, ejection fraction of 57%. There was infer obasilar akinesia severe, severe biatrial IVANNA BOND ADM:06/01/12 [id number] ADM IN HISTORY & PHYSICAL [id number] [facility] Pierre Cai MD E-Sign: [facility] THIS REPORT IS CONFIDENTIAL AND NOT TO BE RELEASED WITHOUT PROPER AUTHORIZATION. [facility] enlargement, mitral valvular thickening and severe mitral regurgitation with what appears to be ruptured posterior chordae. There is [id number] tricuspid regurgitation, severe pulmonary arterial hypertension and small focal pericardial effusion not of any hemodynami c significance. She subsequently underwent a coronary angiographic procedure on 05/01/2012 . The left ventriculogram showed very severe mitral regurgitation with an akinetic inferior basal segment of the left ventricle. The right coronary artery, which was a dominant vesse l, was diffusely diseased, the first diagonal artery had an 80% stenosis and the first obt use marginal artery had its origin on the circumflex, had a 70-80% stenosis. The distal por tions were subtotally occluded. Workup also included a pulmonary function test that showed severe flow obstruction. FEV1 was 39% of predicted with a DLCO being 46% of predicted value . An arterial blood gas performed on 05/22/2012, showed 7.43/CO2 36.9/pO2 76.1/base excess was 1.1. PAST MEDICAL/SURGICAL HISTORY: 1. COPD. 2. Diabetes. 3. Hypertension. 4. History of depression. 5. Peripheral vascular disease complaining of pain in both legs. 6. History of acute renal failure. 7. History of panic attacks since 1988. 8. Rheumatoid arthritis. 9. Continued tobacco abuse. 10. Cholecystectomy in [place] in 2011. 11. Tubal ligation in [place] in 1975. 12. Remote tonsillectomy. FAMILY HISTORY: Positive for diabetes, cerebrovascular accidents and hypertension. MEDICATIONS: 1. Doxepin 150 mg once a day. 2. Lisinopril 20 mg twice a day. 3. Carvedilol 20 mg once a day. 4. Aspirin 81 mg once a day. 5. Lasix 20 mg twice a day. 6. Potassium 50 mEq once a day. ALLERGIES: Dr. Moyer took excellent precautionary measures of treating the allergy prior to the heart catheterization. RUSLAN BOND JORGE Cuenca ADM:06/01/12 [id number] ADM IN HISTORY & PHYSICAL [id number] [facility] Pierre Cai MD E-Sign: [facility] THIS REPORT IS CONFIDENTIAL AND NOT TO BE RELEASED WITHOUT PROPER AUTHORIZATION. [facility] 1. PENICILLIN (severe rash) 2. AMOXICILLIN. 3. TOPICAL IODINE. 4. INTRAVENOUS IODINE. SOCIAL HISTORY: She is to Terrance, who works in the [employer] in [place]. 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 She started smoking at age 14, now down to 1/2-pack-a -day but had smoked as many years 2 packs a day. She was a heavy alcohol user until 1988 an d has stopped since. REVIEW OF SYSTEMS: A comprehensive fourteen-system review of systems is documented in the chart. In addition to that mentioned above, she complains of fatigue. She has glasses. She has blurred vision. She has bilateral hearing loss, palpitations. She is right-handed. She has chronic cough, chronically constipated. She has claudication, muscle weakness, stiffnes s, joint stiffness, muscle cramps in lower extremities. Describes herself as "nervous" wit h some memory loss and has a history of depression. PHYSICAL EXAMINATION: GENERAL: This is a cachectic lady who is apprehensive but does not appear to be dyspneic a t rest or in any physical distress. She walked to the table with difficulty but was able to climb onto it for the examination. VITAL SIGNS: Height is 5 feet 7 inches. She weighs 126 pounds. Blood pressure left arm 142/72, right arm 146/70. Heart rate 88 and regular. HEENT : She wears glasses. Normocephalic, atraumatic. Anicteric. NECK: Supple. There is no JVD, t hyromegaly, lymphadenopathy or carotid bruits. CHEST: Symmetrical. HEART: The cardiac examination shows no discernible cardiomegaly. There is a holosystolic murmur that radiates primarily to the axilla but is also audible in the neck. LUNGS: Clear to auscultation and percussion at this time. ABDOMEN: Shows well-healed surgi sergei scars. No organomegaly, tenderness, ascites, abnormal pulsations, or abnormal vasculatu re. EXTREMITIES: Examination shows extensive pedal and lower leg edema both sides. I cannot pa lpate the popliteals or the pedal pulses in either lower extremity. NEUROLOGIC: Examination is intact. I did not do a funduscopy. IMPRESSION: 1. Severe mitral regurgitation. 2. Coronary artery disease. 3. Recent myocardial infarction. RUSLAN BOND ADM:06/01/12 [id number] ADM IN HISTORY & PHYSICAL [id number] [facility] Pierre Cai MD E-Sign: [facility] THIS REPORT IS CONFIDENTIAL AND NOT TO BE RELEASED WITHOUT PROPER AUTHORIZATION. [facility] 4. Congestive cardiac failure. 5. Severe pulmonary hypertension. 6. Buxfnctz-iw-tgbtgm chronic obstructive pulmonary disease with continued tobacco abuse. 7. Peripheral vascular disease. 8. History of significant weight loss with recent small weight gain. 9. Diabetes. 10. History of depression. 11. Hypertension. 12. Rheumatoid arthritis. 13. History of acute renal failure. PLAN: I have had an extensive discussion with Mrs. Bond and her , Terrance, about t he advisability of mitral valve repair or replacement, along with coronary artery bypass calixto rgcarmelo. If she needs valve replacement, then a mechanical prosthetic valve would be utilized given her young age. She is aware, as is her , that she has a high-risk profile but is very enthusiastic about going ahead. In addition to the routine labs, I will obtain a liver function test to make sure that she has an adequate albumin. I am reassured by the fa ct that she has gained about 5 pounds recently and she states that she has been eating a he althy meal three times a day for the last several days. I have encouraged them to write katelyn n any questions that they might have, and will plan on answering them in the preoperative area tomorrow. It has been a privilege to have been involved in the care of this very pleasant lady. I wo uld like to thank Dr. Moyer for that opportunity. Pierre Cai MD P P MV/dlb #[id number] [place] ADM:06/01/12 [id number] ADM IN HISTORY & PHYSICAL [id number] [facility] Pierre Cai MD E-Sign: [facility] THIS REPORT IS CONFIDENTIAL AND NOT TO BE RELEASED WITHOUT PROPER AUTHORIZATION. [facility] cc: Ellen Moyer MD Physician Gris Cai MD xc: Sandy Cagle PA-C Electronically Signed 06/04/12 1217 Pierre Cai MD [place] ADM:06/01/12 [id number] ADM IN HISTORY & PHYSICAL [id number] [facility] Pierre Cai MD E-Sign: [facility] THIS REPORT IS CONFIDENTIAL AND NOT TO BE RELEASED WITHOUT PROPER AUTHORIZATION.Electronica lly signed by Pierre Cai MD at 06/04/2012 12:17 PM PSTdocumented in this encounter Procedure Notes Conversion Transaction, Provider Unknown - 05/28/2013 5:45 PM [facility] SURGICAL PATHOLOGY REPORT Date Taken: 06/01/2012 Date Received: 06/01/2012 Completed: 06/04/2012 Physician: PIERRE CAI Copy to: DIAGNOSIS: Anterior mediastinal lymph node biopsy: Benign lymph node showing nonspecific, reactive, mild interfollicular hyperplasia and moderate sinus histiocytosis. See comment. 0 COMMENT: The etiology of this reactive lymphadenopathy is uncertain. No acute inflammation is seen. No granulomas are encountered. There is no suggestion of primary or metastatic malignancy. Clinical correlation is required. Santos Jenkins M.D. Electronic signature GROSS DESCRIPTION: The specimen is received in formalin labeled and designated "[place], anterior mediastinal lymph node" and consists of a 1.0 x 0.4 x 0.4 cm michael tissue fragment that is now bisected and submitted all in "A1". (JA) MICROSCOPIC DESCRIPTION: Histologic sections of all submitted blocks are examined by light microscopy. These findin gs, together with the gross examination, support the pathologic diagnosis. A: [id number] [address] or [place] ADM:06/01/12 [id number] ADM IN [id number] SURGICAL PATHOLOGY-ANATOMICAL PATHOLOGY Pathology [facility] THIS REPORT IS CONFIDENTIAL AND NOT TO BE RELEASED WITHOUT PROPER AUTHORIZATION. Testing performed at: [facility] Elijah Bowser M.D., Director [address] [place] [address] [address] [place] [id number] [place] ADM:06/01/12 [id number] ADM IN [id number] SURGICAL PATHOLOGY-ANATOMICAL PATHOLOGY Pathology [facility] THIS REPORT IS CONFIDENTIAL AND NOT TO BE RELEASED WITHOUT PROPER AUTHORIZATION. Dragan Valente MD - 05/28/2013 5:44 P M PSTHeart Rate 41 P-R Interval 164 QRSD Interval 110 QT Interval 552 QTC Interval 456 P [place] 71 QRS [place] 76 T Wave [place] -59 EKG Severity - ABNORMAL ECG - SINUS BRADYCARDIA PROBABLE LEFT ATRIAL ABNORMALITY NONSPECIFIC INTRAVENTRICULAR CONDUCTION DELAY LEFT VENTRICULAR HYPERTROPHY <Signature Filed in OV> 06/01/12 1406 Dragan Sue MD [place] ADM:06/01/12 [id number] ADM IN ELECTROCARDIOGRAM REPORT [id number] [facility] Dragan Sue MD E-Sign: [facility] THIS REPORT IS CONFIDENTIAL AND NOT TO BE RELEASED WITHOUT PROPER AUTHORIZATION.Electronica lly signed by Dragan Sue MD at 05/28/2013 5:36 PM Gilbert Montelongo MD - 05/28/2013 5: 44 PM PSTHeart Rate 59 P-R Interval 180 QRSD Interval 102 QT Interval 488 QTC Interval 484 P [place] 64 QRS [place] 21 T Wave [place] -10 EKG Severity - ABNORMAL ECG - SINUS RHYTHM LEFT ATRIAL ABNORMALITY BORDERLINE T ABNORMALITIES, INFERIOR LEADS INCOMPLETE RIGHT BUNDLE BRANCH BLOCK <Signature Filed in OV> 06/02/12 0314 Gilbert Carlton MD [place] ADM:06/01/12 [id number] ADM IN ELECTROCARDIOGRAM REPORT [id number] [facility] Gilbert Carlton MD E-Sign: [facility] THIS REPORT IS CONFIDENTIAL AND NOT TO BE RELEASED WITHOUT PROPER AUTHORIZATION.Electronica lly signed by Gilbert Carlton MD at 05/28/2013 5:35 PM PSTdocumented in this encounter Miscellaneous Notes Miscellaneous - Pierre Cai MD - 05/28/2013 5:45 PM [facility] EUGENIA-OPERATIVE CASE INFORMATION Patient: IVANNA BOND MR#: [id number] Acct: [id number] : 1955 AGE: 57 SEX: F CRURN: [id number] [employer] PRE-OPERATIVE ASSESSMENT Preferr ed Name: IVANNA Patient Identified: Y Consent Verfied: Y Procedure & Site Verified: Y By entering inf ormation in the [place] Protocol Section, you will be verifying the Correct Patient Iden tity, Correct Side and Site, Agreement on the Procedure's to be done, Correct patient Posit ion, Availability of correct implants and any special equipment or special requirements* Time out? Y Time of Time out: 809 Site(s): CHEST A ND LEFT LEG All participating team members: DR BAILON S. THOMPSON, C. BRISTOW RN All participating team members: Mickie MEDINA CCP., M. O'MAL Patient Loc pre-Op: Awake & Oriented Methods of Patient Identificatio n: Armband Identification Methods of Patient Identification: MD Identif ication of Pt Methods of Patient Identification: Verbal ID with Patient Allergies Identified Pre-op: PENICILLIANS, ERYTHROMYCIN, TOPICAL AND IV IO Allergies Identified Pre-op: PRODUCTS History an d Physical: Present & Reviewed Comments: NPO Status: NPO 8 Hrs or greater Comments: Lab Work: Present & Reviewed Blood Products Available: Plate letts Comment: PL 1 Blood Products Available: RBC Comment: RBC 2 Belongings: Not Applicable Disposition: Not Applicable Limitations: VIS Prosthesis: NONE Pre-Operative Checklist Comments: PREVIOUS SURGERIES: TUBAL LIGATIONS, CHOLECYSTECTOMY, HEART CATH Pre-Operative Assessmen t Reviewed/ Verified by: Hortencia Eddy RN INTRA-OPERATIVE INFORMATION Date of Surgery: 06/01/2012 OR Suite: [place] [address] Case Type: ELECTIVE Pre-Op Diagnosis: LE AKING MITRAL VALVE AND CORONARY ARTERY DISEASE Post-Op Diagnosis: SEE SURGEON'S POS T OPERATIVE NOTE SURGEON(S) & ASST(S) PROCEDURE DESCRIPTION Surgeon 1: Nisreen Cai MITRAL VALVE REPAIR POSSIBLE REPLA CE & CABG X 3-4 Installation Helper: EVH & DIGNA WITH INTRA OPERATIVE ZULEIKA PHYSICIAN/SURGEON ASSISTANTS/PRIVATE SCRUBS Mj Zuniga ANESTHESIA INFORMATION MDA: Arlet Estes GLUER MACHINE OPERATOR: Mackenzie Type: General CASE CHRONOLOGY Time in Room: 0715 Incisi on: 0823 End of Surgery: 1337 Wound Class: 01 Time out of Room: 1348 Pre-Op Antibiotic Ordered: Y IV Antibiotic: VANCOMYCIN Dose: 1 GM Time: 0704 OR STAFF [facility] EUGENIA-OPERATIVE CASE INFORMATION Patient: IVANNA BOND MR#: [id number] Acct: [id number] : 1955 AGE: 57 SEX: F CRURN: [id number] Hortencia Eddy RN 1st Cardiovascular Radiologic Technologist Rounds,Daija EMERY 4714 0824 2nd Cardiovascular Radiologic Technologist Ashkan,Chapis ST (Green) 1st Scrub Wynne,German ST 2nd Scrub Sapphire casillas,Peyton RN [phone] Cardiovascular Radiologic Technologist Relief Peyton Rodriguez RN [phone] Cardiovascular Radiologic Technologist Relief OTHER PERSONS MAURIZIO wilde S. ZULEIKA Tech DARRYL ZULEIKA Tech JAMES Student Temperature Control Methods Fluid Warmer Device ID: [id number] K-thermia pad Device ID: [id number] Comment: TEMPERATURE MONITORED AND CONTROLLED BY ANESTHESIA AND Comment: PERFUSION. Initial Skin Integrity WNL: Y Position 1 Devices Used Supine Armboards Donut Gel pads Gel Chest Roll Shoulder Roll OR Staff Cheryl v. Staff Other Janet Eddy Sus an Rounds, Melissa Comments: POSITIONED SUPINE WITH ARMS TUCKED AT SIDES HANDS TO THIGHS Comments: THUMBS UP. LARGE GEL ROLL PLACED UNDER SCAPULA WITH Comments: HEAD ON GEL DONUT. U-BAR IN PLACE OVER PATIENT'S HEAD Comments: SECURED BY ANESTHESIA. Tourniquets Used: N Anti-embolitic Therapy Used: N Electrosurgical Devices Used: Y Unit#: Type: Pad Site: L/R: [id number] 2 Ligasure / Triad BUTTOCK L [id number] Electrosurgic al Unit BUTTOCK R Comment: TWIN Comment: LOC Uri nary Catheter Inserted in OR:Y Urinary Cathether in Place on Arrival:N Type: Size: Inserted by: Monotherm [id number] Janet Eddy Drain Type: Urimeter Pre-Op appearance: Clear / Lt Yellow Comments: INSERTED WITHOUT DIFFICULTY IMMEDIATE RETURN OF URINE, Comments: PREPPED WITH BABY SHAMPOO CL[facility]KS [facility] STANDARD FOR PATIENTS Comments: ALLERGIC TO IODINE PREPS Clipper Pre p in O.R.: N Surgical Prep: Y [facility] EUGENIA-OPERATIVE CASE INFORMATION Patient: IVANNA BOND MR#: [id number] Acct: [id number] : 1955 AGE: 57 SEX: F CRURN: [id number] Site: Open Heart - Chin to toes Open Heart - Chin to toes Solution: By: Chloraprep (Chlohexidine Gluconate 2% w/Alc) TWIN Chloraprep (Chlohexidine Gluconate 2% w/Alc) LOC Comment: CHLORAPREP ALLOWED TO DRY FOR THREE MINUTES BEFORE DRAPES Comment: APPLIED OR Sterilization/Disinfection Methods Used: N Field Irrigations/Medications: Y Allergies: PENICILLIANS, ERYTHROMYCIN, TOPICAL AND IV IODIINE, FISH Allergies: PRODUCTS Irrigation Amount Normal Saline 300CC Normal Saline QS Medications Added 3,000 UNITS HEPARIN (1000 UNITS/ML) Medications (Non-Irrigation): Y Drug Route Amount PAPAVE RINE On Surgical field 10ML THROMBIN On Surgical field 10 ML ARTIE SEAL See Medication Administration Recor d: Specimens: Y Description Routine FS Cult Cyto Disposal To Pt 1.ANT. MEDIASTINAL LYMPH NODE Y N N N N Implants: Y Item Qty Lot Number Manuf. Cat# Site/Size RING CE MITRAL [id number] SN:[id number] EDLS [id number] MITRAL VALV Tissue solution used :NA LOT#NA Tissue prepared by:NA Intra-operative X-Rays: Y Type: Chest Drains: Y Type: Size: Site: Qty Socrates 19FR CHEST 4 Post Closure Care Packing: N Dressing: Y Splint/Immobilizer/Casti ng: Not Applicable Cell Saver Used: Y Unit #: [id number] Amount Reinfused: Operated By: PERFUSION Counts Appli cable: Y Count Type Result RN Scrub INITIA L COUNT Done [place],Hortencia Ashkan,Chapis ST INITIAL COUNT Done Rounds,Daija Wynne,German ST VALVE COUNT Corre ct Surjit,Hortencia Wynne,German ST FIRST COUNT Correct [place],Hortencia Ashkan,Chapis ST FINAL COUNT Correct Surjit,C hristine Ashkan,Chapis ST [facility] EUGENIA-OPERATIVE CASE INFORMATION Patient: IVANNA BOND MR#: [id number] Acct: [id number] : 1955 AGE: 57 SEX: F CRURN: [id number] Surgeon Notified of C ount Results: Y Patient Transferred Post-op to: CICU Mode: Be d Aids: Ambu Aids: Pacer Box Aids: Unit Transport - O2,ET,Monitor Skin Condition Unchanged from Pre-op: Y Comment: Patient Belongings: Not Applicable Disposition: Not Applicable CASE COMMENTS PATIENT'S KEPT UPDATED DURING PROCEDURE. All garrett reviewed and updated as necessary. Y end of document Eldai gumaro signed by Pierre Cai MD at 05/28/2013 5:37 PM PSTOp Note - Pierre Cai MD - 05/28/2013 5:45 PM PST PATIENT NAME: IVANNA BOND Date of : 1955 Age/Sex: 57Y / F SURGEON: Pierre Cai MD SURGERY DATE: 06/01/2012 [id number] / [id number] PREOPERATIVE DIAGNOSES: Severe mitral regurgitation, history of myocardial infarction, con gestive cardiac failure [employer] 4, severe chronic obstructive pulmonary disea se (COPD), history of extensive tobacco abuse until 1988, presumed cirrhosis with baseline elevated INR of 1.3 and total bilirubin 1.7, severe pulmonary arterial hypertension, cardio megaly, peripheral vascular disease, coagulopathy, hypertension, rheumatoid arthritis, his tory of acute renal failure cachexia. POSTOPERATIVE DIAGNOSES: Severe mitral regurgitation, history of myocardial infarction, co ngestive cardiac failure [employer] 4, severe chronic obstructive pulmonary dise ase (COPD), history of extensive tobacco abuse until 1988, presumed cirrhosis with baseline elevated INR of 1.3 and total bilirubin 1.7, severe pulmonary arterial hypertension, cardi omegaly, peripheral vascular disease, coagulopathy, hypertension, rheumatoid arthritis, hi story of acute renal failure cachexia. PROCEDURE PERFORMED: 1. Triangular resection of P3 segment of posterior leaflet, reconstruction of medial commi ssure with caudal transfer. 2. Placement of 26 mm Physio II ring, serial number [id number]. 3. Coronary artery bypass leroy jennifer x4 with ALMENDAREZ to diagonal, saphenous vein graft sequentially to first and second obtuse marginal arteries, and saphenous vein graft to posterior descending artery. 4. Endoscopic vein harvest. GUEST EXPERIENCE REPRESENTATIVE: Chad Zuniga. INDICATIONS: Mrs. Ivanna Bond is a delightful 57-year-old patient of Dr. Rohan Moyer. This is a very ill lady, who looked very sallow and ill and cachectic when she presented t o my office yesterday, has severe mitral regurgitation, severe congestive cardiac failure w ith four pillow orthopnea and edema up to her ankles with bilateral pleural effusions. She has severe chronic obstructive pulmonary disease with an FEV1 of less than 40% of predicte d with decreased DLCO. However, her liver enzymes are normal and albumin is normal. She, in fact, after having lost around 20 to 25 pounds after a cholecystectomy, has in fact gained about 3 to 5 pounds in the last couple of weeks prompting me to go ahead with surgery toda y. Her tissues were, as expected, very poor. The heart is huge with severe pulmonary arter ial hypertension. The pulmonary artery was over twice the diameter of the aorta. Mitral reg urgitation was due to two distinct etiologies. 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 This displaced the posterior upper leaflet support posteriorly and medially, IVANNA BOND ADM:06/01/12 [id number] ADM IN OPERATIVE REPORT [id number] [facility] Pierre Cai MD E-SIGN: [facility] THIS REPORT IS CONFIDENTIAL AND NOT TO BE RELEASED WITHOUT PROPER AUTHORIZATION. [facility] restricting movement of the posterior leaflet. In addition, she had multiple ruptured chor annalise tendineae in the P3 segment of the posterior leaflet and disruption of the medial commi ssure. I was able to reconstruct this. I used a caudal transfer from posterior leaflet to p osterior leaflet and actually had a very nice reconstruction of the medial commissure. I s upported this repair with a 26 mm Physio II ring. Post repair, mitral function was excellen t. No cardioversion, inotropes, or transfusions were necessary. She came into the room with a heart rate in the 50s and I placed both atrial and ventricular wires. There was a lymph node that I encountered in the anterior mediastinum when I did the montaño otomy. I sent this for routine pathologic examination. It clinically did not look malignant , but given her history of tobacco abuse, etc., I wanted to make sure so I sent it to patho logy. She would be a very poor candidate for redo surgery. The pericardium, however, has be en closed. DESCRIPTION OF PROCEDURE: With the patient supine on the operating table, general endotrac heal anesthesia was administered. The ventral surface and legs were prepped and draped in a sterile fashion. Ms. Zuniga harvested saphenous vein from the left lower extremity using an en doscopic technique. I made a sternotomy incision. The mammary artery was taken down from th e undersurface of the left anterior chest. Her lungs are voluminous and cross each other in the midline. Systemic heparinization was obtained and confirmed and the distal mammary artery was doubly clipped. The proximal end w as dilated with papaverine after the mammary artery had been divided distally. The operativ e field was flooded with carbon dioxide. A vertical pericardiotomy was made and a pericardial cradle was created. There was a fair amount of pericardial fluid, i.e., pericardial effusion which was pretty dark yellow given her elevated bilirubin. A 7 Sarns aortic cannula was placed in the ascending aorta, a 28 Fr ench cannula into the SVC, and a 28 Burundian cannula into the IVC. A retrograde cardioplegia cannula was positioned in the coronary sinus. The patient was placed on cardiopulmonary bypass and temperature was allowed to go down to around 32 degrees. The intra-atrial groove was dissected out. The diagonal, the two obtuse marginal arteries, and the PDA were marked for distal anastomosis. The aorta was crossclam ped and immediate electromechanical arrest of the heart was obtained with the infusion of 800 mL of cold blood antegrade cardioplegia which in IVANNA BOND ADM: 2 [id number] ADM IN OPERATIVE REPORT [id number] [facility] Pierre Cai MD E-SIGN: [facility] THIS REPORT IS CONFIDENTIAL AND NOT TO BE RELEASED WITHOUT PROPER AUTHORIZATION. [facility] conjunction with cold saline in the pericardial well, obtained rapid electromechanical kinana ence. Cardioplegia was then given through the coronary sinus at about 10 minute intervals. I made an incision in the left atrium, and exposed the mitral valve. The mitral valve was, as anticipated, very incompetent with multiple disrupted chordae tendineae. In the P3 aspe ct of the posterior leaflet the commissure was disrupted. Also, the posterior leaflet was p retty restricted. I looked to see if I could find any tertiary chordae tendinea that I coul d divide to mobilize the leaflet more, but there were hardly any tertiary chordae tendinea e. I then performed a triangular resection of the area where the chordae tendineae were disru pted and did an edge to edge repair with 5-0 Tycron. I then reconstructed the medial commis sure by doing an edge to edge repair for about 5 mm of the anterior and posterior leaflets. During this repair, I was able to utilize a chordae tendineae from the infected area and u sed it to support the repair. When I tested it, it was pretty good. A series of 2-0 Tycron sutures were passed through the annulus and then through a 26 mm sewing ring. When these s utures were tied down, I had excellent anatomic reconstruction of the mitral valve, and whe n I tested it with pressurized saline, it looked very competent. The area was irrigated out again. The left atrial appendage is large. Her tissues, however, are very poor. She was not in at rial fibrillation I looked at the pros and cons of either sewing it from the inside, which was hard to access and I was really very reluctant to divide this very friable thing on the outside given the fact that I was going to graft the diagonal pretty high there. I thought that it unnecessarily increased the risk of bleeding that I would have difficulty control ling. Therefore, I elected not to take out the appendage. The atriotomy was closed with 4-0 Prolene. Arteriotomies were made in the first obtuse marginal artery and the occluded and recanaliz ed second obtuse marginal artery. A segment of saphenous vein was used to graft this with a ifnh-ax-nfvf anastomosis to the first and an end-to-side anastomosis to the second. An art eriotomy was made in the heavily diseased and recanalized posterior descending artery and this was grafted with a segment of saphenous vein. Following this, the DIGNA was anastomosed to the diagonal. The diagonal is pretty high just anterior to the left atrial appendage, so I left a lot of length of the mammary artery to make sure that it did not kink. The pedicl e of the mammary artery was tacked down to the epicardium. I was gratified that as IVANNA BOND ADM:06/01/12 [id number] ADM IN OPERATIVE REPORT [id number] [facility] Pierre Cai MD E-SIGN: [facility] THIS REPORT IS CONFIDENTIAL AND NOT TO BE RELEASED WITHOUT PROPER AUTHORIZATION. [facility] soon as I unclamped the mammary pedicle, I had some ventricular activity. The heart was thoroughly de-aired with multiple prolonged and repeated de-airing maneuvers , following which the aortic crossclamp was removed, having been on for a total of 95 minut es. The patient regained a slow rhythm that she had preoperatively on her own without the n eed for cardioversion. I paced her through the atrium, and we had excellent atrioventricul ar conductivity. I reperfused her for about 30 minutes, during which time, we continually de-aired her and hemoconcentrated the blood. She was then taken off pump with no difficulty, total bypass ti me being 128 minutes. Amicar and protamine were administered, and the patient was decannulated. Two mediastinal Socrates drains and left and right pleural drains were placed. I might add that I aspirated with a large pleural effusion both on the right and from the left pleural cavities. Atrial and ventricular temporary bipolar pacing wires were placed. The two proximal vein a nastomoses in the ascending aorta were each marked with a single Hemoclip. The sternum was then brought together with stainless steel wire, fascia in layers of Vicryl, abdominal midl ine with Vicryl, and the skin with a cuticular suture of Monocryl. The leg incision was sim ilarly closed in layers. Sterile dressings were applied. A chest x-ray was obtained and the patient returned to the intensive care unit in stable c ondition. Pierre Cai MD P P [place] ADM:06/01/12 [id number] ADM IN OPERATIVE REPORT [id number] [facility] Pierre Cai MD E-SIGN: [facility] THIS REPORT IS CONFIDENTIAL AND NOT TO BE RELEASED WITHOUT PROPER AUTHORIZATION. [facility] MV/ljj #[id number] cc: MD Pierre Escobar MD xc: SANDY CAGLE PA-C [address] [place] [id number] Electronically Signed 06/04/12 1218 Pierre Cai MD RUSLAN BOND ADM:06/01/12 [id number] ADM IN OPERATIVE REPORT [id number] [facility] Pierre Cai MD E-SIGN: [facility] THIS REPORT IS CONFIDENTIAL AND NOT TO BE RELEASED WITHOUT PROPER AUTHORIZATION.Electronica lly signed by Pierre Cai MD at 06/04/2012 12:18 PM PSTFormerly [facility], Turner Miranda MD - 05/28/2013 5:45 PM PST Adult Intra-Op ZULEIKA Report Patient Name: IVANNA BOND Study Date: 06/01/2012 : 1955 Gender: Female Age: 57 yrs Location: [facility] HR: 63 Reason For Study: MVR, CABG. History: CAD, MITRAL VALVE DISORDER. Rhythm: SR. INTERPRETATION SUMMARY: A pre- and post-op transesophageal echocardiogram with color flow Doppler was performed [facility] open heart surgery. 1. LV size is normal, although there is a wall montion abnormality in the inferior posteri or wall which is aneurismal and akinetic. No change is noted in this during the surgery 2. The preop mitral valve shows a posterior leaflet that is associated with a ruptured cho rdae, associated with moderate to severe regurgitation. Postoperatively there is a mitral v alve annuloplasty with a 26mm ring. There is no MR at the end of the case 3. Normal appearing aortic valve 4. Normal appearing tricuspid valve with mild TR and estimated pressure at about 35 mmHg 5. No pericardial effusion Left Ventricle: The left ventricle is normal in size. There is no thrombus. There is mild concentric left ventricular hypertrophy. Left ventricular systolic function is borderline reduced. The carrier clinicy estimated LV ejection fraction is 50-55%. Basal infero-posterior wall is aneurismal an d akinetic. Right Ventricle: The right ventricle is normal size. There is normal right ventricular wall thickness. Righ t ventricular systolic function appears mildly reduced. Atria: No obvious septal defect is seen with color Doppler. The left atrium is moderately dilated . Right atrial size is normal. Mitral: The mitral valve is grossly normal. There is no evidence of mitral valve prolapse. 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 No significant mitral valve stenosis. There is moderate to severe mitral regurgitation. The mitral regurgitant jet is eccentrically __ IVANNA BOND ADM:06/01/12 [id number] [facility] IN ECHOCARDIOGRAPHY REPORT [id number] [facility] Turner Smallwood MD E-Sign: [facility] THIS REPORT IS CONFIDENTIAL AND NOT TO BE RELEASED WITHOUT PROPER AUTHORIZATION. directed. Tricuspid Valve: The tricuspid valve appears normal in structure and function. There is mild tricuspid regu rgitation. The RV/RA systolic gradient was measured at 35 mmHg. Aortic Valve: The aortic valve is trileaflet. The aortic valve opens well. No aortic insufficiency is pr esent. Pulmonic Valve: The pulmonic valve appears normal in structure and function. There is no pulmonic valvular insufficiency. Vessels: The aortic root is normal size. Visualized portions of the aorta appear grossly normal. Surgical Procedure: Mitral valve repair. Mitral valve annuloplasty; 26 mm ring. Coronary artery bypass (CABG). Post-Op Findings: The repaired mitral valve appears to function normally with no mitral regurgitation noted. Post-Op Function: Left ventricular systolic function appears unchanged. Doppler Measurements and Calculations: TR max gerson: 296.8 cm/sec TR max P.3 mmHg Interpreting Physician: Turner Smallwood M.D. electronically signed on 06/04/2012 01:23 AM Ordering Physician: Pierre Cai Referring Physician: Pierre Cai Zoning Engineer: Pradip Blanco RUSLAN BOND ADM:06/01/12 [id number] ADM IN ECHOCARDIOGRAPHY REPORT [id number] [facility] Turner Smallwood MD E-Sign: [facility] THIS REPORT IS CONFIDENTIAL AND NOT TO BE RELEASED WITHOUT PROPER AUTHORIZATION.Electronica lly signed by Turner Smallwood MD at 05/28/2013 5:37 PM PSTdocumented in this encounter Plan of Treatment Not on filedocumented as of this encounter Procedures + +--------+ + + + | Procedure Name | Priori | Date/Time | Associated Diagnosis | Comments | | | ty | | | | + +--------+ + + + | XR CHEST 2 VIEWS | | 06/05/2012 | | Results for this | | | | 9:02 AM | | procedure are in the | | | | PST | | results section. | + +--------+ + + + | POC GLUCOSE | Routin | 06/05/2012 | | Results for this | | | e | 8:07 AM | | procedure are in the | | | | PST | | results section. | + +--------+ + + + | PROTIME INR | Routin | 06/05/2012 | | Results for this | | | e | 4:27 AM | | procedure are in the | | | | PST | | results section. | + +--------+ + + + | CBC WITH | Routin | 06/05/2012 | | Results for this | | DIFFERENTIAL | e | 4:27 AM | | procedure are in the | | | | PST | | results section. | + +--------+ + + + | POC GLUCOSE | Routin | 06/05/2012 | | Results for this | | | e | 3:23 AM | | procedure are in the | | | | PST | | results section. | + +--------+ + + + | POC GLUCOSE | Routin | 06/04/2012 | | Results for this | | | e | 9:05 PM | | procedure are in the | | | | PST | | results section. | + +--------+ + + + | POC GLUCOSE | Routin | 06/04/2012 | | Results for this | | | e | 5:55 PM | | procedure are in the | | | | PST | | results section. | + +--------+ + + + | POC GLUCOSE | Routin | 06/04/2012 | | Results for this | | | e | 1:01 PM | | procedure are in the | | | | PST | | results section. | + +--------+ + + + | POC GLUCOSE | Routin | 06/04/2012 | | Results for this | | | e | 8:37 AM | | procedure are in the | | | | PST | | results section. | + +--------+ + + + | XR CHEST 2 VIEWS | | 06/04/2012 | | Results for this | | | | 6:35 AM | | procedure are in the | | | | PST | | results section. | + +--------+ + + + | PROTIME INR | Routin | 06/04/2012 | | Results for this | | | e | 3:19 AM | | procedure are in the | | | | PST | | results section. | + +--------+ + + + | CBC NO DIFFERENTIAL | Routin | 06/04/2012 | | Results for this | | | e | 3:19 AM | | procedure are in the | | | | PST | | results section. | + +--------+ + + + | BASIC METABOLIC | Routin | 06/04/2012 | | Results for this | | PANEL | e | 3:19 AM | | procedure are in the | | | | PST | | results section. | + +--------+ + + + | POC GLUCOSE | Routin | 06/03/2012 | | Results for this | | | e | 8:43 PM | | procedure are in the | | | | PST | | results section. | + +--------+ + + + | POC GLUCOSE | Routin | 06/03/2012 | | Results for this | | | e | 5:51 PM | | procedure are in the | | | | PST | | results section. | + +--------+ + + + | POC GLUCOSE | Routin | 06/03/2012 | | Results for this | | | e | 1:13 PM | | procedure are in the | | | | PST | | results section. | + +--------+ + + + | POC GLUCOSE | Routin | 06/03/2012 | | Results for this | | | e | 8:12 AM | | procedure are in the | | | | PST | | results section. | + +--------+ + + + | XR CHEST PA OR AP | | 06/03/2012 | | Results for this | | | | 3:42 AM | | procedure are in the | | | | PST | | results section. | + +--------+ + + + | BASIC METABOLIC | Routin | 06/03/2012 | | Results for this | | PANEL | e | 3:18 AM | | procedure are in the | | | | PST | | results section. | + +--------+ + + + | PROTIME INR | Routin | 06/03/2012 | | Results for this | | | e | 3:15 AM | | procedure are in the | | | | PST | | results section. | + +--------+ + + + | POC GLUCOSE | Routin | 06/03/2012 | | Results for this | | | e | 2:00 AM | | procedure are in the | | | | PST | | results section. | + +--------+ + + + | POTASSIUM | Routin | 06/02/2012 | | Results for this | | | e | 8:34 PM | | procedure are in the | | | | PST | | results section. | + +--------+ + + + | GLUCOSE, FASTING | Routin | 06/02/2012 | | Results for this | | | e | 8:34 PM | | procedure are in the | | | | PST | | results section. | + +--------+ + + + | POC GLUCOSE | Routin | 06/02/2012 | | Results for this | | | e | 6:00 PM | | procedure are in the | | | | PST | | results section. | + +--------+ + + + | POC GLUCOSE | Routin | 06/02/2012 | | Results for this | | | e | 2:01 PM | | procedure are in the | | | | PST | | results section. | + +--------+ + + + | POC GLUCOSE | Routin | 06/02/2012 | | Results for this | | | e | 8:31 AM | | procedure are in the | | | | PST | | results section. | + +--------+ + + + | POC GLUCOSE | Routin | 06/02/2012 | | Results for this | | | e | 6:44 AM | | procedure are in the | | | | PST | | results section. | + +--------+ + + + | POC GLUCOSE | Routin | 06/02/2012 | | Results for this | | | e | 4:54 AM | | procedure are in the | | | | PST | | results section. | + +--------+ + + + | XR CHEST PA OR AP | | 06/02/2012 | | Results for this | | | | 3:55 AM | | procedure are in the | | | | PST | | results section. | + +--------+ + + + | CBC NO DIFFERENTIAL | Routin | 06/02/2012 | | Results for this | | | e | 3:21 AM | | procedure are in the | | | | PST | | results section. | + +--------+ + + + | BASIC METABOLIC | Routin | 06/02/2012 | | Results for this | | PANEL | e | 3:21 AM | | procedure are in the | | | | PST | | results section. | + +--------+ + + + | POC GLUCOSE | Routin | 06/02/2012 | | Results for this | | | e | 3:05 AM | | procedure are in the | | | | PST | | results section. | + +--------+ + + + | POC GLUCOSE | Routin | 06/02/2012 | | Results for this | | | e | 2:13 AM | | procedure are in the | | | | PST | | results section. | + +--------+ + + + | POC GLUCOSE | Routin | 06/02/2012 | | Results for this | | | e | 12:04 AM | | procedure are in the | | | | PST | | results section. | + +--------+ + + + | POC GLUCOSE | Routin | 06/01/2012 | | Results for this | | | e | 11:07 PM | | procedure are in the | | | | PST | | results section. | + +--------+ + + + | POC GLUCOSE | Routin | 06/01/2012 | | Results for this | | | e | 9:57 PM | | procedure are in the | | | | PST | | results section. | + +--------+ + + + | POC GLUCOSE | Routin | 06/01/2012 | | Results for this | | | e | 9:26 PM | | procedure are in the | | | | PST | | results section. | + +--------+ + + + | POTASSIUM | Routin | 06/01/2012 | | Results for this | | | e | 8:26 PM | | procedure are in the | | | | PST | | results section. | + +--------+ + + + | GLUCOSE, RESPIRATORY | Routin | 06/01/2012 | | Results for this | | | e | 8:25 PM | | procedure are in the | | | | PST | | results section. | + +--------+ + + + | BLOOD GAS, ARTERIAL | Routin | 06/01/2012 | | Results for this | | | e | 8:25 PM | | procedure are in the | | | | PST | | results section. | + +--------+ + + + | CBC NO DIFFERENTIAL | Routin | 06/01/2012 | | Results for this | | | e | 8:25 PM | | procedure are in the | | | | PST | | results section. | + +--------+ + + + | POC GLUCOSE | Routin | 06/01/2012 | | Results for this | | | e | 7:47 PM | | procedure are in the | | | | PST | | results section. | + +--------+ + + + | POC GLUCOSE | Routin | 06/01/2012 | | Results for this | | | e | 5:50 PM | | procedure are in the | | | | PST | | results section. | + +--------+ + + + | POC GLUCOSE | Routin | 06/01/2012 | | Results for this | | | e | 4:56 PM | | procedure are in the | | | | PST | | results section. | + +--------+ + + + | POC GLUCOSE | Routin | 06/01/2012 | | Results for this | | | e | 3:57 PM | | procedure are in the | | | | PST | | results section. | + +--------+ + + + | CBC NO DIFFERENTIAL | Routin | 06/01/2012 | | Results for this | | | e | 2:13 PM | | procedure are in the | | | | PST | | results section. | + +--------+ + + + | GLUCOSE, RESPIRATORY | Routin | 06/01/2012 | | Results for this | | | e | 2:05 PM | | procedure are in the | | | | PST | | results section. | + +--------+ + + + | BLOOD GAS, ARTERIAL | Routin | 06/01/2012 | | Results for this | | | e | 2:05 PM | | procedure are in the | | | | PST | | results section. | + +--------+ + + + | POTASSIUM, WHOLE | Routin | 06/01/2012 | | Results for this | | BLOOD | e | 2:05 PM | | procedure are in the | | | | PST | | results section. | + +--------+ + + + | MRSA NAAT | Routin | 06/01/2012 | | Results for this | | | e | 1:46 PM | | procedure are in the | | | | PST | | results section. | + +--------+ + + + | XR CHEST PA OR AP | | 06/01/2012 | | Results for this | | | | 1:36 PM | | procedure are in the | | | | PST | | results section. | + +--------+ + + + | LACTIC ACID, | Routin | 06/01/2012 | | Results for this | | ARTERIAL, SURGERY | e | 1:30 PM | | procedure are in the | | | | PST | | results section. | + +--------+ + + + | BLOOD GAS , | Routin | 06/01/2012 | | Results for this | | ARTERIAL, SURGERY | e | 1:30 PM | | procedure are in the | | | | PST | | results section. | + +--------+ + + + | EXTRA HOLD TUBE(S) | Routin | 06/01/2012 | | Results for this | | | e | 12:45 PM | | procedure are in the | | | | PST | | results section. | + +--------+ + + + | THROMBIN TIME AND | Routin | 06/01/2012 | | Results for this | | FIBRINOGEN | e | 12:45 PM | | procedure are in the | | | | PST | | results section. | + +--------+ + + + | PTT | Routin | 06/01/2012 | | Results for this | | | e | 12:45 PM | | procedure are in the | | | | PST | | results section. | + +--------+ + + + | PROTIME INR | Routin | 06/01/2012 | | Results for this | | | e | 12:45 PM | | procedure are in the | | | | PST | | results section. | + +--------+ + + + | PLATELET COUNT | Routin | 06/01/2012 | | Results for this | | | e | 12:45 PM | | procedure are in the | | | | PST | | results section. | + +--------+ + + + | BLOOD GAS , | Routin | 06/01/2012 | | Results for this | | ARTERIAL, SURGERY | e | 12:31 PM | | procedure are in the | | | | PST | | results section. | + +--------+ + + + | LACTIC ACID, | Routin | 06/01/2012 | | Results for this | | ARTERIAL, SURGERY | e | 11:28 AM | | procedure are in the | | | | PST | | results section. | + +--------+ + + + | CALCIUM, IONIZED, | Routin | 06/01/2012 | | Results for this | | SURGERY | e | 11:28 AM | | procedure are in the | | | | PST | | results section. | + +--------+ + + + | BLOOD GAS PROFILE, | Routin | 06/01/2012 | | Results for this | | ABG, POTASSIUM AND | e | 11:28 AM | | procedure are in the | | GLUCOSE, SURGERY | | PST | | results section. | + +--------+ + + + | LACTIC ACID, | Routin | 06/01/2012 | | Results for this | | ARTERIAL, SURGERY | e | 11:00 AM | | procedure are in the | | | | PST | | results section. | + +--------+ + + + | CALCIUM, IONIZED, | Routin | 06/01/2012 | | Results for this | | SURGERY | e | 11:00 AM | | procedure are in the | | | | PST | | results section. | + +--------+ + + + | BLOOD GAS PROFILE | Routin | 06/01/2012 | | Results for this | | ABG, VBG, POTASSIUM | e | 11:00 AM | | procedure are in the | | AND GLUCOSE, SURGERY | | PST | | results section. | + +--------+ + + + | LACTIC ACID, | Routin | 06/01/2012 | | Results for this | | ARTERIAL, SURGERY | e | 10:31 AM | | procedure are in the | | | | PST | | results section. | + +--------+ + + + | CALCIUM, IONIZED, | Routin | 06/01/2012 | | Results for this | | SURGERY | e | 10:31 AM | | procedure are in the | | | | PST | | results section. | + +--------+ + + + | BLOOD GAS PROFILE, | Routin | 06/01/2012 | | Results for this | | ABG, POTASSIUM AND | e | 10:31 AM | | procedure are in the | | GLUCOSE, SURGERY | | PST | | results section. | + +--------+ + + + | LACTIC ACID, | Routin | 06/01/2012 | | Results for this | | ARTERIAL, SURGERY | e | 10:08 AM | | procedure are in the | | | | PST | | results section. | + +--------+ + + + | CALCIUM, IONIZED, | Routin | 06/01/2012 | | Results for this | | SURGERY | e | 10:08 AM | | procedure are in the | | | | PST | | results section. | + +--------+ + + + | BLOOD GAS PROFILE | Routin | 06/01/2012 | | Results for this | | ABG, VBG, POTASSIUM | e | 10:08 AM | | procedure are in the | | AND GLUCOSE, SURGERY | | PST | | results section. | + +--------+ + + + | HEMOGLOBIN, SURGERY | Routin | 06/01/2012 | | Results for this | | | e | 9:36 AM | | procedure are in the | | | | PST | | results section. | + +--------+ + + + | LACTIC ACID, | Routin | 06/01/2012 | | Results for this | | ARTERIAL, SURGERY | e | 8:13 AM | | procedure are in the | | | | PST | | results section. | + +--------+ + + + | BLOOD GAS , | Routin | 06/01/2012 | | Results for this | | ARTERIAL, SURGERY | e | 8:13 AM | | procedure are in the | | | | PST | | results section. | + +--------+ + + + | POC GLUCOSE | Routin | 06/01/2012 | | Results for this | | | e | 6:21 AM | | procedure are in the | | | | PST | | results section. | + +--------+ + + + | SURGICAL PATHOLOGY | Routin | 06/01/2012 | | Results for this | | EXAM | e | 12:00 AM | | procedure are in the | | | | PST | | results section. | + +--------+ + + + | CULTURE, URINE | Routin | 05/31/2012 | | Results for this | | | e | 2:45 PM | | procedure are in the | | | | PST | | results section. | + +--------+ + + + documented in this encounter Results XR Chest 2 VW (06/05/2012 9:02 AM PST) + + | Specimen | + + | | + + + + + | Narrative | Performed At | + + + | Exam Performed Location: [facility] [place] CHEST | MISCELANIOUS | | TWO VIEWS CLINICAL INFORMATION: Follow up post open heart. | LAB | | COMPARISON: 06/04/2012 FINDINGS: Heart size stable. Small to | | | moderate right pneumothorax. Small left pneumothorax. Bilateral | | | pleural effusions are stable. IMPRESSION: 1. Small to | | | moderate right pneumothorax, decreased in size slightly. 2. Small | | | left pneumothorax, decreased in size slightly. 3. Stable pleural | | | effusions. S: SQ ([id number]) Signed by: JESÚS HU MD | | + + + + + | Procedure Note | + + | [facility] Rad Conversion - 05/16/2013 4:19 AM PDT Exam Performed Location: [facility] | | at [facility] TWO VIEWSCLINICAL INFORMATION:Follow up post open | | heart.COMPARISON:06/04/2012FINDINGS:Heart size stable. Small to moderate right | | pneumothorax. Smallleft pneumothorax. Bilateral pleural effusions are | | stable.IMPRESSION:1. Small to moderate right pneumothorax, decreased in sizeslightly.2. | | Small left pneumothorax, decreased in size slightly.3. Stable pleural effusions.S: SQ | | ([id number]) Signed by: JESÚS HU MD | |COMPARISON: | |06/04/2012 | | | |FINDINGS: | |Heart size stable. Small to moderate right pneumothorax. Small | |left pneumothorax. Bilateral pleural effusions are stable. | | | |IMPRESSION: | | | |1. Small to moderate right pneumothorax, decreased in size | |slightly. | |2. Small left pneumothorax, decreased in size slightly. | |3. Stable pleural effusions. | | | | | |S: SQ ([id number]) Signed by: JESÚS HU MD | + + + +---------+ + + | Performing | Address | City/State/Zipcode | Phone Number | | Organization | | | | + +---------+ + + | MISCELLANEOUS LAB | | | [phone] | + +---------+ + + | MISCELANIOUS LAB | | | [phone] | + +---------+ + + POC Glucose (06/05/2012 8:07 AM PST) + +---------+ + + + | Component | Value | Ref Range | Performed | Pathologist | | | | | At | Signature | + +---------+ + + + | Glucose, | 104 (H) | 65 - 99 mg/dL | [facility] | | | POC | | | [facility] | | | [...] + + | [facility] | [address] | [place] [address] | | | [facility] | | | | | LABORATORY | | | | + + + + + | [facility] | | | | | [facility] | | | | | LAB[facility]ATORY | | | | + + + + + Protime INR (06/05/2012 4:27 AM PST) + + + + + + | Component | Value | Ref Range | Performed | Pathologist | | | | | At | Signature | + + + + + + | Prothrombin | 14.4 | 10.9 - 14.8 sec | [facility] | | | Time | | | [facility] | | | | | | [facility] | | | | | | MEDICAL | | | | | | CENTER | | | | | | LABORATORY | | + + + + + + | INR | 1.2Comment: Usual oral | 0.9 - 1.2 | [facility] | | | | anticoagulant range: 2.0 | | [facility] | | | | to 3.0 High level | | HEART | | | | oral anticoagulant | | MEDICAL | | | | range: 2.5 to 3.5 | | CENTER | | | | | | LABORATORY | | + + + + + + + + | Specimen | + + | | + + + + + + + | Performing | Address | City/State/Zipcode | Phone Number | | Organization | | | | + + + + + | [facility] | [address] | [place] [address] | | | [facility] | | | | | LABORATORY | | | | + + + + + | [facility] | | | | | [facility] | | | | | LABORATORY | | | | + + + + + CBC with Differential (06/05/2012 4:27 AM PST) + + + + + + | Component | Value | Ref Range | Performed | Pathologist | | | | | At | Signature | + + + + + + | White Blood | 8.0 | 3.8 - 11.0 K/uL | [facility] | | | Cells | | | [facility] | | | | | | [facility] | | | | | | MEDICAL | | | | | | CENTER | | | | | | LABORATORY | | + + + + + + | Red Blood | 4.59 | 3.70 - 5.10 | [facility] | | | Cells | | M/uL | [facility] | | | | | | HE[facility] | | | | | | MEDICAL | | | | | | CENTER | | | | | | LABORATORY | | + + + + + + | Hemoglobin | 11.4 | 11.3 - 15.5 | [facility] | | | | | g/dL | [facility] | | | | | | [facility] | | | | | | MEDICAL | | | | | | CENTER | | | | | | LABORATORY | | + + + + + + | Hematocrit | 36.7 | 34.0 - 46.0 % | [facility] | | | | | | [facility] | | | | | | [facility] | | | | | | MEDICAL | | | | | | CENTER | | | | | | LABORATORY | | + + + + + + | MCV | 80.1 | 80.0 - 100.0 fL | [facility] | | | | | | [facility] | | | | | | [facility] | | | | | | [facility] | | | | | | CENTER | | | | | | LABORATORY | | + + + + + + | MCH | 25.0 (L) | 27.0 - 34.0 pg | [facility] | | | | [facility] | | | | | [facility] | | | | | | [facility] | | | | | | CENTER | | | | | | LABORATORY | | + + + + + + | MCHC | 31.1 (L) | 32.0 - 35.5 | [facility] | | | | | g/dL | [facility] | | | | | | [facility] | | | | | | MED[facility] | | | | | | CENTER | | | | | | LABORATORY | | + + + + + + | RDW-CV | 24.5 (H) | 11.0 - 15.5 % | [facility] | | | | [facility] | | | | | | [facility] | | | | | | [facility] | | | | | | CENTER | | | | | | LABORATORY | | + + + + + + | Platelet | 111 (L) | 150 - 400 K/uL | [facility] | | | Count | | | [facility] | | | | | | [facility] | | | | | | MEDICAL | | | | | | CENTER | | | | | | LABORATORY | | + + + + + + | % | 66.4 | 40.0 - 75.0 % | [facility] | | | Neutrophils | | | [facility] | | | | | | HE[facility] | | | | | | MEDICAL | | | | | | CENTER | | | | | | LABORATORY | | + + + + + + | % | 20.2 | 15.0 - 48.0 % | [facility] | | | Lymphocytes | | | [facility] | | | | | | HE[facility] | | | | | | MEDICAL | | | | | | CENTER | | | | | | LABORATORY | | + + + + + + | % Monocytes | 9.2 | 0.0 - 12.0 % | [facility] | | | | | | [facility] | | | | | | [facility] | | | | | | MEDICAL | | | | | | CENTER | | | | | | LABORATORY | | + + + + + + | % | 3.9 | 0.0 - 7.0 % | [facility] | | | Eosinophils | | | [facility] | | | | | | HE[facility] | | | | | | MEDICAL | | | | | | CENTER | | | | | | LABORATORY | | + + + + + + | % Basophils | 0.3 | 0.0 - 2.0 % | [facility] | | | | | | [facility] | | | | | | [facility] | | | | | | MEDICAL | | | | | | CENTER | | | | | | LABORATORY | | + + + + + + | Absolute | 5.30 | 1.90 - 7.40 | [facility] | | | Neutrophils | | K/uL | [facility] | | | | | | HEART | | | | | | MEDICAL | | | | | | CENTER | | | | | | LABORATORY | | + + + + + + | Absolute | 1.61 | 1.00 - 3.90 | [facility] | | | Lymphocytes | | K/uL | [facility] | | | | | | HE[facility] | | | | | | MEDICAL | | | | | | CENTER | | | | | | LABORATORY | | + + + + + + | Absolute | 0.73 | 0.00 - 0.80 | [facility] | | | Monocytes | | K/uL | [facility] | | | | | | HE[facility] | | | | | | MEDICAL | | | | | | CENTER | | | | | | LABORATORY | | + + + + + + | Absolute | 0.31 | 0.00 - 0.50 | [facility] | | | Eosinophils | | K/uL | [facility] | | | | | | HEART | | | | | | MEDICAL | | | | | | CENTER | | | | | | LABORATORY | | + + + + + + | Absolute | 0.02 | 0.00 - 0.10 | [facility] | | | Basophils | | K/uL | [facility] | | | | | | HEART | | | | | | MEDICAL | | | | | | CENTER | | | | | | LABORATORY | | + + + + + + | Differentia | Automated Differential | | [facility] | | | l Type | verified by slide | | [facility] | | | | review. | | HEART | | | | | | MEDICAL | | | | | | CENTER | | | | | | LABORATORY | | + + + + + + | RBC | 2+ | | [facility] | | | Morphology | Comment: | | [facility] | | | | Anisocytosis | | HEART | | | | 1+ | | MEDICAL | | | | Hypochromia | | CENTER | | | | 1+ | | LABORATORY | | | | Target cells | | | | | | 1+ | | | | | | Schistocytes | | | | | | 1+ | | | | | | Ovalocytes | | | | + + + + + + | WBC | Normal | | [facility] | | | Morphology | | | [facility] | | | | | | [facility] | | | | | | MEDICAL | | | | | | CENTER | | | | | | LABORATORY | | + + + + + + | Platelet | Decreased | | [facility] | | | Morphology | | | [facility] | | | [...] + + | [facility] | [address] | [place] [address] | | | [facility] | | | | | LABORATORY | | | | + + + + + | [facility] | | | | | [facility] | | | | | LABORATORY | | | | + + + + + POC Glucose (06/05/2012 3:23 AM PST) + +-------+ + + + | Component | Value | Ref Range | Performed | Pathologist | | | | | At | Signature | + +-------+ + + + | Glucose, | 86 | 65 - 99 mg/dL | [facility] | | | POC | | | [facility] | | | [...] + + | [facility] | [address] | [place] [address] | | | [facility] | | | | | LAB[facility]ATORY | | | | + + + + + | [facility] | | | | | [facility] | | | | | LAB[facility]ATORY | | | | + + + + + POC Glucose (06/04/2012 9:05 PM PST) + +---------+ + + + | Component | Value | Ref Range | Performed | Pathologist | | | | | At | Signature | + +---------+ + + + | Glucose, | 134 (H) | 65 - 99 mg/dL | [facility] | | | POC | | | [facility] | | | [...] + + | [facility] | [address] | [place] [address] | | | [facility] | | | | | LABORATORY | | | | + + + + + | [facility] | | | | | [facility] | | | | | LABORATORY | | | | + + + + + POC Glucose (06/04/2012 5:55 PM PST) + +---------+ + + + | Component | Value | Ref Range | Performed | Pathologist | | | | | At | Signature | + +---------+ + + + | Glucose, | 109 (H) | 65 - 99 mg/dL | [facility] | | | POC | | | [facility] | | | [...] + + | [facility] | [address] | [place] [address] | | | [facility] | | | | | LABORATORY | | | | + + + + + | [facility] | | | | | [facility] | | | | | LAB[facility]ATORY | | | | + + + + + POC Glucose (06/04/2012 1:01 PM PST) + +---------+ + + + | Component | Value | Ref Range | Performed | Pathologist | | | | | At | Signature | + +---------+ + + + | Glucose, | 126 (H) | 65 - 99 mg/dL | [facility] | | | POC | | | [facility] | | | [...] + + | [facility] | [address] | [place] [address] | | | [facility] | | | | | LABORATORY | | | | + + + + + | [facility] | | | | | [facility] | | | | | LABORATORY | | | | + + + + + POC Glucose (06/04/2012 8:37 AM PST) + +---------+ + + + | Component | Value | Ref Range | Performed | Pathologist | | | | | At | Signature | + +---------+ + + + | Glucose, | 138 (H) | 65 - 99 mg/dL | [facility] | | | POC | | | [facility] | | | [...] + + | [facility] | [address] | [place] [address] | | | [facility] | | | | | LABORATORY | | | | + + + + + | [facility] | | | | | [facility] | | | | | LAB[facility]ATORY | | | | + + + + + XR Chest 2 VW (06/04/2012 6:35 AM PST) + + | Specimen | + + | | + + + + + | Narrative | Performed At | + + + | Exam Performed Location: [facility] Addendum | MISCELANIOUS | | Begins DICTATED ON 06/04/2012 7:06:52 AM Correction to the | LAB | | findings section, which should state that the right apical | | | pneumothorax now measures 3.6 cm from the right apical chest wall. | | | This is in comparison to 3.4 cm previously. S: SQ [id number]) | | | Signed by: CASSANDRA DE LA TORRE MD Addendum Ends TWO-VIEW CHEST | | | CLINICAL INFORMATION: Evaluate status post open heart surgery. Follow | | | up pneumothorax and lung opacities. COMPARISON: 06/03/2012 and | | | recent priors. FINDINGS: The right apical pneumothorax is | | | slightly increased in size, now measuring 2.6 cm from the right | | | apical chest wall. This previously measured 3.4 cm. There is a | | | stable small left apical pneumothorax. Bilateral perihilar and | | | lower lobe hazy pulmonary opacities are unchanged. Bilateral | | | pleural effusions are stable. The right IJ central line has been | | | removed. IMPRESSION: 1. Persistent bilateral pneumothoraces, | | | with slightly increased size of the moderate right-sided pneumothorax | | | and with a stable small left pneumothorax. 2. Stable perihilar | | | edema, bilateral pleural effusions and bibasilar atelectasis. | | | S: SQ ([id number]) Signed by: CASSANDRA DE LA TORRE MD | | + + + + + | Procedure Note | + + | Bayron, Rad Conversion - 05/16/2013 3:32 AM PDT Exam Performed Location: [facility] | [facility] BeginsDICTATED ON 06/04/2012 7:06:52 AMCorrection to the | | findings section, which should state that theright apical pneumothorax now measures 3.6 | | cm from the right apicalchest wall. This is in comparison to 3.4 cm previously.S: SQ | | () Signed by: CASSANDRA DE LA TORRE MDAddendum EndsTWO-VIEW CHESTCLINICAL | | INFORMATION:Evaluate status post open heart surgery. Follow up pneumothorax andlung | | opacities.COMPARISON:06/03/2012 and recent priors.FINDINGS:The right apical pneumothorax | | is slightly increased in size, nowmeasuring 2.6 cm from the right apical chest wall. | | This previouslymeasured 3.4 cm. There is a stable small left apical | | pneumothorax.Bilateral perihilar and lower lobe hazy pulmonary opacities areunchanged. | | Bilateral pleural effusions are stable. The right IJcentral line has been | | removed.IMPRESSION:1. Persistent bilateral pneumothoraces, with slightly increasedsize | | of the moderate right-sided pneumothorax and with a stablesmall left pneumothorax.2. | | Stable perihilar edema, bilateral pleural effusions andbibasilar atelectasis.S: SQ | | () Signed by: CASSANDRA DE LA TORRE MD | |Evaluate status post open heart surgery. Follow up pneumothorax and | |lung opacities. | | | |COMPARISON: | |06/03/2012 and recent priors. | | | |FINDINGS: | |The right apical pneumothorax is slightly increased in size, now | |measuring 2.6 cm from the right apical chest wall. This previously | |measured 3.4 cm. There is a stable small left apical pneumothorax. | | | |Bilateral perihilar and lower lobe hazy pulmonary opacities are | |unchanged. Bilateral pleural effusions are stable. The right IJ | |central line has been removed. | | | |IMPRESSION: | |1. Persistent bilateral pneumothoraces, with slightly increased | |size of the moderate right-sided pneumothorax and with a stable | |small left pneumothorax. | |2. Stable perihilar edema, bilateral pleural effusions and | |bibasilar atelectasis. | | | | | |S: SQ () Signed by: CASSANDRA DE LA TORRE MD | + + + +---------+ + + | Performing | Address | City/State/Zipcode | Phone Number | | Organization | | | | + +---------+ + + | [facility] | | | [phone] | + +---------+ + + | [facility] | | | [phone] | + +---------+ + + Protime INR (06/04/2012 3:19 AM PST) + + + + + + | Component | Value | Ref Range | Performed | Pathologist | | | | | At | Signature | + + + + + + | Prothrombin | 15.3 (H) | 10.9 - 14.8 sec | [facility] | | | Time | | | [facility] | | | | | | HEART | | | | | | MEDICAL | | | | | | CENTER | | | | | | LABORATORY | | + + + + + + | INR | 1.2Comment: Usual oral | 0.9 - 1.2 | [facility] | | | | anticoagulant range: 2.0 | | [facility] | | | | to 3.0 High level | | HEART | | | | oral anticoagulant | | MEDICAL | | | | range: 2.5 to 3.5 | | CENTER | | | | | | LABORATORY | | + + + + + + + + | Specimen | + + | | + + + + + + + | Performing | Address | City/State/Zipcode | Phone Number | | Organization | | | | + + + + + | [facility] | [address] | [place] [address] | | | [facility] | | | | | LABORATORY | | | | + + + + + | [facility] | | | | | [facility] | | | | | LABORATORY | | | | + + + + + CBC no Differential (06/04/2012 3:19 AM PST) + + + + + + | Component | Value | Ref Range | Performed | Pathologist | | | | | At | Signature | + + + + + + | White Blood | 10.5 | 3.8 - 11.0 K/uL | [facility] | | | Cells | | | [facility] | | | | | | HEART | | | | | | MEDICAL | | | | | | CENTER | | | | | | LABORATORY | | + + + + + + | Red Blood | 4.97 | 3.70 - 5.10 | [facility] | | | Cells | | M/uL | [facility] | | | | | | HEART | | | | | | MEDICAL | | | | | | CENTER | | | | | | LABORATORY | | + + + + + + | Hemoglobin | 12.6 | 11.3 - 15.5 | [facility] | | | | | g/dL | [facility] | | | | | | HEART | | | | | | MEDICAL | | | | | | CENTER | | | | | | LABORATORY | | + + + + + + | Hematocrit | 40.0 | 34.0 - 46.0 % | [facility] | | | | | | [facility] | | | | | | HEART | | | | | | MEDICAL | | | | | | CENTER | | | | | | LABORATORY | | + + + + + + | MCV | 80.5 | 80.0 - 100.0 fL | [facility] | | | | | | [facility] | | | | | | HEART | | | | | | MEDICAL | | | | | | CENTER | | | | | | LABORATORY | | + + + + + + | MCH | 25.4 (L) | 27.0 - 34.0 pg | [facility] | | | | | | [facility] | | | | | | HEART | | | | | | MEDICAL | | | | | | CENTER | | | | | | LABORATORY | | + + + + + + | MCHC | 31.5 (L) | 32.0 - 35.5 | [facility] | | | | | g/dL | [facility] | | | | | | HEART | | | | | | MEDICAL | | | | | | CENTER | | | | | | LABORATORY | | + + + + + + | RDW-CV | 25.7 (H) | 11.0 - 15.5 % | [facility] | | | | | | [facility] | | | | | | HEART | | | | | | MEDICAL | | | | | | CENTER | | | | | | LABORATORY | | + + + + + + | Platelet | 103 (L) | 150 - 400 K/uL | [...] + | [facility] | [address] | [place] [address] | | | [facility] | | | | | LABORATORY | | | | + + + + + | [facility] | | | | | [facility] | | | | | LABORATORY | | | | + + + + + Basic Metabolic Panel (06/04/2012 3:19 AM PST) + + + + + + | Component | Value | Ref Range | Performed | Pathologist | | | | | At | Signature | + + + + + + | Na | 138 | 135 - 145 | [facility] | | | | | mmol/L | [facility] | | | | | | HEART | | | | | | MEDICAL | | | | | | CENTER | | | | | | LABORATORY | | + + + + + + | K | 4.0 | 3.5 - 5.0 | [facility] | | | | | mmol/L | [facility] | | | | | | HEART | | | | | | MEDICAL | | | | | | CENTER | | | | | | LABORATORY | | + + + + + + | Cl | 105 | 99 - 109 mmol/L | [facility] | | | | | | [facility] | | | | | | HEART | | | | | | MEDICAL | | | | | | CENTER | | | | | | LABORATORY | | + + + + + + | CO2 | 28 | 21 - 28 mmol/L | [facility] | | | | | | [facility] | | | | | | HEART | | | | | | MEDICAL | | | | | | CENTER | | | | | | LABORATORY | | + + + + + + | Glucose | 121 (H)Comment: Djiboutian | 65 - 99 mg/dL | [facility] [...] + + + + | BUN | 15 | 8 - 25 mg/dL | [facility] | | | | | | [facility] | | | | | | HEART | | | | | | MEDICAL | | | | | | CENTER | | | | | | LABORATORY | | + + + + + + | Creatinine | 0.50Comment: IDMS | 0.50 - 1.00 | [facility] | | | | traceable creatinine | mg/dL | [facility] | | | | | | HEART | | | | | | MEDICAL | | | | | | CENTER | | | | | | LABORATORY | | + + + + + + | Calcium | 8.8 | 8.5 - 10.2 | [facility] | [...] + + + + + | [facility] | [address] | [place] [address] | | | [facility] | | | | | LABORATORY | | | | + + + + + | [facility] | | | | | [facility] | | | | | LABORATORY | | | | + + + + + POC Glucose (06/03/2012 8:43 PM PST) + +---------+ + + + | Component | Value | Ref Range | Performed | Pathologist | | | | | At | Signature | + +---------+ + + + | Glucose, | 184 (H) | 65 - 99 mg/dL | [facility] | | | POC | | | SACR[facility] | | | [...] + | [facility] | [address] | [place] [address] | | | [facility] | | | | | LABORATORY | | | | + + + + + | [facility] | | | | | [facility] | | | | | LABORATORY | | | | + + + + + POC Glucose (06/03/2012 5:51 PM PST) + +---------+ + + + | Component | Value | Ref Range | Performed | Pathologist | | | | | At | Signature | + +---------+ + + + | Glucose, | 142 (H) | 65 - 99 mg/dL | [facility] | | | POC | | | [facility]CR[facility] | | | [...] + + | [facility] | [address] | [place] [address] | | | [facility] [place] | | | | | LABORATORY | | | | + + + + + | [facility] | | | | | [facility] | | | | | LABORATORY | | | | + + + + + POC Glucose (06/03/2012 1:13 PM PST) + +---------+ + + + | Component | Value | Ref Range | Performed | Pathologist | | | | | At | Signature | + +---------+ + + + | Glucose, | 113 (H) | 65 - 99 mg/dL | [facility] | | | POC | | | SACR[facility] | | | [...] + | [facility] | [address] | [place] [address] | | | [facility] | | | | | LABORATORY | | | | + + + + + | [facility] | | | | | [facility] | | | | | LABORATORY | | | | + + + + + POC Glucose (06/03/2012 8:12 AM PST) + +---------+ + + + | Component | Value | Ref Range | Performed | Pathologist | | | | | At | Signature | + +---------+ + + + | Glucose, | 237 (H) | 65 - 99 mg/dL | [facility] | | | POC | | | [facility]CR[facility] | | | [...] + + | [facility] | [address] | [place] [address] | | | [facility] [place] | | | | | LABORATORY | | | | + + + + + | [facility] | | | | | [facility] | | | | | LABORATORY | | | | + + + + + XR Chest PA or AP (06/03/2012 3:42 AM PST) + + | Specimen | + + | | + + + + + | Narrative | Performed At | + + + | Exam Performed Location: [facility] AP | MISCELANIOUS | | PORTABLE SEMI ERECT CHEST CLINICAL INFORMATION: Post open heart | LAB | | surgery. COMPARISON: Studies obtained over the past 3 days. | | | FINDINGS: Bilateral pneumothoraces have increased in volume since the | | | prior examination, small to moderate in volume and slightly larger | | | on the right. Increase in diffuse hazy opacity in the lower | | | lobes, greater on the left. Right jugular venous catheter | | | terminating at the superior vena caval atrial junction. Some | | | kinking of the tubing at the insertion site. IMPRESSION: 1. | | | Enlarging bilateral pneumothoraces, small to moderate in volume and | | | slightly larger on the right. 2. Increased hazy opacity throughout | | | the lower chest representing some combination of atelectasis, | | | infiltrate, and/or pleural fluid. S: SQ ([id number]) Signed by: | | | SU AREVALO MD | | + + + + + | Procedure Note | + + | Bayron, Rad Conversion - 05/16/2013 4:10 AM PDT Exam Performed Location: [facility] | | at [facility] PORTABLE SEMI ERECT CHESTCLINICAL INFORMATION:Post open heart | | surgery.COMPARISON:Studies obtained over the past 3 days.FINDINGS:Bilateral | | pneumothoraces have increased in volume since the priorexamination, small to moderate in | | volume and slightly larger on theright.Increase in diffuse hazy opacity in the lower | | lobes, greater on theleft.Right jugular venous catheter terminating at the superior | | venacaval atrial junction. Some kinking of the tubing at the | | insertionsite.IMPRESSION:1. Enlarging bilateral pneumothoraces, small to moderate in | | volumeand slightly larger on the right.2. Increased hazy opacity throughout the lower | | chest representingsome combination of atelectasis, infiltrate, and/or pleural fluid.S: | | SQ ([id number]) Signed by: SU AREVALO MD | |Bilateral pneumothoraces have increased in volume since the prior | |examination, small to moderate in volume and slightly larger on the | |right. | | | |Increase in diffuse hazy opacity in the lower lobes, greater on the | |left. | | | |Right jugular venous catheter terminating at the superior vena | |caval atrial junction. Some kinking of the tubing at the insertion | |site. | | | |IMPRESSION: | | | |1. Enlarging bilateral pneumothoraces, small to moderate in volume | |and slightly larger on the right. | |2. Increased hazy opacity throughout the lower chest representing | |some combination of atelectasis, infiltrate, and/or pleural fluid. | | | | | |S: SQ ([id number]) Signed by: SU AREVALO MD | + + + +---------+ + + | Performing | Address | City/State/Zipcode | Phone Number | | Organization | | | | + +---------+ + + | [facility] | | | [phone] | + +---------+ + + | [facility] | | | [phone] | + +---------+ + + Basic Metabolic Panel (06/03/2012 3:18 AM PST) + + + + + + [...] + + + + | K | 3.9 | 3.5 - 5.0 | [facility] | | | | | mmol/L | [facility] | | | | | | HEART | | | | | | MEDICAL | | | | | | CENTER | | | | | | LABORATORY | | + + + + + + | Cl | 107 | 99 - 109 mmol/L | [facility] | | | | | | [facility] | | | | | | HEART | | | | | | MEDICAL | | | | | | CENTER | | | | | | LABORATORY | | + + + + + + | CO2 | 33 (H) | 21 - 28 mmol/L | [facility] | | | | | | [facility] | | | | | | HEART | | | | | | MEDICAL | | | | | | CENTER | | | | | | LABORATORY | | + + + + + + | Glucose | 131 (H)Comment: Djiboutian | 65 - 99 mg/dL | [facility] [...] + + + + | BUN | 13 | 8 - 25 mg/dL | [facility] | | | | | | [facility] | | | | | | HEART | | | | | | MEDICAL | | | | | | CENTER | | | | | | LABORATORY | | + + + + + + | Creatinine | 0.57Comment: IDMS | 0.50 - 1.00 | [facility] | | | | traceable creatinine | mg/dL | [facility] | | | | | | HEART | | | | | | MEDICAL | | | | | | CENTER | | | | | | LABORATORY | | + + + + + + | Calcium | 8.9 | 8.5 - 10.2 | [facility] | | | | | mg/dL | [facility] | | | | | | HEART | | | | | | MEDICAL | | | | | | CENTER | | | | | | LABORATORY | | + + + + + + | Anion Gap | 2 (L)Comment: Verified | 5 - 16 mmol/L | [facility] | | | | by repeat analysis. | | [facility] | | | | [...] + + | [facility] | [address] | [place] [address] | | | [facility] | | | | | LABORATORY | | | | + + + + + | [facility] | | | | | [facility] | | | | | LABORATORY | | | | + + + + + Jose Luis ABREU (06/03/2012 3:15 AM PST) + + + + + + | Component | Value | Ref Range | Performed | Pathologist | | | | | At | Signature | + + + + + + | Prothrombin | 17.4 (H) | 10.9 - 14.8 sec | [facility] | | | Time | | | [facility] | | | | | | HEART | | | | | | MEDICAL | | | | | | CENTER | | | | | | LABORATORY | | + + + + + + | INR | 1.5 (H)Comment: Usual | 0.9 - 1.2 | [...] + + | [facility] | [address] | [place] [address] | | | [facility] | | | | | LABORATORY | | | | + + + + + | [facility] | | | | | [facility] | | | | | LABORATORY | | | | + + + + + POC Glucose (06/03/2012 2:00 AM PST) + +---------+ + + + | Component | Value | Ref Range | Performed | Pathologist | | | | | At | Signature | + +---------+ + + + | Glucose, | 133 (H) | 65 - 99 mg/dL | [facility] | | | POC | | | [facility] | | | [...] + | [facility] | [address] | [place] [address] | | | [facility] | | | | | LABORATORY | | | | + + + + + | [facility] | | | | | [facility] | | | | | LABORATORY | | | | + + + + + Potassium (06/02/2012 8:34 PM PST) + +-------+ + + + | Component | Value | Ref Range | Performed | Pathologist | | | | | At | Signature | + +-------+ + + + | K | 4.0 | 3.5 - 5.0 | [facility] | [...] + + | [facility] | [address] | [place] [address] | | | [facility] | | | | | LABORATORY | | | | + + + + + | [facility] | | | | | [facility] | | | | | LABORATORY | | | | + + + + + Glucose, Fasting (06/02/2012 8:34 PM PST) + + + + + + | Component | Value | Ref Range | Performed | Pathologist | | | | | At | Signature | + + + + + + | Glucose | 149 (H)Comment: Djiboutian | 65 - 99 mg/dL | [facility] | | | | Diabetes Association | | [facility] | | | | diagnostic categories | | HEART | | | | for non adults: | | MEDICAL | | | | Impaired fasting | CENTER | | | | glucose [...] + + | [facility] | [address] | [place] [address] | | | [facility] | | | | | LABORATORY | | | | + + + + + | [facility] | | | | | [facility] | | | | | LABORATORY | | | | + + + + + POC Glucose (06/02/2012 6:00 PM PST) + +---------+ + + + | Component | Value | Ref Range | Performed | Pathologist | | | | | At | Signature | + +---------+ + + + | Glucose, | 223 (H) | 65 - 99 mg/dL | [facility] | | | POC | | | [facility] | | | [...] + | [facility] | [address] | [place] [address] | | | [facility] | | | | | LABORATORY | | | | + + + + + | [facility] | | | | | [facility] | | | | | LABORATORY | | | | + + + + + POC Glucose (06/02/2012 2:01 PM PST) + +---------+ + + + | Component | Value | Ref Range | Performed | Pathologist | | | | | At | Signature | + +---------+ + + + | Glucose, | 140 (H) | 65 - 99 mg/dL | [facility] | | | POC | | | [facility] | | | [...] + + + + + | [facility] | [address] | [place] [address] | | | [facility] | | | | | LABORATORY | | | | + + + + + | [facility] | | | | | [facility] | | | | | LABORATORY | | | | + + + + + POC Glucose (06/02/2012 8:31 AM PST) + +---------+ + + + | Component | Value | Ref Range | Performed | Pathologist | | | | | At | Signature | + +---------+ + + + | Glucose, | 164 (H) | 65 - 99 mg/dL | [facility] | | | POC | | | [facility] | | | [...] + | [facility] | [address] | [place] [address] | | | [facility] | | | | | LABORATORY | | | | + + + + + | [facility] | | | | | [facility] | | | | | LABORATORY | | | | + + + + + POC Glucose (06/02/2012 6:44 AM PST) + +-------+ + + + | Component | Value | Ref Range | Performed | Pathologist | | | | | At | Signature | + +-------+ + + + | Glucose, | 96 | 65 - 99 mg/dL | [facility] | | | POC | | | [facility] | | | [...] | + + + + + | [facility] | [address] | [place] [address] | | | [facility] | | | | | LABORATORY | | | | + + + + + | [facility] | | | | | [facility] | | | | | LABORATORY | | | | + + + + + POC Glucose (06/02/2012 4:54 AM PST) + +-------+ + + + | Component | Value | Ref Range | Performed | Pathologist | | | | | At | Signature | + +-------+ + + + | Glucose, | 97 | 65 - 99 mg/dL | [facility] | | | POC | | | [facility] | | | [...] + + | [facility] | [address] | [place] [address] | | | [facility] | | | | | LABORATORY | | | | + + + + + | [facility] | | | | | [facility] | | | | | LABORATORY | | | | + + + + + XR Chest PA or AP (06/02/2012 3:55 AM PST) + + | Specimen | + + | | + + + + + | Narrative | Performed At | + + + | Exam Performed Location: [facility] | MISCELANIOUS | | PORTABLE SUPINE CHEST CLINICAL INFORMATION: Post open heart | LAB | | surgery. Chest tube. COMPARISON: Yesterday FINDINGS: The | | | patient has been extubated and an NG tube withdrawn. Right jugular | | | venous catheter and stable at the superior vena caval atrial | | | junction. Bilateral chest tubes in place. Biapical | | | pneumothoraces persist, increasing on the right and stable on the | | | left. Mild hazy opacity in the bases representing some combination | | | of atelectasis, infiltrate, and/or pleural fluid. IMPRESSION: | | | 1. Support lines and tubes, as detailed above. 2. Small | | | biapical pneumothoraces, increased in volume on the right and stable | | | on the left. 3. Mild hazy opacity in the lower chest representing | | | some combination of atelectasis, infiltrate, and/or pleural fluid. | | | S: SQ ([id number]) Signed by: SU AREVALO MD | | + + + + + | Procedure Note | + + | Bayron, Rad Conversion - 05/16/2013 4:32 AM PDT Exam Performed Location: [facility] | | at [facility] PORTABLE SUPINE CHESTCLINICAL INFORMATION:Post open heart surgery. | | Chest tube.COMPARISON:YesterdayFINDINGS:The patient has been extubated and an NG tube | | withdrawn. Rightjugular venous catheter and stable at the superior vena cavalatrial | | junction. Bilateral chest tubes in place.Biapical pneumothoraces persist, increasing on | | the right and stableon the left.Mild hazy opacity in the bases representing some | | combination ofatelectasis, infiltrate, and/or pleural fluid.IMPRESSION:1. Support lines | | and tubes, as detailed above.2. Small biapical pneumothoraces, increased in volume on | | the rightand stable on the left.3. Mild hazy opacity in the lower chest representing | | somecombination of atelectasis, infiltrate, and/or pleural fluid.S: SQ ([id number]) Signed | | by: SU AREVALO MD | |The patient has been extubated and an NG tube withdrawn. Right | |jugular venous catheter and stable at the superior vena caval | |atrial junction. Bilateral chest tubes in place. | | | |Biapical pneumothoraces persist, increasing on the right and stable | |on the left. | | | |Mild hazy opacity in the bases representing some combination of | |atelectasis, infiltrate, and/or pleural fluid. | | | |IMPRESSION: | | | |1. Support lines and tubes, as detailed above. | |2. Small biapical pneumothoraces, increased in volume on the right | |and stable on the left. | |3. Mild hazy opacity in the lower chest representing some | |combination of atelectasis, infiltrate, and/or pleural fluid. | | | | | |S: SQ ([id number]) Signed by: SU AREVALO MD | + + + +---------+ + + | Performing | Address | City/State/Zipcode | Phone Number | | Organization | | | | + +---------+ + + | [facility] | | | [phone] | + +---------+ + + | [facility] | | | [phone] | + +---------+ + + CBC no Differential (06/02/2012 3:21 AM PST) + + + + + + | Component | Value | Ref Range | Performed | Pathologist | | | | | At | Signature | + + + + + + | White Blood | 11.7 (H) | 3.8 - 11.0 K/uL | [facility] | | | Cells | | | [facility] | | | | | [facility] | | | | | | [facility] | | | | | | [facility] | | | | | | LABORATORY | | + + + + + + | Red Blood | 4.50 | 3.70 - 5.10 | [facility] | | | Cells | | M/uL | [facility] | | | | | | [facility] | | | | | | MED[facility] | | | | | | CENTER | | | | | | LABORATORY | | + + + + + + | Hemoglobin | 11.5 | 11.3 - 15.5 | [facility] | | | | | g/dL | [facility] | | | | | | [facility] | | | | | | [facility] | | | | | | CENTER | | | | | | LABORATORY | | + + + + + + | Hematocrit | 36.3 | 34.0 - 46.0 % | [facility] | | | | | | [facility] | | | | | | [facility] | | | | | | [facility] | | | | | | [facility]ENTER | | | | | | LABORATORY | | + + + + + + | MCV | 80.7 | 80.0 - 100.0 fL | [facility] | | | | | | [facility] | | | | | | [facility] | | | | | | [facility] | | | | | | [facility]ENTER | | | | | | LABORATORY | | + + + + + + | MCH | 25.6 (L) | 27.0 - 34.0 pg | [...] + + + + | RDW-CV | 25.5 (H) | 11.0 - 15.5 % | [facility] | | | | | [facility] | | | | | [facility] | | | | | | [facility] | | | | | | [facility]ENTER | | | | | | LABORATORY | | + + + + + + | Platelet | 92 (L) | 150 - 400 K/uL | [...] + + | [facility] | [address] | [place] [address] | | | [facility] | | | | | LAB[facility]ATORY | | | | + + + + + | [facility] | | | | | [facility] | | | | | [facility]ORY | | | | + + + + + Basic Metabolic Panel (06/02/2012 3:21 AM PST) + + + + + + | Component | Value | Ref Range | Performed | Pathologist | | | | | At | Signature | + + + + + + | Na | 148 (H) | 135 - 145 | [facility] | | | | | mmol/L | [facility] | | | | | | [facility] | | | | | | [facility] | | | | | | CENTER | | | | | | LABORATORY | | + + + + + + | K | 3.9 | 3.5 - 5.0 | [facility] | | | | | mmol/L | [facility] | | | | | | [facility] | | | | | | [facility] | | | | | | CENTER | | | | | | LABORATORY | | + + + + + + | Cl | 114 (H) | 99 - 109 mmol/L | [facility] [...] + + + + | Glucose | 77Comment: Djib[place]ian | 65 - 99 mg/dL | [facility] | | | | Diabetes Association | [...] + + + + | BUN | 16 | 8 - 25 mg/dL | [facility] | | | | | [facility] | | | | | | [facility] | | | | | | [facility] | | | | | | CENTER | | | | | | LABORATORY | | + + + + + + | Creatinine | 0.77Comment: IDMS | 0.50 - 1.00 | [facility] | | | | traceable creatinine | mg/dL | [facility] | | | | | | [facility] | | | | | | MEDICAL | | | | | | CENTER | | | | | | LABORATORY | | + + + + + + | Calcium | 9.0 | 8.5 - 10.2 | [facility] | | | | | mg/dL | [facility] | | | | | | [facility] | | | | | | MED[facility] | | | | | | CENTER | | | | | | LABORATORY | | + + + + + + | Anion Gap | 3 (L) | 5 - 16 mmol/L | [facility] [...] + + + + + | [facility] | [address] | [place] [address] | | | [facility] | | | | | LABORATORY | | | | + + + + + | [facility] | | | | | [facility] | | | | | LABORATORY | | | | + + + + + POC Glucose (06/02/2012 3:05 AM PST) + +-------+ + + + | Component | Value | Ref Range | Performed | Pathologist | | | | | At | Signature | + +-------+ + + + | Glucose, | 88 | 65 - 99 mg/dL | [facility] | | | POC | | | [facility] | | | [...] + | [facility] | [address] | [place] [address] | | | [facility] | | | | | LABORATORY | | | | + + + + + | [facility] | | | | | [facility] | | | | | LAB[facility]ATORY | | | | + + + + + POC Glucose (06/02/2012 2:13 AM PST) + +-------+ + + + | Component | Value | Ref Range | Performed | Pathologist | | | | | At | Signature | + +-------+ + + + | Glucose, | 86 | 65 - 99 mg/dL | [facility] | | | POC | | | [facility] | | | [...] + + + | [facility] | [address] | [place] [address] | | | [facility] | | | | | LABORATORY | | | | + + + + + | [facility] | | | | | [facility] | | | | | LAB[facility]ATORY | | | | + + + + + POC Glucose (06/02/2012 12:04 AM PST) + +---------+ + + + | Component | Value | Ref Range | Performed | Pathologist | | | | | At | Signature | + +---------+ + + + | Glucose, | 117 (H) | 65 - 99 mg/dL | [facility] | | | POC | | | [facility] | | | [...] + + | [facility] | [address] | [place] [address] | | | [facility] | | | | | LABORATORY | | | | + + + + + | [facility] | | | | | [facility] | | | | | LABORATORY | | | | + + + + + POC Glucose (06/01/2012 11:07 PM PST) + +---------+ + + + | Component | Value | Ref Range | Performed | Pathologist | | | | | At | Signature | + +---------+ + + + | Glucose, | 122 (H) | 65 - 99 mg/dL | [facility] | | | POC | | | [facility] | | | [...] + + | [facility] | [address] | [place] [address] | | | [facility] | | | | | LABORATORY | | | | + + + + + | [facility] | | | | | [facility] | | | | | LABORATORY | | | | + + + + + POC Glucose (06/01/2012 9:57 PM PST) + +---------+ + + + | Component | Value | Ref Range | Performed | Pathologist | | | | | At | Signature | + +---------+ + + + | Glucose, | 103 (H) | 65 - 99 mg/dL | [facility] | | | POC | | | [facility] | | | [...] + | [facility] | [address] | [place] [address] | | | [facility] | | | | | LABORATORY | | | | + + + + + | [facility] | | | | | [facility] | | | | | LABORATORY | | | | + + + + + POC Glucose (06/01/2012 9:26 PM PST) + +-------+ + + + | Component | Value | Ref Range | Performed | Pathologist | | | | | At | Signature | + +-------+ + + + | Glucose, | 91 | 65 - 99 mg/dL | [facility] | | | POC | | | [facility] | | | [...] + + + + + | [facility] | [address] | [place] [address] | | | [facility] | | | | | LABORATORY | | | | + + + + + | [facility] | | | | | [facility] | | | | | LABORATORY | | | | + + + + + Potassium (06/01/2012 8:26 PM PST) + +-------+ + + + | Component | Value | Ref Range | Performed | Pathologist | | | | | At | Signature | + +-------+ + + + | K | 4.1 | 3.5 - 5.0 | [facility] | [...] + + | [facility] | [address] | [place] [address] | | | [facility] | | | | | LABORATORY | | | | + + + + + | [facility] | | | | | [facility] | | | | | LABORATORY | | | | + + + + + Glucose, Respiratory (06/01/2012 8:25 PM PST) + +-------+ + + + | Component | Value | Ref Range | Performed | Pathologist | | | | | At | Signature | + +-------+ + + + | Glucose | 89 | 65 - 99 mg/dL | [facility] [...] + + | [facility] | [address] | [place] [address] | | | [facility] | | | | | LABORATORY | | | | + + + + + | [facility] | | | | | [facility] | | | | | LABORATORY | | | | + + + + + Blood Gas, Arterial (06/01/2012 8:25 PM PST) + + + + + + | Component | Value | Ref Range | Performed | Pathologist | | | | | At | Signature | + + + + + + | pH, | 7.39 | 7.37 - 7.47 | [facility] | | | Arterial | | | [facility] | | | | | | HEART | | | | | | MEDICAL | | | | | | CENTER | | | | | | LABORATORY | | + + + + + + | pCO2, | 48 (H) | 32 - 43 mm Hg | [facility] | | | Arterial | | | [facility] | | | | | | HEART | | | | | | MEDICAL | | | | | | CENTER | | | | | | LABORATORY | | + + + + + + | pO2, | 98 (H) | 65 - 80 mm Hg | [facility] | | | Arterial | | | [facility] | | | | | | HEART | | | | | | MEDICAL | | | | | | CENTER | | | | | | LABORATORY | | + + + + + + | Oxygen | 15.6 | 15 - 23 Vol % | [facility] | | | Content, | | | [facility] | | | Arterial | | | HEART | | | | | | MEDICAL | | | | | | CENTER | | | | | | LABORATORY | | + + + + + + | O2 | 95.2 | 92.0 - 99.9 % | [facility] | | | Saturation, | | | [facility] | | | Arterial | | | HEART | | | | | | MEDICAL | | | | | | CENTER | | | | | | LABORATORY | | + + + + + + | HCO3, | 28.7 (H) | 23.0 - 28.0 | [facility] | | | Arterial | | mmol/L | [facility] | | | | | | HEART | | | | | | MEDICAL | | | | | | CENTER | | | | | | LABORATORY | | + + + + + + | Base | 3.7 (H) | 0.0 - 2.5 | [facility] | | | Excess, | | mmol/L | [facility] | | | Arterial | | | HEART | | | | | | MEDICAL | | | | | | CENTER | | | | | | LABORATORY | | + + + + + + | Hgb, Blood | 11.5 | 11.3 - 15.5 | [facility] | | | Gas | | g/dL | [facility] | | | | | | HEART | | | | | | MEDICAL | | | | | | CENTER | | | | | | LABORATORY | | + + + + + + | Carboxyhemo | 2.5 | 1.0 - 3.0 % | [facility] | | | globin | | | [facility] | | | | | | HEART | | | | | | MEDICAL | | | | | | CENTER | | | | | | LABORATORY | | + + + + + + | Methemoglob | 0.4 | 0.4 - 1.5 % | [facility] | | | in, Venous | | | [facility] | | | | | | HEART | | | | | | MEDICAL | | | | | | CENTER | | | | | | LABORATORY | | + + + + + + | L/min of O2 | 40% | % | [facility] | | | | | | [facility] | | | | | | HE[facility] | | | | | | MEDICAL | | | | | | CENTER | | | | | | LABORATORY | | + + + + + + | Additional | CPAP 5/8 [id number]% | | [facility] | | | Information | | | [facility] | | | [...] + + | [facility] | [address] | [place] [address] | | | [facility] | | | | | LABORATORY | | | | + + + + + | [facility] | | | | | [facility] | | | | | LAB[facility]ATORY | | | | + + + + + CBC no Differential (06/01/2012 8:25 PM PST) + + + + + + | Component | Value | Ref Range | Performed | Pathologist | | | | | At | Signature | + + + + + + | White Blood | 10.8 | 3.8 - 11.0 K/uL | [facility] | | | Cells | | | [facility] | | | | | | HEART | | | | | | MEDICAL | | | | | | CENTER | | | | | | LABORATORY | | + + + + + + | Red Blood | 4.55 | 3.70 - 5.10 | [facility] | | | Cells | | M/uL | [facility] | | | | | | HEART | | | | | | MEDICAL | | | | | | CENTER | | | | | | LABORATORY | | + + + + + + | Hemoglobin | 11.7 | 11.3 - 15.5 | [facility] | | | | | g/dL | [facility] | | | | | | HEART | | | | | | MEDICAL | | | | | | CENTER | | | | | | LABORATORY | | + + + + + + | Hematocrit | 36.8 | 34.0 - 46.0 % | [facility] | | | | | | [facility] | | | | | | [facility] | | | | | | MEDICAL | | | | | | CENTER | | | | | | LABORATORY | | + + + + + + | MCV | 81.0 | 80.0 - 100.0 fL | [facility] | | | | | | [facility] | | | | | | HE[facility] | | | | | | MEDICAL | | | | | | CENTER | | | | | | LABORATORY | | + + + + + + | MCH | 25.7 (L) | 27.0 - 34.0 pg | [...] + + + + | RDW-CV | 25.5 (H) | 11.0 - 15.5 % | [facility] | | | | | | [facility] | | | | | | [facility] | | | | | | MEDICAL | | | | | | CENTER | | | | | | LABORATORY | | + + + + + + | Platelet | 87 (L) | 150 - 400 K/uL | [...] + + | [facility] | [address] | [place] [address] | | | [facility] | | | | | LABORATORY | | | | + + + + + | [facility] | | | | | [facility] | | | | | LAB[facility]ATORY | | | | + + + + + POC Glucose (06/01/2012 7:47 PM PST) + +-------+ + + + | Component | Value | Ref Range | Performed | Pathologist | | | | | At | Signature | + +-------+ + + + | Glucose, | 84 | 65 - 99 mg/dL | [facility] | | | POC | | | [facility] | | | [...] + + | [facility] | [address] | [place] [address] | | | [facility] | | | | | LABORATORY | | | | + + + + + | [facility] | | | | | [facility] | | | | | LABORATORY | | | | + + + + + POC Glucose (06/01/2012 5:50 PM PST) + +---------+ + + + | Component | Value | Ref Range | Performed | Pathologist | | | | | At | Signature | + +---------+ + + + | Glucose, | 131 (H) | 65 - 99 mg/dL | [facility] | | | POC | | | [facility] | | | [...] + + | [facility] | [address] | [place] [address] | | | [facility] | | | | | LABORATORY | | | | + + + + + | [facility] | | | | | [facility] | | | | | LABORATORY | | | | + + + + + POC Glucose (06/01/2012 4:56 PM PST) + +---------+ + + + | Component | Value | Ref Range | Performed | Pathologist | | | | | At | Signature | + +---------+ + + + | Glucose, | 150 (H) | 65 - 99 mg/dL | [facility] | | | POC | | | [facility] | | | [...] + + + | [facility] | [address] | [place] [address] | | | [facility] | | | | | LABORATORY | | | | + + + + + | [facility] | | | | | [facility] | | | | | LABORATORY | | | | + + + + + POC Glucose (06/01/2012 3:57 PM PST) + +---------+ + + + | Component | Value | Ref Range | Performed | Pathologist | | | | | At | Signature | + +---------+ + + + | Glucose, | 142 (H) | 65 - 99 mg/dL | [facility] | | | POC | | | [facility] | | | [...] + + | [facility] | [address] | [place] [address] | | | [facility] | | | | | LABORATORY | | | | + + + + + | [facility] | | | | | [facility] | | | | | LABORATORY | | | | + + + + + CBC no Differential (06/01/2012 2:13 PM PST) + + + + + + | Component | Value | Ref Range | Performed | Pathologist | | | | | At | Signature | + + + + + + | White Blood | 8.0 | 3.8 - 11.0 K/uL | [facility] | | | Cells | | | [facility] | | | | | | [facility] | | | | | | MEDICAL | | | | | | CENTER | | | | | | LABORATORY | | + + + + + + | Red Blood | 4.44 | 3.70 - 5.10 | [facility] | | | Cells | | M/uL | [facility] | | | | | | HEART | | | | | | MEDICAL | | | | | | CENTER | | | | | | LABORATORY | | + + + + + + | Hemoglobin | 11.3 | 11.3 - 15.5 | [facility] | | | | | g/dL | [facility] | | | | | | HE[facility] | | | | | | MEDICAL | | | | | | CENTER | | | | | | LABORATORY | | + + + + + + | Hematocrit | 35.7 | 34.0 - 46.0 % | [facility] | | | | | | [facility] | | | | | | [facility] | | | | | | MEDICAL | | | | | | CENTER | | | | | | LABORATORY | | + + + + + + | MCV | 80.4 | 80.0 - 100.0 fL | [facility] | | | | | | [facility] | | | | | | HE[facility] | | | | | | MEDICAL | | | | | | CENTER | | | | | | LABORATORY | | + + + + + + | MCH | 25.5 (L) | 27.0 - 34.0 pg | [...] + + + + | RDW-CV | 25.4 (H) | 11.0 - 15.5 % | [facility] | | | | | | [facility] | | | | | | [facility] | | | | | | MEDICAL | | | | | | CENTER | | | | | | LABORATORY | | + + + + + + | Platelet | 107 (L) | 150 - 400 K/uL | [...] + + | [facility] | [address] | [place] [address] | | | [facility] | | | | | LABORATORY | | | | + + + + + | [facility] | | | | | [facility] | | | | | LABORATORY | | | | + + + + + CAIN Carmichael (06/01/2012 2:05 PM PST) + +-------+ + + + | Component | Value | Ref Range | Performed | Pathologist | | | | | At | Signature | + +-------+ + + + | K | 3.7 | 3.5 - 5.0 | [facility] | | | | | mmol/L | [...] + + | [facility] | [address] | [place] [address] | | | [facility] | | | | | LABORATORY | | | | + + + + + | [facility] | | | | | [facility] | | | | | LAB[facility]ATORY | | | | + + + + + Glucose, Respiratory (06/01/2012 2:05 PM PST) + +---------+ + + + | Component | Value | Ref Range | Performed | Pathologist | | | | | At | Signature | + +---------+ + + + | Glucose | 123 (H) | 65 - 99 mg/dL | [facility] [...] + + | [facility] | [address] | [place] [address] | | | [facility] | | | | | LABORATORY | | | | + + + + + | [facility] | | | | | [facility] | | | | | LAB[facility]ATORY | | | | + + + + + Blood Gas, Arterial (06/01/2012 2:05 PM PST) + + + + + + | Component | Value | Ref Range | Performed | Pathologist | | | | | At | Signature | + + + + + + | pH, | 7.37 | 7.37 - 7.47 | [facility] | | | Arterial | | | [facility] | | | | | | HEART | | | | | | MEDICAL | | | | | | CENTER | | | | | | LABORATORY | | + + + + + + | pCO2, | 44 (H) | 32 - 43 mm Hg | [facility] | | | Arterial | | | [facility] | | | | | | HEART | | | | | | MEDICAL | | | | | | CENTER | | | | | | LABORATORY | | + + + + + + | pO2, | 121 (H) | 65 - 80 mm Hg | [facility] | | | Arterial | | | [facility] | | | | | | HEART | | | | | | MEDICAL | | | | | | CENTER | | | | | | LABORATORY | | + + + + + + | Oxygen | 15.5 | 15 - 23 Vol % | [facility] | | | Content, | | | [facility] | | | Arterial | | | HEART | | | | | | MEDICAL | | | | | | CENTER | | | | | | LABORATORY | | + + + + + + | O2 | 96.3 | 92.0 - 99.9 % | [facility] | | | Saturation, | | | [facility] | | | Arterial | | | HEART | | | | | | MEDICAL | | | | | | CENTER | | | | | | LABORATORY | | + + + + + + | HCO3, | 24.7 | 23.0 - 28.0 | [facility] | | | Arterial | | mmol/L | [facility] | | | | | | HEART | | | | | | MEDICAL | | | | | | CENTER | | | | | | LABORATORY | | + + + + + + | Base | 0.2 | 0.0 - 2.5 | [facility] | | | deficit | | mmol/L | [facility] | | | | | | HEART | | | | | | MEDICAL | | | | | | CENTER | | | | | | LABORATORY | | + + + + + + | Hgb, Blood | 11.3 | 11.3 - 15.5 | [facility] | | | Gas | | g/dL | [facility] | | | | | | HEART | | | | | | MEDICAL | | | | | | CENTER | | | | | | LABORATORY | | + + + + + + | Carboxyhemo | 2.6 | 1.0 - 3.0 % | [facility] | | | globin | | | [facility] | | | | | | HEART | | | | | | MEDICAL | | | | | | CENTER | | | | | | LABORATORY | | + + + + + + | Methemoglob | 0.1 (L) | 0.4 - 1.5 % | [facility] | | | in, Venous | | | [facility] | | | | | | HEART | | | | | | MEDICAL | | | | | | CENTER | | | | | | LABORATORY | | + + + + + + | L/min of O2 | 60% | % | [facility] | | | | | | [facility] | | | | | | HEART | | | | | | MEDICAL | | | | | | CENTER | | | | | | LABORATORY | | + + + + + + | Additional | SIMV 12, VT 450, P5, PS | | [facility] | | | Information | 8, OXIM 100 | | [facility] | | | | [...] + + | [facility] | [address] | [place] [address] | | | [facility] | | | | | LABORATORY | | | | + + + + + | [facility] | | | | | [facility] | | | | | LAB[facility]ATORY | | | | + + + + + MRSA NAAT (06/01/2012 1:46 PM PST) + + + + + + | Component | Value | Ref Range | Performed | Pathologist | | | | | At | Signature | + + + + + + | Specimen | Nasal | | [facility] | | | Source | | | [facility] | | | | | | HE[facility] | | | | | | MEDICAL | | | | | | CENTER | | | | | | LABORATORY | | + + + + + + | RESULT | Negative for MRSA by PCR | | [facility] | | | | | | [facility] | | | | | | HE[facility] | | | | | | MEDICAL | | | | | | CENTER | | | | | | LABORATORY | | + + + + + + | Status | 06/01/2012 Final | | [facility] | | | | [...] + + | [facility] | [address] | [place] [address] | | | [facility] | | | | | LABORATORY | | | | + + + + + | [facility] | | | | | [facility] | | | | | LABORATORY | | | | + + + + + XR Chest PA or AP (06/01/2012 1:36 PM PST) + + | Specimen | + + | | + + + + + | Narrative | Performed At | + + + | Exam Performed Location: [facility] | MISCELANIOUS | | ONE-VIEW PORTABLE CLINICAL INFORMATION: Coronary artery disease, | LAB | | mitral valve repair/replace. COMPARISON: Chest x-ray 05/31/2012. | | | FINDINGS: Postoperative changes with support lines and tubes as | | | below: Endotracheal tube in the mid intrathoracic trachea. | | | Nasogastric tube tip terminates at the GE junction. Right IJ line | | | overlies the superior vena cava. Bilateral chest tubes. Small | | | bilateral apical pneumothoraces. Cardiomegaly. Prosthetic | | | cardiac valve. Left midlung atelectasis. Improved aeration at the | | | right lung base. Interval resolution of pleural effusion. | | | IMPRESSION: 1. Postsurgical changes with lines and tubes as | | | above. Nasogastric tube at the GE junction. 2. Trace bilateral | | | apical pneumothoraces. Chest tubes in place. S: SQ ([id number]) | | | Signed by: CORI DUNCAN MD | | + + + + + | Procedure Note | + + | Bayron, Rad Conversion - 05/16/2013 4:30 AM PDT Exam Performed Location: [facility] | | at [facility] ONE-VIEW PORTABLECLINICAL INFORMATION:Coronary artery disease, | | mitral valve repair/replace.COMPARISON:Chest x-ray 05/31/2012.FINDINGS:Postoperative | | changes with support lines and tubes as below:Endotracheal tube in the mid intrathoracic | | trachea.Nasogastric tube tip terminates at the GE junction.Right IJ line overlies the | | superior vena cava.Bilateral chest tubes. Small bilateral apical | | pneumothoraces.Cardiomegaly. Prosthetic cardiac valve. Left midlung | | atelectasis.Improved aeration at the right lung base. Interval resolution ofpleural | | effusion.IMPRESSION:1. Postsurgical changes with lines and tubes as above.Nasogastric | | tube at the GE junction.2. Trace bilateral apical pneumothoraces. Chest tubes in | | place.S: SQ ([id number]) Signed by: CORI DUNCAN MD | |Postoperative changes with support lines and tubes as below: | |Endotracheal tube in the mid intrathoracic trachea. | |Nasogastric tube tip terminates at the GE junction. | |Right IJ line overlies the superior vena cava. | |Bilateral chest tubes. Small bilateral apical pneumothoraces. | | | |Cardiomegaly. Prosthetic cardiac valve. Left midlung atelectasis. | |Improved aeration at the right lung base. Interval resolution of | |pleural effusion. | | | |IMPRESSION: | | | |1. Postsurgical changes with lines and tubes as above. | |Nasogastric tube at the GE junction. | |2. Trace bilateral apical pneumothoraces. Chest tubes in place. | | | | | |S: SQ ([id number]) Signed by: CORI DUNCAN MD | + + + +---------+ + + | Performing | Address | City/State/Zipcode | Phone Number | | Organization | | | | + +---------+ + + | [facility] | | | [phone] | + +---------+ + + | [facility] | | | [phone] | + +---------+ + + Lactic Acid, Arterial, Surgery (06/01/2012 1:30 PM PST) + +-------+ + + + | Component | Value | Ref Range | Performed | Pathologist | | | | | At | Signature | + +-------+ + + + | Lactate, | 0.9 | 0.5 - 1.6 | [facility] | | | Arterial | | mmol/L | [facility] | | [...] + + | [facility] | [address] | [place] [address] | | | [facility] | | | | | LAB[facility]ATORY | | | | + + + + + | [facility] | | | | | [facility] | | | | | LABORATORY | | | | + + + + + Blood Gas , Arterial, Surgery (06/01/2012 1:30 PM PST) + + + + + + | Component | Value | Ref Range | Performed | Pathologist | | | | | At | Signature | + + + + + + | pH, | 7.37 | 7.37 - 7.47 | [facility] | | | Arterial | Comment: | | [facility] | | | | Results delivered to: | | HE[facility] | | | | [facility] | | [facility] | | | | | | CENTER | | | | | | LABORATORY | | + + + + + + | pCO2, | 44 (H) | 32 - 43 mm Hg | [facility] | | | Arterial | | | [facility] | | | | | | [facility] | | | | | | [facility] | | | | | | [facility]ENTER | | | | | | LABORATORY | | + + + + + + | pO2, | 182 (H) | 65 - 80 mm Hg | [facility] | | | Arterial | | | [facility] | | | | | | [facility] | | | | | | [facility] | | | | | | [facility]ENTER | | | | | | LABORATORY | | + + + + + + | Base | N/A | 0.0 - 2.5 | [facility] | | | deficit | | mmol/L | [facility] | | | | | | [facility] | | | | | | [facility] | | | | | | CENTER | | | | | | LABORATORY | | + + + + + + | Base | 0.1 | 0.0 - 2.5 | [facility] | | | Excess, | | mmol/L | [facility] | | | Arter[facility] | | | HE[facility] | | | | | | [facility] | | | | | | CENTER | | | | | | LABORATORY | | + + + + + + | HCO3, | 24.7 | 23.0 - 28.0 | [facility] | | | Arterial | | mmol/L | [facility] | | | | | | [facility] | | | | | | [facility] | | | | | | [facility]ENTER | | | | | | LABORATORY | | + + + + + + | Oxygen | 15.8 | 15 - 23 Vol % | [facility] | | | Content, | | | [facility] | | | Ar[facility] | | | HE[facility] | | | | | | [facility] | | | | | | CENTER | | | | | | LABORATORY | | + + + + + + | Hgb, Blood | 11.4 | 11.3 - 15.5 | [facility] | | | Gas | | g/dL | [facility] | | | | | | [facility] | | | | | | [facility] | | | | | | [facility]ENTER | | | | | | LABORATORY | | + + + + + + | HGB O2 SAT | 96.8 | 92.0 - 99.9 % | [facility] | | | | | | [facility] | | | | | | [facility] | | | | | | [facility] | | | | | | [facility] | | | | | | LABORATORY | | + + + + + + | Carboxyhemo | 2.3 | 1.0 - 3.0 % | [facility] | | | globin | | | [facility] | | | | | | [facility] | | | | | | MEDICAL | | | | | | CENTER | | | | | | LABORATORY | | + + + + + + | Methemoglob | 0.7 | 0.4 - 1.5 % | [facility] | | | in, Venous | | | [facility] | | | | | | HEART | | | | | | MEDICAL | | | | | | CENTER | | | | | | LABORATORY | | + + + + + + | Glucose, | 117 (H) | 65 - 99 mg/dL | [facility] | | | POC | | | [facility] | | | | | | HE[facility] | | | | | | MEDICAL | | | | | | CENTER | | | | | | LABORATORY | | + + + + + + | Calcium, | 5.19 | 4.75 - 5.30 | [facility] | | | Ionized | | mg/dL | [facility] | | | | | | HEART | | | | | | MEDICAL | | | | | | CENTER | | | | | | LABORATORY | | + + + + + + | Calcium, pH | 5.11 | 4.75 - 5.30 | [facility] | | | Normalized | | mg/dL | [facility] | | | | | | HEART | | | | | | MEDICAL | | | | | | CENTER | | | | | | LABORATORY | | + + + + + + | K | 3.9 | 3.5 - 5.0 | [facility] | | | | | mmol/L | [facility] | | | | | | HEART | | | | | | MEDICAL | | | | | | CENTER | | | | | | LABORATORY | | + + + + + + | Na | 147 (H) | 135 - 145 | [facility] | [...] + + | [facility] | [address] | [place] [address] | | | [facility] | | | | | LABORATORY | | | | + + + + + | [facility] | | | | | [facility] | | | | | LABORATORY | | | | + + + + + Thrombin Time and Figrinogen (06/01/2012 12:45 PM PST) + +---------+ + + + | Component | Value | Ref Range | Performed | Pathologist | | | | | At | Signature | + +---------+ + + + | Thrombin | 18.7 | 15.6 - 20.0 sec | [facility] | | | Time, | | | [facility] | | | Patient | | | HEART | | | | | | MEDICAL | | | | | | CENTER | | | | | | LABORATORY | | + +---------+ + + + | Thrombin | 19.6 | 15.6 - 20.0 sec | [facility] | | | Time, | | | [facility] | | | Control | | | HEART | | | | | | MEDICAL | | | | | | CENTER | | | | | | LABORATORY | | + +---------+ + + + | Fibrinogen | 123 (L) | 211 - 419 mg/dL | [facility] | | | | [...] + + | [facility] | [address] | [place] [address] | | | [facility] | | | | | LABORATORY | | | | + + + + + | [facility] | | | | | [facility] | | | | | LABORATORY | | | | + + + + + PTT (06/01/2012 12:45 PM PST) + + + + + + | Component | Value | Ref Range | Performed | Pathologist | | | | | At | Signature | + + + + + + | aPTT, | 44 (H)Comment: Deep | 26 - 36 sec | [facility] | | | Patient | venous thrombosis or | | [facility] | | | | pulmonary embolism | | HEART | | | | therapeutic heparin | | MEDICAL | | | | levels of 0.3 to 0.7 | | CENTER | | | | Units/mL anti FactorXa | | LABORATORY | | | | levels usually | | | | | | [...] + | [facility] | [address] | [place] [address] | | | [facility] | | | | | LABORATORY | | | | + + + + + | [facility] | | | | | [facility] | | | | | LABORATORY | | | | + + + + + Protime INR (06/01/2012 12:45 PM PST) + + + + + + | Component | Value | Ref Range | Performed | Pathologist | | | | | At | Signature | + + + + + + | Prothrombin | 22.2 (H) | 10.9 - 14.8 sec | [facility] | | | Time | | | [facility] | | | | | | HEART | | | | | | MEDICAL | | | | | | CENTER | | | | | | LABORATORY | | + + + + + + | INR | 1.9 (H)Comment: Usual | 0.9 - 1.2 | [...] + + | [facility] | [address] | [place] [address] | | | [facility] | | | | | LABORATORY | | | | + + + + + | [facility] | | | | | [facility] | | | | | LABORATORY | | | | + + + + + Platelet Count (06/01/2012 12:45 PM PST) + +--------+ + + + | Component | Value | Ref Range | Performed | Pathologist | | | | | At | Signature | + +--------+ + + + | Platelet | 75 (L) | 150 - 400 K/uL | [facility] | | | Count | | | [facility] | | | | | | HEART | | | | | | MEDICAL | | | | | | CENTER | | | | | | LABORATORY | | + +--------+ + + + + + | Specimen | + + | | + + + + + + + | Performing | Address | City/State/Zipcode | Phone Number | | Organization | | | | + + + + + | [facility] | [address] | [place] [address] | | | [facility] | | | | | LABORATORY | | | | + + + + + | [facility] | | | | | [facility] | | | | | LABORATORY | | | | + + + + + Extra Hold Tube(s) (06/01/2012 12:45 PM PST) + +-------+ + + + | Component | Value | Ref Range | Performed | Pathologist | | | | | At | Signature | + +-------+ + + + | Extra Tube | RED | | [facility] | | | | [...] + + | [facility] | [address] | [place] [address] | | | [facility] | | | | | LABORATORY | | | | + + + + + | [facility] | | | | | [facility] | | | | | LABORATORY | | | | + + + + + Blood Gas , Arterial, Surgery (06/01/2012 12:31 PM PST) + + + + + + | Component | Value | Ref Range | Performed | Pathologist | | | | | At | Signature | + + + + + + | pH, | 7.41 | 7.37 - 7.47 | [facility] | | | Arterial | Comment: | | [facility] | | | | Results delivered to: | | HEART | | | | MK | | MEDICAL | | | | | | CENTER | | | | | | LABORATORY | | + + + + + + | pCO2, | 41 | 32 - 43 mm Hg | [facility] | | | Arterial | | | [facility] | | | | | | HEART | | | | | | MEDICAL | | | | | | CENTER | | | | | | LABORATORY | | + + + + + + | pO2, | 229 (H) | 65 - 80 mm Hg | [facility] | | | Arterial | | | [facility] | | | | | | HEART | | | | | | MEDICAL | | | | | | CENTER | | | | | | LABORATORY | | + + + + + + | Base | N/A | 0.0 - 2.5 | [facility] | | | deficit | | mmol/L | [facility] | | | | | | HEART | | | | | | MEDICAL | | | | | | CENTER | | | | | | LABORATORY | | + + + + + + | Base | 1.1 | 0.0 - 2.5 | [facility] | | | Excess, | | mmol/L | [facility] | | | Arterial | | | HEART | | | | | | MEDICAL | | | | | | CENTER | | | | | | LABORATORY | | + + + + + + | HCO3, | 25.3 | 23.0 - 28.0 | [facility] | | | Arterial | | mmol/L | [facility] | | | | | | HEART | | | | | | MEDICAL | | | | | | CENTER | | | | | | LABORATORY | | + + + + + + | Oxygen | 14.1 (L) | 15 - 23 Vol % | [facility] | | | Content, | | | [facility] | | | Arterial | | | HEART | | | | | | MEDICAL | | | | | | CENTER | | | | | | LABORATORY | | + + + + + + | Hgb, Blood | 10.1 (L) | 11.3 - 15.5 | [facility] | | | Gas | | g/dL | [facility] | | | | | | HEART | | | | | | MEDICAL | | | | | | CENTER | | | | | | LABORATORY | | + + + + + + | HGB O2 SAT | 96.8 | 92.0 - 99.9 % | [facility] | | | | | | [facility] | | | | | | HEART | | | | | | MEDICAL | | | | | | CENTER | | | | | | LABORATORY | | + + + + + + | Carboxyhemo | 2.6 | 1.0 - 3.0 % | [facility] | | | globin | | | [facility] | | | | | | HEART | | | | | | MEDICAL | | | | | | CENTER | | | | | | LABORATORY | | + + + + + + | Methemoglob | 0.8 | 0.4 - 1.5 % | [facility] | | | in, Venous | | | [facility] | | | | | | HEART | | | | | | MEDICAL | | | | | | CENTER | | | | | | LABORATORY | | + + + + + + | Glucose, | 114 (H) | 65 - 99 mg/dL | [facility] | | | POC | | | [facility] | | | | | | HEART | | | | | | MEDICAL | | | | | | CENTER | | | | | | LABORATORY | | + + + + + + | Calcium, | 5.50 (H) | 4.75 - 5.30 | [facility] | | | Ionized | | mg/dL | [facility] | | | | | | HEART | | | | | | MEDICAL | | | | | | CENTER | | | | | | LABORATORY | | + + + + + + | Calcium, pH | 5.53 (H) | 4.75 - 5.30 | [facility] | | | Normalized | | mg/dL | [facility] | | | | | | HEART | | | | | | MEDICAL | | | | | | CENTER | | | | | | LABORATORY | | + + + + + + | K | 4.3 | 3.5 - 5.0 | [facility] | | | | | mmol/L | [facility] | | | | | | HEART | | | | | | MEDICAL | | | | | | CENTER | | | | | | LABORATORY | | + + + + + + | Na | 146 (H) | 135 - 145 | [facility] | [...] + + | [facility] | [address] | [place] [address] | | | [facility] | | | | | LABORATORY | | | | + + + + + | [facility] | | | | | [facility] | | | | | LABORATORY | | | | + + + + + Lactic Acid, Arterial, Surgery (06/01/2012 11:28 AM PST) + +-------+ + + + | Component | Value | Ref Range | Performed | Pathologist | | | | | At | Signature | + +-------+ + + + | Lactate, | 0.7 | 0.5 - 1.6 | [facility] | | | Arterial | | mmol/L | [facility] | | [...] + + + + + | [facility] | [address] | [place] [address] | | | [facility] | | | | | LABORATORY | | | | + + + + + | [facility] | | | | | [facility] | | | | | LABORATORY | | | | + + + + + Calcium, Ionized, Surgery (06/01/2012 11:28 AM PST) + + + + + + | Component | Value | Ref Range | Performed | Pathologist | | | | | At | Signature | + + + + + + | Calcium, | 4.35 (L) | 4.75 - 5.30 | [facility] | | | Ionized | | mg/dL | [facility] | | | | | | HEART | | | | | | MEDICAL | | | | | | CENTER | | | | | | LABORATORY | | + + + + + + | Calcium, pH | 4.18 (L) | 4.75 - 5.30 | [facility] | | | Normalized | | mg/dL | [facility] | | [...] + + | [facility] | [address] | [place] [address] | | | [facility] | | | | | LABORATORY | | | | + + + + + | [facility] | | | | | [facility] | | | | | LABORATORY | | | | + + + + + Blood Gas Profile, AGB, Potassium and Glucose, Surgery (06/01/2012 11:28 AM PST) + + + + + + | Component | Value | Ref Range | Performed | Pathologist | | | | | At | Signature | + + + + + + | pH, | 7.33 (L) | 7.37 - 7.47 | [facility] | | | Arterial | Comment: | | [facility] | | | | Results delivered to: | | HEART | | | | MK | | MEDICAL | | | | | | CENTER | | | | | | LABORATORY | | + + + + + + | pCO2, | 51 (H) | 32 - 43 mm Hg | [facility] | | | Arterial | | | [facility] | | | | | | HEART | | | | | | MEDICAL | | | | | | CENTER | | | | | | LABORATORY | | + + + + + + | pO2, | 319 (H) | 65 - 80 mm Hg | [facility] | | | Arterial | | | [facility] | | | | | | HEART | | | | | | MEDICAL | | | | | | CENTER | | | | | | LABORATORY | | + + + + + + | Base | N/A | 0.0 - 2.5 | [facility] | | | deficit | | mmol/L | [facility] | | | | | | HEART | | | | | | MEDICAL | | | | | | CENTER | | | | | | LABORATORY | | + + + + + + | Base | 0.6 | 0.0 - 2.5 | [facility] | | | Excess, | | mmol/L | [facility] | | | Arterial | | | HEART | | | | | | MEDICAL | | | | | | CENTER | | | | | | LABORATORY | | + + + + + + | HCO3, | 25.9 | 23.0 - 28.0 | [facility] | | | Arterial | | mmol/L | [facility] | | | | | | HEART | | | | | | MEDICAL | | | | | | CENTER | | | | | | LABORATORY | | + + + + + + | Oxygen | 14.8 (L) | 15 - 23 Vol % | [facility] | | | Content, | | | [facility] | | | Arterial | | | HEART | | | | | | MEDICAL | | | | | | CENTER | | | | | | LABORATORY | | + + + + + + | Hgb, Blood | 10.3 (L) | 11.3 - 15.5 | [facility] | | | Gas | | g/dL | [facility] | | | | | | HEART | | | | | | MEDICAL | | | | | | CENTER | | | | | | LABORATORY | | + + + + + + | HGB O2 SAT | 96.9 | 92.0 - 99.9 % | [facility] | | | | | | [facility] | | | | | | HEART | | | | | | MEDICAL | | | | | | CENTER | | | | | | LABORATORY | | + + + + + + | Carboxyhemo | 2.7 | 1.0 - 3.0 % | [facility] | | | globin | | | [facility] | | | | | | HEART | | | | | | MEDICAL | | | | | | CENTER | | | | | | LABORATORY | | + + + + + + | Methemoglob | 0.7 | 0.4 - 1.5 % | [facility] | | | in, Venous | | | [facility] | | | | | | HEART | | | | | | MEDICAL | | | | | | CENTER | | | | | | LABORATORY | | + + + + + + | Glucose, | 110 (H) | 65 - 99 mg/dL | [facility] | | | POC | | | [facility] | | | | | | HEART | | | | | | MEDICAL | | | | | | CENTER | | | | | | LABORATORY | | + + + + + + | K | 4.8 | 3.5 - 5.0 | [facility] | [...] + + | [facility] | [address] | [place] [address] | | | [facility] | | | | | LABORATORY | | | | + + + + + | [facility] | | | | | [facility] | | | | | LABORATORY | | | | + + + + + Lactic Acid, Arterial, Surgery (06/01/2012 11:00 AM PST) + +-------+ + + + | Component | Value | Ref Range | Performed | Pathologist | | | | | At | Signature | + +-------+ + + + | Lactate, | 0.6 | 0.5 - 1.6 | [facility] | | | Arterial | | mmol/L | [facility] | | [...] + + | [facility] | [address] | [place] [address] | | | [facility] | | | | | LABORATORY | | | | + + + + + | [facility] | | | | | [facility] | | | | | LABORATORY | | | | + + + + + Calcium, Ionized, Surgery (06/01/2012 11:00 AM PST) + + + + + + | Component | Value | Ref Range | Performed | Pathologist | | | | | At | Signature | + + + + + + | Calcium, | 4.30 (L) | 4.75 - 5.30 | [facility] | | | Ionized | | mg/dL | [facility] | | | | | | HEART | | | | | | MEDICAL | | | | | | CENTER | | | | | | LABORATORY | | + + + + + + | Calcium, pH | 4.06 (L) | 4.75 - 5.30 | [facility] | | | Normalized | | mg/dL | [facility] | | [...] + + | [facility] | [address] | [place] [address] | | | [facility] | | | | | LABORATORY | | | | + + + + + | [facility] | | | | | [facility] | | | | | LABORATORY | | | | + + + + + Blood Gas Profile AGB, VBG, Potassium and Glucose, Surgery (06/01/2012 11:00 AM PST) + + + + + + | Component | Value | Ref Range | Performed | Pathologist | | | | | At | Signature | + + + + + + | pH, | 7.29 (L) | 7.37 - 7.47 | [facility] | | | Arterial | Comment: | | [facility] | | | | Results delivered to: | | HEART | | | | MK | | MEDICAL | | | | | | CENTER | | | | | | LABORATORY | | + + + + + + | pCO2, | 52 (H) | 32 - 43 mm Hg | [facility] | | | Arterial | | | [facility] | | | | | | HEART | | | | | | MEDICAL | | | | | | CENTER | | | | | | LABORATORY | | + + + + + + | pO2, | 271 (H) | 65 - 80 mm Hg | [facility] | | | Arterial | | | [facility] | | | | | | HEART | | | | | | MEDICAL | | | | | | CENTER | | | | | | LABORATORY | | + + + + + + | Base | 1.3 | 0.0 - 2.5 | [facility] | | | deficit | | mmol/L | [facility] | | | | | | HEART | | | | | | MEDICAL | | | | | | CENTER | | | | | | LABORATORY | | + + + + + + | Base | N/A | 0.0 - 2.5 | [facility] | | | Excess, | | mmol/L | [facility] | | | Arterial | | | HEART | | | | | | MEDICAL | | | | | | CENTER | | | | | | LABORATORY | | + + + + + + | HCO3, | 24.4 | 23.0 - 28.0 | [facility] | | | Arterial | | mmol/L | [facility] | | | | | | HEART | | | | | | MEDICAL | | | | | | CENTER | | | | | | LABORATORY | | + + + + + + | Oxygen | 13.9 (L) | 15 - 23 Vol % | [facility] | | | Content, | | | [facility] | | | Arterial | | | HEART | | | | | | MEDICAL | | | | | | CENTER | | | | | | LABORATORY | | + + + + + + | Hgb, Blood | 9.8 (L) | 11.3 - 15.5 | [facility] | | | Gas | | g/dL | [facility] | | | | | | HEART | | | | | | MEDICAL | | | | | | CENTER | | | | | | LABORATORY | | + + + + + + | HGB O2 SAT | 97.1 | 92.0 - 99.9 % | [facility] | | | | | | [facility] | | | | | | HEART | | | | | | MEDICAL | | | | | | CENTER | | | | | | LABORATORY | | + + + + + + | Carboxyhemo | 2.6 | 1.0 - 3.0 % | [facility] | | | globin | | | [facility] | | | | | | HEART | | | | | | MEDICAL | | | | | | CENTER | | | | | | LABORATORY | | + + + + + + | Methemoglob | 0.5 | 0.4 - 1.5 % | [facility] | | | in, Venous | | | [facility] | | | | | | HEART | | | | | | MEDICAL | | | | | | CENTER | | | | | | LABORATORY | | + + + + + + | Glucose, | 108 (H) | 65 - 99 mg/dL | [facility] | | | POC | | | [facility] | | | | | | HEART | | | | | | MEDICAL | | | | | | CENTER | | | | | | LABORATORY | | + + + + + + | K | 4.2 | 3.5 - 5.0 | [facility] | | | | | mmol/L | [facility] | | | | | | HEART | | | | | | MEDICAL | | | | | | CENTER | | | | | | LABORATORY | | + + + + + + | pH, Venous | 7.26 (L) | 7.31 - 7.41 | [facility] | | | | | | [facility] | | | | | | HEART | | | | | | MEDICAL | | | | | | CENTER | | | | | | LABORATORY | | + + + + + + | pCO2, | 60 (H) | 41 - 51 mm Hg | [facility] | | | Venous | | | [facility] | | | | | | HEART | | | | | | MEDICAL | | | | | | CENTER | | | | | | LABORATORY | | + + + + + + | pO2, Venous | 67 (H) | 37 - 43 mm Hg | [facility] | | | | | | [facility] | | | | | | HEART | | | | | | MEDICAL | | | | | | CENTER | | | | | | LABORATORY | | + + + + + + | O2HB VINNY | 85.5 (H) | 70.0 - 76.0 % | [facility] | | | | | | [facility] | | | | | | HEART [...] + + | [facility] | [address] | [place] [address] | | | [facility] | | | | | LABORATORY | | | | + + + + + | [facility] | | | | | [facility] | | | | | LABORATORY | | | | + + + + + Lactic Acid, Arterial, Surgery (06/01/2012 10:31 AM PST) + +-------+ + + + | Component | Value | Ref Range | Performed | Pathologist | | | | | At | Signature | + +-------+ + + + | Lactate, | 0.6 | 0.5 - 1.6 | [facility] | | | Arterial | | mmol/L | [facility] | | [...] + + + + + | [facility] | [address] | [place] [address] | | | [facility] | | | | | LABORATORY | | | | + + + + + | [facility] | | | | | [facility] | | | | | LABORATORY | | | | + + + + + Calcium, Ionized, Surgery (06/01/2012 10:31 AM PST) + + + + + + | Component | Value | Ref Range | Performed | Pathologist | | | | | At | Signature | + + + + + + | Calcium, | 4.12 (L) | 4.75 - 5.30 | [facility] | | | Ionized | | mg/dL | [facility] | | | | | | HEART | | | | | | MEDICAL | | | | | | CENTER | | | | | | LABORATORY | | + + + + + + | Calcium, pH | 3.94 (L) | 4.75 - 5.30 | [facility] | | | Normalized | | mg/dL | [facility] | | [...] + + | [facility] | [address] | [place] [address] | | | [facility] | | | | | LABORATORY | | | | + + + + + | [facility] | | | | | [facility] | | | | | LABORATORY | | | | + + + + + Blood Gas Profile, AGB, Potassium and Glucose, Surgery (06/01/2012 10:31 AM PST) + + + + + + | Component | Value | Ref Range | Performed | Pathologist | | | | | At | Signature | + + + + + + | pH, | 7.32 (L) | 7.37 - 7.47 | [facility] | | | Arterial | Comment: | | [facility] | | | | Results delivered to: | | HEART | | | | MK | | MEDICAL | | | | | | CENTER | | | | | | LABORATORY | | + + + + + + | pCO2, | 54 (H) | 32 - 43 mm Hg | [facility] | | | Arterial | | | [facility] | | | | | | HEART | | | | | | MEDICAL | | | | | | CENTER | | | | | | LABORATORY | | + + + + + + | pO2, | 271 (H) | 65 - 80 mm Hg | [facility] | | | Arterial | | | [facility] | | | | | | HEART | | | | | | MEDICAL | | | | | | CENTER | | | | | | LABORATORY | | + + + + + + | Base | N/A | 0.0 - 2.5 | [facility] | | | deficit | | mmol/L | [facility] | | | | | | HEART | | | | | | MEDICAL | | | | | | CENTER | | | | | | LABORATORY | | + + + + + + | Base | 1.2 | 0.0 - 2.5 | [facility] | | | Excess, | | mmol/L | [facility] | | | Arterial | | | HEART | | | | | | MEDICAL | | | | | | CENTER | | | | | | LABORATORY | | + + + + + + | HCO3, | 26.7 | 23.0 - 28.0 | [facility] | | | Arterial | | mmol/L | [facility] | | | | | | HEART | | | | | | MEDICAL | | | | | | CENTER | | | | | | LABORATORY | | + + + + + + | Oxygen | 14.8 (L) | 15 - 23 Vol % | [facility] | | | Content, | | | [facility] | | | Arterial | | | HEART | | | | | | MEDICAL | | | | | | CENTER | | | | | | LABORATORY | | + + + + + + | Hgb, Blood | 10.4 (L) | 11.3 - 15.5 | [facility] | | | Gas | | g/dL | [facility] | | | | | | HEART | | | | | | MEDICAL | | | | | | CENTER | | | | | | LABORATORY | | + + + + + + | HGB O2 SAT | 97.1 | 92.0 - 99.9 % | [facility] | | | | | | [facility] | | | | | | HEART | | | | | | MEDICAL | | | | | | CENTER | | | | | | LABORATORY | | + + + + + + | Carboxyhemo | 2.5 | 1.0 - 3.0 % | [facility] | | | globin | | | [facility] | | | | | | HEART | | | | | | MEDICAL | | | | | | CENTER | | | | | | LABORATORY | | + + + + + + | Methemoglob | 0.5 | 0.4 - 1.5 % | [facility] | | | in, Venous | | | [facility] | | | | | | HEART | | | | | | MEDICAL | | | | | | CENTER | | | | | | LABORATORY | | + + + + + + | Glucose, | 101 (H) | 65 - 99 mg/dL | [facility] | | | POC | | | [facility] | | | | | | HEART | | | | | | MEDICAL | | | | | | CENTER | | | | | | LABORATORY | | + + + + + + | K | 4.5 | 3.5 - 5.0 | [facility] | [...] + + | [facility] | [address] | [place] [address] | | | [facility] | | | | | LABORATORY | | | | + + + + + | [facility] | | | | | [facility] | | | | | LABORATORY | | | | + + + + + Lactic Acid, Arterial, Surgery (06/01/2012 10:08 AM PST) + +-------+ + + + | Component | Value | Ref Range | Performed | Pathologist | | | | | At | Signature | + +-------+ + + + | Lactate, | 0.7 | 0.5 - 1.6 | [facility] | | | Arterial | | mmol/L | [facility] | | [...] + + | [facility] | [address] | [place] [address] | | | [facility] | | | | | LABORATORY | | | | + + + + + | [facility] | | | | | [facility] | | | | | LAB[facility]ORY | | | | + + + + + Calcium, Ionized, Surgery (06/01/2012 10:08 AM PST) + + + + + + | Component | Value | Ref Range | Performed | Pathologist | | | | | At | Signature | + + + + + + | Calcium, | 4.40 (L) | 4.75 - 5.30 | [facility] | | | Ionized | | mg/dL | [facility] | | | | | | [facility] | | | | | | MEDICAL | | | | | | CENTER | | | | | | LABORATORY | | + + + + + + | Calcium, pH | 4.17 (L) | 4.75 - 5.30 | [facility] | | | Normalized | | mg/dL | [facility] | | [...] + + | [facility] | [address] | [place] [address] | | | [facility] | | | | | LABORATORY | | | | + + + + + | [facility] | | | | | [facility] | | | | | LABORATORY | | | | + + + + + Blood Gas Profile AGB, VBG, Potassium and Glucose, Surgery (06/01/2012 10:08 AM PST) + + + + + + | Component | Value | Ref Range | Performed | Pathologist | | | | | At | Signature | + + + + + + | pH, | 7.30 (L) | 7.37 - 7.47 | [facility] | | | Arterial | Comment: | | [facility] | | | | Results delivered to: | | HE[facility] | | | | [facility] | | MEDICAL | | | | | | CENTER | | | | | | LABORATORY | | + + + + + + | pCO2, | 52 (H) | 32 - 43 mm Hg | [facility] | | | Arterial | | | [facility] | | | | | | [facility] | | | | | | MEDICAL | | | | | | CENTER | | | | | | LABORATORY | | + + + + + + | pO2, | 282 (H) | 65 - 80 mm Hg | [facility] | | | Arterial | | | [facility] | | | | | | HE[facility] | | | | | | MEDICAL | | | | | | CENTER | | | | | | LABORATORY | | + + + + + + | Base | 0.7 | 0.0 - 2.5 | [facility] | | | deficit | | mmol/L | [facility] | | | | | | HE[facility] | | | | | | MEDICAL | | | | | | CENTER | | | | | | LABORATORY | | + + + + + + | Base | N/A | 0.0 - 2.5 | [facility] | | | Excess, | | mmol/L | [facility] | | | Arterial | | | HEART | | | | | | MEDICAL | | | | | | CENTER | | | | | | LABORATORY | | + + + + + + | HCO3, | 24.8 | 23.0 - 28.0 | [facility] | | | Arterial | | mmol/L | [facility] | | | | | | [facility] | | | | | | MEDICAL | | | | | | CENTER | | | | | | LABORATORY | | + + + + + + | Oxygen | 14.1 (L) | 15 - 23 Vol % | [facility] | | | Content, | | | [facility] | | | Arterial | | | HEART | | | | | | MEDICAL | | | | | | CENTER | | | | | | LABORATORY | | + + + + + + | Hgb, Blood | 9.8 (L) | 11.3 - 15.5 | [facility] | | | Gas | | g/dL | [facility] | | | | | | HE[facility] | | | | | | MEDICAL | | | | | | CENTER | | | | | | LABORATORY | | + + + + + + | HGB O2 SAT | 97.1 | 92.0 - 99.9 % | [facility] | | | | | | [facility] | | | | | | [facility] | | | | | | [facility] | | | | | | CENTER | | | | | | LABORATORY | | + + + + + + | Carboxyhemo | 2.4 | 1.0 - 3.0 % | [facility] | | | globin | | | [facility] | | | | | | HE[facility] | | | | | | MEDICAL | | | | | | CENTER | | | | | | LABORATORY | | + + + + + + | Methemoglob | 0.6 | 0.4 - 1.5 % | [facility] | | | in, Venous | | | [facility] | | | | | | [facility] | | | | | | MEDICAL | | | | | | CENTER | | | | | | LABORATORY | | + + + + + + | Glucose, | 105 (H) | 65 - 99 mg/dL | [facility] | | | POC | | | [facility] | | | | | | [facility] | | | | | | MEDICAL | | | | | | CENTER | | | | | | LABORATORY | | + + + + + + | K | 4.1 | 3.5 - 5.0 | [facility] | | | | | mmol/L | [facility] | | | | | | [facility] | | | | | | MEDICAL | | | | | | CENTER | | | | | | LABORATORY | | + + + + + + | pH, Venous | 7.27 (L) | 7.31 - 7.41 | [facility] | | | | | | [facility] | | | | | | [facility] | | | | | | [facility] | | | | | | CENTER | | | | | | LABORATORY | | + + + + + + | pCO2, | 57 (H) | 41 - 51 mm Hg | [facility] | | | Venous | | | [facility] | | | | | | [facility] | | | | | | MEDICAL | | | | | | CENTER | | | | | | LABORATORY | | + + + + + + | pO2, Venous | 66 (H) | 37 - 43 mm Hg | [facility] | | | | | | [facility] | | | | | | [facility] | | | | | | [facility] | | | | | | [facility]ENTER | | | | | | LABORATORY | | + + + + + + | O2HB VINNY | 85.0 (H) | 70.0 - 76.0 % | [facility] | | | | [...] + + | [facility] | [address] | [place] [address] | | | [facility] | | | | | LABORATORY | | | | + + + + + | [facility] | | | | | [facility] | | | | | LABORATORY | | | | + + + + + Hemoglobin, Surgery (06/01/2012 9:36 AM PST) + + + + + + | Component | Value | Ref Range | Performed | Pathologist | | | | | At | Signature | + + + + + + | Hemoglobin | 12.6 | 11.3 - 15.5 | [facility] | | | | Comment: | g/dL | [facility] | | | | Results delivered to: | | HEART | | | | KK | | MEDICAL | | | | [...] + + + | SIL[facility]CR[facility] | [address] | [place] [address] | | | HE[facility] | | | | | LABORATORY | | | | + + + + + | [facility] | | | | | [facility] | | | | | LABORATORY | | | | + + + + + Lactic Acid, Arterial, Surgery (06/01/2012 8:13 AM PST) + +-------+ + + + | Component | Value | Ref Range | Performed | Pathologist | | | | | At | Signature | + +-------+ + + + | Lactate, | 0.7 | 0.5 - 1.6 | [facility] | | | Arterial | | mmol/L | [facility] | | [...] + + + | SIL[facility] SACRAF[facility] | [address] | [place] [address] | | | [facility] | | | | | LABORATORY | | | | + + + + + | [facility] | | | | | [facility] | | | | | LABORATORY | | | | + + + + + Blood Gas , Arterial, Surgery (06/01/2012 8:13 AM PST) + + + + + + | Component | Value | Ref Range | Performed | Pathologist | | | | | At | Signature | + + + + + + | pH, | 7.35 (L) | 7.37 - 7.47 | [facility] | | | Arterial | Comment: | | [facility] | | | | Results delivered to: | | HEART | | | | MK | | MEDICAL | | | | | | CENTER | | | | | | LABORATORY | | + + + + + + | pCO2, | 46 (H) | 32 - 43 mm Hg | [facility] | | | Arterial | | | [facility] | | | | | | HEART | | | | | | MEDICAL | | | | | | CENTER | | | | | | LABORATORY | | + + + + + + | pO2, | 428 (H) | 65 - 80 mm Hg | [facility] | | | Arterial | | | [facility] | | | | | | HEART | | | | | | MEDICAL | | | | | | CENTER | | | | | | LABORATORY | | + + + + + + | Base | 0.0 | 0.0 - 2.5 | [facility] | | | deficit | | mmol/L | [facility] | | | | | | HEART | | | | | | MEDICAL | | | | | | CENTER | | | | | | LABORATORY | | + + + + + + | Base | N/A | 0.0 - 2.5 | [facility] | | | Excess, | | mmol/L | [facility] | | | Arterial | | | HEART | | | | | | MEDICAL | | | | | | CENTER | | | | | | LABORATORY | | + + + + + + | HCO3, | 24.9 | 23.0 - 28.0 | [facility] | | | Arterial | | mmol/L | [facility] | | | | | | HEART | | | | | | MEDICAL | | | | | | CENTER | | | | | | LABORATORY | | + + + + + + | Oxygen | 18.4 | 15 - 23 Vol % | [facility] | | | Content, | | | [facility] | | | Arterial | | | HEART | | | | | | MEDICAL | | | | | | CENTER | | | | | | LABORATORY | | + + + + + + | Hgb, Blood | 12.7 | 11.3 - 15.5 | [facility] | | | Gas | | g/dL | [facility] | | | | | | HEART | | | | | | MEDICAL | | | | | | CENTER | | | | | | LABORATORY | | + + + + + + | HGB O2 SAT | 97.4 | 92.0 - 99.9 % | [facility] | | | | | | [facility] | | | | | | HE[facility] | | | | | | MEDICAL | | | | | | CENTER | | | | | | LABORATORY | | + + + + + + | Carboxyhemo | 2.4 | 1.0 - 3.0 % | [facility] | | | globin | | | [facility] | | | | | | HEART | | | | | | MEDICAL | | | | | | CENTER | | | | | | LABORATORY | | + + + + + + | Methemoglob | 0.5 | 0.4 - 1.5 % | [facility] | | | in, Venous | | | [facility] | | | | | | HEART | | | | | | MEDICAL | | | | | | CENTER | | | | | | LABORATORY | | + + + + + + | Glucose, | 104 (H) | 65 - 99 mg/dL | [facility] | | | POC | | | [facility] | | | | | | HEART | | | | | | MEDICAL | | | | | | CENTER | | | | | | LABORATORY | | + + + + + + | Calcium, | 4.81 | 4.75 - 5.30 | [facility] | | | Ionized | | mg/dL | [facility] | | | | | | HEART | | | | | | MEDICAL | | | | | | CENTER | | | | | | LABORATORY | | + + + + + + | Calcium, pH | 4.69 (L) | 4.75 - 5.30 | [facility] | | | Normalized | | mg/dL | [facility] | | | | | | HEART | | | | | | MEDICAL | | | | | | CENTER | | | | | | LABORATORY | | + + + + + + | K | 3.3 (L) | 3.5 - 5.0 | [facility] | | | | | mmol/L | [facility] | | | | | | HEART | | | | | | MEDICAL | | | | | | CENTER | | | | | | LABORATORY | | + + + + + + | Na | 141 | 135 - 145 | [facility] | [...] + + | [facility]NAN[facility] | [address] | [place] [address] | | | [facility] | | | | | LABORATORY | | | | + + + + + | [facility] | | | | | [facility] | | | | | LABORATORY | | | | + + + + + POC Glucose (06/01/2012 6:21 AM PST) + +---------+ + + + | Component | Value | Ref Range | Performed | Pathologist | | | | | At | Signature | + +---------+ + + + | Glucose, | 125 (H) | 65 - 99 mg/dL | [facility] | | | POC | | | [facility] | | | [...] | + + + + + | [facility]GIN[facility] HERNANDE[facility] | [address] | [place] [address] | | | [facility] | | | | | LABORATORY | | | | + + + + + | [facility] | | | | | [facility] | | | | | LABORATORY | | | | + + + + + Surgical Pathology Exam (06/01/2012 12:00 AM PST) + + | Specimen | + + | | + + + + + | Narrative | Performed At | + + + | SURGICAL PATHOLOGY REPORT | [place] | | Date Taken: 06/01/2012 Date Received: | [facility] | | 06/01/2012 Completed: 06/04/2012 Physician: PIERRE [facility] | | to: DIAGNOSIS: Anterior mediastinal lymph node biopsy: | LABORATORY | | Benign lymph node showing nonspecific, reactive, mild | | | interfollicular hyperplasia and moderate sinus histiocytosis. See | | | comment. 0 COMMENT: The etiology of this reactive | | | lymphadenopathy is uncertain. No acute inflammation is seen. No | | | granulomas are encountered. There is no suggestion of primary or | | | metastatic malignancy. Clinical correlation is required. [facility] | | | Марина Jenkins M.D. Electronic signature GROSS DESCRIPTION: The | | | specimen is received in formalin labeled and designated "[place], | | | anterior mediastinal lymph node" and consists of a 1.0 x 0.4 x 0.4 cm | | | michael tissue fragment that is now bisected and submitted all in | | | "A1". (JA) MICROSCOPIC DESCRIPTION: Histologic sections of all | | | submitted blocks are examined by light microscopy. These findings, | | | together with the gross examination, support the pathologic | | | diagnosis. A: [id number] | | | [place] [address] or | | | Testing performed at: [facility] | | | Laboratory Elijah Bowser M.D., Director [facility] [address] | | | [address] [place] [address] | | + + + + + + + + | Performing | Address | City/State/Zipcode | Phone Number | | Organization | | | | + + + + + | SILVER[facility] HERNANDE[facility] | [address] | [place] [address] | | | [facility] | | | | | LABORATORY | | | | + + + + + | [facility] | | | | | [facility] | | | | | LABORATORY | | | | + + + + + Culture, Urine (05/31/2012 2:45 PM PST) + + + + + + | Component | Value | Ref Range | Performed | Pathologist | | | | | At | Signature | + + + + + + | Specimen | Urine | | [facility] | | | Source | | | [facility] | | | | | | [facility]ART | | | | | | MEDICAL | | | | | | CENTER | | | | | | LABORATORY | | + + + + + + | RESULT | 1,000 Organisms/ml Beta | | [facility] | | | | Streptococcus Group B | | [facility] | | | | (A) | | HEART | | | | | | MEDICAL | | | | | | CENTER | | | | | | LABORATORY | | + + + + + + | RESULT | Group B Strep is | | [facility] | | | | predictably susceptible | | [facility] | | | | to penicillins and | | HEART | | | | cephalosporins. | | MEDICAL | | | | | | CENTER | | | | | | LABORATORY | | + + + + + + | Status | 06/02/2012 Final | | [facility] | | | | [...] + + | [facility] | [address] [place] | [place] [address] | | | [facility] | | | | | LABORATORY | | | | + + + + + | [facility] | | | | | [facility] | | | | | LABORATORY | | | | + + + + + documented in this encounter Visit Diagnoses Not on filedocumented in this encounter
[~2020-03-26 11:48] MED LIST: ALPRAZOLAM0.5 MG PO; AMLODIPINE BES2.5 MG PO; ASPIRIN EC81 MG PO; CARVEDILOL3.125 MG PO; DOCUSATE SODIU100 MG PO; DOXEPIN HCL50 MG PO; FUROSEMIDE20 MG PO; LISINOPRIL20 MG PO; NORCO 5-325 TA1 EACH PO; POTASSIUM CHLO10 MEQ PO; SIMVASTATIN20 MG PO
--- OUTSIDE RECORDS SUMMARY | 2020-03-26 11:50 | XMS ---
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 EEleni VISIT COUNT (12 MO.) 1 [facility] TOTAL 1 NOTE: Visits indicate total known visits. ED/UCC VISIT TRACKING (12 MO.) 03/26/2020 11:48 [facility] [place] TYPE: Emergency COMPLAINT: - R SIDE NUMBNESS INPATIENT VISIT TRACKING (12 MO.) No inpatient visits to display in this time frame [id number]
[2020-03-26] MEDS ORDERED: LIPITOR10 MG PO (12:15)
--- NOTE | 2020-03-26 17:26 | EKG ---
[facility] [address] [facility] [place] [address] Signed Normal sinus rhythm Possible Left atrial enlargement Inferior infarct , age undetermined T wave abnormality, consider anterolateral ischemia Abnormal ECG No previous ECGs available Confirmed by JUAN ALBERTO QUEEN MD ([id number]) on 03/26/2020 5:26:09 PM Electronically Signed By: JUAN ALBERTO QUEEN MD 03/26/20 1726 PATIENT NAME: FRANCE BONDJuayn ESTEBAN Electrocardiogram DATE OF : 51 PHYSICIAN: JUAN ALBERTO QUEEN MD REPORT #: [id number] REPORT IS CONFIDENTIAL AND NOT TO BE RELEASED WITHOUT AUTHORIZATION
== END 2020-03-26 14:15 | disposition home or self-care (01) ==
LOC: ED 11:48
DX: R20.2 Paresthesia of skin (principal); I10 Essential (primary) hypertension; F41.9 Anxiety disorder, unspecified; F17.200 Nicotine dependence, unspecified, uncomplicated; Z88.0 Allergy status to penicillin; Z88.1 Allergy status to other antibiotic agents; Z91.041 Radiographic dye allergy status; Z79.899 Other long term (current) drug therapy
CPT/HCPCS: 70450; 80053; 83735; 84484; 85025; 93005; 93010; 99284-25

== ENCOUNTER 2022-10-14 11:45 | Emergency (ER) | payer MEDICARE ==
[~2022-10-14] VITALS: Ht 167.6 cm; Wt 63.5 kg
[~2022-10-14 11:45] MED LIST changes: +LIPITOR10 MG PO
--- OUTSIDE RECORDS SUMMARY | 2022-10-14 11:50 | XMS ---
PreManage Notification: OFELIA BOND Security Impress Associate Events No recent Security Events currently on file CRITERIA MET - [facility] 03/27/2020-[facility] PHONE: [phone] Lamberto has no Care Guidelines for this patient. Care History Medical/Surgical 03/27/2020 [facility] - PATIENT IS [facility] ELIGIBLE, \T\middot;\T\nbsp; PLEASE REFER PATIENT TO [facility] FOR NON EMERGENT MEDICAL NEEDS. \T\middot;\T\nbsp; [facility] CAN SEE PATIENTS SAME DAY FOR APTS IF PATIENT CALLS FIRST THING IN THE MORNING. E.D. VISIT COUNT (12 MO.) 1 [facility] [address] TOTAL 2 NOTE: Visits indicate total known visits. ED/UCC VISIT TRACKING (12 MO.) 10/14/2022 11:[address] [facility] [place] TYPE: Emergency COMPLAINT: - SOB, COUGH, CONGESTION, LOW O2 SATS 08/03/2022 00:24 [facility] [place] TYPE: Emergency DIAGNOSES: - Acute ischemic heart disease, unspecified - Other chest pain - CHEST PAIN INPATIENT VISIT TRACKING (12 MO.) No inpatient visits to display in this time frame [email or web address]
[2022-10-14] MEDS ORDERED: PREDNISONE20 MG PO (15:34)
[2022-10-14] MEDS ORDERED: IPRAT-ALBUT 0.5-3 ML INH (15:34)
[2022-10-14] MEDS ORDERED: DOXYCYCLINE HY100 MG PO (15:34)
[2022-10-14] MEDS ORDERED: VENTOLIN HFA18 GM INH (15:34)
--- NOTE | 2022-10-15 15:08 | EKG ---
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
== END 2022-10-14 16:04 | disposition home or self-care (01) ==
LOC: ED 11:45
DX: J44.1 Chronic obstructive pulmonary disease with (acute) exacerbation (principal); Z20.822 Contact with and (suspected) exposure to COVID-19; I10 Essential (primary) hypertension; F17.200 Nicotine dependence, unspecified, uncomplicated; Z88.8 Allergy status to other drugs, medicaments and biological substances; Z88.0 Allergy status to penicillin; Z79.899 Other long term (current) drug therapy; Z79.82 Long term (current) use of aspirin
CPT/HCPCS: 36415; 71045; 80053; 83735; 83880; 84484; 85025; 87502; 93005; 93010; 94640; 94664; 96374; 99285-25; C9803; J2930; U0003

== ENCOUNTER 2023-12-20 18:40 | Emergency (ER) | payer MEDICARE ==
[~2023-12-20] VITALS: Ht 167.6 cm; Wt 64.0 kg
[~2023-12-20 18:40] MED LIST changes: +DOXYCYCLINE HY100 MG PO; +IPRAT-ALBUT 0.5-3 ML INH; +PREDNISONE20 MG PO; +VENTOLIN HFA18 GM INH
[2023-12-20] MEDS ORDERED: ALBUTEROL/IPRATROPIUM 3 ML NEB ONE (18:51)
[2023-12-20] MEDS ORDERED: ALBUTEROL/IPRATROPIUM 3 ML NEB INH PRN (19:00)
[2023-12-20 19:09] LABS: BASOPHILS 0.4 % (0-2); EOSINOPHILS 0.5 % (0-6); HEMATOCRIT 43.2 % (35.0-50.0); HEMOGLOBIN 14.3 g/dL (12.0-18.0); LYMPHOCYTES 18.2 % (24-44); MCH 28.2 (27-36); MCHC 33.2 g/dl (30-36); MCV 85.1 fl (81-99); MONOCYTES 5.6 % (0-12); NEUTROPHILS 75.3 % (39-80); PLATELET COUNT 177 K/uL (140-440); RBC 5.08 M/ul (4.3-5.7); RDW 13.8 (10.5-15.0)
[2023-12-20] MEDS ORDERED: CEFTRIAXONE/SODIUM CHLORIDE 2 GM/100 ML PIGGYBACK IV ONE (19:15)
[2023-12-20 19:38] LABS: ALBUMIN 3.9 g/dL (3.4-5.0); ANION GAP 14.4 (7-21); BILIRUBIN, TOTAL 0.3 ng/dL (0.2-1.0); BUN/CREATININE RATIO 23.91 (6.0-28.6); CALCIUM 8.6 mg/dL (8.5-10.1); CREATININE, SERUM 0.92 mg/dL (0.55-1.02); POTASSIUM 4.4 mmol/L (3.5-5.1); PROTEIN, TOTAL 7.8 g/dL (6.4-8.2)
[2023-12-20] MEDS ORDERED: AZITHROMYCIN 250 MG HOME.PACK PO ONE (22:30)
[2023-12-20] MEDS ORDERED: methylPREDNISolone 4 MG HOME.PACK PO ONE (22:30)
[2023-12-20] MEDS ORDERED: ALBUTEROL SULFATE 8 GM HOME.PACK INH ONE (22:30)
[2023-12-20] MEDS ORDERED: INHALER, ASSIST DEVICES 1 EACH SPACER MISC ONE (22:30)
[2023-12-20 22:58] VITALS: BP 142/78
--- NOTE | 2023-12-21 23:57 | EKG ---
[facility] [address] [facility] [place] [address] Signed Sinus tachycardia Possible Left atrial enlargement Left ventricular hypertrophy with repolarization abnormality ( [place] product ) Inferior-posterior infarct (cited on or before 26-MAR-2020) Abnormal ECG When compared with ECG of 14-OCT-2022 12:09, Nonspecific T wave abnormality, improved in Lateral leads Confirmed by Madai Lewis MD () on 12/21/2023 11:56:52 PM Electronically Signed By: MADAI LEWIS MD 12/21/23 2357 PATIENT NAME: OFELIA BOND Electrocardiogram DATE OF : 51 PHYSICIAN: MADAI LEWIS MD REPORT #: [id number] REPORT IS CONFIDENTIAL AND NOT TO BE RELEASED WITHOUT AUTHORIZATION
== END 2023-12-20 22:59 | disposition home or self-care (01) ==
LOC: ED 18:40
PROVIDERS: Emergency Medicine
DX: J18.9 Pneumonia, unspecified organism (principal); J21.9 Acute bronchiolitis, unspecified; D72.829 Elevated white blood cell count, unspecified; I10 Essential (primary) hypertension; F41.9 Anxiety disorder, unspecified; F17.200 Nicotine dependence, unspecified, uncomplicated; Z88.8 Allergy status to other drugs, medicaments and biological substances; Z88.0 Allergy status to penicillin; Z79.52 Long term (current) use of systemic steroids; Z79.82 Long term (current) use of aspirin; Z79.899 Other long term (current) drug therapy
CPT/HCPCS: 36415; 71045; 71250; 80053; 83605; 83735; 83880; 84484; 85025; 85379; 94640; 94664; 96374; 99285-25; J0696